=== PATIENT | female | born 1995 | race Caucasian/White ===

== ENCOUNTER 2020-03-06 14:03 | Emergency (ER) | payer MEDICAID, SELFPAY ==
[2020-03-06 14:37] VITALS: BP 138/79; PULSE 86; RESP 16; TEMP 37.1; O2SAT 100; BMI 21.7
[2020-03-06 15:59] LABS: Influenza A PCR NEGATIVE (Negative); Influenza B PCR NEGATIVE (Negative); Resp Syncy Virus RNA Qual PCR NEGATIVE (Negative); SARS COV2 PCR INHOUSE NEGATIVE (Negative)
[2020-03-06 16:00] VITALS: BP 130/70; PULSE 81; RESP 16; TEMP 36.9; O2SAT 100
--- NOTE | 2020-03-06 16:47 | ED_ITS ---
HPI - Nausea/Vomiting/Diarrhea General Chief complaint: Nausea/Vomiting/Diarrhea Stated complaint: flu like symptoms Source: patient Mode of arrival: ambulatory Limitations: no limitations History of Present Illness HPI Narrative: Patient presents to ED for viral-like syndrome. Patient states headache, body aches, fatigue, vomiting and chills for the past 4 days. Patient states no chest pain or shortness of breath. Patient denies any abdominal pain, dysuria, hematuria, flank pain, vaginal bleeding, vaginal discharge. Patient denies any coughing up blood Related Data Allergies Allergy/AdvReac Type Severity Reaction Status Date / Time sumatriptan [From IMITREX] Allergy Mild FAINTED, Verified 03/06/20 14:40 EYES ROLLED BACK, SOB latex [LATEX] Allergy Unknown UNKNOWN Verified 03/06/20 14:40 From IMITREX Allergy Mild FAINTED, Uncoded 11/29/19 16:18 EYES ROLLED BACK, SOB Review of Systems Review of Systems: Yes all other systems are reviewed and are negative Constitutional: Constitutional: Reports as per HPI, Reports no additional constitutional complaints, Reports body ache(s), Reports chills, Reports fatigue and Reports headache(s) Eyes: Eyes: Reports as per HPI and Reports no additional eye complaints ENT: Reports system reviewed and no additional complaints, except as documented, Reports as per HPI and Reports headache(s) Cardiovascular: Cardiovascular: Reports as per HPI and Reports no additional cardiovascular complaints Respiratory: Respiratory: Reports as per HPI and Reports no additional respiratory complaints Gastrointestinal: Gastrointestinal: Reports no additional gastrointestinal complaints, Denies abdominal pain and Reports vomiting Genitourinary: Genitourinary: Reports no additional female genitourinary complaints and Reports as per HPI Musculoskeletal: Musculoskeletal: Reports no additional musculoskeletal complaints and Reports as per HPI Neurologic: Reports system reviewed and no additional complaints, except as documented, Reports as per HPI and Reports headache(s) Psychiatric: Psychiatric: Reports no additional psychiatric complaints and Reports as per HPI Endocrine: Endocrine: Reports fatigue PMFSH Past Medical History Medical History (Updated 03/06/20 @ 16:54 by DIEUDONNE Hartman) Asthma Social History Social History Advance Directives: No Advance Directives Information Provided: No Physical Exam Vital Signs: Vital Signs: Last Vital Signs Temp 98.8 F 03/06/20 14:37 Pulse 86 03/06/20 14:37 Resp 16 03/06/20 14:37 BP 138/79 12/24/20 14:37 Pulse Ox 100 03/06/20 14:37 Body Mass Index 21.7 Const: General: cooperative, healthy appearing, comfortable, no acute distress, well developed, alert, awake and Physically active Orientation/consciousness: patient oriented x3 HENMT: Head: Yes normal to inspection, Yes No palpable skull fracture present, Yes normocephalic, Yes atraumatic, No abrasion, No Acrocyanosis present, No Hall's sign, No contusion, No cranial bruits, No hematoma, No laceration, No occipital foramen tenderness, No palpable skull fracture, No raccoon eyes, No scalp lesion, No scalp tenderness, No Temporal artery tenderness present and No periorbital ecchymosis General nose exam: Normal external nose present, Normal nares present and No nasal polyps present Face and sinus: Yes normal facial exam Throat: Yes posterior oropharynx normal, Yes tonsils normal and Yes uvula midline Eyes: Other: Negative photophobia General: appearance normal, both eyes and all related structures Neck: Neck: Yes normal visual inspection, Yes full ROM, Yes no lymphadenopathy, Yes no meningeal signs, Yes trachea midline, Yes supple and No tender Chest: Chest palpation & inspection: normal inspection of the chest and normal palpation of entire chest wall Resp: Effort & Inspection: normal respiratory effort and able to speak in complete sentences Auscultation: clear to auscultation bilaterally Cardio: Jugular venous distension: no JVD Heart sounds: S1 normal heart sound present and S2 normal heart sound present GI: Inspection: Yes normal to inspection and No abdominal wall ecchymosis Palpation (GI): Soft to palpation, not firm, nontender, no guarding and not rigid : General: No CVA tenderness and Yes no CVA tenderness Back/Spine/Pelvis: Back: no CVA tenderness, No CVA tenderness and No back tenderness Skin: General skin exam: no rashes or lesions noted and elasticity normal Neuro: General: patient oriented x3, gait normal, no meningeal signs and CN's II-XI intact bilaterally Cranial nerves: Yes CN's II-XII intact bilaterally Extrem: General: Yes normal to inspection and Yes full ROM Psych: Appearance: grossly normal, well kempt and not disheveled Course Course Course Narrative: Patient has viral syndrome. Vital signs are stable. No need for labs. Patient will have COVID swab sent. Reevaluation(s) Reevaluation #1: COVID swab came back negative. Patient was informed this does not mean she does not have COVID. Patient informs insert and individuals can have false negative. Patient informed to continue self-isolation if symptoms worsen. Patient denies ever having abdominal pain. Patient did not have any vomiting during ED visit. Patient passed p.o. challenge. Time: 16:52 MDM - Nausea/Vomiting/Diarrhea MDM Narrative Medical decision making narrative: Viral syndrome Lab Data Labs: Lab Results 03/06/20 Range/Units 15:13 Coronavirus (PCR) NEGATIVE (Negative) Influenza Type A (PCR) NEGATIVE (Negative) Influenza Type B (PCR) NEGATIVE (Negative) RSV RNA Qual (PCR) NEGATIVE (Negative) Discharge Plan Discharge Clinical Impression: Acute viral syndrome Patient Disposition: Home, Self-Care Instructions: Viral Syndrome (ED) Additional Instructions: Return to the ED immediately for any abdominal pain, vaginal bleeding, vaginal discharge, pain for urination, neck stiffness, intractable fever, chills, weakness, or any other concerning symptoms. Recommend 14 days self-isolation if symptoms worsen. Referrals: [facility] [Primary Care Provider] - 2 days (Viral syndrome.) Print Language: [place]
== END 2020-03-06 17:24 | disposition home or self-care (01) ==
PROVIDERS: Physician Assistant; Emergency Provider Emergency Medicine
DX: B34.9 Viral infection, unspecified (principal); Z20.828 Contact with and (suspected) exposure to other viral communicable diseases; R51.9 Headache, unspecified; J45.909 Unspecified asthma, uncomplicated
CPT/HCPCS: 0241U; 99284

== ENCOUNTER 2020-03-08 10:27 | Emergency (ER) | payer MEDICAID, SELFPAY ==
[2020-03-08 10:31] VITALS: BP 111/81; BP 126/72; PULSE 87; PULSE 90; RESP 20; TEMP 36.9; O2SAT 100; BMI 21.7
--- NOTE | 2020-03-08 12:11 | US_ITS ---
EXAMINATION: US ABDOMEN COMPLETE CLINICAL INFORMATION: Right upper quadrant, epigastric and left upper quadrant pain with nausea and vomiting. COMPARISON: CT abdomen 02/08/2010. TECHNIQUE: Real-time imaging of the abdominal viscera. FINDINGS: PANCREAS: No pancreatic mass is seen but the duct in the head of the pancreas is prominent at 5 mm. ABDOMINAL AORTA: The proximal, mid, and distal segments are normal in caliber. INFERIOR VENA CAVA: Visualized portions are normal. LIVER: The liver is normal in size. The liver contour is normal. Parenchymal echogenicity is normal. No focal hepatic lesion. There is no intrahepatic biliary duct dilatation seen. GALLBLADDER: The gallbladder is physiologically distended without evidence of stones, sludge, polyps, wall thickening or pericholecystic fluid. COMMON BILE DUCT: Normal in caliber measuring 0.8 cm in diameter. RIGHT KIDNEY: A mid pole 2 mm nonobstructing calculus is present. No hydronephrosis. No other renal calculi or focal parenchymal lesions. The kidney measures 10.2 cm in maximum dimension. LEFT KIDNEY: A lateral to mid pole 2 mm echogenic focus is present along with a similar-sized echogenic focus in the lower pole consistent with nonobstructing calculi. A tiny 2 mm renal cyst is noted. No hydronephrosis. No solid focal parenchymal lesions. The kidney measures 10.2 cm in maximum dimension. SPLEEN: Normal. The spleen measures 8.9 cm in maximum dimension. FREE FLUID: None. US/US abdomen complete IMPRESSION: Prominent distal pancreatic duct but no obstructing mass seen. Nonobstructing bilateral renal calculi.
[2020-03-08] MEDS: 0.9 % Sodium Chloride 1,000 ML 999 ML IVCONT (13:21)
[2020-03-08] MEDS: Famotidine/PF 20 MG/2 ML VIAL IVPUSH (13:21)
[2020-03-08] MEDS: Magnesium Hydrox/Alum Hydrox 30 ML ORAL.SUSP PO (13:22)
[2020-03-08 13:23] LABS: Basophils Percent Auto 0.4 % (0-2); Eosinophils Absolute Auto 0.1 X10*3/uL (0.0-0.4); Eosinophils Percent Auto 0.6 % (0-4); Hematocrit 39.2 % (37-47); Imm Gran Abs Auto 0.03 X10*3/uL (0.00-0.03); Imm Gran Pct Auto 0.3 % (0.0-0.4); Lymphocytes Absolute Auto 2.1 X10*3/uL (1.2-4.9); Lymphocytes Percent Auto 21.7 % (20-40); MANUAL DIFF FLAG NO; Mean Corpuscular HGB Conc 33.2 g/dl (31.0-35.0); Mean Corpuscular Hemoglobin 28.4 pg (27.0-33.0); Mean Corpuscular Volume 85.8 fL (80-98); Mean Platelet Volume 12.9 fL (9.4-12.3); Monocytes Absolute Auto 0.6 X10*3/uL (0.1-1.2); Monocytes Percent Auto 5.8 % (2-11); Neutrophils Percent Auto 71.2 % (45-73); Platelet Count 162 X10*3/uL (160-400); Red Blood Count 4.57 X10*6/uL (4.20-5.50); Red Cell Distribution Width 13.2 % (11.0-16.0); White Blood Count 9.9 X10*3/uL (4.8-10.8)
[2020-03-08 13:53] LABS: Alanine Aminotransferase 10 U/L (0-31); Albumin Level 4.5 g/dL (3.5-5.0); Alkaline Phosphatase 51 U/L (39-117); Anion Gap 16 (12-20); Aspartate Amino Transferase 17 U/L (5-31); Bilirubin Direct 0.5 mg/dL (0.0-0.5); Bilirubin Total 1.2 mg/dL (0.0-1.0); Blood Urea Nitrogen 14 mg/dL (9-16); Calcium 9.3 mg/dL (8.4-10.2); Carbon Dioxide 23 mmol/L (22-29); Chloride 105 mmol/L (96-108); Creatinine Clr Calc Pharmacy 77.4; Estimated Glomerular Filt Rate > 60; Glucose Random 81 mg/dL (60-115); Lipase 11 U/L (8-78); Magnesium 2.2 mg/dL (1.6-2.6); Potassium 3.5 mmol/l (3.3-5.1); Sodium 140 mmol/L (135-145); Total Protein 7.5 g/dL (6.5-8.0)
[2020-03-08 14:22] VITALS: BP 102/51; PULSE 78; RESP 18; TEMP 36.2; O2SAT 99
--- NOTE | 2020-03-08 14:39 | CT_ITS ---
EXAMINATION: CT ABDOMEN AND PELVIS WITH CONTRAST CLINICAL INFORMATION: Epigastric/right upper quadrant pain with nausea and vomiting. Prominent distal pancreatic duct seen on ultrasound. COMPARISON: Ultrasound performed earlier today, CT abdomen and pelvis 02/08/2010. TECHNIQUE: Multidetector volumetric images were obtained from the superior aspect of the liver through the pubic symphysis following administration 85 mL of Omnipaque 350 intravenous contrast. Sagittal and coronal reformatted images were obtained on the technologist's workstation. Oral contrast: No This CT examination was performed using dose optimization techniques as appropriate, variously including the following: *Automated exposure control *Adjustment of mA and/or kV according to patient size (this includes techniques or standardized protocols for targeted exams where dose is matched to indication/reason for exam; i.e. extremities or head) *Use of iterative reconstruction technique DLP: 378 mGy-cm FINDINGS: LUNG BASES: The visualized lung bases are unremarkable. LIVER, GALLBLADDER, AND BILIARY TREE: The liver is normal in size, shape, and attenuation. No focal hepatic lesion or biliary ductal dilatation is present. The gallbladder is unremarkable with no evidence of radiopaque gallstones, gallbladder wall thickening, or obvious pericholecystic inflammatory changes. PANCREAS: Unremarkable. What was thought to be the distal pancreatic duct on the ultrasound exam is merely a slightly ectatic distal common bile duct. The pancreatic duct is not dilated. SPLEEN: Unremarkable. ADRENAL GLANDS: Unremarkable. KIDNEYS AND URETERS: The kidneys are normal in size, shape, and attenuation. Multiple small punctate renal calculi are present bilaterally, significantly more than were seen on the prior ultrasound. No hydronephrosis or hydroureter is seen. No perinephric stranding. BLADDER: Unremarkable. GASTROINTESTINAL TRACT: The small and large bowel is unremarkable. The appendix is unremarkable. ABDOMINAL WALL: No significant hernia is appreciated. LYMPH NODES: No retroperitoneal lymphadenopathy. Small inguinal nodes are present. VASCULAR: Unremarkable. PELVIC VISCERA: An anteverted uterus is present containing an IUD. An abnormal adnexal mass is not seen. No free intraperitoneal fluid is present. OSSEOUS STRUCTURES: Unremarkable. CT/CT abdomen pelvis w con IMPRESSION: A cause for the patient's epigastric pain has not been found. The pancreas appears normal without ductal dilatation. Incidental note is made of punctate, nonobstructing bilateral renal calculi.
[2020-03-08 14:40] LABS: Glucose Urine UA NEG (NEG); Leukocyte Esterase Urine NEG (NEG); Nitrite Urine NEG (NEG); Urine Blood NEG (NEG); Urine Ketones >=80 MG/DL (NEG); Urine Protein NEG (NEG-TRACE)
--- NOTE | 2020-03-08 14:41 | ED_ITS ---
HPI - Nausea/Vomiting/Diarrhea General Chief complaint: Nausea/Vomiting/Diarrhea Stated complaint: headache Time Seen by Provider: 03/08/20 11:57 Source: patient and EMS Mode of arrival: EMS History of Present Illness HPI Narrative: 25-year-old female with a past medical history of asthma, presenting to the ED complaining of myalgias/body aches, generalized fatigue, nausea, vomiting, and upper abdominal pain x a few days. Admits was recently seen and treated in the ED for similar symptoms, COVID-19 test which was negative. Reports decreased p.o. intake. Denies fever, CP/SOB, cough, dysuria/hematuria, sick contacts, recent travel MD elicited complaint: nausea, vomiting and abdominal pain Related Data Previous Rx's Medication Instructions Recorded alum-mag hydroxide-simeth [Maalox 5 ml PO 5XD #3000 ml 03/08/20 Advanced] omeprazole 20 mg PO DAILY 10 Days #10 tab 03/08/20 ondansetron HCl [Zofran] 4 mg PO Q8H PRN #10 tab 03/08/20 Allergies Allergy/AdvReac Type Severity Reaction Status Date / Time sumatriptan [From IMITREX] Allergy Mild FAINTED, Verified 03/06/20 14:40 EYES ROLLED BACK, SOB latex [LATEX] Allergy Unknown UNKNOWN Verified 03/06/20 14:40 From IMITREX Allergy Mild FAINTED, Uncoded 11/29/19 16:18 EYES ROLLED BACK, SOB Review of Systems Review of Systems: Constitutional: No Weight loss, No Fever, + Chills, No Night Sweats, + Fatigue, + Malaise Cardiovascular: No Chest Pain, No SOB Respiratory: No Cough, No Sputum Gastrointestinal: + Nausea, + Vomiting, No Diarrhea, No Constipation, + Abdominal pain Genitourinary: No irregular bleeding, No Dysuria, No Urinary Frequency, No Hematuria, No Flank Pain Musculoskeletal: No joint pain, + Myalgias, No Joint Swelling Skin: No Skin Lesions, No rash Neuro: No Weakness, No Numbness, No Paresthesias, No Loss of Consciousness, No Dizziness, + Headache Yes all other systems are reviewed and are negative PMFSH Past Medical History Attestation statement: The following information was validated with the patient. Medical History (Updated 03/08/20 @ 16:20 by DIEUDONNE Helms) Asthma Social History Social History Alcohol intake: never Smoking Status: Never smoker Smoked in Last 30 Days: No Use of substances other than those prescribed or required for medical reasons: Yes Substance Use Type: Marijuana Advance Directives: No Advance Directives Information Provided: No Physical Exam Vital Signs: Vital Signs: Last Vital Signs Temp 97.2 F 03/08/20 14:22 Pulse 78 03/08/20 14:22 Resp 18 03/08/20 14:22 BP 102/51 L 03/08/20 14:22 Pulse Ox 99 03/08/20 14:22 Body Mass Index 21.7 Const: General: cooperative and healthy appearing Or ientation/consciousness: patient oriented x3 Limitations: no limitations HENMT: Head: Yes normal to inspection Ears: hearing grossly normal bilaterally General nose exam: Normal external nose present Face and sinus : Yes normal facial exam Eyes: General: appearance normal, both eyes and all related structures EOM: EOMs intact bilaterally Neck: Neck: Yes normal visual inspection Resp: Effort & Inspection: normal respiratory effort Auscultation: clear to auscultation bilaterally, no crackles, no rhonchi and no wheezes Cardio: Rate: regular rate Heart sounds: S1 normal heart sound present and S2 normal heart sound present GI: Inspection: Yes normal to inspection Palpation (GI): Soft to palpation, Tenderness to palpation present (GI) in the epigastrum and in the RUQ, no guarding and not rigid : General: Yes CVA tenderness on the left Skin: Rashes: no rashes Wounds: no wounds Neuro: General: patient oriented x3 Gait exam (Neuro): Normal gait present Extrem: General: Yes normal to inspection Course Course Course Narrative: * Labs and UA unremarkable * Ultrasound showing prominent distal pancreatic duct but no obstructing mass seen. Nonobstructing bilateral renal calculi > will obtain CT AP for further evaluation 1616- CT abdomen pelvis w con IMPRESSION: A cause for the patient's epigastric pain has not been found. The pancreas appears normal without ductal dilatation. Incidental note is made of punctate, nonobstructing bilateral renal calculi. * Lab and imaging results discussed with patient including close GI follow-up and PCP follow-up. She verbalized understanding feel safe for discharge home MDM - Nausea/Vomiting/Diarrhea MDM Narrative Medical decision making narrative: 25-year-old female with a past medical history of asthma, presenting to the ED complaining of myalgias/body aches, generalized fatigue, nausea, vomiting, and upper abdominal pain x a few days. On exam VSS, NAD/well appearing, abdomen soft with epigastric/right upper quadrant tenderness. Mild left CVAT noted. No rebound or guarding. Concern for viral syndrome vs cholecystitis/cholelithiasis or pancreatitis. Renal stone on differential. Unlikely appendicitis/diverticulitis Plan: Labs, UA, abdomen ultrasound, IVF, symptomatic treatment/reassess Lab Data Result diagrams: 03/08/20 13:18 03/08/20 13:18 Labs: Lab Results 03/08/20 03/08/20 03/08/20 Range/Units 13:18 13:18 13:18 WBC 9.9 (4.8-10.8) X10*3/uL RBC 4.57 (4.20-5.50) X10*6/uL Hgb 13.0 (12.0-16.0) g/dl Hct 39.2 (37-47) % MCV 85.8 (80-98) fL MCH 28.4 (27.0-33.0) pg MCHC 33.2 (31.0-35.0) g/dl RDW 13.2 (11.0-16.0) % Plt Count 162 (160-400) X10*3/uL MPV 12.9 H (9.4-12.3) fL Immature Gran % (Auto) 0.3 (0.0-0.4) % Neut % (Auto) 71.2 (45-73) % Lymph % (Auto) 21.7 (20-40) % [place] % (Auto) 5.8 (2-11) % Eos % (Auto) 0.6 (0-4) % Baso % (Auto) 0.4 (0-2) % Lymph # (Auto) 2.1 (1.2-4.9) X10*3/uL [place] # (Auto) 0.6 (0.1-1.2) X10*3/uL Eos # (Auto) 0.1 (0.0-0.4) X10*3/uL Baso # (Auto) 0.0 (0.0-0.2) X10*3/uL Abs Immat Gran (auto) 0.03 (0.00-0.03) X10*3/uL Absolute Neuts (auto) 7.0 (2.0-8.3) X10*3/uL Absolute Nucleated RBC 0.000 (0.0-0.012) X10*3/uL Nucleated RBC % (auto) 0.0 (0.0-0.2) /100WBC Hold Blue Top SEE NOTE Sodium 140 (135-145) mmol/L Potassium 3.5 (3.3-5.1) mmol/l Chloride 105 (96-108) mmol/L Carbon Dioxide 23 (22-29) mmol/L Anion Gap 16 (12-20) BUN 14 (9-16) mg/dL Creatinine 0.83 (0.5-1.4) mg/dL Estim Creat Clear Calc 77.4 Estimated GFR > 60 Random Glucose 81 (60-115) mg/dL Calcium 9.3 (8.4-10.2) mg/dL Magnesium 2.2 (1.6-2.6) mg/dL Total Bilirubin 1.2 H (0.0-1.0) mg/dL Direct Bilirubin 0.5 (0.0-0.5) mg/dL AST 17 (5-31) U/L ALT 10 (0-31) U/L Alkaline Phosphatase 51 (39-117) U/L Total Protein 7.5 (6.5-8.0) g/dL Albumin 4.5 (3.5-5.0) g/dL Lipase 11 (8-78) U/L Urine Color Urine Appearance Urine pH (5.0-8.0) Ur Specific [place] (1.005-1.025) Urine Protein (NEG-TRACE) MG/DL Urine Glucose (UA) (NEG) MG/DL Urine Ketones (NEG) MG/DL Urine Blood (NEG) Urine Nitrite (NEG) Ur Leukocyte Esterase (NEG) Urine Test (NEGATIVE) 03/08/20 Range/Units 14:31 WBC (4.8-10.8) X10*3/uL RBC (4.20-5.50) X10*6/uL Hgb (12.0-16.0) g/dl Hct (37-47) % MCV (80-98) fL MCH (27.0-33.0) pg MCHC (31.0-35.0) g/dl RDW (11.0-16.0) % Plt Count (160-400) X10*3/uL MPV (9.4-12.3) fL Immature Gran % (Auto) (0.0-0.4) % Neut % (Auto) (45-73) % Lymph % (Auto) (20-40) % [place] % (Auto) (2-11) % Eos % (Auto) (0-4) % Baso % (Auto) (0-2) % Lymph # (Auto) (1.2-4.9) X10*3/uL [place] # (Auto) (0.1-1.2) X10*3/uL Eos # (Auto) (0.0-0.4) X10*3/uL Baso # (Auto) (0.0-0.2) X10*3/uL Abs Immat Gran (auto) (0.00-0.03) X10*3/uL Absolute Neuts (auto) (2.0-8.3) X10*3/uL Absolute Nucleated RBC (0.0-0.012) X10*3/uL Nucleated RBC % (auto) (0.0-0.2) /100WBC Hold Blue Top Sodium (135-145) mmol/L Potassium (3.3-5.1) mmol/l Chloride (96-108) mmol/L Carbon Dioxide (22-29) mmol/L Anion Gap (12-20) BUN (9-16) mg/dL Creatinine (0.5-1.4) mg/dL Estim Creat Clear Calc Estimated GFR Random Glucose (60-115) mg/dL Calcium (8.4-10.2) mg/dL Magnesium (1.6-2.6) mg/dL Total Bilirubin (0.0-1.0) mg/dL Direct Bilirubin (0.0-0.5) mg/dL AST (5-31) U/L ALT (0-31) U/L Alkaline Phosphatase (39-117) U/L Total Protein (6.5-8.0) g/dL Albumin (3.5-5.0) g/dL Lipase (8-78) U/L Urine Color YELLOW Urine Appearance CLEAR Urine pH 6.0 (5.0-8.0) Ur Specific [place] 1.020 (1.005-1.025) Urine Protein NEG (NEG-TRACE) MG/DL Urine Glucose (UA) NEG (NEG) MG/DL Urine Ketones >=80 (NEG) MG/DL Urine Blood NEG (NEG) Urine Nitrite NEG (NEG) Ur Leukocyte Esterase NEG (NEG) Urine Test NEGATIVE (NEGATIVE) Discharge Plan Discharge Clinical Impression: Abdominal pain Qualifiers: Abdominal location: epigastric Qualified Code(s): R10.13 - Epigastric pain Nausea & vomiting Qualifiers: Vomiting type: unspecified Vomiting Intractability: non-intractable Qualified Code(s): R11.2 - Nausea with vomiting, unspecified Patient Disposition: Home, Self-Care Instructions: Abdominal Pain (ED) Additional Instructions: Your blood work was reassuring today in the ED Your CT scan showed some dilation of her pancreatic duct, however your CT scan did not show any acute findings You should follow-up with the GI doctor Brent as an anti nausea medication, take as needed Omeprazole and Maalox will help with your stomach discomfort Follow-up with her primary care doctor Makes sure you are staying hydrated at home cough if he develops fever, unbearable pain, or persistent nausea/vomiting return to the ED Prescriptions: New ondansetron HCl [Zofran] 4 mg tablet 4 mg PO Q8H PRN (Reason: nausea and vomiting) Qty: 10 RF: 0 alum-mag hydroxide-simeth [Maalox Advanced] 200-200-20 mg/5 mL suspension 5 ml PO 5XD Qty: 3000 RF: 0 omeprazole 20 mg tablet,delayed release (DR/EC) 20 mg PO DAILY 10 Days Qty: 10 RF: 0 Referrals: Anderson Moore MD [Physician] - 1 week [place] [Primary Care Provider] - 2 days
[2020-03-08 14:43] LABS: UPreg QC Valid YES
[2020-03-08 14:44] LABS: Appearance Urine CLEAR; Color Urine YELLOW; Urine Pregnancy NEGATIVE (NEGATIVE)
[2020-03-08] MEDS: iohexoL 350 MG/ML 100 ML INFUS..BTL 85 ML IV (15:30)
== END 2020-03-08 16:34 | disposition home or self-care (01) ==
PROVIDERS: Physician Assistant; Emergency Provider Emergency Medicine Emergency Medical Services
DX: R10.13 Epigastric pain (principal); R11.2 Nausea with vomiting, unspecified
CPT/HCPCS: 36415; 74177; 76700; 80048; 80076; 81003; 81025; 83690; 83735; 85025; 96361; 96374; 99284; Q9967

== ENCOUNTER 2020-04-18 09:36 | Emergency (ER) | payer MEDICAID, SELFPAY ==
--- NOTE | ~2020-04-18 | US_ITS ---
EXAMINATION: US ABDOMEN LIMITED CLINICAL INFORMATION: Upper abdominal pain x2 days with nausea and vomiting. COMPARISON: None TECHNIQUE: Real-time imaging of the right upper quadrant abdominal viscera. FINDINGS: PANCREAS: Normal. LIVER: Normal. The liver is normal in size. The liver contour is normal. Parenchymal echogenicity is normal. No focal hepatic lesion. There is no intrahepatic biliary duct dilatation seen. GALLBLADDER: Normal. The gallbladder is physiologically distended without evidence of stones, sludge, polyps, wall thickening or pericholecystic fluid. COMMON BILE DUCT: Normal in caliber measuring 0.53 cm in diameter. RIGHT KIDNEY: There are small echogenic nonobstructive stone measuring 0.2 x 0.2 cm. No additional lesions seen. There is no hydronephrosis. The kidney measures 10.5 cm in maximum dimension. FREE FLUID: None. US/US abdomen limited IMPRESSION: Small nonobstructive echogenic stone right kidney. No caliectasis or hydronephrosis.
[2020-04-18 09:56] VITALS: BP 107/71; PULSE 92; RESP 20; TEMP 36.1; O2SAT 99; BMI 23.0
[2020-04-18 11:36] LABS: Glucose Urine UA NEG (NEG); Leukocyte Esterase Urine NEG (NEG); Nitrite Urine NEG (NEG); Specific Gravity - Urine 1.025 (1.005-1.025); Urine Blood TRACE (NEG); Urine Ketones >=80 MG/DL (NEG); Urine Protein TRACE MG/DL (NEG-TRACE)
[2020-04-18 11:38] LABS: Appearance Urine HAZY; Color Urine DARK YELLOW; UPreg QC Valid YES; Urine Pregnancy NEGATIVE (NEGATIVE)
[2020-04-18 11:50] LABS: UACC CULT YES
[2020-04-18 11:51] LABS: Bacteria Urine TRACE /LPF; Mucus Urine 3+ /LPF; Squamous Epithelial Cell Urine 1+ /LPF
[2020-04-18] MEDS: Ketorolac Tromethamine 15 MG/ML VIAL 30 MG IV (11:56)
[2020-04-18] MEDS: 0.9 % Sodium Chloride 1,000 ML 999 ML IVCONT (11:56)
[2020-04-18 12:00] LABS: MANUAL DIFF FLAG NO
[2020-04-18 12:04] LABS: INTERNATIONAL NORM RATIO 1.2 (0.9-1.1); Prothrombin Time 14.5 SEC (10.8-13.0)
--- NOTE | 2020-04-18 12:10 | ED.ABDPAIN ---
HPI - Abdominal Pain General Chief Complaint: Abdominal Pain Stated Complaint: abd pain Time Seen by Provider: 04/18/20 11:13 Source: patient Mode of arrival: ambulatory Limitations: no limitations History of Present Illness HPI narrative: 25yoF c PMHx of asthma, renal calculi and appendectomy presenting to the ED with complaints of upper abdominal pain with associated nausea/vomiting for the past 2 days. Denies recent travel or sick contacts. Denies any fevers, chills, hemoptysis, chest pain, shortness of breath, back pain, radiation of the pain, hematuria, dysuria, increased urinary urgency/frequency, diarrhea constipation or any other symptoms complaints or concerns at this time. MD elicited complaint: abdominal pain Pertinent past history: other (History of renal calculi) Onset (ago): day(s) (Two days worse today) Pain Consistency: constant and colicky Location: epigastric Severity: moderate Quality: aching Radiation: none Migration to: no migration Exacerbating factors: eating Relieving factors: nothing Associated symptoms: nausea, vomiting and chills Related Data Previous Rx's Medication Instructions Recorded alum-mag hydroxide-simeth [Maalox 5 ml PO 5XD #3000 ml 03/08/20 Advanced] omeprazole 20 mg PO DAILY 10 Days #10 tab 03/08/20 ondansetron HCl [Zofran] 4 mg PO Q8H PRN #10 tab 03/08/20 acetaminophen-codeine 1 tab PO Q8H PRN #10 tab 04/18/20 famotidine [Pepcid] 20 mg PO BID #10 tab 04/18/20 metoclopramide HCl [Reglan] 10 mg PO Q6H PRN #10 tab 04/18/20 ondansetron HCl [Zofran] 4 mg PO Q6H PRN #10 tab 04/18/20 Allergies Allergy/AdvReac Type Severity Reaction Status Date / Time sumatriptan [From IMITREX] Allergy Mild FAINTED, Verified 03/06/20 14:40 EYES ROLLED BACK, SOB latex [LATEX] Allergy Unknown UNKNOWN Verified 03/06/20 14:40 From IMITREX Allergy Mild FAINTED, Uncoded 11/29/19 16:18 EYES ROLLED BACK, SOB Review of Systems Review of Systems Constitutional : + Chills, No Weight loss, No Fever, No Night Sweats, No Fatigue, NoMalaise ENT/Mouth: No ear pain, No sore throat, No Difficulty swallowing Cardiovascular : No Chest Pain, No SOB, No Dyspnea on Exertion, No Orthopnea, NoEdema, No Palpitations Respiratory : No Cough, No Sputum, No Wheezing, No Dyspnea Gastrointestinal : + Nausea, + Vomiting, + Abdominal pain, No Diarrhea, No Hematochezia, No Melena Genitourinary : No irregular bleeding, No Dysuria, No Urinary Frequency, No Hematuria,No Urinary Incontinence, No Urgency, No Flank Pain Musculoskeletal : No joint pain, No Myalgias, No Joint Swelling Skin : No Skin Lesions, No rash Neuro : No Weakness, No Numbness, No Paresthesias, No Loss of Consciousness, NoDizziness, No Headache Psych : No Social Issues, Heme/Lymph: No Bruising, No Bleeding,No Lymphadenopathy Endocrine : No Polyuria, No Polydipsia, No Temperature Intolerance Yes all other systems are reviewed and are negative Physical Exam Vital Signs: Vital Signs: Last Vital Signs Temp 96.9 F 04/18/20 09:56 Pulse 92 04/18/20 09:56 Resp 20 04/18/20 09:56 BP 107/71 04/18/20 09:56 Pulse Ox 99 04/18/20 09:56 Body Mass Index 23.0 vital signs have been reviewed as normal and appeared to be correct. Blood pressure normal. Heart rate normal. Respiration rate normal. Temperature normal. Oxygen saturation normal. Appearance: Alert. Oriented X3. No acute distress. Head: Normal external exam. Normocephalic. Eyes: PERRLA. EOMI. Conjunctiva and sclera normal. Eyelids normal. ENT: Pharynx normal. Uvula midline. Moist mucous membranes. Neck: Normal inspection. Neck supple. FROM. No adenopathy. No meningeal signs. CVS: Normal heart rate and rhythm. Heart sound normal. No murmurs noted. Pulses normal throughout. Respiratory: No respiratory distress. Painless inspiration. Breath sounds normal. No wheezes/rales/rhonchi noted. Chest nontender. No accessory muscle usage noted or decreased air movement noted. Abdomen: Soft and TTP of upper/epigastric abd pain c guarding. + Smith's sign. Nondistended. No rigidity. Bowel sounds normal in all 4 quadrants. No distention noted. No organomegaly noted. No visible injury noted. No rebound tenderness. Negative Rovsing sign. Negative obturator's sign. Negative psoas sign. Back: No CVA tenderness. Full range of motion noted. Skin: Skin warm and dry. Normal skin color. Normal skin turgor. No rashes/lesions/lacerations noted. Extremities: Extremities exhibit normal range of motion. Extremities nontender. Neuro: Oriented X 3. No motor deficit. No sensory deficit. Reflexes normal. Course Course Course Narrative: 25yoF c PMHx of asthma and renal calculi presenting to the ED with complaints of upper abdominal pain with associated nausea/vomiting for the past 2 days. - concern for cholecystitis versus pancreatitis versus electrolyte abnormality versus viral syndrome - Plan: Labs, UA, UHCG and abd US. Provide a L of IV fluids, zofran and toradol. And re-evaluate Reevaluation(s) Reevaluation #1: - all labs within normal limits. UA within normal limits no evidence of UTI. UHCG negative for . - abdominal ultrasound revealed small nonobstructing echogenic stone in the right kidney otherwise No caliectasis or hydronephrosis - will give a GI cocktail and attempt a p.o. trial and if patient can tolerate p.o. trial will DC home with symptomatic treatment along with instructions to return if any new or worsening symptoms to follow up with primary care provider. Patient understands agrees the plan. Reevaluation #2: Patient was still unable to tolerate p.o. fluids after the p.o. Zofran and Toradol therefore given 10 mg of IV Reglan and is attempting another p.o. trial at this time. Will reassess Time: 15:37 Reevaluation #3: Patient tolerate the Reglan well and is now tolerating p.o. fluids and is requesting to go home at this time. Will DC home with a prescription for Reglan instead of the Zofran and instructions to return if any new or worsening symptoms to follow up with primary care provider. Patient and agrees the plan. Time: 16:21 [facility] - Abdominal Pain Medical Records Attestation: I reviewed the patient's medical records. Lab Data Attestation: I reviewed the patient's lab results. Result diagrams: 04/18/20 11:48 04/18/20 11:48 Labs: Lab Results 04/18/20 04/18/20 04/18/20 Range/Units 11:14 11:48 11:48 WBC 10.1 (4.8-10.8) X10*3/uL RBC 4.72 (4.20-5.50) X10*6/uL Hgb 13.6 (12.0-16.0) g/dl Hct 40.7 (37-47) % MCV 86.2 (80-98) fL MCH 28.8 (27.0-33.0) pg MCHC 33.4 (31.0-35.0) g/dl RDW 13.5 (11.0-16.0) % Plt Count 160 (160-400) X10*3/uL MPV 13.8 H (9.4-12.3) fL Immature Gran % (Auto) 0.5 H (0.0-0.4) % Neut % (Auto) 73.5 H (45-73) % Lymph % (Auto) 18.5 L (20-40) % [place] % (Auto) 6.9 (2-11) % Eos % (Auto) 0.1 (0-4) % Baso % (Auto) 0.5 (0-2) % Lymph # (Auto) 1.9 (1.2-4.9) X10*3/uL [place] # (Auto) 0.7 (0.1-1.2) X10*3/uL Eos # (Auto) 0.0 (0.0-0.4) X10*3/uL Baso # (Auto) 0.1 (0.0-0.2) X10*3/uL Abs Immat Gran (auto) 0.05 H (0.00-0.03) X10*3/uL Absolute Neuts (auto) 7.4 (2.0-8.3) X10*3/uL Absolute Nucleated RBC 0.000 (0.0-0.012) X10*3/uL Nucleated RBC % (auto) 0.0 (0.0-0.2) /100WBC PT 14.5 H (10.8-13.0) SEC INR 1.2 H (0.9-1.1) Sodium (135-145) mmol/L Potassium (3.3-5.1) mmol/L Chloride (96-108) mmol/L Carbon Dioxide (22-29) mmol/L Anion Gap (12-20) BUN (9-16) mg/dL Creatinine (0.5-1.4) mg/dL Estim Creat Clear Calc Estimated GFR Random Glucose (60-115) mg/dL Calcium (8.4-10.2) mg/dL Magnesium (1.6-2.6) mg/dL Total Bilirubin (0.0-1.0) mg/dL Direct Bilirubin (0.0-0.5) mg/dL AST (5-31) U/L ALT (0-31) U/L Alkaline Phosphatase (39-117) U/L Total Protein (6.5-8.0) g/dL Albumin (3.5-5.0) g/dL Lipase (8-78) U/L Urine Color DARK YELLOW Urine Appearance HAZY Urine pH 7.0 (5.0-8.0) Ur Specific [place] 1.025 (1.005-1.025) Urine Protein TRACE (NEG-TRACE) MG/DL Urine Glucose (UA) NEG (NEG) MG/DL Urine Ketones >=80 (NEG) MG/DL Urine Blood TRACE (NEG) Urine Nitrite NEG (NEG) Ur Leukocyte Esterase NEG (NEG) Urine RBC 1-4 (0) /HPF Urine WBC 5-9 H (0-4) /HPF Ur Squamous Epith Cells 1+ /LPF Urine Bacteria TRACE /LPF Urine Mucus 3+ /LPF Urine Test NEGATIVE (NEGATIVE) Coronavirus (PCR) (Negative) Influenza Type A (PCR) (Negative) Influenza Type B (PCR) (Negative) RSV RNA Qual (PCR) (Negative) 04/18/20 04/18/20 Range/Units 11:48 11:49 WBC (4.8-10.8) X10*3/uL RBC (4.20-5.50) X10*6/uL Hgb (12.0-16.0) g/dl Hct (37-47) % MCV (80-98) fL MCH (27.0-33.0) pg MCHC (31.0-35.0) g/dl RDW (11.0-16.0) % Plt Count (160-400) X10*3/uL MPV (9.4-12.3) fL Immature Gran % (Auto) (0.0-0.4) % Neut % (Auto) (45-73) % Lymph % (Auto) (20-40) % [place] % (Auto) (2-11) % Eos % (Auto) (0-4) % Baso % (Auto) (0-2) % Lymph # (Auto) (1.2-4.9) X10*3/uL [place] # (Auto) (0.1-1.2) X10*3/uL Eos # (Auto) (0.0-0.4) X10*3/uL Baso # (Auto) (0.0-0.2) X10*3/uL Abs Immat Gran (auto) (0.00-0.03) X10*3/uL Absolute Neuts (auto) (2.0-8.3) X10*3/uL Absolute Nucleated RBC (0.0-0.012) X10*3/uL Nucleated RBC % (auto) (0.0-0.2) /100WBC PT (10.8-13.0) SEC INR (0.9-1.1) Sodium 141 (135-145) mmol/L Potassium 4.0 (3.3-5.1) mmol/L Chloride 105 (96-108) mmol/L Carbon Dioxide 23 (22-29) mmol/L Anion Gap 17 (12-20) BUN 12 (9-16) mg/dL Creatinine 0.75 (0.5-1.4) mg/dL Estim Creat Clear Calc 85.8 Estimated GFR > 60 Random Glucose 90 (60-115) mg/dL Calcium 9.8 (8.4-10.2) mg/dL Magnesium 2.3 (1.6-2.6) mg/dL Total Bilirubin 0.8 (0.0-1.0) mg/dL Direct Bilirubin 0.4 (0.0-0.5) mg/dL AST 19 (5-31) U/L ALT 9 (0-31) U/L Alkaline Phosphatase 54 (39-117) U/L Total Protein 8.0 (6.5-8.0) g/dL Albumin 4.8 (3.5-5.0) g/dL Lipase 12 (8-78) U/L Urine Color Urine Appearance Urine pH (5.0-8.0) Ur Specific [place] (1.005-1.025) Urine Protein (NEG-TRACE) MG/DL Urine Glucose (UA) (NEG) MG/DL Urine Ketones (NEG) MG/DL Urine Blood (NEG) Urine Nitrite (NEG) Ur Leukocyte Esterase (NEG) Urine RBC (0) /HPF Urine WBC (0-4) /HPF Ur Squamous Epith Cells /LPF Urine Bacteria /LPF Urine Mucus /LPF Urine Test (NEGATIVE) Coronavirus (PCR) NEGATIVE (Negative) Influenza Type A (PCR) NEGATIVE (Negative) Influenza Type B (PCR) NEGATIVE (Negative) RSV RNA Qual (PCR) NEGATIVE (Negative) Imaging Data Abdominal ultrasound: Attestation: I personally reviewed and interpreted this imaging study as follows: Radiologist's impression: FINDINGS: LUNG BASES: The visualized lung bases are unremarkable. LIVER, GALLBLADDER, AND BILIARY TREE: The liver is normal in size, shape, and attenuation. No focal hepatic lesion or biliary ductal dilatation is present. The gallbladder is unremarkable with no evidence of radiopaque gallstones, gallbladder wall thickening, or obvious pericholecystic inflammatory changes. PANCREAS: Unremarkable. What was thought to be the distal pancreatic duct on the ultrasound exam is merely a slightly ectatic distal common bile duct. The pancreatic duct is not dilated. SPLEEN: Unremarkable. ADRENAL GLANDS: Unremarkable. KIDNEYS AND URETERS: The kidneys are normal in size, shape, and attenuation. Multiple small punctate renal calculi are present bilaterally, significantly more than were seen on the prior ultrasound. No hydronephrosis or hydroureter is seen. No perinephric stranding. BLADDER: Unremarkable. GASTROINTESTINAL TRACT: The small and large bowel is unremarkable. The appendix is unremarkable. ABDOMINAL WALL: No significant hernia is appreciated. LYMPH NODES: No retroperitoneal lymphadenopathy. Small inguinal nodes are present. VASCULAR: Unremarkable. PELVIC VISCERA: An anteverted uterus is present containing an IUD. An abnormal adnexal mass is not seen. No free intraperitoneal fluid is present. OSSEOUS STRUCTURES: Unremarkable. CT/CT abdomen pelvis w con IMPRESSION: A cause for the patient's epigastric pain has not been found. The pancreas appears normal without ductal dilatation. Incidental note is made of punctate, nonobstructing bilateral renal calculi. Discharge Plan Discharge Clinical Impression: Renal calculi, Acute upper abdominal pain, Nausea & vomiting, GERD (gastroesophageal reflux disease) Patient Disposition: Home, Self-Care Instructions: Renal Colic (ED), Gastroesophageal Reflux Disease (ED) Prescriptions: New ondansetron HCl [Zofran] 4 mg tablet 4 mg PO Q6H PRN (Reason: nausea and vomiting) Qty: 10 RF: 0 famotidine [Pepcid] 20 mg tablet 20 mg PO BID Qty: 10 RF: 0 acetaminophen-codeine 300-30 mg tablet 1 tab PO Q8H PRN (Reason: pain) Qty: 10 RF: 0 metoclopramide HCl [Reglan] 10 mg tablet 10 mg PO Q6H PRN (Reason: nausea and vomiting) Qty: 10 RF: 0 No Action ondansetron HCl [Zofran] 4 mg tablet 4 mg PO Q8H PRN (Reason: nausea and vomiting) Qty: 10 RF: 0 alum-mag hydroxide-simeth [Maalox Advanced] 200-200-20 mg/5 mL suspension 5 ml PO 5XD Qty: 3000 RF: 0 omeprazole 20 mg tablet,delayed release (DR/EC) 20 mg PO DAILY 10 Days Qty: 10 RF: 0 Referrals: [place]Primary [facility] Provider[facility] - 2 days Stand Alone Forms: Work/School Release Print Language: Tristanian [facility] Past Medical History Attestation statement: The following information was validated with the patient. Medical History Asthma Social History Social History Alcohol intake: never Smoking Status: Never smoker Use of substances other than those prescribed or required for medical reasons: Yes Substance Use Type: Marijuana Substance Use Frequency: Occasionally Advance Directives: No Advance Directives Information Provided: No
--- NOTE | 2020-04-18 12:12 | PC.NURSE ---
PT SEEN AND EVALUATED BY RICHA BRO. PT AWARE AND AGREEABLE TO PLAN. IV INSERTED, LABS OBTAINED, MEDICATED ORDERED FOR C/O PAIN. IVF INFUSING. PT CURRENTLY OFF UNIT TO ULTRASOUND
[2020-04-18 12:19] LABS: Basophils Absolute Auto 0.1 X10*3/uL (0.0-0.2); Basophils Percent Auto 0.5 % (0-2); Eosinophils Percent Auto 0.1 % (0-4); Hematocrit 40.7 % (37-47); Hemoglobin 13.6 g/dl (12.0-16.0); Imm Gran Abs Auto 0.05 X10*3/uL (0.00-0.03); Imm Gran Pct Auto 0.5 % (0.0-0.4); Lymphocytes Absolute Auto 1.9 X10*3/uL (1.2-4.9); Lymphocytes Percent Auto 18.5 % (20-40); Mean Corpuscular HGB Conc 33.4 g/dl (31.0-35.0); Mean Corpuscular Hemoglobin 28.8 pg (27.0-33.0); Mean Corpuscular Volume 86.2 fL (80-98); Mean Platelet Volume 13.8 fL (9.4-12.3); Monocytes Absolute Auto 0.7 X10*3/uL (0.1-1.2); Monocytes Percent Auto 6.9 % (2-11); Neutrophils Absolute Auto 7.4 X10*3/uL (2.0-8.3); Neutrophils Percent Auto 73.5 % (45-73); Platelet Count 160 X10*3/uL (160-400); Red Blood Count 4.72 X10*6/uL (4.20-5.50); Red Cell Distribution Width 13.5 % (11.0-16.0); White Blood Count 10.1 X10*3/uL (4.8-10.8)
[2020-04-18 12:34] LABS: Alanine Aminotransferase 9 U/L (0-31); Albumin Level 4.8 g/dL (3.5-5.0); Alkaline Phosphatase 54 U/L (39-117); Anion Gap 17 (12-20); Aspartate Amino Transferase 19 U/L (5-31); Bilirubin Direct 0.4 mg/dL (0.0-0.5); Bilirubin Total 0.8 mg/dL (0.0-1.0); Blood Urea Nitrogen 12 mg/dL (9-16); Calcium 9.8 mg/dL (8.4-10.2); Carbon Dioxide 23 mmol/L (22-29); Chloride 105 mmol/L (96-108); Creatinine Clr Calc Pharmacy 85.8; Estimated Glomerular Filt Rate > 60; Glucose Random 90 mg/dL (60-115); Lipase 12 U/L (8-78); Magnesium 2.3 mg/dL (1.6-2.6); Sodium 141 mmol/L (135-145)
[2020-04-18 12:40] LABS: Influenza A PCR NEGATIVE (Negative); Influenza B PCR NEGATIVE (Negative); Resp Syncy Virus RNA Qual PCR NEGATIVE (Negative); SARS COV2 PCR INHOUSE NEGATIVE (Negative)
[2020-04-18] MEDS: diphenhydrAMINE HCL 50 MG/ML VIAL IVPUSH (16:02)
--- NOTE | 2020-04-18 16:29 | PC.NURSE ---
pt passed po challenge.
== END 2020-04-18 17:01 | disposition home or self-care (01) ==
PROVIDERS: Physician Assistant Medical; Emergency Provider Emergency Medicine Emergency Medical Services
DX: N20.0 Calculus of kidney (principal); R10.10 Upper abdominal pain, unspecified; R11.2 Nausea with vomiting, unspecified; K21.9 Gastro-esophageal reflux disease without esophagitis; Z20.822 Contact with and (suspected) exposure to COVID-19
CPT/HCPCS: 0241U; 36415; 76705; 80048; 80076; 81001; 81025; 83690; 83735; 85025; 85610; 87086; 96361; 96374; 96375; 99284; J1200; J1885; J2765

== ENCOUNTER 2020-04-20 11:22 | Emergency (ER) | payer MEDICAID, SELFPAY ==
--- NOTE | ~2020-04-20 | XR_ITS ---
EXAMINATION: XR CHEST CLINICAL INFORMATION: Fever, nausea and vomiting and abdominal pain COMPARISON: Chest radiograph 10/12/2020 TECHNIQUE: Frontal view of the chest was obtained. FINDINGS: No significant abnormality is noted involving the heart, lungs, mediastinum, bony thorax or soft tissues. XR/XR chest 1V IMPRESSION: No acute disease within the chest.
--- NOTE | ~2020-04-20 | CT_ITS ---
EXAMINATION: CT ABDOMEN AND PELVIS WITHOUT CONTRAST CLINICAL INFORMATION: Upper abdominal pain with nausea and vomiting COMPARISON: CT of the abdomen and pelvis 03/08/2020 TECHNIQUE: Multidetector volumetric imaging was performed from the superior aspect of the liver through the pubic symphysis. Sagittal and coronal reformatted images were obtained on the technologist's workstation. This CT examination was performed using dose optimization techniques as appropriate, variously including the following: *Automated exposure control *Adjustment of mA and/or kV according to patient size (this includes techniques or standardized protocols for targeted exams where dose is matched to indication/reason for exam; i.e. extremities or head) *Use of iterative reconstruction technique DLP: 317 mGy-cm FINDINGS: LUNG BASES: The visualized lung bases are unremarkable. LIVER, GALLBLADDER, AND BILIARY TREE: The liver is normal in size, shape, and attenuation. No focal hepatic lesion or biliary ductal dilatation is present. The gallbladder is unremarkable with no evidence of radiopaque gallstones, gallbladder wall thickening, or obvious pericholecystic inflammatory changes. PANCREAS: Unremarkable. SPLEEN: Unremarkable. ADRENAL GLANDS: Unremarkable. KIDNEYS AND URETERS: The kidneys are normal in size, shape, and attenuation. No hydronephrosis or hydroureter. There are multiple punctate bilateral nonobstructive renal calculi.. No perinephric stranding. BLADDER: Unremarkable. GASTROINTESTINAL TRACT: The stomach and small bowel are not dilated. There is a large amount of stool within the cecum and ascending colon. The appendix is not visualized, and there are postsurgical changes of the cecum, likely from prior appendectomy. ABDOMINAL WALL: No significant hernia is appreciated. LYMPH NODES: Normal. VASCULAR: Unremarkable. PELVIC VISCERA: There is an intrauterine device within the uterus. There is a 2.7 cm cyst of the left ovary. There is a small amount of free fluid in the pelvis. OSSEOUS STRUCTURES: No acute or suspicious osseous abnormality. CT/CT abdomen pelvis wo con IMPRESSION: Multiple punctate nonobstructive bilateral renal calculi. No hydronephrosis or hydroureter. 2.7 cm cyst of the left ovary, with which can be further evaluated with pelvic ultrasound. Small amount of free fluid in the pelvis. Large amount of stool within the cecum and ascending colon, which may represent constipation.
[2020-04-20 11:32] VITALS: BP 115/72; PULSE 89; RESP 16; TEMP 36.7; O2SAT 99; BMI 21.7
--- NOTE | 2020-04-20 13:09 | ED_ITS ---
HPI - Abdominal Pain General Chief Complaint: Abdominal Pain Stated Complaint: ABD PAIN Time Seen by Provider: 04/20/20 12:01 Source: patient Mode of arrival: ambulatory Limitations: no limitations History of Present Illness HPI narrative: 25yoF c PMHx of asthma, renal calculi and appendectomy presenting to the ED with complaints of upper abdominal pain with associated fevers and nausea/vomiting for the past 4 days. Denies recent travel or sick contacts. Denies any fevers, chills, hemoptysis, chest pain, shortness of breath, back pain, radiation of the pain, hematuria, dysuria, increased urinary urgency/freq uency, diarrhea constipation or any other symptoms complaints or concerns at this time. Patient was seen here on 04/18/2020 with similar complaints had a full workup and an ultrasound which was all negative had a normal UA and was negative for had a negative COVID/RSV and flu. Reports she was seen at [facility] yesterday for same complaint and he told her she had a viral syndrome although she reports they did not do any workup or imaging. MD elicited complaint: abdominal pain Pertinent past history: kidney stones Onset (ago): day(s) (Four days worse today) Pain Consistency: constant Location: epigastric Severity: moderate Quality: cramping and aching Radiation: none Migration to: no migration Exacerbating factors: nothing Relieving factors: nothing Associated symptoms: nausea and vomiting Related Data Previous Rx's Medication Instructions Recorded alum-mag hydroxide-simeth [Maalox 5 ml PO 5XD #3000 ml 03/08/20 Advanced] omeprazole 20 mg PO DAILY 10 Days #10 tab 03/08/20 ondansetron HCl [Zofran] 4 mg PO Q8H PRN #10 tab 03/08/20 acetaminophen-codeine 1 tab PO Q8H PRN #10 tab 04/18/20 famotidine [Pepcid] 20 mg PO BID #10 tab 04/18/20 metoclopramide HCl [Reglan] 10 mg PO Q6H PRN #10 tab 04/18/20 ondansetron HCl [Zofran] 4 mg PO Q6H PRN #10 tab 04/18/20 docusate sodium [Colace] 100 mg PO BID PRN #14 cap 04/20/20 Allergies Allergy/AdvReac Type Severity Reaction Status Date / Time sumatriptan [From IMITREX] Allergy Mild FAINTED, Verified 03/06/20 14:40 EYES ROLLED BACK, SOB latex [LATEX] Allergy Unknown UNKNOWN Verified 03/06/20 14:40 From IMITREX Allergy Mild FAINTED, Uncoded 11/29/19 16:18 EYES ROLLED BACK, SOB Review of Systems Review of Systems Constitutional : No Weight loss, No Fever, No Chills, No Night Sweats, No Fatigue, No Malaise ENT/Mouth: No ear pain, No sore throat, No Difficulty swallowing Cardiovascular : No Chest Pain, No SOB, No Dyspnea on Exertion, No Orthopnea, NoEdema, No Palpitations Respiratory : No Cough, No Sputum, No Wheezing, No Dyspnea Gastrointestinal : + Nausea, + Vomiting,+ abdominal pain, No Diarrhea, No Hematochezia, No Melena Genitourinary : No irregular bleeding, No Dysuria, No Urinary Frequency, No Hematuria, No Urinary Incontinence, No Urgency, No Flank Pain Musculoskeletal : No joint pain, No Myalgias, No Joint Swelling Skin : No Skin Lesions, No rash Neuro : No Weakness, No Numbness, No Paresthesias, No Loss of Consciousness, NoDizziness, No Headache Psych : No Social Issues, Heme/Lymph: No Bruising, No Bleeding,No Lymphadenopathy Endocrine : No Polyuria, No Polydipsia, No Temperature Intolerance Yes all other systems are reviewed and are negative Physical Exam Vital Signs: Vital Signs: Last Vital Signs Temp 98.7 F 04/20/20 17:59 Pulse 76 04/20/20 17:59 Resp 20 04/20/20 17:59 BP 119/72 04/20/20 17:59 Pulse Ox 100 04/20/20 17:59 Body Mass Index 21.7 vital signs have been reviewed as normal and appeared to be correct. Blood pressure normal. Heart rate normal. Respiration rate normal. Temperature normal. Oxygen saturation normal. Appearance: Alert. Oriented X3. No acute distress. Head: Normal external exam. Normocephalic. Eyes: PERRLA. EOMI. Conjunctiva and sclera normal. Eyelids normal. ENT: Pharynx normal. Uvula midline. Moist mucous membranes. No trismus noted. No drooling noted. No muffled voice noted. Neck: Normal inspection. Neck supple. FROM. No adenopathy. No meningeal signs. CVS: Normal heart rate and rhythm. Heart sound normal. No murmurs noted. Pulses normal throughout. Respiratory: No respiratory distress. Painless inspiration. Breath sounds normal. No wheezes/rales/rhonchi noted. Chest nontender. No accessory muscle usage noted or decreased air movement noted. Abdomen: Soft and tender to palpation of epigastric/upper abdomen with guarding. Nondistended. No rigidity. Bowel sounds normal in all 4 quadrants. No distention noted. No organomegaly noted. No visible injury noted. No rebound tenderness. Negative Rovsing sign. Negative obturator's sign. Negative psoas sign. Negative Smith sign. Back: No CVA tenderness. Full range of motion noted. Skin: Skin warm and dry. Normal skin color. Normal skin turgor. No rashes/les ions/lacerations noted. Extremities: Extremities exhibit normal range of motion. Extremities nontender. Neuro: Oriented X 3. No motor deficit. No sensory deficit. Reflexes normal. Course Course Course Narrative: 12:30pm - 25yoF c PMHx of asthma, renal calculi and appendectomy presenting to the ED with complaints of upper abdominal pain with associated fevers and nausea/vomiting for the past 4 days. - on exam patient is alert and oriented x3. No signs of dehydration patient has moist mucous membranes. Vital signs are within normal limits. Patient with mild tenderness to palpation of epigastric/upper abdomen. - concern for viral syndrome versus COVID versus cholecystitis versus pancre atitis. - Plan: Labs, COVID/RSV/flu swab, chest x-ray, CT scan of abdomen and pelvis with IV contrast. Provide a L of IV fluids, IV Benadryl and IV Reglan and re- evaluate. Reevaluation(s) Reevaluation #1: - platelet count 135. - carbon dioxide 19 - anion gap 21 - ferritin 143 - total bilirubin 1.1 - total protein 8.2 - UA has 80 ketones otherwise no evidence of UTI and U hCG negative for . - drug screen revealed patient positive for marijuana negative for all other drugs. - negative COVID/RSV/flu. - patient's CT scan of abdomen pelvis revealed multiple puncture with nonobstructive bilateral renal calculi no hydronephrosis or hydroureter 0. 2.7 cysts of the left ovary. Large amount of stool consistent with constipation otherwise no other acute processes noted. - patient's IV line blew therefore an ultrasound-guided IV line was placed and patient is still receiving IV fluids will attempt a p.o. trial and if patient can tolerate p.o. will DC home with symptomatic treatment along with instructions return if any new or worsening symptoms to follow up her primary care provider. Patient understands agrees the plan. Time: 17:26 MDM - Abdominal Pain Medical Records Attestation: I reviewed the patient's medical records. Lab Data Attestation: I reviewed the patient's lab results. Result diagrams: 04/20/20 13:46 04/20/20 15:07 Labs: Lab Results 04/20/20 04/20/20 04/20/20 Range/Units 13:46 13:46 15:07 WBC 8.8 (4.8-10.8) X10*3/uL RBC 4.43 (4.20-5.50) X10*6/uL Hgb 12.9 (12.0-16.0) g/dl Hct 38.5 (37-47) % MCV 86.9 (80-98) fL MCH 29.1 (27.0-33.0) pg MCHC 33.5 (31.0-35.0) g/dl RDW 13.5 (11.0-16.0) % Plt Count 135 L (160-400) X10*3/uL MPV Not Reportable Immature Gran % (Auto) 0.1 (0.0-0.4) % Neut % (Auto) 65.4 (45-73) % Lymph % (Auto) 26.9 (20-40) % [place] % (Auto) 6.5 (2-11) % Eos % (Auto) 0.5 (0-4) % Baso % (Auto) 0.6 (0-2) % Lymph # (Auto) 2.4 (1.2-4.9) X10*3/uL [place] # (Auto) 0.6 (0.1-1.2) X10*3/uL Eos # (Auto) 0.0 (0.0-0.4) X10*3/uL Baso # (Auto) 0.1 (0.0-0.2) X10*3/uL Abs Immat Gran (auto) 0.01 (0.00-0.03) X10*3/uL Absolute Neuts (auto) 5.7 (2.0-8.3) X10*3/uL Absolute Nucleated RBC 0.000 (0.0-0.012) X10*3/uL Nucleated RBC % (auto) 0.0 (0.0-0.2) /100WBC Smear Tech's Comments VERIFIED PT 13.9 H (10.8-13.0) SEC INR 1.2 H (0.9-1.1) Sodium (135-145) mmol/L Potassium (3.3-5.1) mmol/L Chloride (96-108) mmol/L Carbon Dioxide (22-29) mmol/L Anion Gap (12-20) BUN (9-16) mg/dL Creatinine (0.5-1.4) mg/dL Estim Creat Clear Calc Estimated GFR Random Glucose (60-115) mg/dL Calcium (8.4-10.2) mg/dL Magnesium (1.6-2.6) mg/dL Ferritin (10-122) ng/mL Total Bilirubin (0.0-1.0) mg/dL Direct Bilirubin (0.0-0.5) mg/dL AST (5-31) U/L ALT (0-31) U/L Alkaline Phosphatase (39-117) U/L Lactate Dehydrogenase (122-220) U/L C-Reactive Protein (< or = 0.50) mg/dL Total Protein (6.5-8.0) g/dL Albumin (3.5-5.0) g/dL Lipase (8-78) U/L Procalcitonin ng/mL Urine Color Urine Appearance Urine pH (5.0-8.0) Ur Specific [place] (1.005-1.025) Urine Protein (NEG-TRACE) MG/DL Urine Glucose (UA) (NEG) MG/DL Urine Ketones (NEG) MG/DL Urine Blood (NEG) Urine Nitrite (NEG) Ur Leukocyte Esterase (NEG) Urine RBC (0) /HPF Urine WBC (0-4) /HPF Ur Squamous Epith Cells /LPF Urine Bacteria /LPF Urine Yeast /HPF Urine Test (NEGATIVE) Urine Opiates Screen (Not Detect) Ur Barbiturates Screen (Not Detect) Ur Phencyclidine Scrn (Not Detect) Ur Amphetamines Screen (Not Detect) U Benzodiazepines Scrn (Not Detect) Urine Cocaine Screen (Not Detect) U Marijuana (THC) Screen (Not Detect) Coronavirus (PCR) NEGATIVE (Negative) Influenza Type A (PCR) NEGATIVE (Negative) Influenza Type B (PCR) NEGATIVE (Negative) RSV RNA Qual (PCR) NEGATIVE (Negative) 04/20/20 04/20/20 04/20/20 Range/Units 15:07 15:07 15:07 WBC (4.8-10.8) X10*3/uL RBC (4.20-5.50) X10*6/uL Hgb (12.0-16.0) g/dl Hct (37-47) % MCV (80-98) fL MCH (27.0-33.0) pg MCHC (31.0-35.0) g/dl RDW (11.0-16.0) % Plt Count (160-400) X10*3/uL MPV Immature Gran % (Auto) (0.0-0.4) % Neut % (Auto) (45-73) % Lymph % (Auto) (20-40) % [place] % (Auto) (2-11) % Eos % (Auto) (0-4) % Baso % (Auto) (0-2) % Lymph # (Auto) (1.2-4.9) X10*3/uL [place] # (Auto) (0.1-1.2) X10*3/uL Eos # (Auto) (0.0-0.4) X10*3/uL Baso # (Auto) (0.0-0.2) X10*3/uL Abs Immat Gran (auto) (0.00-0.03) X10*3/uL Absolute Neuts (auto) (2.0-8.3) X10*3/uL Absolute Nucleated RBC (0.0-0.012) X10*3/uL Nucleated RBC % (auto) (0.0-0.2) /100WBC Smear Tech's Comments PT (10.8-13.0) SEC INR (0.9-1.1) Sodium 140 (135-145) mmol/L Potassium 4.1 (3.3-5.1) mmol/L Chloride 104 (96-108) mmol/L Carbon Dioxide 19 L (22-29) mmol/L Anion Gap 21 H (12-20) BUN 11 (9-16) mg/dL Creatinine 0.72 (0.5-1.4) mg/dL Estim Creat Clear Calc 89.3 Estimated GFR > 60 Random Glucose 72 (60-115) mg/dL Calcium 9.2 D (8.4-10.2) mg/dL Magnesium 2.2 (1.6-2.6) mg/dL Ferritin 143 H (10-122) ng/mL Total Bilirubin 1.1 H (0.0-1.0) mg/dL Direct Bilirubin 0.4 (0.0-0.5) mg/dL AST 25 (5-31) U/L ALT 9 (0-31) U/L Alkaline Phosphatase 56 (39-117) U/L Lactate Dehydrogenase 208 (122-220) U/L C-Reactive Protein 0.09 (< or = 0.50) mg/dL Total Protein 8.2 H (6.5-8.0) g/dL Albumin 4.8 (3.5-5.0) g/dL Lipase 15 (8-78) U/L Procalcitonin < 0.02 ng/mL Urine Color Urine Appearance Urine pH (5.0-8.0) Ur Specific [place] (1.005-1.025) Urine Protein (NEG-TRACE) MG/DL Urine Glucose (UA) (NEG) MG/DL Urine Ketones (NEG) MG/DL Urine Blood (NEG) Urine Nitrite (NEG) Ur Leukocyte Esterase (NEG) Urine RBC (0) /HPF Urine WBC (0-4) /HPF Ur Squamous Epith Cells /LPF Urine Bacteria /LPF Urine Yeast /HPF Urine Test (NEGATIVE) Urine Opiates Screen (Not Detect) Ur Barbiturates Screen (Not Detect) Ur Phencyclidine Scrn (Not Detect) Ur Amphetamines Screen (Not Detect) U Benzodiazepines Scrn (Not Detect) Urine Cocaine Screen (Not Detect) U Marijuana (THC) Screen (Not Detect) Coronavirus (PCR) (Negative) Influenza Type A (PCR) (Negative) Influenza Type B (PCR) (Negative) RSV RNA Qual (PCR) (Negative) 04/20/20 04/20/20 Range/Units 15:07 15:07 WBC (4.8-10.8) X10*3/uL RBC (4.20-5.50) X10*6/uL Hgb (12.0-16.0) g/dl Hct (37-47) % MCV (80-98) fL MCH (27.0-33.0) pg MCHC (31.0-35.0) g/dl RDW (11.0-16.0) % Plt Count (160-400) X10*3/uL MPV Immature Gran % (Auto) (0.0-0.4) % Neut % (Auto) (45-73) % Lymph % (Auto) (20-40) % [place] % (Auto) (2-11) % Eos % (Auto) (0-4) % Baso % (Auto) (0-2) % Lymph # (Auto) (1.2-4.9) X10*3/uL [place] # (Auto) (0.1-1.2) X10*3/uL Eos # (Auto) (0.0-0.4) X10*3/uL Baso # (Auto) (0.0-0.2) X10*3/uL Abs Immat Gran (auto) (0.00-0.03) X10*3/uL Absolute Neuts (auto) (2.0-8.3) X10*3/uL Absolute Nucleated RBC (0.0-0.012) X10*3/uL Nucleated RBC % (auto) (0.0-0.2) /100WBC Smear Tech's Comments PT (10.8-13.0) SEC INR (0.9-1.1) Sodium (135-145) mmol/L Potassium (3.3-5.1) mmol/L Chloride (96-108) mmol/L Carbon Dioxide (22-29) mmol/L Anion Gap (12-20) BUN (9-16) mg/dL Creatinine (0.5-1.4) mg/dL Estim Creat Clear Calc Estimated GFR Random Glucose (60-115) mg/dL Calcium (8.4-10.2) mg/dL Magnesium (1.6-2.6) mg/dL Ferritin (10-122) ng/mL Total Bilirubin (0.0-1.0) mg/dL Direct Bilirubin (0.0-0.5) mg/dL AST (5-31) U/L ALT (0-31) U/L Alkaline Phosphatase (39-117) U/L Lactate Dehydrogenase (122-220) U/L C-Reactive Protein (< or = 0.50) mg/dL Total Protein (6.5-8.0) g/dL Albumin (3.5-5.0) g/dL Lipase (8-78) U/L Procalcitonin ng/mL Urine Color YELLOW Urine Appearance CLEAR Urine pH 6.5 (5.0-8.0) Ur Specific [place] 1.025 (1.005-1.025) Urine Protein NEG (NEG-TRACE) MG/DL Urine Glucose (UA) NEG (NEG) MG/DL Urine Ketones >=80 (NEG) MG/DL Urine Blood TRACE (NEG) Urine Nitrite NEG (NEG) Ur Leukocyte Esterase NEG (NEG) Urine RBC 1-4 (0) /HPF Urine WBC 0-2 (0-4) /HPF Ur Squamous Epith Cells 2+ /LPF Urine Bacteria NONE /LPF Urine Yeast 1+ /HPF Urine Test NEGATIVE (NEGATIVE) Urine Opiates Screen Not Detected (Not Detect) Ur Barbiturates Screen Not Detected (Not Detect) Ur Phencyclidine Scrn Not Detected (Not Detect) Ur Amphetamines Screen Not Detected (Not Detect) U Benzodiazepines Scrn Not Detected (Not Detect) Urine Cocaine Screen Not Detected (Not Detect) U Marijuana (THC) Screen POSITIVE H (Not Detect) Coronavirus (PCR) (Negative) Influenza Type A (PCR) (Negative) Influenza Type B (PCR) (Negative) RSV RNA Qual (PCR) (Negative) Imaging Data CT scan of abdomen and pelvis without IV contrast: Attestation: I personally reviewed and interpreted this imaging study as follows: Radiologist's impression: FINDINGS: LUNG BASES: The visualized lung bases are unremarkable. LIVER, GALLBLADDER, AND BILIARY TREE: The liver is normal in size, shape, and attenuation. No focal hepatic lesion or biliary ductal dilatation is present. The gallbladder is unremarkable with no evidence of radiopaque gallstones, gallbladder wall thickening, or obvious pericholecystic inflammatory changes. PANCREAS: Unremarkable. SPLEEN: Unremarkable. ADRENAL GLANDS: Unremarkable. KIDNEYS AND URETERS: The kidneys are normal in size, shape, and attenuation. No hydronephrosis or hydroureter. There are multiple punctate bilateral nonobstructive renal calculi.. No perinephric stranding. BLADDER: Unremarkable. GASTROINTESTINAL TRACT: The stomach and small bowel are not dilated. There is a large amount of stool within the cecum and ascending colon. The appendix is not visualized, and there are postsurgical changes of the cecum, likely from prior appendectomy. ABDOMINAL WALL: No significant hernia is appreciated. LYMPH NODES: Normal. VASCULAR: Unremarkable. PELVIC VISCERA: There is an intrauterine device within the uterus. There is a 2.7 cm cyst of the left ovary. There is a small amount of free fluid in the pelvis. OSSEOUS STRUCTURES: No acute or suspicious osseous abnormality. CT/CT abdomen pelvis wo con IMPRESSION: Multiple punctate nonobstructive bilateral renal calculi. No hydronephrosis or hydroureter. 2.7 cm cyst of the left ovary, with which can be further evaluated with pelvic ultrasound. Small amount of free fluid in the pelvis. Large amount of stool within the cecum and ascending colon, which may represent constipation. Chest x-ray: Attestation: I personally reviewed and interpreted this imaging study as follows: Radiologist's impression: FINDINGS: No significant abnormality is noted involving the heart, lungs, mediastinum, bony thorax or soft tissues. XR/XR chest 1V IMPRESSION: No acute disease within the chest. Critical Care Time Critical Care Time Critical Care Time: Yes Total Critical Care Time: 60 Attestation: I personally attest to this time spent taking care of the patient Discharge Plan Discharge Clinical Impression: Renal calculi, Abdominal pain, Constipation, Nausea & vomiting, Acute dehydration, Cyst of left ovary Patient Disposition: Home, Self-Care Instructions: Ovarian Cyst (ED), Constipation (ED), Dehydration (ED), Acute Nausea and Vomiting (ED), Abdominal Pain (ED) Prescriptions: New docusate sodium [Colace] 100 mg capsule 100 mg PO BID PRN (Reason: Constipation) Qty: 14 RF: 0 No Action ondansetron HCl [Zofran] 4 mg tablet 4 mg PO Q8H PRN (Reason: nausea and vomiting) Qty: 10 RF: 0 alum-mag hydroxide-simeth [Maalox Advanced] 200-200-20 mg/5 mL suspension 5 ml PO 5XD Qty: 3000 RF: 0 omeprazole 20 mg tablet,delayed release (DR/EC) 20 mg PO DAILY 10 Days Qty: 10 RF: 0 ondansetron HCl [Zofran] 4 mg tablet 4 mg PO Q6H PRN (Reason: nausea and vomiting) Qty: 10 RF: 0 famotidine [Pepcid] 20 mg tablet 20 mg PO BID Qty: 10 RF: 0 acetaminophen-codeine 300-30 mg tablet 1 tab PO Q8H PRN (Reason: pain) Qty: 10 RF: 0 metoclopramide HCl [Reglan] 10 mg tablet 10 mg PO Q6H PRN (Reason: nausea and vomiting) Qty: 10 RF: 0 Referrals: Meghana Leon MD [Primary Care Provider] - 2 days Stand Alone Forms: Work/School Release Interventions: ED Discharge Assessment Last Done: 04/20/20 18:23 Discharge Date/Time: 04/20/20 18:23 Print Language: [place] [facility] Past Medical History Attestation statement: The following information was validated with the patient. Medical History Asthma Social History Social History Alcohol intake: never Smoking Status: Never smoker Substance Use Type: Marijuana Advance Directives: Yes Advance Directives Information Provided: No Advance Directives on File: No
[2020-04-20 13:55] LABS: Basophils Absolute Auto 0.1 X10*3/uL (0.0-0.2); Basophils Percent Auto 0.6 % (0-2); Eosinophils Percent Auto 0.5 % (0-4); Hematocrit 38.5 % (37-47); Hemoglobin 12.9 g/dl (12.0-16.0); Imm Gran Abs Auto 0.01 X10*3/uL (0.00-0.03); Imm Gran Pct Auto 0.1 % (0.0-0.4); Lymphocytes Absolute Auto 2.4 X10*3/uL (1.2-4.9); Lymphocytes Percent Auto 26.9 % (20-40); MANUAL DIFF FLAG SCAN; Mean Corpuscular HGB Conc 33.5 g/dl (31.0-35.0); Mean Corpuscular Hemoglobin 29.1 pg (27.0-33.0); Mean Corpuscular Volume 86.9 fL (80-98); Monocytes Absolute Auto 0.6 X10*3/uL (0.1-1.2); Monocytes Percent Auto 6.5 % (2-11); Neutrophils Absolute Auto 5.7 X10*3/uL (2.0-8.3); Neutrophils Percent Auto 65.4 % (45-73); PLT CLUMP 1; Red Blood Count 4.43 X10*6/uL (4.20-5.50); Red Cell Distribution Width 13.5 % (11.0-16.0); SCAN SMEAR FLAG 1
--- NOTE | 2020-04-20 14:26 | PC.NURSE ---
mult failed attempts at iv access. pt blows easily.
[2020-04-20 14:38] LABS: White Blood Count 8.8 X10*3/uL (4.8-10.8)
[2020-04-20 14:39] LABS: Platelet Count 135 X10*3/uL (160-400)
[2020-04-20 14:42] LABS: SLIDE REVIEW VERIFIED
[2020-04-20] MEDS: diphenhydrAMINE HCL 50 MG/ML VIAL 25 MG IVPUSH (15:19)
[2020-04-20] MEDS: 0.9 % Sodium Chloride 1,000 ML 999 ML IVCONT (15:22)
[2020-04-20 15:25] LABS: Glucose Urine UA NEG (NEG); Leukocyte Esterase Urine NEG (NEG); Nitrite Urine NEG (NEG); PH 6.5 (5.0-8.0); Specific Gravity - Urine 1.025 (1.005-1.025); Urine Blood TRACE (NEG); Urine Ketones >=80 MG/DL (NEG); Urine Protein NEG (NEG-TRACE)
[2020-04-20 15:27] LABS: Appearance Urine CLEAR; Color Urine YELLOW
[2020-04-20 15:28] LABS: INTERNATIONAL NORM RATIO 1.2 (0.9-1.1); Prothrombin Time 13.9 SEC (10.8-13.0); UPreg QC Valid YES; Urine Pregnancy NEGATIVE (NEGATIVE)
[2020-04-20 15:36] LABS: Squamous Epithelial Cell Urine 2+ /LPF; WBC Urine 0-2 /HPF (0-4)
[2020-04-20 15:44] LABS: Influenza A PCR NEGATIVE (Negative); Influenza B PCR NEGATIVE (Negative); Resp Syncy Virus RNA Qual PCR NEGATIVE (Negative); SARS COV2 PCR INHOUSE NEGATIVE (Negative)
[2020-04-20 15:44] LABS: Amphetamine Screen Urine Not Detected (Not Detect); Barbiturates, Urine Not Detected (Not Detect); Benzodiazepines Screen Urine Not Detected (Not Detect); Cannabinoid Screen Urine POSITIVE (Not Detect); Cocaine Screen Urine Not Detected (Not Detect); Lipase 15 U/L (8-78); Opiate Screen Urine Not Detected (Not Detect); Phencyclidine Screen Urine Not Detected (Not Detect)
[2020-04-20 15:49] LABS: Alanine Aminotransferase 9 U/L (0-31); Albumin Level 4.8 g/dL (3.5-5.0); Alkaline Phosphatase 56 U/L (39-117); Anion Gap 21 (12-20); Aspartate Amino Transferase 25 U/L (5-31); Bilirubin Direct 0.4 mg/dL (0.0-0.5); Bilirubin Total 1.1 mg/dL (0.0-1.0); Blood Urea Nitrogen 11 mg/dL (9-16); C Reactive Protein 0.09 mg/dL (< or = 0.50); Calcium 9.2 mg/dL (8.4-10.2); Carbon Dioxide 19 mmol/L (22-29); Chloride 104 mmol/L (96-108); Creatinine Clr Calc Pharmacy 89.3; Estimated Glomerular Filt Rate > 60; Glucose Random 72 mg/dL (60-115); Lactate Dehydrogenase 208 U/L (122-220); Magnesium 2.2 mg/dL (1.6-2.6); Potassium 4.1 mmol/L (3.3-5.1); Sodium 140 mmol/L (135-145); Total Protein 8.2 g/dL (6.5-8.0)
[2020-04-20 16:03] LABS: Procalcitonin < 0.02 ng/mL
[2020-04-20 16:04] LABS: Ferritin 143 ng/mL (10-122)
[2020-04-20] MEDS: Metoclopramide HCl 10 MG TABLET PO (16:38)
[2020-04-20 17:59] VITALS: BP 119/72; PULSE 76; RESP 20; TEMP 37.1; O2SAT 100
--- NOTE | 2020-04-20 18:16 | PC.NURSE ---
patient able to tolerate food and water. NPO challenge complete.
== END 2020-04-20 18:23 | disposition home or self-care (01) ==
PROVIDERS: Physician Assistant Medical; Emergency Provider Emergency Medicine; PCP Student in an Organized Health Care Education/Training Program
DX: N20.0 Calculus of kidney (principal); N83.202 Unspecified ovarian cyst, left side; E86.0 Dehydration; K59.00 Constipation, unspecified; R11.2 Nausea with vomiting, unspecified; Z20.822 Contact with and (suspected) exposure to COVID-19
CPT/HCPCS: 0241U; 36415; 71045; 74176; 80048; 80076; 80307; 81001; 81025; 82728; 83615; 83690; 83735; 84145; 85025; 85610; 86140; 96361; 96365; 96375; 96376; 99283; 99291; J1200

== ENCOUNTER → 2020-04-21 13:33 | Outpatient (BNVA) | payer MEDICAID, SELFPAY | PROVIDERS: PCP Student in an Organized Health Care Education/Training Program; Visit Provider Nurse Practitioner Family ==

== ENCOUNTER 2020-05-11 09:44 | Emergency (ER) | payer MEDICAID, SELFPAY ==
[2020-05-11 09:57] VITALS: BP 106/70; BP 123/67; PULSE 72; PULSE 84; RESP 18; TEMP 36.4; O2SAT 99; BMI 22.3
--- NOTE | 2020-05-11 10:24 | ED.ABDPAIN ---
HPI - Abdominal Pain General Chief Complaint: Abdominal Pain Stated Complaint: ABDOMINAL PAIN/ VOMITING Time Seen by Provider: 05/11/20 09:57 Source: patient Mode of arrival: ambulatory Limitations: no limitations History of Present Illness HPI narrative: 25 y/o healthy female presents with N/V and epigastric pain for the last 2 days. She has not been able to keep anything down. She last vomited this morning, no blood, yellow in color. No fever, chills, diarrhea, urinary symptoms. No sick contacts. Denies chance of , LMP <2 weeks ago. MD elicited complaint: abdominal pain Pertinent past history: none Onset (ago): day(s) (2) Pain Consistency: intermittent Location: epigastric Severity: moderate Quality: stabbing and burning Radiation: none Migration to: no migration Exacerbating factors: vomiting Relieving factors: nothing Associated symptoms: nausea and vomiting Related Data Date of Last Menstrual Period: 05/04/20 Patient : No Previous Rx's Medication Instructions Recorded alum-mag hydroxide-simeth [Maalox 5 ml PO 5XD #3000 ml 03/08/20 Advanced] ondansetron HCl [Zofran] 4 mg PO Q8H PRN #10 tab 03/08/20 acetaminophen-codeine 1 tab PO Q8H PRN #10 tab 04/18/20 famotidine [Pepcid] 20 mg PO BID #10 tab 04/18/20 metoclopramide HCl [Reglan] 10 mg PO Q6H PRN #10 tab 04/18/20 ondansetron HCl [Zofran] 4 mg PO Q6H PRN #10 tab 04/18/20 docusate sodium [Colace] 100 mg PO BID PRN #14 cap 04/20/20 methylcellulose (laxative) 500 mg 500 mg PO DAILY #30 tab 04/21/20 tablet omeprazole 20 mg capsule,delayed 20 mg PO BID #60 cap 04/21/20 release cefuroxime axetil 250 mg PO BID #10 tab 05/11/20 ondansetron HCl [Zofran] 4 mg PO Q8H PRN #10 tab 05/11/20 Allergies Allergy/AdvReac Type Severity Reaction Status Date / Time sumatriptan [From IMITREX] Allergy Mild FAINTED, Verified 04/21/20 13:33 EYES ROLLED BACK, SOB latex [LATEX] Allergy Unknown UNKNOWN Verified 04/21/20 13:33 Review of Systems Review of Systems Constitutional: No Fever, No Chills Eyes: No Eye Pain, No Swelling, No Redness Cardiovascular: No Chest Pain, No SOB Respiratory: No Cough, No Sputum Gastrointestinal: + Nausea, + Vomiting, No Diarrhea, + abdominal Pain, No Hematochezia, No Melena Genitourinary: No Dysuria, + Urinary Frequency, No Hematuria Musculoskeletal: No joint pain, + Myalgias Skin: No Skin Lesions, No rash Neuro: No Weakness, No Numbness, No Dizziness, + Headache Psych: No Anxiety/Panic, No Depression Heme/Lymph: No Bruising, No Lymphadenopathy Endocrine: No Polyuria, No Polydipsia Physical Exam Vital Signs: Vital Signs: Last Vital Signs Temp 97.6 F 05/11/20 09:57 Pulse 72 05/11/20 09:57 Resp 18 05/11/20 09:57 BP 123/67 05/11/20 09:57 Pulse Ox 99 05/11/20 09:57 Body Mass Index 22.3 Appearance: Alert. Oriented X3. No acute distress. Eyes: Pupils equal, round and reactive to light. ENT: Pharynx normal. Neck: Normal inspection. Neck supple. CVS: Normal heart rate and rhythm. Pulses normal. Respiratory: No respiratory distress. Breath sounds normal. Abdomen: Soft with mild epigastgric tenderness, no rebound or guarding. +BS x4 Skin: Skin warm and dry. Normal skin color. Normal skin turgor. No rashes. Extremities: No lower extremity edema. Neuro: Oriented X 3. No motor deficit. No sensory deficit. Course Course Course Narrative: 25 yo female presenting wtih N/V and epigastric pain x2 days. She is non-toxic appearing. Will get labs and check for COVID. Will give IVF, Zofran and plan for GI cocktail once nausea is improved. Reevaluation(s) Reevaluation #1: Labs are unremarkable. COVID negative. UA shows possible UTI. Will treat. Feels better after zofran and GI cocktail. Given PO trial now. Reevaluation #2: Patient tolerating PO. Will d/c with zofran and abx for UTI. Stable for d/c. Advised to stop smoking marijuana. MDM - Abdominal Pain Lab Data Result diagrams: 05/11/20 10:55 05/11/20 10:55 Labs: Lab Results 05/11/20 05/11/20 05/11/20 Range/Units 10:55 10:55 10:55 WBC 10.0 (4.8-10.8) X10*3/uL RBC 4.79 (4.20-5.50) X10*6/uL Hgb 13.6 (12.0-16.0) g/dl Hct 42.1 (37-47) % MCV 87.9 (80-98) fL MCH 28.4 (27.0-33.0) pg MCHC 32.3 (31.0-35.0) g/dl RDW 13.8 (11.0-16.0) % Plt Count 186 D (160-400) X10*3/uL MPV 13.0 H (9.4-12.3) fL Immature Gran % (Auto) 0.2 (0.0-0.4) % Neut % (Auto) 76.8 H (45-73) % Lymph % (Auto) 16.5 L (20-40) % [place] % (Auto) 5.3 (2-11) % Eos % (Auto) 0.6 (0-4) % Baso % (Auto) 0.6 (0-2) % Lymph # (Auto) 1.7 (1.2-4.9) X10*3/uL [place] # (Auto) 0.5 (0.1-1.2) X10*3/uL Eos # (Auto) 0.1 (0.0-0.4) X10*3/uL Baso # (Auto) 0.1 (0.0-0.2) X10*3/uL Abs Immat Gran (auto) 0.02 (0.00-0.03) X10*3/uL Absolute Neuts (auto) 7.7 (2.0-8.3) X10*3/uL Absolute Nucleated RBC 0.000 (0.0-0.012) X10*3/uL Nucleated RBC % (auto) 0.0 (0.0-0.2) /100WBC Hold Blue Top SEE NOTE Sodium 138 (135-145) mmol/L Potassium 4.3 (3.3-5.1) mmol/L Chloride 105 (96-108) mmol/L Carbon Dioxide 24 (22-29) mmol/L Anion Gap 13 (12-20) BUN 13 (9-16) mg/dL Creatinine 0.75 (0.5-1.4) mg/dL Estim Creat Clear Calc 85.8 Estimated GFR > 60 Random Glucose 94 (60-115) mg/dL Calcium 9.6 (8.4-10.2) mg/dL Magnesium 2.3 (1.6-2.6) mg/dL Total Bilirubin 1.3 H (0.0-1.0) mg/dL Direct Bilirubin 0.4 (0.0-0.5) mg/dL AST 22 (5-31) U/L ALT 11 (0-31) U/L Alkaline Phosphatase 56 (39-117) U/L Total Protein 8.1 H (6.5-8.0) g/dL Albumin 4.8 (3.5-5.0) g/dL Lipase 16 (8-78) U/L Beta HCG, Quant mIU/mL Urine Color Urine Appearance Urine pH (5.0-8.0) Ur Specific [place] (1.005-1.025) Urine Protein (NEG-TRACE) MG/DL Urine Glucose (UA) (NEG) MG/DL Urine Ketones (NEG) MG/DL Urine Blood (NEG) Urine Nitrite (NEG) Ur Leukocyte Esterase (NEG) Urine RBC (0) /HPF Urine WBC (0-4) /HPF Ur Squamous Epith Cells /LPF Urine Bacteria /LPF Urine Mucus /LPF Urine Test (NEGATIVE) Urine Opiates Screen (Not Detect) Ur Barbiturates Screen (Not Detect) Ur Phencyclidine Scrn (Not Detect) Ur Amphetamines Screen (Not Detect) U Benzodiazepines Scrn (Not Detect) Urine Cocaine Screen (Not Detect) U Marijuana (THC) Screen (Not Detect) Coronavirus (PCR) (Negative) Influenza Type A (PCR) (Negative) Influenza Type B (PCR) (Negative) RSV RNA Qual (PCR) (Negative) 05/11/20 05/11/20 05/11/20 Range/Units 10:55 10:55 10:55 WBC (4.8-10.8) X10*3/uL RBC (4.20-5.50) X10*6/uL Hgb (12.0-16.0) g/dl Hct (37-47) % MCV (80-98) fL MCH (27.0-33.0) pg MCHC (31.0-35.0) g/dl RDW (11.0-16.0) % Plt Count (160-400) X10*3/uL MPV (9.4-12.3) fL Immature Gran % (Auto) (0.0-0.4) % Neut % (Auto) (45-73) % Lymph % (Auto) (20-40) % [place] % (Auto) (2-11) % Eos % (Auto) (0-4) % Baso % (Auto) (0-2) % Lymph # (Auto) (1.2-4.9) X10*3/uL [place] # (Auto) (0.1-1.2) X10*3/uL Eos # (Auto) (0.0-0.4) X10*3/uL Baso # (Auto) (0.0-0.2) X10*3/uL Abs Immat Gran (auto) (0.00-0.03) X10*3/uL Absolute Neuts (auto) (2.0-8.3) X10*3/uL Absolute Nucleated RBC (0.0-0.012) X10*3/uL Nucleated RBC % (auto) (0.0-0.2) /100WBC Hold Blue Top Sodium (135-145) mmol/L Potassium (3.3-5.1) mmol/L Chloride (96-108) mmol/L Carbon Dioxide (22-29) mmol/L Anion Gap (12-20) BUN (9-16) mg/dL Creatinine (0.5-1.4) mg/dL Estim Creat Clear Calc Estimated GFR Random Glucose (60-115) mg/dL Calcium (8.4-10.2) mg/dL Magnesium (1.6-2.6) mg/dL Total Bilirubin (0.0-1.0) mg/dL Direct Bilirubin (0.0-0.5) mg/dL AST (5-31) U/L ALT (0-31) U/L Alkaline Phosphatase (39-117) U/L Total Protein (6.5-8.0) g/dL Albumin (3.5-5.0) g/dL Lipase (8-78) U/L Beta HCG, Quant < 2 mIU/mL Urine Color YELLOW Urine Appearance HAZY Urine pH 6.5 (5.0-8.0) Ur Specific [place] 1.020 (1.005-1.025) Urine Protein NEG (NEG-TRACE) MG/DL Urine Glucose (UA) NEG (NEG) MG/DL Urine Ketones 5 (NEG) MG/DL Urine Blood 2+ H (NEG) Urine Nitrite POS H (NEG) Ur Leukocyte Esterase TRACE H (NEG) Urine RBC 1-4 (0) /HPF Urine WBC 1-4 (0-4) /HPF Ur Squamous Epith Cells 2+ /LPF Urine Bacteria 3+ /LPF Urine Mucus 1+ /LPF Urine Test (NEGATIVE) Urine Opiates Screen (Not Detect) Ur Barbiturates Screen (Not Detect) Ur Phencyclidine Scrn (Not Detect) Ur Amphetamines Screen (Not Detect) U Benzodiazepines Scrn (Not Detect) Urine Cocaine Screen (Not Detect) U Marijuana (THC) Screen (Not Detect) Coronavirus (PCR) NEGATIVE (Negative) Influenza Type A (PCR) NEGATIVE (Negative) Influenza Type B (PCR) NEGATIVE (Negative) RSV RNA Qual (PCR) NEGATIVE (Negative) 05/11/20 05/11/20 Range/Units 10:55 10:55 WBC (4.8-10.8) X10*3/uL RBC (4.20-5.50) X10*6/uL Hgb (12.0-16.0) g/dl Hct (37-47) % MCV (80-98) fL MCH (27.0-33.0) pg MCHC (31.0-35.0) g/dl RDW (11.0-16.0) % Plt Count (160-400) X10*3/uL MPV (9.4-12.3) fL Immature Gran % (Auto) (0.0-0.4) % Neut % (Auto) (45-73) % Lymph % (Auto) (20-40) % [place] % (Auto) (2-11) % Eos % (Auto) (0-4) % Baso % (Auto) (0-2) % Lymph # (Auto) (1.2-4.9) X10*3/uL [place] # (Auto) (0.1-1.2) X10*3/uL Eos # (Auto) (0.0-0.4) X10*3/uL Baso # (Auto) (0.0-0.2) X10*3/uL Abs Immat Gran (auto) (0.00-0.03) X10*3/uL Absolute Neuts (auto) (2.0-8.3) X10*3/uL Absolute Nucleated RBC (0.0-0.012) X10*3/uL Nucleated RBC % (auto) (0.0-0.2) /100WBC Hold Blue Top Sodium (135-145) mmol/L Potassium (3.3-5.1) mmol/L Chloride (96-108) mmol/L Carbon Dioxide (22-29) mmol/L Anion Gap (12-20) BUN (9-16) mg/dL Creatinine (0.5-1.4) mg/dL Estim Creat Clear Calc Estimated GFR Random Glucose (60-115) mg/dL Calcium (8.4-10.2) mg/dL Magnesium (1.6-2.6) mg/dL Total Bilirubin (0.0-1.0) mg/dL Direct Bilirubin (0.0-0.5) mg/dL AST (5-31) U/L ALT (0-31) U/L Alkaline Phosphatase (39-117) U/L Total Protein (6.5-8.0) g/dL Albumin (3.5-5.0) g/dL Lipase (8-78) U/L Beta HCG, Quant mIU/mL Urine Color Urine Appearance Urine pH (5.0-8.0) Ur Specific [place] (1.005-1.025) Urine Protein (NEG-TRACE) MG/DL Urine Glucose (UA) (NEG) MG/DL Urine Ketones (NEG) MG/DL Urine Blood (NEG) Urine Nitrite (NEG) Ur Leukocyte Esterase (NEG) Urine RBC (0) /HPF Urine WBC (0-4) /HPF Ur Squamous Epith Cells /LPF Urine Bacteria /LPF Urine Mucus /LPF Urine Test NEGATIVE (NEGATIVE) Urine Opiates Screen Not Detected (Not Detect) Ur Barbiturates Screen Not Detected (Not Detect) Ur Phencyclidine Scrn Not Detected (Not Detect) Ur Amphetamines Screen Not Detected (Not Detect) U Benzodiazepines Scrn Not Detected (Not Detect) Urine Cocaine Screen Not Detected (Not Detect) U Marijuana (THC) Screen POSITIVE H (Not Detect) Coronavirus (PCR) (Negative) Influenza Type A (PCR) (Negative) Influenza Type B (PCR) (Negative) RSV RNA Qual (PCR) (Negative) Critical Care Time Critical Care Time Critical Care Time: No Discharge Plan Discharge Clinical Impression: UTI (urinary tract infection) Qualifiers: Urinary tract infection type: acute cystitis Hematuria presence: with hematuria Qualified Code(s): N30.01 - Acute cystitis with hematuria Vomiting Qualifiers: Vomiting type: bilious vomiting Nausea presence: with nausea Qualified Code(s): R11.14 - Bilious vomiting Patient Disposition: Home, Self-Care Instructions: Urinary Tract Infection in Women (ED), Acute Nausea and Vomiting (ED) Additional Instructions: Your blood workup today was unremarkable. Your urine test showed evidence of infection so you are being started on antibiotics for this. Take the prescribed medication as needed for nausea. Rest and stay hydrated. Stick to bland foods while you are feeling unwell. Do not smoke marijuana. This can make vomiting worse. Follow up with your doctor this week. If you have worsening symptoms come back to the ER for further evaluation. Prescriptions: New cefuroxime axetil 250 mg tablet 250 mg PO BID Qty: 10 RF: 0 ondansetron HCl [Zofran] 4 mg tablet 4 mg PO Q8H PRN (Reason: nausea and vomiting) Qty: 10 RF: 0 No Action ondansetron HCl [Zofran] 4 mg tablet 4 mg PO Q8H PRN (Reason: nausea and vomiting) Qty: 10 RF: 0 alum-mag hydroxide-simeth [Maalox Advanced] 200-200-20 mg/5 mL suspension 5 ml PO 5XD Qty: 3000 RF: 0 ondansetron HCl [Zofran] 4 mg tablet 4 mg PO Q6H PRN (Reason: nausea and vomiting) Qty: 10 RF: 0 famotidine [Pepcid] 20 mg tablet 20 mg PO BID Qty: 10 RF: 0 acetaminophen-codeine 300-30 mg tablet 1 tab PO Q8H PRN (Reason: pain) Qty: 10 RF: 0 metoclopramide HCl [Reglan] 10 mg tablet 10 mg PO Q6H PRN (Reason: nausea and vomiting) Qty: 10 RF: 0 docusate sodium [Colace] 100 mg capsule 100 mg PO BID PRN (Reason: Constipation) Qty: 14 RF: 0 omeprazole 20 mg capsule,delayed release(DR/EC) 20 mg PO BID Qty: 60 RF: 3 Citrucel 500 mg tablet 500 mg PO DAILY Qty: 30 RF: 2 PMFSH Past Medical History Medical History Asthma Surgical History (Updated 04/21/20 @ 13:35 by Lauryn Nieves) H/O: Date of Last Menstrual Period: 05/04/20 Family History Family History (Updated 04/21/20 @ 13:36 by Lauryn Nieves) Maternal Grandmother Diabetes Social History Social History (Updated 04/21/20 @ 13:36 by Lauryn Nieves) Household Members: Children Alcohol intake: current Alcohol intake frequency: does not drink Smoking Status: Never smoker Use of substances other than those prescribed or required for medical reasons: Yes Substance Use Type: Marijuana Substance Use Frequency: Monthly Last Used Substance: Unknown Advance Directives: No Advance Directives Information Provided: No
[2020-05-11] MEDS: 0.9 % Sodium Chloride 1,000 ML 999 ML IVCONT ×2 (11:01→12:22)
[2020-05-11 11:02] LABS: MANUAL DIFF FLAG NO
[2020-05-11 11:04] LABS: Glucose Urine UA NEG (NEG); Leukocyte Esterase Urine TRACE (NEG); Nitrite Urine POS (NEG); PH 6.5 (5.0-8.0); UACC Culture Trigger YES; Urine Blood 2+ (NEG); Urine Ketones 5 MG/DL (NEG); Urine Protein NEG (NEG-TRACE)
[2020-05-11 11:07] LABS: Basophils Absolute Auto 0.1 X10*3/uL (0.0-0.2); Basophils Percent Auto 0.6 % (0-2); Color Urine YELLOW; Eosinophils Absolute Auto 0.1 X10*3/uL (0.0-0.4); Eosinophils Percent Auto 0.6 % (0-4); Hematocrit 42.1 % (37-47); Hemoglobin 13.6 g/dl (12.0-16.0); Imm Gran Abs Auto 0.02 X10*3/uL (0.00-0.03); Imm Gran Pct Auto 0.2 % (0.0-0.4); Lymphocytes Absolute Auto 1.7 X10*3/uL (1.2-4.9); Lymphocytes Percent Auto 16.5 % (20-40); Mean Corpuscular HGB Conc 32.3 g/dl (31.0-35.0); Mean Corpuscular Hemoglobin 28.4 pg (27.0-33.0); Mean Corpuscular Volume 87.9 fL (80-98); Monocytes Absolute Auto 0.5 X10*3/uL (0.1-1.2); Monocytes Percent Auto 5.3 % (2-11); Neutrophils Absolute Auto 7.7 X10*3/uL (2.0-8.3); Neutrophils Percent Auto 76.8 % (45-73); Platelet Count 186 X10*3/uL (160-400); Red Blood Count 4.79 X10*6/uL (4.20-5.50); Red Cell Distribution Width 13.8 % (11.0-16.0); UPreg QC Valid YES; Urine Pregnancy NEGATIVE (NEGATIVE)
[2020-05-11 11:08] LABS: Appearance Urine HAZY
[2020-05-11] MEDS: ondansetron HCL 4 MG/2 ML VIAL IVPUSH (11:17)
[2020-05-11] MEDS: Ketorolac Tromethamine 30 MG/ML VIAL IVPUSH (11:17)
--- NOTE | 2020-05-11 11:18 | PC.NURSE ---
iv inserted, labs drawn, covid test performed, urine obtained, pt medicated per order, will continue to monitor.
[2020-05-11 11:23] LABS: Bacteria Urine 3+ /LPF; Mucus Urine 1+ /LPF; Squamous Epithelial Cell Urine 2+ /LPF
[2020-05-11 11:31] LABS: Amphetamine Screen Urine Not Detected (Not Detect); Barbiturates, Urine Not Detected (Not Detect); Cannabinoid Screen Urine POSITIVE (Not Detect); Cocaine Screen Urine Not Detected (Not Detect); Opiate Screen Urine Not Detected (Not Detect); Phencyclidine Screen Urine Not Detected (Not Detect)
[2020-05-11 11:32] LABS: Alanine Aminotransferase 11 U/L (0-31); Albumin Level 4.8 g/dL (3.5-5.0); Alkaline Phosphatase 56 U/L (39-117); Anion Gap 13 (12-20); Aspartate Amino Transferase 22 U/L (5-31); Bilirubin Direct 0.4 mg/dL (0.0-0.5); Bilirubin Total 1.3 mg/dL (0.0-1.0); Blood Urea Nitrogen 13 mg/dL (9-16); Calcium 9.6 mg/dL (8.4-10.2); Carbon Dioxide 24 mmol/L (22-29); Chloride 105 mmol/L (96-108); Creatinine Clr Calc Pharmacy 85.8; Estimated Glomerular Filt Rate > 60; Glucose Random 94 mg/dL (60-115); Lipase 16 U/L (8-78); Magnesium 2.3 mg/dL (1.6-2.6); Potassium 4.3 mmol/L (3.3-5.1); Sodium 138 mmol/L (135-145); Total Protein 8.1 g/dL (6.5-8.0)
[2020-05-11 11:34] LABS: Benzodiazepines Screen Urine Not Detected (Not Detect); HCG Quantitative < 2 mIU/mL
[2020-05-11 11:50] LABS: Influenza A PCR NEGATIVE (Negative); Influenza B PCR NEGATIVE (Negative); Resp Syncy Virus RNA Qual PCR NEGATIVE (Negative); SARS COV2 PCR INHOUSE NEGATIVE (Negative)
[2020-05-11] MEDS: Magnesium Hydrox/Alum Hydrox 30 ML ORAL.SUSP PO (12:23)
[2020-05-11] MEDS: Lidocaine HCl Viscous 2 % 15 ML SOLUTION MUCOUS MEM (12:23)
[2020-05-11] MEDS: Omeprazole 40 MG CAPSULE.DR PO (12:23)
--- NOTE | 2020-05-11 12:24 | PC.NURSE ---
pt medicated per order
== END 2020-05-11 13:41 | disposition home or self-care (01) ==
PROVIDERS: Physician Assistant; Emergency Provider Emergency Medicine Emergency Medical Services
DX: N30.01 Acute cystitis with hematuria (principal); R11.14 Bilious vomiting; R10.13 Epigastric pain; F12.90 Cannabis use, unspecified, uncomplicated; Z20.822 Contact with and (suspected) exposure to COVID-19; Z79.899 Other long term (current) drug therapy
CPT/HCPCS: 0241U; 36415; 80048; 80076; 80307; 81001; 81003; 81025; 83690; 83735; 84702; 85025; 87086; 87088; 87186; 96365; 96375; 99284; J1885; J2405

== ENCOUNTER 2020-05-21 04:17 | Emergency (ER) | payer MEDICAID, SELFPAY ==
--- NOTE | 2020-05-21 06:03 | PC.NURSE ---
PAPER DOCUMENTATION DUE TO DOWNTIME FOR COMPUTER UPDATES, PATIENT RECEIVED IN THE SYSTEM WHEN BACK ON LINE AT 6AM
[2020-05-21 06:19] LABS: Potassium 3.9 mmol/L (3.3-5.1); Sodium 138 mmol/L (135-145)
[2020-05-21 06:20] LABS: Anion Gap 14 (12-20); Blood Urea Nitrogen 10 mg/dL (9-16); Carbon Dioxide 23 mmol/L (22-29); Chloride 105 mmol/L (96-108); Estimated Glomerular Filt Rate > 60; Glucose Random 107 mg/dL (60-115)
--- NOTE | 2020-05-21 06:24 | ED.ABDPAIN ---
HPI - Abdominal Pain General Chief Complaint: Abdominal Pain Time Seen by Provider: 05/21/20 04:50 Source: patient Mode of arrival: ambulatory Limitations: no limitations History of Present Illness HPI narrative: Patient's history of cyclic vomiting syndrome been here multiple times had CT scan and ultrasound done 05/04 comes here for abdominal pain and vomiting for couple of months MD elicited complaint: abdominal pain Pertinent past history: gastritis Onset (ago): month(s) Pain Consistency: constant Location: epigastric Severity: mild Quality: sharp Exacerbating factors: eating Associated symptoms: nausea and vomiting Related Data Previous Rx's Medication Instructions Recorded alum-mag hydroxide-simeth [Maalox 5 ml PO 5XD #3000 ml 03/08/20 Advanced] ondansetron HCl [Zofran] 4 mg PO Q8H PRN #10 tab 03/08/20 acetaminophen-codeine 1 tab PO Q8H PRN #10 tab 04/18/20 famotidine [Pepcid] 20 mg PO BID #10 tab 04/18/20 metoclopramide HCl [Reglan] 10 mg PO Q6H PRN #10 tab 04/18/20 ondansetron HCl [Zofran] 4 mg PO Q6H PRN #10 tab 04/18/20 docusate sodium [Colace] 100 mg PO BID PRN #14 cap 04/20/20 methylcellulose (laxative) 500 mg 500 mg PO DAILY #30 tab 04/21/20 tablet omeprazole 20 mg capsule,delayed 20 mg PO BID #60 cap 04/21/20 release cefuroxime axetil 250 mg PO BID #10 tab 05/11/20 ondansetron HCl [Zofran] 4 mg PO Q8H PRN #10 tab 05/11/20 lorazepam [Ativan] 1 mg PO BEDTIME PRN #14 tab 05/21/20 Allergies Allergy/AdvReac Type Severity Reaction Status Date / Time sumatriptan [From IMITREX] Allergy Mild FAINTED, Verified 04/21/20 13:33 EYES ROLLED BACK, SOB latex [LATEX] Allergy Unknown UNKNOWN Verified 04/21/20 13:33 Review of Systems Review of Systems Constitutional : No Weight loss, No Fever, No Chills ENT/Mouth : No sore throat, No Rhinorrhea Eyes: No Eye Pain, No Swelling Cardiovascular : No Chest Pain, no palpitations Respiratory : No Cough, No Sputum, no shortness of breath Gastrointestinal : + Nausea, +Vomiting, No Diarrhea, + abdominal Pain, no black stools Genitourinary : No Dysuria, No Urinary Frequency Musculoskeletal : No joint pain, No Myalgias, No Joint Swelling Skin : No Skin Lesions, No rash Neuro : No Weakness, No Numbness, No Dizziness, No Headache Psych : + Anxiety/Panic, No Depression Heme/Lymph: No Bruising, No Lymphadenopathy Endocrine : No Polyuria, No Polydipsia All other systems reviewed and are negative Physical Exam Vital Signs: Appearance: Alert. Oriented X3. Very anxious Eyes: Pupils equal, round and reactive to light. ENT: Pharynx normal. Neck: Normal inspection. Neck supple. CVS: Normal heart rate and rhythm. Pulses normal. Respiratory: No respiratory distress. Breath sounds normal. Abdomen: Soft tender in epigastric area no rebound tenderness or guarding. Bowel sounds are present, no mass palpable, no CVA tenderness Skin: Skin warm and dry. Normal skin color. Normal skin turgor. Extremities: No lower extremity edema. Neuro: Oriented X 3. No motor deficit. No sensory deficit. MDM - Abdominal Pain MDM Narrative Medical decision making narrative: Patient with frequent year with for cyclic vomiting syndrome with anxiety lab workup negative for any acute pathology patient feeling much better after Ativan and Zofran will discharge patient home on Ativan for anxiety Differential Diagnosis Differential diagnosis: Likely abdominal pain Medical Records Attestation: I reviewed the patient's medical records. Lab Data Attestation: I reviewed the patient's lab results. Result diagrams: 05/21/20 05:09 Labs: Lab Results 05/21/20 Range/Units 05:09 Sodium 138 (135-145) mmol/L Potassium 3.9 (3.3-5.1) mmol/L Chloride 105 (96-108) mmol/L Carbon Dioxide 23 (22-29) mmol/L Anion Gap 14 (12-20) BUN 10 (9-16) mg/dL Creatinine 0.73 (0.5-1.4) mg/dL Estim Creat Clear Calc TNP Estimated GFR > 60 Random Glucose 107 (60-115) mg/dL Discharge Plan Discharge Clinical Impression: Anxiety, Cyclic vomiting syndrome Patient Disposition: Home, Self-Care Instructions: Anxiety (ED), Cyclic Vomiting Syndrome (ED) Additional Instructions: Drink plenty of fluids Take medication for anxiety as advised. 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 Prescriptions: New lorazepam [Ativan] 1 mg tablet 1 mg PO BEDTIME PRN (Reason: anxiety) Qty: 14 RF: 0 No Action ondansetron HCl [Zofran] 4 mg tablet 4 mg PO Q8H PRN (Reason: nausea and vomiting) Qty: 10 RF: 0 alum-mag hydroxide-simeth [Maalox Advanced] 200-200-20 mg/5 mL suspension 5 ml PO 5XD Qty: 3000 RF: 0 ondansetron HCl [Zofran] 4 mg tablet 4 mg PO Q6H PRN (Reason: nausea and vomiting) Qty: 10 RF: 0 famotidine [Pepcid] 20 mg tablet 20 mg PO BID Qty: 10 RF: 0 acetaminophen-codeine 300-30 mg tablet 1 tab PO Q8H PRN (Reason: pain) Qty: 10 RF: 0 metoclopramide HCl [Reglan] 10 mg tablet 10 mg PO Q6H PRN (Reason: nausea and vomiting) Qty: 10 RF: 0 docusate sodium [Colace] 100 mg capsule 100 mg PO BID PRN (Reason: Constipation) Qty: 14 RF: 0 cefuroxime axetil 250 mg tablet 250 mg PO BID Qty: 10 RF: 0 ondansetron HCl [Zofran] 4 mg tablet 4 mg PO Q8H PRN (Reason: nausea and vomiting) Qty: 10 RF: 0 omeprazole 20 mg capsule,delayed release(DR/EC) 20 mg PO BID Qty: 60 RF: 3 Citrucel 500 mg tablet 500 mg PO DAILY Qty: 30 RF: 2 Interventions: ED Discharge Assessment Last Done: 05/21/20 06:34 [facility] Past Medical History Medical History Asthma Surgical History H/O: Family History Family History Maternal Grandmother Diabetes Social History Social History Household Members: Children Alcohol intake: current Alcohol intake frequency: does not drink Smoking Status: Never smoker Substance Use Type: Marijuana Advance Directives: No Advance Directives Information Provided: No
[2020-05-21 06:59] LABS: MANUAL DIFF FLAG NO
[2020-05-21 07:08] LABS: Basophils Absolute Auto 0.1 X10*3/uL (0.0-0.2); Basophils Percent Auto 0.5 % (0-2); Eosinophils Absolute Auto 0.1 X10*3/uL (0.0-0.4); Eosinophils Percent Auto 0.6 % (0-4); Hematocrit 38.1 % (37-47); Hemoglobin 12.7 g/dl (12.0-16.0); Imm Gran Abs Auto 0.03 X10*3/uL (0.00-0.03); Imm Gran Pct Auto 0.2 % (0.0-0.4); Lymphocytes Absolute Auto 1.7 X10*3/uL (1.2-4.9); Lymphocytes Percent Auto 13.9 % (20-40); Mean Corpuscular HGB Conc 33.3 g/dl (31.0-35.0); Mean Corpuscular Hemoglobin 28.6 pg (27.0-33.0); Mean Corpuscular Volume 85.8 fL (80-98); Mean Platelet Volume 13.1 fL (9.4-12.3); Monocytes Absolute Auto 0.5 X10*3/uL (0.1-1.2); Monocytes Percent Auto 4.4 % (2-11); Neutrophils Absolute Auto 9.7 X10*3/uL (2.0-8.3); Neutrophils Percent Auto 80.4 % (45-73); Platelet Count 162 X10*3/uL (160-400); Red Blood Count 4.44 X10*6/uL (4.20-5.50); Red Cell Distribution Width 13.4 % (11.0-16.0)
== END 2020-05-21 07:55 | disposition home or self-care (01) ==
PROVIDERS: Emergency Provider Internal Medicine
DX: F41.9 Anxiety disorder, unspecified (principal); R11.15 Cyclical vomiting syndrome unrelated to migraine; R10.9 Unspecified abdominal pain; J45.909 Unspecified asthma, uncomplicated; F12.90 Cannabis use, unspecified, uncomplicated
CPT/HCPCS: 36415; 80051; 82565; 82947; 84520; 85025; 96361; 96374; 96375; 99282; 99283; 99284

== ENCOUNTER 2020-05-22 18:15 | Outpatient (REF) | payer MEDICAID, SELFPAY | END 2020-05-22 18:16 | disposition home or self-care (01) | LOC: HO.LNP 18:15 | PROVIDERS: Visit Provider Nurse Practitioner Family | DX: K21.9 Gastro-esophageal reflux disease without esophagitis (principal) | CPT/HCPCS: 87338 ==

== ENCOUNTER 2020-05-22 21:58 | Emergency (ER) | payer MEDICAID, SELFPAY ==
[2020-05-23 00:25] VITALS: BP 139/85; PULSE 88; RESP 20; TEMP 36.7; O2SAT 99; BMI 20.7
--- NOTE | 2020-05-23 00:27 | ED.ABDPAIN ---
HPI - Abdominal Pain General Chief Complaint: Abdominal Pain Stated Complaint: Dizziness Time Seen by Provider: 05/23/20 00:10 Source: patient Mode of arrival: ambulatory Limitations: no limitations History of Present Illness HPI narrative: Patient with history of cyclic vomiting syndrome been here multiple times had CT scan ultrasound 05/04 was seen here on 05/21 and was prescribed lorazepam for anxiety patient was seen again at [facility] yesterday and the workup was negative patient was on Ceftin for UTI and taking Protonix for acid reflux Related Data Previous Rx's Medication Instructions Recorded alum-mag hydroxide-simeth [Maalox 5 ml PO 5XD #3000 ml 03/08/20 Advanced] ondansetron HCl [Zofran] 4 mg PO Q8H PRN #10 tab 03/08/20 acetaminophen-codeine 1 tab PO Q8H PRN #10 tab 04/18/20 famotidine [Pepcid] 20 mg PO BID #10 tab 04/18/20 metoclopramide HCl [Reglan] 10 mg PO Q6H PRN #10 tab 04/18/20 ondansetron HCl [Zofran] 4 mg PO Q6H PRN #10 tab 04/18/20 docusate sodium [Colace] 100 mg PO BID PRN #14 cap 04/20/20 methylcellulose (laxative) 500 mg 500 mg PO DAILY #30 tab 04/21/20 tablet omeprazole 20 mg capsule,delayed 20 mg PO BID #60 cap 04/21/20 release cefuroxime axetil 250 mg PO BID #10 tab 05/11/20 ondansetron HCl [Zofran] 4 mg PO Q8H PRN #10 tab 05/11/20 imipramine HCl 10 mg tablet 10 mg PO BEDTIME #30 tab 05/21/20 lorazepam [Ativan] 1 mg PO BEDTIME PRN #14 tab 05/21/20 dicyclomine 20 mg PO QID PRN #20 tab 05/23/20 Allergies Allergy/AdvReac Type Severity Reaction Status Date / Time sumatriptan [From IMITREX] Allergy Mild FAINTED, Verified 04/21/20 13:33 EYES ROLLED BACK, SOB latex [LATEX] Allergy Unknown UNKNOWN Verified 04/21/20 13:33 Review of Systems Review of Systems Constitutional : No Weight loss, No Fever, No Chills ENT/Mouth : No sore throat, No Rhinorrhea Eyes: No Eye Pain, No Swelling Cardiovascular : No Chest Pain, no palpitations Respiratory : No Cough, No Sputum, no shortness of breath Gastrointestinal : + Nausea, + Vomiting, No Diarrhea, ++abdominal Pain, no black stools Genitourinary : No Dysuria, No Urinary Frequency Musculoskeletal : No joint pain, No Myalgias, No Joint Swelling Skin : No Skin Lesions, No rash Neuro : No Weakness, No Numbness, No Dizziness, No Headache Psych : No Anxiety/Panic, No Depression Heme/Lymph: No Bruising, No Lymphadenopathy Endocrine : No Polyuria, No Polydipsia All other systems reviewed and are negative Physical Exam Vital Signs: Vital Signs: Last Vital Signs Temp 98.0 F 05/23/20 00:25 Pulse 88 05/23/20 00:25 Resp 20 05/23/20 00:25 BP 139/85 05/23/20 00:25 Pulse Ox 99 05/23/20 00:25 Body Mass Index 20.7 Appearance: Alert. Oriented X3. No acute distress. Very anxious tearful Eyes: Pupils equal, round and reactive to light. ENT: Pharynx normal. Neck: Normal inspection. Neck supple. CVS: Normal heart rate and rhythm. Pulses normal. Respiratory: No respiratory distress. Breath sounds normal. Abdomen: Soft diffuse tenderness no rebound tenderness or guarding, Bowel sounds are present, no mass palpable, no CVA tenderness Skin: Skin warm and dry. Normal skin color. Normal skin turgor. Extremities: No lower extremity edema. Neuro: Oriented X 3. No motor deficit. No sensory deficit. 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 advised to continue PPI and Bentyl Differential Diagnosis Differential diagnosis: Likely abdominal pain Discharge Plan Discharge Clinical Impression: Abdominal pain Qualifiers: Abdominal location: generalized Qualified Code(s): R10.84 - Generalized abdominal pain Patient Disposition: Home, Self-Care Instructions: Abdominal Pain (ED) Additional Instructions: Drink plenty of fluids continue medications and follow with street light cleaner Prescriptions: New dicyclomine 20 mg tablet 20 mg PO QID PRN (Reason: abdominal pain) Qty: 20 RF: 0 No Action imipramine HCl 10 mg tablet 10 mg PO BEDTIME Qty: 30 RF: 1 lorazepam [Ativan] 1 mg tablet 1 mg PO BEDTIME PRN (Reason: anxiety) Qty: 14 RF: 0 ondansetron HCl [Zofran] 4 mg tablet 4 mg PO Q8H PRN (Reason: nausea and vomiting) Qty: 10 RF: 0 alum-mag hydroxide-simeth [Maalox Advanced] 200-200-20 mg/5 mL suspension 5 ml PO 5XD Qty: 3000 RF: 0 ondansetron HCl [Zofran] 4 mg tablet 4 mg PO Q6H PRN (Reason: nausea and vomiting) Qty: 10 RF: 0 famotidine [Pepcid] 20 mg tablet 20 mg PO BID Qty: 10 RF: 0 acetaminophen-codeine 300-30 mg tablet 1 tab PO Q8H PRN (Reason: pain) Qty: 10 RF: 0 metoclopramide HCl [Reglan] 10 mg tablet 10 mg PO Q6H PRN (Reason: nausea and vomiting) Qty: 10 RF: 0 docusate sodium [Colace] 100 mg capsule 100 mg PO BID PRN (Reason: Constipation) Qty: 14 RF: 0 cefuroxime axetil 250 mg tablet 250 mg PO BID Qty: 10 RF: 0 ondansetron HCl [Zofran] 4 mg tablet 4 mg PO Q8H PRN (Reason: nausea and vomiting) Qty: 10 RF: 0 omeprazole 20 mg capsule,delayed release(DR/EC) 20 mg PO BID Qty: 60 RF: 3 Citrucel 500 mg tablet 500 mg PO DAILY Qty: 30 RF: 2 Referrals: Paty Schultz MD [Physician] - 1 week [facility] Past Medical History Medical History Abdominal discomfort Asthma Surgical History H/O: Family History Family History Maternal Grandmother Diabetes Social History Social History Household Members: Children Alcohol intake: current Alcohol intake frequency: does not drink Smoking Status: Never smoker Substance Use Type: Marijuana Advance Directives: No
[2020-05-23] MEDS: Dicyclomine HCl 10 MG CAPSULE 20 MG PO (00:40)
== END 2020-05-23 00:51 | disposition home or self-care (01) ==
PROVIDERS: Emergency Provider Internal Medicine; PCP Student in an Organized Health Care Education/Training Program
DX: R10.84 Generalized abdominal pain (principal); F41.9 Anxiety disorder, unspecified; F12.90 Cannabis use, unspecified, uncomplicated
CPT/HCPCS: 99212; 99283

== ENCOUNTER 2020-05-23 12:05 | Outpatient (REF) | payer MEDICAID, SELFPAY ==
[2020-05-23 14:20] LABS: Glucose Urine UA NEG (NEG); Leukocyte Esterase Urine NEG (NEG); Nitrite Urine NEG (NEG); PH 6.5 (5.0-8.0); Urine Blood TRACE (NEG); Urine Ketones >=80 MG/DL (NEG); Urine Protein NEG (NEG-TRACE)
[2020-05-23 14:33] LABS: Appearance Urine CLEAR; Color Urine YELLOW
[2020-05-23 14:39] LABS: Mucus Urine 2+ /LPF; Renal Epithelial Cells Urine TRACE /LPF; Squamous Epithelial Cell Urine 1+ /LPF
[2020-05-25 21:57] LABS: Transglutaminase Ab IgG 3 U/mL; Transglutaminase IgA 1 U/mL
[2020-05-25 22:21] LABS: Gliadin Deamidated IgA Ab 4 Units; Gliadin Deamidated IgG Ab 1 Units
== END 2020-05-23 12:06 | disposition home or self-care (01) ==
LOC: HO.LAB 12:05
PROVIDERS: PCP Student in an Organized Health Care Education/Training Program; Visit Provider Nurse Practitioner Family
DX: R10.84 Generalized abdominal pain (principal); K21.9 Gastro-esophageal reflux disease without esophagitis
CPT/HCPCS: 81001; 83516

== ENCOUNTER → 2020-06-09 14:22 | Outpatient (BNVA) | payer MEDICAID, SELFPAY | PROVIDERS: PCP Student in an Organized Health Care Education/Training Program; Visit Provider Nurse Practitioner Family | DX: K59.04 Chronic idiopathic constipation (principal); R10.9 Unspecified abdominal pain | CPT/HCPCS: 99212 ==

== ENCOUNTER 2021-02-24 11:29 | Outpatient (REF) | payer MEDICAID, SELFPAY | END 2021-02-24 11:30 | disposition home or self-care (01) | LOC: HO.LAB 11:29 | PROVIDERS: Visit Provider Internal Medicine | DX: Z20.822 Contact with and (suspected) exposure to COVID-19 (principal) | CPT/HCPCS: C9803; U0003; U0005 ==

== ENCOUNTER 2021-08-31 09:37 | Emergency (ER) | payer MEDICAID, SELFPAY ==
[2021-08-31 09:48] VITALS: BP 116/82; PULSE 104; RESP 20; TEMP 36.6; O2SAT 100; BMI 22.6
--- NOTE | 2021-08-31 09:58 | ED.NAVMDI ---
HPI - Nausea/Vomiting/Diarrhea General Chief complaint: Nausea/Vomiting/Diarrhea Stated complaint: headache vomiting Time Seen by Provider: 08/31/21 09:52 Source: patient and old records reviewed Mode of arrival: ambulatory Limitations: no limitations History of Present Illness MD elicited complaint: nausea, vomiting and abdominal pain Pertinent past history: cyclical vomiting Onset (ago): day(s) (3) Description of vomiting: food contents and watery Associated nausea: Yes Associated abdominal pain: Yes Location of pain: epigastric Pain consistency: constant Severity: moderate Quality: sharp Exacerbating factors: eating Relieving factors: none Context: other (hx of cyclical vomiting in the past, states she has not taken any medications) Associated symptoms: fever/chills, headaches, loss of appetite, malaise, nausea/vomiting and weakness Related Data Home Medications Medication Instructions Recorded Confirmed pantoprazole 40 mg tablet,delayed 40 mg PO DAILY 05/23/20 05/23/20 release polyethylene glycol 3350 17 17 g PO DAILY 05/23/20 05/23/20 gram/dose oral powder sertraline 50 mg tablet 50 mg PO DAILY 05/23/20 05/23/20 Previous Rx's Medication Instructions Recorded aluminum-mag hydroxide-simethicone 5 ml PO 5XD #3,000 mL 03/08/20 200 mg-200 mg-20 mg/5 mL oral susp (Maalox Advanced) acetaminophen 300 mg-codeine 30 mg 1 tab PO Q8H PRN pain #10 tabs 04/18/20 tablet famotidine 20 mg tablet (Pepcid) 20 mg PO BID gerd #10 tabs 04/18/20 metoclopramide HCl 10 mg tablet 10 mg PO Q6H PRN nausea and 04/18/20 (Reglan) vomiting #10 tabs docusate sodium 100 mg capsule 100 mg PO BID PRN Constipation #14 04/20/20 (Colace) caps methylcellulose (laxative) 500 mg 500 mg PO DAILY #30 tabs 04/21/20 tablet (Citrucel) ondansetron HCl 4 mg tablet 4 mg PO Q8H PRN nausea and 05/11/20 (Zofran) vomiting #10 tabs imipramine HCl 10 mg tablet 10 mg PO BEDTIME #30 tabs 05/21/20 lorazepam 1 mg tablet (Ativan) 1 mg PO BEDTIME PRN anxiety #14 05/21/20 tabs capsaicin 0.1 % topical cream 1 appl topical BID #42.5 grams 05/23/20 dicyclomine 20 mg tablet 20 mg PO QID PRN abdominal pain 05/23/20 #20 tabs linaclotide 145 mcg capsule 145 mcg PO DAILY #30 caps 05/23/20 (Linzess) famotidine 20 mg tablet (Pepcid) 20 mg PO DAILY PRN abdominal 08/31/21 discomfort #30 tabs lorazepam 1 mg tablet (Ativan) 1 mg PO DAILY PRN anxiety #5 tabs 08/31/21 ondansetron 4 mg disintegrating 4 mg PO Q8H PRN nausea and 08/31/21 tablet vomiting #20 tabs Allergies Allergy/AdvReac Type Severity Reaction Status Date / Time sumatriptan [From IMITREX] Allergy Mild FAINTED, Verified 06/09/20 14:23 EYES ROLLED BACK, SOB latex [LATEX] Allergy Unknown UNKNOWN Verified 06/09/20 14:23 Review of Systems Review of Systems: Constitutional : No Weight loss, pos Fever, No Chills ENT/Mouth : No sore throat, No Rhinorrhea Eyes: No Swelling, No Redness Cardiovascular : No Chest Pain, No SOB, NoEdema Respiratory : No Cough, No Sputum, No Wheezing Gastrointestinal : Positive Nausea, Positive Vomiting, no Diarrhea, positive abdominal Pain, No Hematochezia, No Melena Genitourinary : No Dysuria, No Urinary Frequency, No Hematuria, No Urgency Musculoskeletal : No joint pain, No Myalgias, No Joint Swelling Skin : No Skin Lesions, No rash Neuro : No Weakness, No Numbness, No Dizziness, No Headache Psych : No Anxiety/Panic, No Depression Heme/Lymph: No Bruising, No Lymphadenopathy Endocrine : No Polyuria, No Polydipsia All other systems reviewed and are negative. Gastrointestinal: Gastrointestinal: Reports nausea PMFSH Past Medical History Attestation statement: The following information was validated with the patient. Medical History (Updated 08/31/21 @ 11:35 by Meredith Valdivia DO) Abdominal discomfort Asthma Chronic idiopathic constipation Renal calculi Surgical History (Updated 08/31/21 @ 10:14 by Meredith Valdivia DO) H/O: Hx of appendectomy Family History Family History Maternal Grandmother Diabetes Social History Social History (Updated 08/31/21 @ 10:14 by Meredith Valdivia DO) Household Members: Children Alcohol intake: current Alcohol intake frequency: does not drink Patient Tobacco Use Status: Never used Tobacco Use of substances other than those prescribed or required for medical reasons: Yes Substance Use Type: Marijuana Substance Use Frequency: Socially Last Used Substance: Weeks (ago) Any prior treatment program specific to substance use: No Advance Directives: No Advance Directives Information Provided: Yes Physical Exam Vital Signs: Vital Signs: Last Vital Signs Temp 98.2 F 08/31/21 10:24 Pulse 88 08/31/21 10:24 Resp 12 08/31/21 10:24 BP 129/84 08/31/21 10:24 Pulse Ox 98 08/31/21 10:24 O2 Del Method 08/31/21 10:24 BMI result Body Mass Index 22.6 Appearance: Alert. Oriented X3. No acute distress. Eyes: Pupils equal, round and reactive to light. ENT: Pharynx normal. Neck: Normal inspection. Neck supple. CVS: tachycardic heart rate and rhythm. Pulses normal. Respiratory: No respiratory distress. Breath sounds normal. Abdomen: Soft and moderate epigastric ttp no rebound or guarding Skin: Skin warm and dry. Normal skin color. Normal skin turgor. Extremities: No lower extremity edema. No calf ttp Neuro: Oriented X 3. No motor deficit. No sensory deficit. Course Course Course Narrative: + THC despite patient stating she is not using patient feels much better stable for DC will start on zofran, pepcid, short course ativan for anxiety MDM - Nausea/Vomiting/Diarrhea MDM Narrative Medical decision making narrative: 26 yo female with hx of cyclical vomiting, chronic abdominal pain, possible THC use but she is vague now reports vomiting, upper abdominal pain - at this time will obtain labs, hydrate, UA - suspect cyclical vomiting syndrome. Dispo per results and clinical improvement including PO challenge, pain localized just to epigastric area not RUQ pain to suggest cholecystitis. Lab Data Result diagrams: 08/31/21 10:18 08/31/21 10:18 Labs: Lab Results 08/31/21 08/31/21 08/31/21 Range/Units 10:11 10:11 10:18 WBC 8.3 (4.8-10.8) X10*3/uL RBC 4.95 (4.20-5.50) X10*6/uL Hgb 14.3 (12.0-16.0) g/dl Hct 43.0 (37.0-47.0) % MCV 86.9 (80.0-98.0) fL MCH 28.9 (27.0-33.0) pg MCHC 33.3 (31.0-35.0) g/dl RDW 12.6 (11.0-16.0) % Plt Count 174 (160-400) X10*3/uL MPV 12.9 H (9.4-12.3) fL Immature Gran % (Auto) 0.2 (0.0-0.4) % Neut % (Auto) 71.1 (45-73) % Lymph % (Auto) 20.0 (20-40) % Ponce % (Auto) 5.9 (2-11) % Eos % (Auto) 2.2 (0-4) % Baso % (Auto) 0.6 (0-2) % Lymph # (Auto) 1.7 (1.2-4.9) X10*3/uL Ponce # (Auto) 0.5 (0.1-1.2) X10*3/uL Eos # (Auto) 0.2 (0.0-0.4) X10*3/uL Baso # (Auto) 0.1 (0.0-0.2) X10*3/uL Abs Immat Gran (auto) 0.02 (0.00-0.03) X10*3/uL Absolute Neuts (auto) 5.9 (2.0-8.3) x10*3/uL Absolute Nucleated RBC 0.000 (0.0-0.012) X10*3/uL Nucleated RBC % (auto) 0.0 (0.0-0.2) /100WBC Sodium (135-145) mmol/L Potassium (3.3-5.1) mmol/L Chloride (96-108) mmol/L Carbon Dioxide (22-29) mmol/L Anion Gap (12-20) BUN (9-16) mg/dL Creatinine (0.5-1.4) mg/dL Estim Creat Clear Calc Estimated GFR Random Glucose (60-115) mg/dL Calcium (8.4-10.2) mg/dL Magnesium (1.6-2.6) mg/dL Total Bilirubin (0.0-1.0) mg/dL Direct Bilirubin (0.0-0.5) mg/dL AST (5-31) U/L ALT (0-31) U/L Alkaline Phosphatase (39-117) U/L Total Protein (6.5-8.0) g/dL Albumin (3.5-5.0) g/dL Lipase (8-78) U/L Beta HCG, Quant mIU/mL Urine Color Urine Appearance Urine pH (5.0-8.0) Ur Specific [place] (1.005-1.025) Urine Protein (NEG-TRACE) MG/DL Urine Glucose (UA) (NEG) MG/DL Urine Ketones (NEG) MG/DL Urine Blood (NEG) Urine Nitrite (NEG) Ur Leukocyte Esterase (NEG) Urine RBC (0) /HPF Urine WBC (0-4) /HPF Ur Squamous Epith Cells /LPF Urine Bacteria /LPF Urine Mucus /LPF Urine Opiates Screen (Not Detect) Urine Fentanyl Screen (Not Detect) Ur Barbiturates Screen (Not Detect) Ur Phencyclidine Scrn (Not Detect) Ur Amphetamines Screen (Not Detect) U Benzodiazepines Scrn (Not Detect) Urine Cocaine Screen (Not Detect) U Marijuana (THC) Screen (Not Detect) COVID-19 (ALISSA) Negative (Negative) COVID-19 Clin Com See Note Influenza Type A (DEE DEE) Negative (Negative) Influenza Type B (DEE DEE) Negative (Negative) Influenza A & B Note See Note 08/31/21 08/31/21 08/31/21 Range/Units 10:18 10:18 10:28 WBC (4.8-10.8) X10*3/uL RBC (4.20-5.50) X10*6/uL Hgb (12.0-16.0) g/dl Hct (37.0-47.0) % MCV (80.0-98.0) fL MCH (27.0-33.0) pg MCHC (31.0-35.0) g/dl RDW (11.0-16.0) % Plt Count (160-400) X10*3/uL MPV (9.4-12.3) fL Immature Gran % (Auto) (0.0-0.4) % Neut % (Auto) (45-73) % Lymph % (Auto) (20-40) % Ponce % (Auto) (2-11) % Eos % (Auto) (0-4) % Baso % (Auto) (0-2) % Lymph # (Auto) (1.2-4.9) X10*3/uL Ponce # (Auto) (0.1-1.2) X10*3/uL Eos # (Auto) (0.0-0.4) X10*3/uL Baso # (Auto) (0.0-0.2) X10*3/uL Abs Immat Gran (auto) (0.00-0.03) X10*3/uL Absolute Neuts (auto) (2.0-8.3) x10*3/uL Absolute Nucleated RBC (0.0-0.012) X10*3/uL Nucleated RBC % (auto) (0.0-0.2) /100WBC Sodium 140 (135-145) mmol/L Potassium 4.2 (3.3-5.1) mmol/L Chloride 105 (96-108) mmol/L Carbon Dioxide 26 (22-29) mmol/L Anion Gap 13 (12-20) BUN 17 H (9-16) mg/dL Creatinine 0.90 (0.5-1.4) mg/dL Estim Creat Clear Calc 70.8 Estimated GFR > 60 Random Glucose 94 (60-115) mg/dL Calcium 10.3 H D (8.4-10.2) mg/dL Magnesium 2.1 (1.6-2.6) mg/dL Total Bilirubin 1.6 H (0.0-1.0) mg/dL Direct Bilirubin 0.6 H (0.0-0.5) mg/dL AST 16 (5-31) U/L ALT 9 (0-31) U/L Alkaline Phosphatase 57 (39-117) U/L Total Protein 8.4 H (6.5-8.0) g/dL Albumin 5.0 (3.5-5.0) g/dL Lipase 11 (8-78) U/L Beta HCG, Quant < 2 mIU/mL Urine Color YELLOW Urine Appearance HAZY Urine pH 6.0 (5.0-8.0) Ur Specific [place] 1.020 (1.005-1.025) Urine Protein TRACE (NEG-TRACE) MG/DL Urine Glucose (UA) NEG (NEG) MG/DL Urine Ketones 40 (NEG) MG/DL Urine Blood 3+ H (NEG) Urine Nitrite NEG (NEG) Ur Leukocyte Esterase TRACE H (NEG) Urine RBC 30-49 H (0) /HPF Urine WBC 1-4 (0-4) /HPF Ur Squamous Epith Cells 2+ /LPF Urine Bacteria TRACE /LPF Urine Mucus 2+ /LPF Urine Opiates Screen (Not Detect) Urine Fentanyl Screen (Not Detect) Ur Barbiturates Screen (Not Detect) Ur Phencyclidine Scrn (Not Detect) Ur Amphetamines Screen (Not Detect) U Benzodiazepines Scrn (Not Detect) Urine Cocaine Screen (Not Detect) U Marijuana (THC) Screen (Not Detect) COVID-19 (ALISSA) (Negative) COVID-19 Clin Com Influenza Type A (DEE DEE) (Negative) Influenza Type B (DEE DEE) (Negative) Influenza A & B Note 08/31/21 Range/Units 10:28 WBC (4.8-10.8) X10*3/uL RBC (4.20-5.50) X10*6/uL Hgb (12.0-16.0) g/dl Hct (37.0-47.0) % MCV (80.0-98.0) fL MCH (27.0-33.0) pg MCHC (31.0-35.0) g/dl RDW (11.0-16.0) % Plt Count (160-400) X10*3/uL MPV (9.4-12.3) fL Immature Gran % (Auto) (0.0-0.4) % Neut % (Auto) (45-73) % Lymph % (Auto) (20-40) % Ponce % (Auto) (2-11) % Eos % (Auto) (0-4) % Baso % (Auto) (0-2) % Lymph # (Auto) (1.2-4.9) X10*3/uL Ponce # (Auto) (0.1-1.2) X10*3/uL Eos # (Auto) (0.0-0.4) X10*3/uL Baso # (Auto) (0.0-0.2) X10*3/uL Abs Immat Gran (auto) (0.00-0.03) X10*3/uL Absolute Neuts (auto) (2.0-8.3) x10*3/uL Absolute Nucleated RBC (0.0-0.012) X10*3/uL Nucleated RBC % (auto) (0.0-0.2) /100WBC Sodium (135-145) mmol/L Potassium (3.3-5.1) mmol/L Chloride (96-108) mmol/L Carbon Dioxide (22-29) mmol/L Anion Gap (12-20) BUN (9-16) mg/dL Creatinine (0.5-1.4) mg/dL Estim Creat Clear Calc Estimated GFR Random Glucose (60-115) mg/dL Calcium (8.4-10.2) mg/dL Magnesium (1.6-2.6) mg/dL Total Bilirubin (0.0-1.0) mg/dL Direct Bilirubin (0.0-0.5) mg/dL AST (5-31) U/L ALT (0-31) U/L Alkaline Phosphatase (39-117) U/L Total Protein (6.5-8.0) g/dL Albumin (3.5-5.0) g/dL Lipase (8-78) U/L Beta HCG, Quant mIU/mL Urine Color Urine Appearance Urine pH (5.0-8.0) Ur Specific [place] (1.005-1.025) Urine Protein (NEG-TRACE) MG/DL Urine Glucose (UA) (NEG) MG/DL Urine Ketones (NEG) MG/DL Urine Blood (NEG) Urine Nitrite (NEG) Ur Leukocyte Esterase (NEG) Urine RBC (0) /HPF Urine WBC (0-4) /HPF Ur Squamous Epith Cells /LPF Urine Bacteria /LPF Urine Mucus /LPF Urine Opiates Screen Not Detected (Not Detect) Urine Fentanyl Screen Not Detected (Not Detect) Ur Barbiturates Screen Not Detected (Not Detect) Ur Phencyclidine Scrn Not Detected (Not Detect) Ur Amphetamines Screen Not Detected (Not Detect) U Benzodiazepines Scrn Not Detected (Not Detect) Urine Cocaine Screen Not Detected (Not Detect) U Marijuana (THC) Screen POSITIVE H (Not Detect) COVID-19 (ALISSA) (Negative) COVID-19 Clin Com Influenza Type A (DEE DEE) (Negative) Influenza Type B (DEE DEE) (Negative) Influenza A & B Note Discharge Plan Discharge Clinical Impression: Acute dehydration, Tetrahydrocannabinol (THC) use disorder, mild, abuse Vomiting Qualifiers: Vomiting type: unspecified Nausea presence: with nausea Qualified Code(s): R11.2 - Nausea with vomiting, unspecified Patient Disposition: Home, Self-Care Instructions: Dehydration (ED), Acute Nausea and Vomiting (ED), Cannabis Abuse (ED) Additional Instructions: return to ED for any worsening symptoms or concerns STOP smoking marijuana Prescriptions: New famotidine [Pepcid] 20 mg tablet 20 mg PO DAILY PRN (Reason: abdominal discomfort) Qty: 30 0RF ondansetron 4 mg tablet,disintegrating 4 mg PO Q8H PRN (Reason: nausea and vomiting) Qty: 20 0RF lorazepam [Ativan] 1 mg tablet 1 mg PO DAILY PRN (Reason: anxiety) Qty: 5 0RF No Action imipramine HCl 10 mg tablet 10 mg PO BEDTIME Qty: 30 1RF Rx Instructions: Take it right before going to sleep lorazepam [Ativan] 1 mg tablet 1 mg PO BEDTIME PRN (Reason: anxiety) Qty: 14 0RF alum-mag hydroxide-simeth [Maalox Advanced] 200-200-20 mg/5 mL suspension 5 ml PO 5XD Qty: 3000 0RF Rx Instructions: administer between meals and at bedtime famotidine [Pepcid] 20 mg tablet 20 mg PO BID Qty: 10 0RF acetaminophen-codeine 300-30 mg tablet 1 tab PO Q8H PRN (Reason: pain) Qty: 10 0RF metoclopramide HCl [Reglan] 10 mg tablet 10 mg PO Q6H PRN (Reason: nausea and vomiting) Qty: 10 0RF docusate sodium [Colace] 100 mg capsule 100 mg PO BID PRN (Reason: Constipation) Qty: 14 0RF ondansetron HCl [Zofran] 4 mg tablet 4 mg PO Q8H PRN (Reason: nausea and vomiting) Qty: 10 0RF dicyclomine 20 mg tablet 20 mg PO QID PRN (Reason: abdominal pain) Qty: 20 0RF pantoprazole 40 mg tablet,delayed release (DR/EC) 40 mg PO DAILY polyethylene glycol 3350 17 gram/dose powder 17 g PO DAILY sertraline 50 mg tablet 50 mg PO DAILY capsaicin 0.1 % cream 1 appl topical BID Qty: 42.5 0RF Rx Instructions: do not wash area for at least 30 min after application Linzess 145 mcg capsule 145 mcg PO DAILY Qty: 30 2RF Citrucel 500 mg tablet 500 mg PO DAILY Qty: 30 2RF
[2021-08-31 10:22] LABS: MANUAL DIFF FLAG NO
[2021-08-31 10:24] VITALS: BP 129/84; PULSE 88; RESP 12; TEMP 36.8; O2SAT 98
[2021-08-31] MEDS: Metoclopramide HCl 10 MG/2 ML VIAL IVPUSH (10:28)
[2021-08-31] MEDS: Famotidine/PF 20 MG/2 ML VIAL IVPUSH (10:29)
[2021-08-31] MEDS: diphenhydrAMINE HCL 50 MG/ML VIAL 25 MG IVPUSH (10:29)
[2021-08-31 10:34] LABS: Basophils Absolute Auto 0.1 X10*3/uL (0.0-0.2); Basophils Percent Auto 0.6 % (0-2); Eosinophils Absolute Auto 0.2 X10*3/uL (0.0-0.4); Eosinophils Percent Auto 2.2 % (0-4); Hemoglobin 14.3 g/dl (12.0-16.0); Imm Gran Abs Auto 0.02 X10*3/uL (0.00-0.03); Imm Gran Pct Auto 0.2 % (0.0-0.4); Lymphocytes Absolute Auto 1.7 X10*3/uL (1.2-4.9); Mean Corpuscular HGB Conc 33.3 g/dl (31.0-35.0); Mean Corpuscular Hemoglobin 28.9 pg (27.0-33.0); Mean Corpuscular Volume 86.9 fL (80.0-98.0); Mean Platelet Volume 12.9 fL (9.4-12.3); Monocytes Absolute Auto 0.5 X10*3/uL (0.1-1.2); Monocytes Percent Auto 5.9 % (2-11); Neutrophils Absolute Auto 5.9 x10*3/uL (2.0-8.3); Neutrophils Percent Auto 71.1 % (45-73); Platelet Count 174 X10*3/uL (160-400); Red Blood Count 4.95 X10*6/uL (4.20-5.50); Red Cell Distribution Width 12.6 % (11.0-16.0); White Blood Count 8.3 X10*3/uL (4.8-10.8)
[2021-08-31 10:41] LABS: Appearance Urine HAZY; Color Urine YELLOW; Glucose Urine UA NEG (NEG); Leukocyte Esterase Urine TRACE (NEG); Nitrite Urine NEG (NEG); UACC Culture Trigger NO; Urine Blood 3+ (NEG); Urine Ketones 40 MG/DL (NEG); Urine Protein TRACE MG/DL (NEG-TRACE)
[2021-08-31 10:43] LABS: COVID-19 Test Negative (Negative); IDNOW Serial# 16C4AD1C; IDNOW Serial# 9DD0AD1C; Influenza A Negative (Negative); Influenza B2 Negative (Negative)
[2021-08-31 10:51] LABS: Alanine Aminotransferase 9 U/L (0-31); Alkaline Phosphatase 57 U/L (39-117); Anion Gap 13 (12-20); Aspartate Amino Transferase 16 U/L (5-31); Bilirubin Direct 0.6 mg/dL (0.0-0.5); Bilirubin Total 1.6 mg/dL (0.0-1.0); Blood Urea Nitrogen 17 mg/dL (9-16); Calcium 10.3 mg/dL (8.4-10.2); Carbon Dioxide 26 mmol/L (22-29); Chloride 105 mmol/L (96-108); Creatinine Clr Calc Pharmacy 70.8; Estimated Glomerular Filt Rate > 60; Glucose Random 94 mg/dL (60-115); Lipase 11 U/L (8-78); Magnesium 2.1 mg/dL (1.6-2.6); Potassium 4.2 mmol/L (3.3-5.1); Sodium 140 mmol/L (135-145); Total Protein 8.4 g/dL (6.5-8.0)
[2021-08-31 10:51] LABS: RBC Urine 30-49 /HPF (0); Squamous Epithelial Cell Urine 2+ /LPF
[2021-08-31 10:52] LABS: Bacteria Urine TRACE /LPF; Mucus Urine 2+ /LPF
[2021-08-31 10:57] LABS: HCG Quantitative < 2 mIU/mL
[2021-08-31] MEDS: Lactated Ringers 1,000 ML 999 ML IV (11:00)
[2021-08-31 11:32] LABS: Amphetamine Screen Urine Not Detected (Not Detect); Barbiturates, Urine Not Detected (Not Detect); Benzodiazepines Screen Urine Not Detected (Not Detect); Cannabinoid Screen Urine POSITIVE (Not Detect); Cocaine Screen Urine Not Detected (Not Detect); Fentanyl, urine Not Detected (Not Detect); Opiate Screen Urine Not Detected (Not Detect); Phencyclidine Screen Urine Not Detected (Not Detect)
== END 2021-08-31 12:10 | disposition home or self-care (01) ==
PROVIDERS: Emergency Provider Emergency Medicine
DX: F12.19 Cannabis abuse with unspecified cannabis-induced disorder (principal); E86.0 Dehydration; R11.2 Nausea with vomiting, unspecified; R19.7 Diarrhea, unspecified; Z20.822 Contact with and (suspected) exposure to COVID-19; Z79.899 Other long term (current) drug therapy
CPT/HCPCS: 80048; 80076; 80307; 81001; 83690; 83735; 84702; 85025; 87502; 87635; 96361; 96374; 96375; 99284; J1200; J2765

== ENCOUNTER → 2021-10-30 14:09 | Outpatient (BNVA) | payer MEDICAID, SELFPAY | PROVIDERS: PCP Registered Nurse; Visit Provider Nurse Practitioner | DX: K59.04 Chronic idiopathic constipation (principal); R10.13 Epigastric pain; R68.81 Early satiety; R11.2 Nausea with vomiting, unspecified; K21.9 Gastro-esophageal reflux disease without esophagitis; Z79.899 Other long term (current) drug therapy | CPT/HCPCS: 99212 ==

== ENCOUNTER 2021-11-12 09:18 | Day surgery (SDC) | payer MEDICAID, SELFPAY ==
--- NOTE | 2021-11-11 11:52 | HO.ANESPROP2 ---
Documented by User: Bisi De La Cruz NP 11/11/21 11:53 HPI - Anesthesia Eval Consult details Narrative: 26yo F for Upper Endoscopy PMFSH Active Problems Active Problems: All Active Problems (Updated 10/30/21 @ 14:40 by DASHAWN Servin) Early satiety (Acute) Epigastric pain (Acute) Chronic idiopathic constipation (Acute) Vomiting (Acute) Past Medical History Medical History (Updated 11/12/21 @ 10:26 by Wicho Cheng MD) Abdominal discomfort Asthma Chronic idiopathic constipation Renal calculi Vomiting Family History Family History Maternal Grandmother Diabetes Surgical History Surgical History H/O: Hx of appendectomy Social History Social History (Updated 08/31/21 @ 10:14 by Caterina Valdivia DO) Household Members: Children Alcohol intake: current Alcohol intake frequency: does not drink Patient Tobacco Use Status: Never used Tobacco Substance Use Type: Marijuana Substance Use Frequency: Daily Are you DNR?: No Advance Directives: No Advance Directives Information Provided: Yes Nutrition Risks: No Nutritional Risk FDLMP: i dont get periods Meds Allergies Allergy/AdvReac Type Severity Reaction Status Date / Time latex [LATEX] Allergy Severe Hives Verified 11/12/21 09:32 sumatriptan [From IMITREX] Allergy Mild FAINTED, Verified 11/12/21 09:16 EYES ROLLED BACK, SOB Home Medications Medication Instructions Recorded Confirmed Last Taken Type medroxyprogesterone 150 mg/mL mg IM 10/30/21 Unknown History intramuscular suspension omeprazole 20 mg capsule,delayed 20 mg PO BID 10/30/21 11/12/21 Unknown History release lorazepam 1 mg tablet 1 tab PO DAILY PRN anxiety 11/12/21 11/12/21 Unknown History Exam Exam Date and Time: November 11, 2021 1152 Pertinent Lab Results Pertinent Lab Results: Laboratory Tests 08/31/21 08/31/21 10:18 10:18 WBC 8.3 Hgb 14.3 Hct 43.0 Plt Count 174 Sodium 140 Potassium 4.2 Chloride 105 Carbon Dioxide 26 BUN 17 H Creatinine 0.90 Assessment and Plan Assessment Anesthesia Assessment: Chart Reviewed Documented by User: Wicho Cheng MD 11/12/21 10:29 [facility] Past Medical History Medical History (Updated 11/12/21 @ 10:26 by Wicho Cheng MD) Abdominal discomfort Asthma Chronic idiopathic constipation Renal calculi Vomiting Family History Family History Maternal Grandmother Diabetes Family history of problems with anesthesia: No Surgical History Surgical History H/O: Hx of appendectomy History of Problems with Anesthesia: No Social History Social History (Updated 08/31/21 @ 10:14 by Caterina Vadlivia DO) Household Members: Children Alcohol intake: current Alcohol intake frequency: does not drink Patient Tobacco Use Status: Never used Tobacco Substance Use Type: Marijuana Substance Use Frequency: Daily Are you DNR?: No Advance Directives: No Advance Directives Information Provided: Yes Nutrition Risks: No Nutritional Risk FDLMP: i dont get periods Meds Allergies Allergy/AdvReac Type Severity Reaction Status Date / Time latex [LATEX] Allergy Severe Hives Verified 11/12/21 09:32 sumatriptan [From IMITREX] Allergy Mild FAINTED, Verified 11/12/21 09:16 EYES ROLLED BACK, SOB Home Medications Medication Instructions Recorded Confirmed Last Taken Type medroxyprogesterone 150 mg/mL mg IM 10/30/21 Unknown History intramuscular suspension omeprazole 20 mg capsule,delayed 20 mg PO BID 10/30/21 11/12/21 Unknown History release lorazepam 1 mg tablet 1 tab PO DAILY PRN anxiety 11/12/21 11/12/21 Unknown History Exam Airway Mallampati Class: II TM Dist: >3cm Neck ROM: Full Loose/Missing/Broken Teeth: No (Rrr) Heart: rrr Lungs: clear Assessment and Plan Final Anesthetic Review Family History of Problems with Anesthesia: No History of Problems with Anesthesia: No ASA Class: II Final Preanesthetic Review: No Changes in Pt Med Stat, Meds/Allgs Chart Reviewed, Consent Obtained/Reviewed and Anes Risks/Benef Reviewed Patient Risk: Low Procedure Risk: Low Anesthetic Plan Anesthetic Plan: MAC: Disposition: Standard PACU
[2021-11-12 09:33] LABS: UPreg QC Valid YES; Urine Pregnancy NEGATIVE (NEGATIVE)
[2021-11-12 09:37] VITALS: BMI 22.1
[2021-11-12] MEDS: Lactated Ringers 1,000 ML 100 ML IVCONT (09:48)
[2021-11-12 09:49] VITALS: BP 105/56; PULSE 65; RESP 18; TEMP 36.6; O2SAT 100
--- NOTE | 2021-11-12 10:20 | MHC.SHP ---
Pre-Procedural Eval Section A Date of Service: 11/12/21 Section B Chief Complaint: Cyclical vomiting syndrome unrelated to migraine Relevant Family History (Specify if Yes): No Relevant Social History: Other (specify) (thc use) Present Medications: see Short Stay Collaborative assessment Medical History: Significant History (Asthma Constipation Nephrolithiasis) History of Previous Operations: Relevant previous surgery/procedure and date(s) (Appendectomy section) Allergies: Allergies Allergy/AdvReac Type Severity Reaction Status Date / Time latex [LATEX] Allergy Severe Hives Verified 11/12/21 09:32 sumatriptan [From IMITREX] Allergy Mild FAINTED, Verified 11/12/21 09:16 EYES ROLLED BACK, SOB Review of Systems Sugical H&P ROS: Negative: Constitution, Cardiovascular, Respiratory, Neurological, Psychiatric, Hem-Onc, Allergic/Immunologic, Gastrointestinal, Genitourinary, Musculoskeletal, Integumentary, Endocrine and Eyes/Ears/Nose/Throat Exam Surgical H&P Exam: Normal: HEENT, Normal: Heart, Normal: Lungs, Normal: Extremities, Normal: Abdomen, Normal: Skin and Normal: Neurological Plan Diagnosis/Plan: Unchanged I have reviewed the history and physical and performed a pertinent physical examination on my patient. No changes have occurred unless specified.
--- NOTE | 2021-11-12 10:21 | W.PM.OPN ---
Operative Note Operative Note Date of Service: 11/12/21 Narrative: Procedure Description: EGD Indication: nausea and vomiting Anesthesia: MAC FLEXIBLE TRANSORAL UPPER GASTROINTESTINAL ENDOSCOPY UPPER ENDOSCOPY Consent: Indications for the procedure and potential complications of bleeding, perforation, reaction to medications and missed diagnosis were discussed with the patient and informed consent was obtained. Instrument: Olympus GIF H 190 J mid size upper endoscope Monitoring: Vital signs and clinical assessment, continuous EKG monitoring, Pulse oximetry, Carbon Dioxide monitoring and blood pressure monitoring were done throughout the procedure. Procedure: The patient was placed in the left lateral decubitis position and pre-procedure medications were administered and a bite block was placed. The endoscope was inserted into the mouth and advanced under direct vision to the third part of duodenum. A careful inspection was made as the upper endoscope was withdrawn including a retroflexed examination of the proximal stomach; Findings and interventions are described below. Findings: Larynx:normal Esophagus: GE junction at 37 cm, diaphragm hiatus at 37 cm, lax LES with mild esophagitis and bogginess at GEJ, bx taken as well as random esophagus . Stomach: Patchy streaky gastric erythema at antrum. Biopsies were obtained. Grade 2 flap valve on retroflexed examination of the cardia. Duodenum: Normal bulb and descending duodenum, bx taken Intervention: Biopsies as noted above Impression/Findings: gastritis esophagitis lax LES PLAN: check compliance with PPI, can consider increasing dose avoid THC and see if helps symptoms consider mesenteric duplex to r/o SMA and celiac axis compression syndrome if ongoing symptoms
[2021-11-12 10:52] VITALS: BP 99/55; PULSE 73; RESP 16; TEMP 36.9; O2SAT 99
[2021-11-12 11:07] VITALS: BP 102/63; PULSE 70; RESP 16; O2SAT 100
[2021-11-12 11:25] VITALS: TEMP 36.5
== END 2021-11-12 12:02 | disposition home or self-care (01) ==
PROVIDERS: Nurse Practitioner; Visit Provider Internal Medicine Gastroenterology
PROC: 0DJ08ZZ Inspection of Upper Intestinal Tract, Via Natural or Artificial Opening Endoscopic (ICD-10-PCS; CPT 43235; principal; 2021-11-12 08:00)
DX: R11.15 Cyclical vomiting syndrome unrelated to migraine (principal); K29.50 Unspecified chronic gastritis without bleeding; K20.80 Other esophagitis without bleeding; K44.9 Diaphragmatic hernia without obstruction or gangrene; K22.89 Other specified disease of esophagus; K59.04 Chronic idiopathic constipation; J45.909 Unspecified asthma, uncomplicated; F12.90 Cannabis use, unspecified, uncomplicated; Z79.899 Other long term (current) drug therapy; Z88.8 Allergy status to other drugs, medicaments and biological substances; Z91.040 Latex allergy status
CPT/HCPCS: 43239; 81025; 88305; 88342

== ENCOUNTER 2021-11-22 00:20 | Emergency (ER) | payer MEDICAID, SELFPAY ==
[2021-11-22 00:56] VITALS: BP 132/73; PULSE 91; RESP 24; TEMP 36.7; O2SAT 100; BMI 19.8
[2021-11-22 01:14] LABS: Appearance Urine Cloudy; Color Urine Yellow; Glucose Urine UA Negative (Negative); Leukocyte Esterase Urine Small (1+) (Negative); Mean Corpuscular HGB Conc 33.3 g/dl (31.0-35.0); Mean Corpuscular Hemoglobin 28.3 pg (27.0-33.0); Mean Corpuscular Volume 84.8 fL (80.0-98.0); Mean Platelet Volume 13.2 fL (9.4-12.3); Nitrite Urine Negative (Negative); PH 6.5 (5.0-9.0); Platelet Count 154 X10*3/uL (160-400); Red Cell Distribution Width 13.7 % (11.0-16.0); Urine Blood Negative (Negative); Urine Ketones >=160 mg/dL (Negative); Urine Protein Negative (Neg-Trace)
[2021-11-22 01:15] LABS: UPreg QC Valid YES; Urine Pregnancy NEGATIVE (NEGATIVE)
[2021-11-22 01:16] LABS: Bacteria Urine Trace (None Seen); Hyaline Casts Urine 0-2 /LPF (0-2); RBC Urine 0-2 /HPF (0-2); UACC Culture Trigger YES
[2021-11-22 01:25] LABS: WBC ABN SCTR FOR CBC 1
[2021-11-22 01:26] LABS: Amphetamine Screen Urine Not Detected (Not Detect); Barbiturates, Urine Not Detected (Not Detect); Benzodiazepines Screen Urine Not Detected (Not Detect); Cannabinoid Screen Urine POSITIVE (Not Detect); Cocaine Screen Urine Not Detected (Not Detect); Fentanyl, urine Not Detected (Not Detect); Opiate Screen Urine Not Detected (Not Detect); Phencyclidine Screen Urine Not Detected (Not Detect)
[2021-11-22 01:32] LABS: Alanine Aminotransferase 8 U/L (0-31); Albumin Level 4.6 g/dL (3.5-5.0); Alkaline Phosphatase 56 U/L (39-117); Anion Gap 16 (12-20); Aspartate Amino Transferase 15 U/L (5-31); Bilirubin Direct 0.5 mg/dL (0.0-0.5); Bilirubin Total 1.4 mg/dL (0.0-1.0); Blood Urea Nitrogen 10 mg/dL (9-16); Calcium 9.6 mg/dL (8.4-10.2); Carbon Dioxide 23 mmol/L (22-29); Chloride 105 mmol/L (96-108); Creatinine Clr Calc Pharmacy 78.4; Estimated Glomerular Filt Rate > 60; Glucose Random 94 mg/dL (60-115); Lipase 13 U/L (8-78); Potassium 4.1 mmol/L (3.3-5.1); Sodium 140 mmol/L (135-145); Total Protein 7.7 g/dL (6.5-8.0)
[2021-11-22 01:45] LABS: Band Neutrophils Percent 2 % (3-5); Lymphocytes Percent Manual 23 % (20-40); Monocytes Percent Manual 11 % (2-11); Neutrophils Percent Manual 64 % (45-73); Platelet Estimate NORMAL (NORMAL); Platelet Morphology Comment NORMAL; RBC Morphology NORMAL
[2021-11-22 01:46] LABS: Lymphocytes Absolute Manual 2.3 X10*3/uL (1.2-4.9); Monocytes Absolute Manual 1.1 X10*3/uL (0.1-1.2); Neutrophils Absolute Manual 6.5 X10*3/uL (2.0-8.3); White Blood Count 9.8 X10*3/uL (4.8-10.8)
[2021-11-22] MEDS: Ondansetron ODT 4 MG TAB.RAPDIS TRANSLINGU (02:24)
[2021-11-22 04:00] VITALS: BP 116/62; PULSE 79; RESP 16; TEMP 37.2; O2SAT 98
--- NOTE | 2021-11-22 05:18 | ED_ITS ---
HPI - General Adult General Chief complaint: Abdominal Pain Stated complaint: UPPER ABD PAIN X3DAYS Time Seen by Provider: 11/22/21 00:55 Source: patient Mode of arrival: ambulatory Limitations: no limitations History of Present Illness HPI narrative: Patient comes to the emergency room complaining of nausea vomiting. Patient states that she had endoscopy last week, she has not heard back from Gastroenterology. patient states that she has been told multiple times that her nausea and vomiting secondary to cyclic vomiting from THC use. Patient states that she is tired of hearing this and she will not stop smoking Marijuana. Also, patient complaining of a migraine headache. Pawan of photophobia, no visual changes. Related Data Home Medications Medication Instructions Recorded Confirmed medroxyprogesterone 150 mg/mL mg IM 10/30/21 intramuscular suspension lorazepam 1 mg tablet 1 tab PO DAILY PRN anxiety 11/12/21 11/12/21 Previous Rx's Medication Instructions Recorded docusate sodium 100 mg capsule 100 mg PO BID PRN Constipation #14 04/20/20 (Colace) caps ondansetron 4 mg disintegrating 4 mg PO Q8H PRN nausea and 08/31/21 tablet vomiting #20 tabs pantoprazole 40 mg tablet,delayed 40 mg PO BID #60 tabs 11/12/21 release rfkrvcxqrv-vxltgrhpuvpsr-eueedlay 1 cap PO Q8H PRN pain #7 caps 11/22/21 50 mg-300 mg-40 mg capsule (Fioricet) Allergies Allergy/AdvReac Type Severity Reaction Status Date / Time latex [LATEX] Allergy Severe Hives Verified 11/12/21 09:32 sumatriptan [From IMITREX] Allergy Mild FAINTED, Verified 11/12/21 09:16 EYES ROLLED BACK, SOB Review of Systems Review of Systems: Constitutional : No Weight loss, No Fever, No Chills, No Night Sweats, No Fatigue, No Malaise ENT/Mouth : No Hearing loss, No Ear Pain, No Nasal Congestion, No Sinus Pain, No Hoarseness, No sore throat, No Rhinorrhea, No Swallowing Difficulty Eyes: No Eye Pain, No Swelling, No Redness, No Foreign Body, No Discharge, No Vision Changes Cardiovascular : No Chest Pain, No SOB, No Dyspnea on Exertion, No Orthopnea, No Edema, No Palpitations Respiratory : No Cough, No Sputum, No Wheezing, No Smoke Exposure, No Dyspnea Gastrointestinal : Complaining of nausea and vomiting, No Diarrhea, No Constipation, complaining of diffuse abdominal cramping,No Hematochezia, No Melena Genitourinary : no irregular bleeding, No Dysuria, No Urinary Frequency, No Hematuria, No Urinary Incontinence, No Urgency, No Flank Pain, No Urinary Flow Changes, No Hesitancy Musculoskeletal : No joint pain, No Myalgias, No Joint Swelling Skin : No Skin Lesions, No rash Neuro : No Weakness, No Numbness, No Paresthesias, No Loss of Consciousness, No Dizziness, complaining of a migraine headache Psych : No Anxiety/Panic, No Depression, No SI/HI/AH/VH, No Social Issues, Heme/Lymph: No Bruising, No Bleeding,No Lymphadenopathy Endocrine : No Polyuria, No Polydipsia, No Temperature Intolerance [facility] Past Medical History Medical History Abdominal discomfort Asthma Chronic idiopathic constipation Renal calculi Vomiting Surgical History H/O: Hx of appendectomy Family History Family History Maternal Grandmother Diabetes Social History Social History (Updated 08/31/21 @ 10:14 by Caterina Valdivia DO) Household Members: Children Alcohol intake: current Alcohol intake frequency: does not drink Patient Tobacco Use Status: Never used Tobacco Substance Use Type: Marijuana Advance Directives: No Advance Directives Information Provided: No Physical Exam ED Vital Signs: Vital Signs - 24 hr 11/22/21 00:56 11/22/21 04:00 11/22/21 06:00 Temperature 98.1 F 98.9 F 99.0 F Pulse Rate 91 79 91 Respiratory Rate 24 H 16 16 Blood Pressure 132/73 116/62 114/64 Pulse Oximetry 100 98 97 Oxygen Delivery Method Room Air Room Air Room Air BMI result Body Mass Index 19.8 Const Other: Appearance: Alert. Oriented X3. No acute distress. Eyes: Pupils equal, round and reactive to light. ENT: Pharynx normal. Neck: Normal inspection. Neck supple. No lymph nodes noted. No crepitus CVS: Normal heart rate and rhythm. Pulses normal. Normal S1 and S2 Respiratory: No respiratory distress. Breath sounds normal. No Wheezing. No rales Abdomen: Soft and nontender. No rigidity. No distention. Skin: Skin warm and dry. Normal skin color. Normal skin turgor. Extremities: No lower extremity edema. No Lacerations. No Rash Neuro: Oriented X 3. No motor deficit. No sensory deficit. Moving all extremities. No slurred speech. CN 2 through 12 grossly intact Psych: calm, cooperative, normal affect Course Course Course Narrative: patient receiving IV fluids, IV cocktail for migraine treatment. . patient's biopsy results: Diagnosis A. Duodenum, biopsy: Duodenal mucosa within normal limits. B. Stomach, biopsy: Antral-type and oxyntic mucosa with mild chronic inactive inflammation and focal pit rupture; no Helicobacter organisms seen. C. GE junction, biopsy: - Cardiofundic-type mucosa with mild chronic inactive inflammation; no intestinal metaplasia seen. - Active esophagitis (maximum eosinophil count 4 per high powered field). D. Esophagus, random, biopsy: - Squamous epithelium within normal limits; no inflammation seen. - Superficial fragment of small intestinal mucosa within normal limits (likely contaminant). 06:50, patient is sleeping comfortably, patient has not been vomiting. Headache resolved. Patient states that she still has abdominal discomfort but it is improving Patient will follow-up with Dr. Moore Medical Decision Making Lab Data Result diagrams: 11/22/21 01:04 11/22/21 01:04 Labs: Lab Results 11/22/21 11/22/21 11/22/21 Range/Units 01:04 01:04 01:04 WBC 9.8 (4.8-10.8) X10*3/uL RBC 4.60 (4.20-5.50) X10*6/uL Hgb 13.0 (12.0-16.0) g/dl Hct 39.0 (37.0-47.0) % MCV 84.8 (80.0-98.0) fL MCH 28.3 (27.0-33.0) pg MCHC 33.3 (31.0-35.0) g/dl RDW 13.7 (11.0-16.0) % Plt Count 154 L (160-400) X10*3/uL MPV 13.2 H (9.4-12.3) fL Immature Gran % (Auto) Cancelled Neut % (Auto) Cancelled Lymph % (Auto) Cancelled [place] % (Auto) Cancelled Eos % (Auto) Cancelled Baso % (Auto) Cancelled Lymph # (Auto) Cancelled [place] # (Auto) Cancelled Eos # (Auto) Cancelled Baso # (Auto) Cancelled Abs Immat Gran (auto) Cancelled Absolute Neuts (auto) Cancelled Absolute Nucleated RBC 0.000 (0.0-0.012) X10*3/uL Nucleated RBC % (auto) 0.0 (0.0-0.2) /100WBC Neutrophils % (Manual) 64 (45-73) % Band Neutrophils % 2 L (3-5) % Lymphocytes % (Manual) 23 (20-40) % Monocytes % (Manual) 11 (2-11) % Abs Neuts (Manual) 6.5 (2.0-8.3) X10*3/uL Lymphocytes # (Manual) 2.3 (1.2-4.9) X10*3/uL Monocytes # (Manual) 1.1 (0.1-1.2) X10*3/uL Platelet Estimate NORMAL (NORMAL) Plt Morphology Comment NORMAL RBC Morphology NORMAL Sodium 140 (135-145) mmol/L Potassium 4.1 (3.3-5.1) mmol/L Chloride 105 (96-108) mmol/L Carbon Dioxide 23 (22-29) mmol/L Anion Gap 16 (12-20) BUN 10 (9-16) mg/dL Creatinine 0.81 (0.5-1.4) mg/dL Estim Creat Clear Calc 78.4 Estimated GFR > 60 Random Glucose 94 (60-115) mg/dL Calcium 9.6 D (8.4-10.2) mg/dL Total Bilirubin 1.4 H (0.0-1.0) mg/dL Direct Bilirubin 0.5 (0.0-0.5) mg/dL AST 15 (5-31) U/L ALT 8 (0-31) U/L Alkaline Phosphatase 56 (39-117) U/L Total Protein 7.7 (6.5-8.0) g/dL Albumin 4.6 (3.5-5.0) g/dL Lipase 13 (8-78) U/L Urine Color Yellow Urine Appearance Cloudy Urine pH 6.5 (5.0-9.0) Ur Specific [place] 1.020 (1.005-1.025) Urine Protein Negative (Neg-Trace) mg/dL Urine Glucose (UA) Negative (Negative) mg/dL Urine Ketones >=160 (Negative) mg/dL Urine Blood Negative (Negative) Urine Nitrite Negative (Negative) Ur Leukocyte Esterase Small (1+) H (Negative) Urine RBC 0-2 (0-2) /HPF Urine WBC 6-10 H (0-5) /HPF Ur Squamous Epith Cells 11-20 (0-2) /HPF Urine Bacteria Trace (None Seen) Hyaline Casts 0-2 (0-2) /LPF Urine Test (NEGATIVE) Urine Opiates Screen (Not Detect) Urine Fentanyl Screen (Not Detect) Ur Barbiturates Screen (Not Detect) Ur Phencyclidine Scrn (Not Detect) Ur Amphetamines Screen (Not Detect) U Benzodiazepines Scrn (Not Detect) Urine Cocaine Screen (Not Detect) U Marijuana (THC) Screen (Not Detect) 11/22/21 11/22/21 Range/Units 01:04 01:04 WBC (4.8-10.8) X10*3/uL RBC (4.20-5.50) X10*6/uL Hgb (12.0-16.0) g/dl Hct (37.0-47.0) % MCV (80.0-98.0) fL MCH (27.0-33.0) pg MCHC (31.0-35.0) g/dl RDW (11.0-16.0) % Plt Count (160-400) X10*3/uL MPV (9.4-12.3) fL Immature Gran % (Auto) Neut % (Auto) Lymph % (Auto) [place] % (Auto) Eos % (Auto) Baso % (Auto) Lymph # (Auto) [place] # (Auto) Eos # (Auto) Baso # (Auto) Abs Immat Gran (auto) Absolute Neuts (auto) Absolute Nucleated RBC (0.0-0.012) X10*3/uL Nucleated RBC % (auto) (0.0-0.2) /100WBC Neutrophils % (Manual) (45-73) % Band Neutrophils % (3-5) % Lymphocytes % (Manual) (20-40) % Monocytes % (Manual) (2-11) % Abs Neuts (Manual) (2.0-8.3) X10*3/uL Lymphocytes # (Manual) (1.2-4.9) X10*3/uL Monocytes # (Manual) (0.1-1.2) X10*3/uL Platelet Estimate (NORMAL) Plt Morphology Comment RBC Morphology Sodium (135-145) mmol/L Potassium (3.3-5.1) mmol/L Chloride (96-108) mmol/L Carbon Dioxide (22-29) mmol/L Anion Gap (12-20) BUN (9-16) mg/dL Creatinine (0.5-1.4) mg/dL Estim Creat Clear Calc Estimated GFR Random Glucose (60-115) mg/dL Calcium (8.4-10.2) mg/dL Total Bilirubin (0.0-1.0) mg/dL Direct Bilirubin (0.0-0.5) mg/dL AST (5-31) U/L ALT (0-31) U/L Alkaline Phosphatase (39-117) U/L Total Protein (6.5-8.0) g/dL Albumin (3.5-5.0) g/dL Lipase (8-78) U/L Urine Color Urine Appearance Urine pH (5.0-9.0) Ur Specific [place] (1.005-1.025) Urine Protein (Neg-Trace) mg/dL Urine Glucose (UA) (Negative) mg/dL Urine Ketones (Negative) mg/dL Urine Blood (Negative) Urine Nitrite (Negative) Ur Leukocyte Esterase (Negative) Urine RBC (0-2) /HPF Urine WBC (0-5) /HPF Ur Squamous Epith Cells (0-2) /HPF Urine Bacteria (None Seen) Hyaline Casts (0-2) /LPF Urine Test NEGATIVE (NEGATIVE) Urine Opiates Screen Not Detected (Not Detect) Urine Fentanyl Screen Not Detected (Not Detect) Ur Barbiturates Screen Not Detected (Not Detect) Ur Phencyclidine Scrn Not Detected (Not Detect) Ur Amphetamines Screen Not Detected (Not Detect) U Benzodiazepines Scrn Not Detected (Not Detect) Urine Cocaine Screen Not Detected (Not Detect) U Marijuana (THC) Screen POSITIVE H (Not Detect) Discharge Plan Discharge Clinical Impression: Cyclical vomiting associated with migraine Patient Disposition: Home, Self-Care Instructions: Cyclic Vomiting Syndrome (ED), Migraine Headache (ED) Additional Instructions: Please follow-up with your primary care physician tomorrow. If you have any worsening or new symptoms, please return to the emergency room or call 911 Prescriptions: New fxwqqsvamm-rfgevuvijrglo-wmqz [Fioricet] 50-300-40 mg capsule 1 cap PO Q8H PRN (Reason: pain) Qty: 7 0RF No Action docusate sodium [Colace] 100 mg capsule 100 mg PO BID PRN (Reason: Constipation) Qty: 14 0RF Hold Instructions: Doctor's Order ondansetron 4 mg tablet,disintegrating 4 mg PO Q8H PRN (Reason: nausea and vomiting) Qty: 20 0RF lorazepam 1 mg tablet 1 tab PO DAILY PRN (Reason: anxiety) pantoprazole 40 mg tablet,delayed release (DR/EC) 40 mg PO BID Qty: 60 3RF medroxyprogesterone 150 mg/mL suspension IM
[2021-11-22 06:00] VITALS: BP 114/64; PULSE 91; RESP 16; TEMP 37.2; O2SAT 97
[2021-11-22] MEDS: diphenhydrAMINE HCL 50 MG/ML VIAL 25 MG IVPUSH (06:03)
[2021-11-22] MEDS: Ketorolac Tromethamine 30 MG/ML VIAL IVPUSH (06:04)
[2021-11-22] MEDS: 0.9 % Sodium Chloride 1,000 ML 999 ML IVCONT (06:04)
[2021-11-22] MEDS: Metoclopramide HCl 10 MG/2 ML VIAL IVPUSH (06:04)
[2021-11-22] MEDS: Lidocaine HCl Viscous 2 % 15 ML SOLUTION MUCOUS MEM (06:57)
[2021-11-22] MEDS: Magnesium Hydrox/Alum Hydrox 30 ML ORAL.SUSP PO (06:57)
[2021-11-22 07:07] VITALS: BP 91/50; PULSE 95; RESP 18; O2SAT 100
== END 2021-11-22 07:10 | disposition home or self-care (01) ==
PROVIDERS: Emergency Provider Emergency Medicine
DX: R11.15 Cyclical vomiting syndrome unrelated to migraine (principal); R10.10 Upper abdominal pain, unspecified; F12.90 Cannabis use, unspecified, uncomplicated; Z79.899 Other long term (current) drug therapy
CPT/HCPCS: 36415; 80048; 80076; 80307; 81001; 81025; 83690; 85007; 85027; 87086; 96374; 96375; 99283; 99284; J1200; J1885; J2765

== ENCOUNTER 2021-11-26 13:04 | Outpatient (REF) | payer MEDICAID, SELFPAY | END 2021-11-26 13:05 | disposition home or self-care (01) | LOC: HO.LAB 13:04 | PROVIDERS: Visit Provider Nurse Practitioner | DX: R10.13 Epigastric pain (principal); R11.2 Nausea with vomiting, unspecified; R68.81 Early satiety; G43.909 Migraine, unspecified, not intractable, without status migrainosus | CPT/HCPCS: 36415; 86003; 99212 ==

== ENCOUNTER → 2022-01-07 12:30 | Outpatient (BNVA) | payer MEDICAID, SELFPAY | PROVIDERS: Visit Provider Nurse Practitioner | DX: R11.2 Nausea with vomiting, unspecified (principal); G43.909 Migraine, unspecified, not intractable, without status migrainosus; Z88.9 Allergy status to unspecified drugs, medicaments and biological substances; Z91.011 Allergy to milk products; Z91.013 Allergy to seafood | CPT/HCPCS: 99212 ==

== ENCOUNTER → 2022-01-29 07:56 | Outpatient (REF) | payer MEDICAID, SELFPAY ==
--- NOTE | ~2022-01-29 | NM_ITS ---
EXAMINATION: NM RADIONUCLIDE SOLID FOOD GASTRIC EMPTYING 4-HOUR STUDY CLINICAL INFORMATION: Early satiety. COMPARISON: CT scan of the abdomen and pelvis 04/20/2020. TECHNIQUE: A standard meal consisting of 4 oz of Egg Beaters brand tagged with 1.0 mCi Tc-99m Sulfur Colloid, 8 oz water and 2 slices of dry white toast was administered orally to the patient. Images were obtained using a dual head gamma camera in the anterior and posterior projections over of the stomach immediately post ingestion and at hourly intervals up to 4 hours post ingestion. The anterior and posterior counts at each time interval were averaged using the geometric mean and expressed as percentage of the immediate post ingestion counts. FINDINGS: There is good visualization of activity in the stomach immediately post ingestion. As the study progresses, there is good clearance of activity from the stomach and visualization of progressively increasing small bowel activity. By the end of the study, there is almost no retention noted in the stomach. Retention in the stomach at each time interval was: 1 hour 41% (normal 37%-90%) 2 hours 9% (normal 30%-60%) 3 hours 6% 4 hours not performed. NM/NM gastric emptying study IMPRESSION: Normal 4-hour solid food gastric emptying study.
== END ==
LOC: HO.NUCMED 07:56
PROVIDERS: Visit Provider Nurse Practitioner
DX: R68.81 Early satiety (principal)
CPT/HCPCS: 78264; A9541

== ENCOUNTER → 2022-02-23 10:12 | Outpatient (BNVA) | payer MEDICAID, SELFPAY | PROVIDERS: PCP Registered Nurse; Visit Provider Nurse Practitioner | DX: G43.D0 Abdominal migraine, not intractable (principal); R11.2 Nausea with vomiting, unspecified; K59.04 Chronic idiopathic constipation; Z91.011 Allergy to milk products; Z91.013 Allergy to seafood | CPT/HCPCS: 99212 ==

== ENCOUNTER 2022-03-25 11:36 | Emergency (ER) | payer MEDICAID, SELFPAY ==
--- NOTE | ~2022-03-25 | XR_ITS ---
EXAMINATION: XR CHEST CLINICAL INFORMATION: Left-sided rib pain. COMPARISON: Chest radiograph dated 04/20/2020. TECHNIQUE: 2 views of the chest were obtained. FINDINGS: The lungs are clear. The cardiomediastinal silhouette is normal in size. There is no pleural effusion or pneumothorax. No acute osseous abnormality. XR/XR chest 2V IMPRESSION: No acute cardiopulmonary findings.
[2022-03-25 11:45] VITALS: BP 115/78; PULSE 84; RESP 18; TEMP 36.8; O2SAT 99; BMI 23.3
--- NOTE | 2022-03-25 11:45 | ED.CHESTPAIN ---
HPI - Chest Pain General Chief Complaint: General Medical <Ebony Chicas NP - Last Filed: 03/25/22 11:48> Stated Complaint: l rib side pain <Ebony Chicas NP - Last Filed: 03/25/22 11:48> Time Seen by Provider: 03/25/22 12:32 <Ebony Chicas NP - Last Filed: 03/25/22 11:48> Source: patient <DIEUDONNE Giron - Last Filed: 03/25/22 17:36> Mode of arrival: ambulatory <DIEUDONNE Giron - Last Filed: 03/25/22 17:36> Limitations: no limitations <DIEUDONNE Giron - Last Filed: 03/25/22 17:36> History of Present Illness HPI narrative: Patient is a 27 year old assigned female at with a history of asthma presenting to the emergency department today with left sided chest pain. Patient states that she has been having left sided chest pain that is worse with movements and deep breathing. Patient denies any dizziness, lightheadedness, abdominal pain, nausea, vomiting, fever, chills, blurry vision, double vision, loss of vision, difficulty breathing, shortness of breath, back pain, night sweats, pain with urination, increased urinary frequency, increased urinary urgency, blood in her urine or stool, syncope or a near syncopal episode, recent trauma or falls, bowel incontinence, bladder incontinence, bowel retention, bladder retention, or any other complaints at this time. <DIEUDONNE Giron - Last Filed: 03/25/22 17:36> MD complaint: chest pain <DIEUDONNE Giron - Last Filed: 03/25/22 17:36> Onset (ago): hour(s) <DIEUDONNE Giron - Last Filed: 03/25/22 17:36> Prior episodes: No <DIEUDONNE Giron Last Filed: 03/25/22 17:36> Pain location: left chest <DIEUDONNE Giron Last Filed: 03/25/22 17:36> Pain radiation: none <DIEUDONNE Giron Last Filed: 03/25/22 17:36> Severity: mild <DIEUDONNE Giron - Last Filed: 03/25/22 17:36> Pain scale (0-10): 4 <DIEUDONNE Giron - Last Filed: 03/25/22 17:36> Quality: dull <DIEUDONNE Giron - Last Filed: 03/25/22 17:36> Relieving factors: movement <DIEUDONNE Giron - Last Filed: 03/25/22 17:36> Treatment prior to arrival: none <DIEUDONNE Giron - Last Filed: 03/25/22 17:36> Risk Factors Coronary artery disease risk factors: none <DIEUDONNE Giron - Last Filed: 03/25/22 17:36> Thoracic aortic dissection risk factors: none <DIEUDONNE Giron - Last Filed: 03/25/22 17:36> Related Data Home Medications: Home Medications Medication Instructions Recorded Confirmed medroxyprogesterone 150 mg/mL mg IM 10/30/21 intramuscular suspension lorazepam 1 mg tablet 1 tab PO DAILY PRN anxiety 11/12/21 11/12/21 Previous Rx's Medication Instructions Recorded jizxfuzmum-tktnnldcvdrdz-hcjeflpx 1 cap PO Q8H PRN pain #7 caps 11/22/21 50 mg-300 mg-40 mg capsule (Fioricet) linaclotide 290 mcg capsule 290 mcg PO QAM #30 caps 02/23/22 (Linzess) metoclopramide HCl 5 mg tablet 5 mg PO QIDACHS #120 tabs 02/23/22 (Reglan) pantoprazole 40 mg tablet,delayed 40 mg PO BID #60 tabs 02/23/22 release topiramate 50 mg tablet (Topamax) 50 mg PO DAILY #30 tabs 02/23/22 <Ebony Chicas NP - Last Filed: 03/25/22 11:48> Allergies/Adverse Reactions: Allergies Allergy/AdvReac Type Severity Reaction Status Date / Time latex [LATEX] Allergy Severe Hives Verified 01/07/22 12:36 sumatriptan [From IMITREX] Allergy Mild FAINTED, Verified 01/07/22 12:36 EYES ROLLED BACK, SOB <Ebony Chicas NP - Last Filed: 03/25/22 11:48> Review of Systems Constitutional: Constitutional: Reports no additional constitutional complaints, Denies chills, Denies fever(s) and Denies night sweats <DIEUDONNE Giron - Last Filed: 03/25/22 17:36> Eyes: Eyes: Reports no additional eye complaints, Denies blurry vision, Denies change in vision, Denies diplopia, Denies eye discharge, Denies loss of vision and Denies eye pain <DIEUDONNE Giron - Last Filed: 03/25/22 17:36> ENT: Denies dizziness <DIEUDONNE Giron - Last Filed: 03/25/22 17:36> Cardiovascular: Cardiovascular: Reports no additional cardiovascular complaints, Reports chest pain, Denies lightheadedness, Denies Loss of Consciousness and Denies dyspnea <DIEUDONNE Giron - Last Filed: 03/25/22 17:36> Respiratory: Respiratory: Reports no additional respiratory complaints and Denies dyspnea <DIEUDONNE Giron - Last Filed: 03/25/22 17:36> Gastrointestinal: Gastrointestinal: Reports no additional gastrointestinal complaints, Denies abdominal pain, Denies melena, Denies hematochezia, Denies change in bowel habits and Denies change in stool character <DIEUDONNE Giron - Last Filed: 03/25/22 17:36> Genitourinary: Genitourinary: Denies hematuria, Denies urinary frequency, Denies dysuria, Denies urinary incontinence, Denies urinary hesitancy and Denies urinary urgency <DIEUDONNE Giron - Last Filed: 03/25/22 17:36> Musculoskeletal: Musculoskeletal: Reports no additional musculoskeletal complaints, Denies numbness and Denies tingling <DIEUDONNE Giron - Last Filed: 03/25/22 17:36> Neurologic: Denies dizziness, Denies loss of vision, Denies numbness and Denies tingling <DIEUDONNE Giron - Last Filed: 03/25/22 17:36> Psychiatric: Psychiatric: Reports no additional psychiatric complaints <DIEUDONNE Giron - Last Filed: 03/25/22 17:36> Endocrine: Endocrine: Reports no additional endocrine complaints <DIEUDONNE Giron - Last Filed: 03/25/22 17:36> Hematologic/Lymphatic: Hematologic/Lymphatic: Reports no additional hematologic/lymphatic complaints <DIEUDONNE Giron - Last Filed: 03/25/22 17:36> Allergic/Immunologic: Allergic/Immunologic: Reports no additional allergic/immunologic complaints <DIEUDONNE Giron - Last Filed: 03/25/22 17:36> PMFSH Past Medical History Attestation statement: The following information was validated with the patient. <DIEUDONNE Giron - Last Filed: 03/25/22 17:36> Source: old records reviewed and nursing notes reviewed <DIEUDONNE Giron - Last Filed: 03/25/22 17:36> Medical History: Medical History Abdominal discomfort Asthma Chronic idiopathic constipation Renal calculi Vomiting <Ebony Chicas NP - Last Filed: 03/25/22 11:48> Surgical History: Surgical History H/O: History of endoscopy Hx of appendectomy <Ebony Chicas NP - Last Filed: 03/25/22 11:48> Family History Family History: Family History Maternal Grandmother Diabetes Father Lymphoma Paternal Aunt Crohn disease Paternal Aunt Ovarian cancer <Ebony Chicas NP - Last Filed: 03/25/22 11:48> Social History Social History: Social History Household Members: Children Alcohol intake: never Patient Tobacco Use Status: Never used Tobacco Smoked in Last 30 Days: Yes Use of substances other than those prescribed or required for medical reasons: No Substance Use Type: Marijuana Advance Directives: No Advance Directives Information Provided: No Patient : No <Ebony Chicas NP - Last Filed: 03/25/22 11:48> Physical Exam Vital Signs: Vital Signs: Last Vital Signs Temp 99.2 F 03/25/22 13:57 Pulse 83 03/25/22 16:21 Resp 16 03/25/22 16:21 BP 110/67 03/25/22 16:21 Pulse Ox 100 03/25/22 16:21 O2 Del Method 03/25/22 16:21 BMI result Body Mass Index 23.3 <Ebony Chicas NP - Last Filed: 03/25/22 11:48> Vital Signs: Last Vital Signs Temp 99.2 F 03/25/22 13:57 Pulse 83 03/25/22 16:21 Resp 16 03/25/22 16:21 BP 110/67 03/25/22 16:21 Pulse Ox 100 03/25/22 16:21 O2 Del Method 03/25/22 16:21 BMI result Body Mass Index 23.3 <DIEUDONNE Giron - Last Filed: 03/25/22 17:36> Const: General: cooperative, no acute distress, alert and awake <DIEUDONNE Giron - Last Filed: 03/25/22 17:36> Nutritional Appearance: well nourished <DIEUDONNE Giron - Last Filed: 03/25/22 17:36> Orientation/consciousness: patient oriented x3 <DIEUDONNE Giron - Last Filed: 03/25/22 17:36> Limitations: no limitations <DIEUDONNE Giron - Last Filed: 03/25/22 17:36> HEENT: Head: Yes normal to inspection and Yes atraumatic <DIEUDONNE Giron - Last Filed: 03/25/22 17:36> Ears: hearing grossly normal bilaterally and external ears normal <DIEUDONNE Giron - Last Filed: 03/25/22 17:36> General nose exam: Normal external nose present, no nasal discharge noted and no epistaxis <DIEUDONNE Giron - Last Filed: 03/25/22 17:36> Face and sinus: Yes normal facial exam, No abrasion and No laceration <DIEUDONNE Giron - Last Filed: 03/25/22 17:36> Mouth: Normal oral and palatal mucosa present, no drooling and no muffled voice <DIEUDONNE Giron - Last Filed: 03/25/22 17:36> Eyes: General: appearance normal, both eyes and all related structures <DIEUDONNE Giron - Last Filed: 03/25/22 17:36> Periorbital: periorbital findings normal <DIEUDONNE Giron - Last Filed: 03/25/22 17:36> Eyelids: Yes eyelids normal <Cherelle Joseph PA - Last Filed: 03/25/22 17:36> Conjunctivae: conjunctivae normal <Cherelle Joseph PA - Last Filed: 03/25/22 17:36> Pupils: Equal, round and reactive pupils present <Cherelle Joseph PA - Last Filed: 03/25/22 17:36> EOM: EOMs intact bilaterally <Cherelle Joseph PA - Last Filed: 03/25/22 17:36> Neck: Neck: Yes normal visual inspection, Yes full ROM and Yes no lymphadenopathy <Cherelle Joseph PA - Last Filed: 03/25/22 17:36> Chest: Chest palpation & inspection: normal inspection of the chest <Cherelle Joseph PA - Last Filed: 03/25/22 17:36> Resp: Effort & Inspection: normal respiratory effort and able to speak in complete sentences <Cherelle Joseph PA - Last Filed: 03/25/22 17:36> Auscultation: clear to auscultation bilaterally <Cherelle Joseph PA - Last Filed: 03/25/22 17:36> Cardio: Rate: regular rate <Cherelle Joseph PA - Last Filed: 03/25/22 17:36> Rhythm: regular rhythm <Cherelle Joseph PA - Last Filed: 03/25/22 17:36> GI: Inspection: Yes normal to inspection <Cherelle Joseph PA - Last Filed: 03/25/22 17:36> Palpation (GI): Soft to palpation, not firm, nontender, no guarding and not rigid <Cherelle Joseph PA - Last Filed: 03/25/22 17:36> Neuro: General: patient oriented x3 and moves all extremities <Cherelle Joseph PA - Last Filed: 03/25/22 17:36> Cranial nerves: Yes Equal, round and reactive pupils present <Cherelle Joseph PA - Last Filed: 03/25/22 17:36> Cognition (Neuro): normal cognition <Cherelle Joseph PA - Last Filed: 03/25/22 17:36> Motor exam (neuro): 5/5 motor strength present throughout <Cherelle Joseph PA - Last Filed: 03/25/22 17:36> Sensory Exam: Normal double simultaneous stimulation for sensation <DIEUDONNE Giron - Last Filed: 03/25/22 17:36> Coordination: [id number]-iw-hmqr test normal <DIEUDONNE Giron - Last Filed: 03/25/22 17:36> Extrem: General: Yes normal to inspection, Yes full ROM and Yes capillary refill normal <DIEUDONNE Giron - Last Filed: 03/25/22 17:36> Psych: Appearance: grossly normal <DIEUDONNE Giron - Last Filed: 03/25/22 17:36> Mental Status: mental status grossly normal <DIEUDONNE Giron - Last Filed: 03/25/22 17:36> Affect: normal affect <DIEUDONNE Giron - Last Filed: 03/25/22 17:36> Attitude: cooperative <DIEUDONNE Giron - Last Filed: 03/25/22 17:36> Thought process: Normal thought process present <DIEUDONNE Giron - Last Filed: 03/25/22 17:36> Thought content: Normal thought content present <DIEUDONNE Giron - Last Filed: 03/25/22 17:36> Insight: Good insight present (Psych) <DIEUDONNE Giron - Last Filed: 03/25/22 17:36> Course Course Course Narrative: This is a rapid medical exam. Deferred additional HPI, ROS, PE to primary provider. 27 yo female with history of asthma here left sided rib pain x 5 days worsened with deep breathing, movement. Went to 2 days ago and given naproxen but she is taking with no relief. No leg swelling/pain, h/o recent travel/surgery, h/o OCP use. On depo only. VSS. Will check labs, CXR, EKG, testing for flu, covid, rsv. <Ebony Chicas NP - Last Filed: 03/25/22 11:48> Medications Administered Discontinued Medications Generic Name Dose Route Start Last Admin Trade Name Freq PRN Reason Stop Dose Admin Hydromorphone HCl 1 mg 03/25/22 14:00 03/25/22 14:13 Hydromorphone Hcl 1 Mg/Ml Syringe IVPUSH 03/25/22 14:01 1 mg ONCE ONE Administration Protocol Ketorolac Tromethamine 15 mg 03/25/22 12:45 03/25/22 13:48 Ketorolac Tromethamine 15 Mg/Ml Vial IVPUSH 03/25/22 12:46 15 mg ONCE ONE Administration <Ebony Chicas NP - Last Filed: 03/25/22 11:48> Medications Administered Discontinued Medications Generic Name Dose Route Start Last Admin Trade Name Faith PRN Reason Stop Dose Admin Hydromorphone HCl 1 mg 03/25/22 14:00 03/25/22 14:13 Hydromorphone Hcl 1 Mg/Ml Syringe IVPUSH 03/25/22 14:01 1 mg ONCE ONE Administration Protocol Ketorolac Tromethamine 15 mg 03/25/22 12:45 03/25/22 13:48 Ketorolac Tromethamine 15 Mg/Ml Vial IVPUSH 03/25/22 12:46 15 mg ONCE ONE Administration <DIEUDONNE Giron - Last Filed: 03/25/22 17:36> Medical Decision Making Medical Decision Making MDM Narrative: Patient is a 27 year old assigned female at with a history of asthma presenting to the emergency department today with chest wall pain. Patient's physical exam was unremarkable. Patient's blood work was unremarkable. Patient's urine showed no acute process. Patient's EKG was unremarkable. Patient's chest x-ray showed no acute process. I explained my physical exam findings as well as all test results to the patient. I answered all questions asked by the patient. I stressed the importance of the patient taking her medication as prescribed. I stressed the importance of the patient following up with her primary care provider. I stressed the importance of the patient returning to the emergency department immediately if her symptoms were to worsen or if she were to develop any dizziness, shortness of breath, difficulty breathing, chest pain, blurry vision, loss of vision, nausea, vomiting, abdominal pain, fever, chills, back pain, or any other complaints. Patient verbalized agreement and understanding with this treatment plan and discharge. <DIEUDONNE Giron - Last Filed: 03/25/22 17:36> Differential Diagnosis Differential Diagnoses: The differential diagnosis associated with the presentation includes <DIEUDONNE Giron - Last Filed: 03/25/22 17:36> Chest wall pain <DIEUDONNE Giron - Last Filed: 03/25/22 17:36> Lab Data [facility] Lab Attestation statement: I reviewed the patient's lab results. <DIEUDONNE Giron - Last Filed: 03/25/22 17:36> Result Diagrams: 03/25/22 13:41 03/25/22 13:41 <Ebony Chicas NP - Last Filed: 03/25/22 11:48> Labs: Lab Results 03/25/22 03/25/22 03/25/22 Range/Units 12:45 13:40 13:40 WBC (4.8-10.8) X10*3/uL RBC (4.20-5.50) X10*6/uL Hgb (12.0-16.0) g/dl Hct (37.0-47.0) % MCV (80.0-98.0) fL MCH (27.0-33.0) pg MCHC (31.0-35.0) g/dl RDW (11.0-16.0) % Plt Count (160-400) X10*3/uL MPV (9.4-12.3) fL Immature Gran % (Auto) (0.0-0.4) % Neut % (Auto) (45-73) % Lymph % (Auto) (20-40) % [place] % (Auto) (2-11) % Eos % (Auto) (0-4) % Baso % (Auto) (0-2) % Lymph # (Auto) (1.2-4.9) X10*3/uL [place] # (Auto) (0.1-1.2) X10*3/uL Eos # (Auto) (0.0-0.4) X10*3/uL Baso # (Auto) (0.0-0.2) X10*3/uL Abs Immat Gran (auto) (0.00-0.03) X10*3/uL Absolute Neuts (auto) (2.0-8.3) x10*3/uL Absolute Nucleated RBC (0.0-0.012) X10*3/uL Nucleated RBC % (auto) (0.0-0.2) /100WBC ESR (0-20) MM/HR PT 12.3 (10.0-13.1) SEC INR 1.1 (0.9-1.1) Sodium (135-145) mmol/L Potassium (3.3-5.1) mmol/L Chloride (96-108) mmol/L Carbon Dioxide (22-29) mmol/L Anion Gap (12-20) BUN (9-16) mg/dL Creatinine (0.5-1.4) mg/dL Estim Creat Clear Calc Estimated GFR Random Glucose (60-115) mg/dL Calcium (8.4-10.2) mg/dL Total Bilirubin (0.0-1.0) mg/dL Direct Bilirubin (0.0-0.5) mg/dL AST (5-31) U/L ALT (0-31) U/L Alkaline Phosphatase (39-117) U/L Troponin I High Sens (<3.5-17.0) ng/L C-Reactive Protein < 0.10 (< or = 0.50) mg/dL B-Natriuretic Peptide 13 (<100) pg/mL Total Protein (6.5-8.0) g/dL Albumin (3.5-5.0) g/dL Urine Color Urine Appearance Urine pH (5.0-9.0) Ur Specific [place] (1.005-1.025) Urine Protein (Neg-Trace) mg/dL Urine Glucose (UA) (Negative) mg/dL Urine Ketones (Negative) mg/dL Urine Blood (Negative) Urine Nitrite (Negative) Ur Leukocyte Esterase (Negative) Urine RBC (0-2) /HPF Urine WBC (0-5) /HPF Ur Squamous Epith Cells (0-2) /HPF Urine Bacteria (None Seen) Hyaline Casts (0-2) /LPF Urine Test (NEGATIVE) Influenza Type A (PCR) (Negative) Influenza Type B (PCR) (Negative) RSV RNA Qual (PCR) (Negative) SARS-CoV-2 RNA (RT-PCR) (Negative) 03/25/22 03/25/22 03/25/22 Range/Units 13:41 13:41 13:41 WBC 9.5 (4.8-10.8) X10*3/uL RBC 4.50 (4.20-5.50) X10*6/uL Hgb 13.1 (12.0-16.0) g/dl Hct 39.8 (37.0-47.0) % MCV 88.4 (80.0-98.0) fL MCH 29.1 (27.0-33.0) pg MCHC 32.9 (31.0-35.0) g/dl RDW 13.2 (11.0-16.0) % Plt Count 187 (160-400) X10*3/uL MPV 12.5 H (9.4-12.3) fL Immature Gran % (Auto) 0.4 (0.0-0.4) % Neut % (Auto) 61.1 (45-73) % Lymph % (Auto) 25.9 (20-40) % [place] % (Auto) 6.6 (2-11) % Eos % (Auto) 5.5 H (0-4) % Baso % (Auto) 0.5 (0-2) % Lymph # (Auto) 2.5 (1.2-4.9) X10*3/uL [place] # (Auto) 0.6 (0.1-1.2) X10*3/uL Eos # (Auto) 0.5 H (0.0-0.4) X10*3/uL Baso # (Auto) 0.1 (0.0-0.2) X10*3/uL Abs Immat Gran (auto) 0.04 H (0.00-0.03) X10*3/uL Absolute Neuts (auto) 5.8 (2.0-8.3) x10*3/uL Absolute Nucleated RBC 0.000 (0.0-0.012) X10*3/uL Nucleated RBC % (auto) 0.0 (0.0-0.2) /100WBC ESR (0-20) MM/HR PT (10.0-13.1) SEC INR (0.9-1.1) Sodium 139 (135-145) mmol/L Potassium 4.3 (3.3-5.1) mmol/L Chloride 106 (96-108) mmol/L Carbon Dioxide 25 (22-29) mmol/L Anion Gap 12 (12-20) BUN 12 (9-16) mg/dL Creatinine 0.69 (0.5-1.4) mg/dL Estim Creat Clear Calc 96.0 Estimated GFR > 60 Random Glucose 82 (60-115) mg/dL Calcium 9.4 (8.4-10.2) mg/dL Total Bilirubin 1.0 (0.0-1.0) mg/dL Direct Bilirubin 0.3 (0.0-0.5) mg/dL AST 19 (5-31) U/L ALT 9 (0-31) U/L Alkaline Phosphatase 57 (39-117) U/L Troponin I High Sens (<3.5-17.0) ng/L C-Reactive Protein (< or = 0.50) mg/dL B-Natriuretic Peptide (<100) pg/mL Total Protein 7.3 (6.5-8.0) g/dL Albumin 4.5 (3.5-5.0) g/dL Urine Color Urine Appearance Urine pH (5.0-9.0) Ur Specific [place] (1.005-1.025) Urine Protein (Neg-Trace) mg/dL Urine Glucose (UA) (Negative) mg/dL Urine Ketones (Negative) mg/dL Urine Blood (Negative) Urine Nitrite (Negative) Ur Leukocyte Esterase (Negative) Urine RBC (0-2) /HPF Urine WBC (0-5) /HPF Ur Squamous Epith Cells (0-2) /HPF Urine Bacteria (None Seen) Hyaline Casts (0-2) /LPF Urine Test (NEGATIVE) Influenza Type A (PCR) NEGATIVE (Negative) Influenza Type B (PCR) NEGATIVE (Negative) RSV RNA Qual (PCR) NEGATIVE (Negative) SARS-CoV-2 RNA (RT-PCR) NEGATIVE (Negative) 03/25/22 03/25/22 03/25/22 Range/Units 13:41 13:41 13:41 WBC (4.8-10.8) X10*3/uL RBC (4.20-5.50) X10*6/uL Hgb (12.0-16.0) g/dl Hct (37.0-47.0) % MCV (80.0-98.0) fL MCH (27.0-33.0) pg MCHC (31.0-35.0) g/dl RDW (11.0-16.0) % Plt Count (160-400) X10*3/uL MPV (9.4-12.3) fL Immature Gran % (Auto) (0.0-0.4) % Neut % (Auto) (45-73) % Lymph % (Auto) (20-40) % [place] % (Auto) (2-11) % Eos % (Auto) (0-4) % Baso % (Auto) (0-2) % Lymph # (Auto) (1.2-4.9) X10*3/uL [place] # (Auto) (0.1-1.2) X10*3/uL Eos # (Auto) (0.0-0.4) X10*3/uL Baso # (Auto) (0.0-0.2) X10*3/uL Abs Immat Gran (auto) (0.00-0.03) X10*3/uL Absolute Neuts (auto) (2.0-8.3) x10*3/uL Absolute Nucleated RBC (0.0-0.012) X10*3/uL Nucleated RBC % (auto) (0.0-0.2) /100WBC ESR (0-20) MM/HR PT (10.0-13.1) SEC INR (0.9-1.1) Sodium (135-145) mmol/L Potassium (3.3-5.1) mmol/L Chloride (96-108) mmol/L Carbon Dioxide (22-29) mmol/L Anion Gap (12-20) BUN (9-16) mg/dL Creatinine (0.5-1.4) mg/dL Estim Creat Clear Calc Estimated GFR Random Glucose (60-115) mg/dL Calcium (8.4-10.2) mg/dL Total Bilirubin (0.0-1.0) mg/dL Direct Bilirubin (0.0-0.5) mg/dL AST (5-31) U/L ALT (0-31) U/L Alkaline Phosphatase (39-117) U/L Troponin I High Sens < 3.5 (<3.5-17.0) ng/L C-Reactive Protein (< or = 0.50) mg/dL B-Natriuretic Peptide (<100) pg/mL Total Protein (6.5-8.0) g/dL Albumin (3.5-5.0) g/dL Urine Color Yellow Urine Appearance Clear Urine pH 6.5 (5.0-9.0) Ur Specific [place] 1.015 (1.005-1.025) Urine Protein Negative (Neg-Trace) mg/dL Urine Glucose (UA) Negative (Negative) mg/dL Urine Ketones Negative (Negative) mg/dL Urine Blood Negative (Negative) Urine Nitrite Negative (Negative) Ur Leukocyte Esterase Small (1+) H (Negative) Urine RBC 0-2 (0-2) /HPF Urine WBC 0-5 (0-5) /HPF Ur Squamous Epith Cells 3-5 (0-2) /HPF Urine Bacteria None Seen (None Seen) Hyaline Casts 0-2 (0-2) /LPF Urine Test NEGATIVE (NEGATIVE) Influenza Type A (PCR) (Negative) Influenza Type B (PCR) (Negative) RSV RNA Qual (PCR) (Negative) SARS-CoV-2 RNA (RT-PCR) (Negative) 03/25/22 Range/Units 13:41 WBC (4.8-10.8) X10*3/uL RBC (4.20-5.50) X10*6/uL Hgb (12.0-16.0) g/dl Hct (37.0-47.0) % MCV (80.0-98.0) fL MCH (27.0-33.0) pg MCHC (31.0-35.0) g/dl RDW (11.0-16.0) % Plt Count (160-400) X10*3/uL MPV (9.4-12.3) fL Immature Gran % (Auto) (0.0-0.4) % Neut % (Auto) (45-73) % Lymph % (Auto) (20-40) % [place] % (Auto) (2-11) % Eos % (Auto) (0-4) % Baso % (Auto) (0-2) % Lymph # (Auto) (1.2-4.9) X10*3/uL [place] # (Auto) (0.1-1.2) X10*3/uL Eos # (Auto) (0.0-0.4) X10*3/uL Baso # (Auto) (0.0-0.2) X10*3/uL Abs Immat Gran (auto) (0.00-0.03) X10*3/uL Absolute Neuts (auto) (2.0-8.3) x10*3/uL Absolute Nucleated RBC (0.0-0.012) X10*3/uL Nucleated RBC % (auto) (0.0-0.2) /100WBC ESR 9 (0-20) MM/HR PT (10.0-13.1) SEC INR (0.9-1.1) Sodium (135-145) mmol/L Potassium (3.3-5.1) mmol/L Chloride (96-108) mmol/L Carbon Dioxide (22-29) mmol/L Anion Gap (12-20) BUN (9-16) mg/dL Creatinine (0.5-1.4) mg/dL Estim Creat Clear Calc Estimated GFR Random Glucose (60-115) mg/dL Calcium (8.4-10.2) mg/dL Total Bilirubin (0.0-1.0) mg/dL Direct Bilirubin (0.0-0.5) mg/dL AST (5-31) U/L ALT (0-31) U/L Alkaline Phosphatase (39-117) U/L Troponin I High Sens (<3.5-17.0) ng/L C-Reactive Protein (< or = 0.50) mg/dL B-Natriuretic Peptide (<100) pg/mL Total Protein (6.5-8.0) g/dL Albumin (3.5-5.0) g/dL Urine Color Urine Appearance Urine pH (5.0-9.0) Ur Specific [place] (1.005-1.025) Urine Protein (Neg-Trace) mg/dL Urine Glucose (UA) (Negative) mg/dL Urine Ketones (Negative) mg/dL Urine Blood (Negative) Urine Nitrite (Negative) Ur Leukocyte Esterase (Negative) Urine RBC (0-2) /HPF Urine WBC (0-5) /HPF Ur Squamous Epith Cells (0-2) /HPF Urine Bacteria (None Seen) Hyaline Casts (0-2) /LPF Urine Test (NEGATIVE) Influenza Type A (PCR) (Negative) Influenza Type B (PCR) (Negative) RSV RNA Qual (PCR) (Negative) SARS-CoV-2 RNA (RT-PCR) (Negative) <Ebony Chicas, SE[employer]DER - Last Filed: 03/25/22 11:48> Lab Results 03/25/22 03/25/22 03/25/22 Range/Units 12:45 13:40 13:40 WBC (4.8-10.8) X10*3/uL RBC (4.20-5.50) X10*6/uL Hgb (12.0-16.0) g/dl Hct (37.0-47.0) % MCV (80.0-98.0) fL MCH (27.0-33.0) pg MCHC (31.0-35.0) g/dl RDW (11.0-16.0) % Plt Count (160-400) X10*3/uL MPV (9.4-12.3) fL Immature Gran % (Auto) (0.0-0.4) % Neut % (Auto) (45-73) % Lymph % (Auto) (20-40) % [place] % (Auto) (2-11) % Eos % (Auto) (0-4) % Baso % (Auto) (0-2) % Lymph # (Auto) (1.2-4.9) X10*3/uL [place] # (Auto) (0.1-1.2) X10*3/uL Eos # (Auto) (0.0-0.4) X10*3/uL Baso # (Auto) (0.0-0.2) X10*3/uL Abs Immat Gran (auto) (0.00-0.03) X10*3/uL Absolute Neuts (auto) (2.0-8.3) x10*3/uL Absolute Nucleated RBC (0.0-0.012) X10*3/uL Nucleated RBC % (auto) (0.0-0.2) /100WBC ESR (0-20) MM/HR PT 12.3 (10.0-13.1) SEC INR 1.1 (0.9-1.1) Sodium (135-145) mmol/L Potassium (3.3-5.1) mmol/L Chloride (96-108) mmol/L Carbon Dioxide (22-29) mmol/L Anion Gap (12-20) BUN (9-16) mg/dL Creatinine (0.5-1.4) mg/dL Estim Creat Clear Calc Estimated GFR Random Glucose (60-115) mg/dL Calcium (8.4-10.2) mg/dL Total Bilirubin (0.0-1.0) mg/dL Direct Bilirubin (0.0-0.5) mg/dL AST (5-31) U/L ALT (0-31) U/L Alkaline Phosphatase (39-117) U/L Troponin I High Sens (<3.5-17.0) ng/L C-Reactive Protein < 0.10 (< or = 0.50) mg/dL B-Natriuretic Peptide 13 (<100) pg/mL Total Protein (6.5-8.0) g/dL Albumin (3.5-5.0) g/dL Urine Color Urine Appearance Urine pH (5.0-9.0) Ur Specific [place] (1.005-1.025) Urine Protein (Neg-Trace) mg/dL Urine Glucose (UA) (Negative) mg/dL Urine Ketones (Negative) mg/dL Urine Blood (Negative) Urine Nitrite (Negative) Ur Leukocyte Esterase (Negative) Urine RBC (0-2) /HPF Urine WBC (0-5) /HPF Ur Squamous Epith Cells (0-2) /HPF Urine Bacteria (None Seen) Hyaline Casts (0-2) /LPF Urine Test (NEGATIVE) Influenza Type A (PCR) (Negative) Influenza Type B (PCR) (Negative) RSV RNA Qual (PCR) (Negative) SARS-CoV-2 RNA (RT-PCR) (Negative) 03/25/22 03/25/22 03/25/22 Range/Units 13:41 13:41 13:41 WBC 9.5 (4.8-10.8) X10*3/uL RBC 4.50 (4.20-5.50) X10*6/uL Hgb 13.1 (12.0-16.0) g/dl Hct 39.8 (37.0-47.0) % MCV 88.4 (80.0-98.0) fL MCH 29.1 (27.0-33.0) pg MCHC 32.9 (31.0-35.0) g/dl RDW 13.2 (11.0-16.0) % Plt Count 187 (160-400) X10*3/uL MPV 12.5 H (9.4-12.3) fL Immature Gran % (Auto) 0.4 (0.0-0.4) % Neut % (Auto) 61.1 (45-73) % Lymph % (Auto) 25.9 (20-40) % [place] % (Auto) 6.6 (2-11) % Eos % (Auto) 5.5 H (0-4) % Baso % (Auto) 0.5 (0-2) % Lymph # (Auto) 2.5 (1.2-4.9) X10*3/uL [place] # (Auto) 0.6 (0.1-1.2) X10*3/uL Eos # (Auto) 0.5 H (0.0-0.4) X10*3/uL Baso # (Auto) 0.1 (0.0-0.2) X10*3/uL Abs Immat Gran (auto) 0.04 H (0.00-0.03) X10*3/uL Absolute Neuts (auto) 5.8 (2.0-8.3) x10*3/uL Absolute Nucleated RBC 0.000 (0.0-0.012) X10*3/uL Nucleated RBC % (auto) 0.0 (0.0-0.2) /100WBC ESR (0-20) MM/HR PT (10.0-13.1) SEC INR (0.9-1.1) Sodium 139 (135-145) mmol/L Potassium 4.3 (3.3-5.1) mmol/L Chloride 106 (96-108) mmol/L Carbon Dioxide 25 (22-29) mmol/L Anion Gap 12 (12-20) BUN 12 (9-16) mg/dL Creatinine 0.69 (0.5-1.4) mg/dL Estim Creat Clear Calc 96.0 Estimated GFR > 60 Random Glucose 82 (60-115) mg/dL Calcium 9.4 (8.4-10.2) mg/dL Total Bilirubin 1.0 (0.0-1.0) mg/dL Direct Bilirubin 0.3 (0.0-0.5) mg/dL AST 19 (5-31) U/L ALT 9 (0-31) U/L Alkaline Phosphatase 57 (39-117) U/L Troponin I High Sens (<3.5-17.0) ng/L C-Reactive Protein (< or = 0.50) mg/dL B-Natriuretic Peptide (<100) pg/mL Total Protein 7.3 (6.5-8.0) g/dL Albumin 4.5 (3.5-5.0) g/dL Urine Color Urine Appearance Urine pH (5.0-9.0) Ur Specific [place] (1.005-1.025) Urine Protein (Neg-Trace) mg/dL Urine Glucose (UA) (Negative) mg/dL Urine Ketones (Negative) mg/dL Urine Blood (Negative) Urine Nitrite (Negative) Ur Leukocyte Esterase (Negative) Urine RBC (0-2) /HPF Urine WBC (0-5) /HPF Ur Squamous Epith Cells (0-2) /HPF Urine Bacteria (None Seen) Hyaline Casts (0-2) /LPF Urine Test (NEGATIVE) Influenza Type A (PCR) NEGATIVE (Negative) Influenza Type B (PCR) NEGATIVE (Negative) RSV RNA Qual (PCR) NEGATIVE (Negative) SARS-CoV-2 RNA (RT-PCR) NEGATIVE (Negative) 03/25/22 03/25/22 03/25/22 Range/Units 13:41 13:41 13:41 WBC (4.8-10.8) X10*3/uL RBC (4.20-5.50) X10*6/uL Hgb (12.0-16.0) g/dl Hct (37.0-47.0) % MCV (80.0-98.0) fL MCH (27.0-33.0) pg MCHC (31.0-35.0) g/dl RDW (11.0-16.0) % Plt Count (160-400) X10*3/uL MPV (9.4-12.3) fL Immature Gran % (Auto) (0.0-0.4) % Neut % (Auto) (45-73) % Lymph % (Auto) (20-40) % [place] % (Auto) (2-11) % Eos % (Auto) (0-4) % Baso % (Auto) (0-2) % Lymph # (Auto) (1.2-4.9) X10*3/uL [place] # (Auto) (0.1-1.2) X10*3/uL Eos # (Auto) (0.0-0.4) X10*3/uL Baso # (Auto) (0.0-0.2) X10*3/uL Abs Immat Gran (auto) (0.00-0.03) X10*3/uL Absolute Neuts (auto) (2.0-8.3) x10*3/uL Absolute Nucleated RBC (0.0-0.012) X10*3/uL Nucleated RBC % (auto) (0.0-0.2) /100WBC ESR (0-20) MM/HR PT (10.0-13.1) SEC INR (0.9-1.1) Sodium (135-145) mmol/L Potassium (3.3-5.1) mmol/L Chloride (96-108) mmol/L Carbon Dioxide (22-29) mmol/L Anion Gap (12-20) BUN (9-16) mg/dL Creatinine (0.5-1.4) mg/dL Estim Creat Clear Calc Estimated GFR Random Glucose (60-115) mg/dL Calcium (8.4-10.2) mg/dL Total Bilirubin (0.0-1.0) mg/dL Direct Bilirubin (0.0-0.5) mg/dL AST (5-31) U/L ALT (0-31) U/L Alkaline Phosphatase (39-117) U/L Troponin I High Sens < 3.5 (<3.5-17.0) ng/L C-Reactive Protein (< or = 0.50) mg/dL B-Natriuretic Peptide (<100) pg/mL Total Protein (6.5-8.0) g/dL Albumin (3.5-5.0) g/dL Urine Color Yellow Urine Appearance Clear Urine pH 6.5 (5.0-9.0) Ur Specific [place] 1.015 (1.005-1.025) Urine Protein Negative (Neg-Trace) mg/dL Urine Glucose (UA) Negative (Negative) mg/dL Urine Ketones Negative (Negative) mg/dL Urine Blood Negative (Negative) Urine Nitrite Negative (Negative) Ur Leukocyte Esterase Small (1+) H (Negative) Urine RBC 0-2 (0-2) /HPF Urine WBC 0-5 (0-5) /HPF Ur Squamous Epith Cells 3-5 (0-2) /HPF Urine Bacteria None Seen (None Seen) Hyaline Casts 0-2 (0-2) /LPF Urine Test NEGATIVE (NEGATIVE) Influenza Type A (PCR) (Negative) Influenza Type B (PCR) (Negative) RSV RNA Qual (PCR) (Negative) SARS-CoV-2 RNA (RT-PCR) (Negative) 03/25/22 Range/Units 13:41 WBC (4.8-10.8) X10*3/uL RBC (4.20-5.50) X10*6/uL Hgb (12.0-16.0) g/dl Hct (37.0-47.0) % MCV (80.0-98.0) fL MCH (27.0-33.0) pg MCHC (31.0-35.0) g/dl RDW (11.0-16.0) % Plt Count (160-400) X10*3/uL MPV (9.4-12.3) fL Immature Gran % (Auto) (0.0-0.4) % Neut % (Auto) (45-73) % Lymph % (Auto) (20-40) % [place] % (Auto) (2-11) % Eos % (Auto) (0-4) % Baso % (Auto) (0-2) % Lymph # (Auto) (1.2-4.9) X10*3/uL [place] # (Auto) (0.1-1.2) X10*3/uL Eos # (Auto) (0.0-0.4) X10*3/uL Baso # (Auto) (0.0-0.2) X10*3/uL Abs Immat Gran (auto) (0.00-0.03) X10*3/uL Absolute Neuts (auto) (2.0-8.3) x10*3/uL Absolute Nucleated RBC (0.0-0.012) X10*3/uL Nucleated RBC % (auto) (0.0-0.2) /100WBC ESR 9 (0-20) MM/HR PT (10.0-13.1) SEC INR (0.9-1.1) Sodium (135-145) mmol/L Potassium (3.3-5.1) mmol/L Chloride (96-108) mmol/L Carbon Dioxide (22-29) mmol/L Anion Gap (12-20) BUN (9-16) mg/dL Creatinine (0.5-1.4) mg/dL Estim Creat Clear Calc Estimated GFR Random Glucose (60-115) mg/dL Calcium (8.4-10.2) mg/dL Total Bilirubin (0.0-1.0) mg/dL Direct Bilirubin (0.0-0.5) mg/dL AST (5-31) U/L ALT (0-31) U/L Alkaline Phosphatase (39-117) U/L Troponin I High Sens (<3.5-17.0) ng/L C-Reactive Protein (< or = 0.50) mg/dL B-Natriuretic Peptide (<100) pg/mL Total Protein (6.5-8.0) g/dL Albumin (3.5-5.0) g/dL Urine Color Urine Appearance Urine pH (5.0-9.0) Ur Specific [place] (1.005-1.025) Urine Protein (Neg-Trace) mg/dL Urine Glucose (UA) (Negative) mg/dL Urine Ketones (Negative) mg/dL Urine Blood (Negative) Urine Nitrite (Negative) Ur Leukocyte Esterase (Negative) Urine RBC (0-2) /HPF Urine WBC (0-5) /HPF Ur Squamous Epith Cells (0-2) /HPF Urine Bacteria (None Seen) Hyaline Casts (0-2) /LPF Urine Test (NEGATIVE) Influenza Type A (PCR) (Negative) Influenza Type B (PCR) (Negative) RSV RNA Qual (PCR) (Negative) SARS-CoV-2 RNA (RT-PCR) (Negative) <DIEUDONNE Giron - Last Filed: 03/25/22 17:36> Independent Interpretation I performed an independent interpretation of an: EKG <DIEUDONNE Giron - Last Filed: 03/25/22 17:36> Interpretation: Vent. Rate: 077 BPM ? ? Atrial Rate: 077 BPM P-R Int: 128 ms? QRS Dur: 080 ms QT Int: 378 ms ? ? ? P-R-T Axes: 058 067 035 degrees QTc Int: 427 ms ? Normal sinus rhythm Normal ECG When compared with ECG of 20-MAR-2010 21:28, No significant change was found DD/ 1222 <DIEUDONNE Giron - Last Filed: 03/25/22 17:36> Radiology Impression Discussion of test interpretation with radiology: I have reviewed the radiologist's reading. <DIEUDONNE Giron - Last Filed: 03/25/22 17:36> Radiologist Impression: My interpretation is in agreement with the radiologist's impression of this imaging study. EXAMINATION: XR CHEST CLINICAL INFORMATION: Left-sided rib pain. COMPARISON: Chest radiograph dated 04/20/2020. TECHNIQUE: 2 views of the chest were obtained. FINDINGS: The lungs are clear. The cardiomediastinal silhouette is normal in size. There is no pleural effusion or pneumothorax. No acute osseous abnormality. XR/XR chest 2V IMPRESSION: No acute cardiopulmonary findings. Dictated By: Rigoberto Valadez MD Signed By: Electronically signed by Rigoberto Valadez MD 03/25/22 1246 <DIEUDONNE Giron - Last Filed: 03/25/22 17:36> Discharge Plan Discharge Clinical Impression: Acute costochondritis <Ebony Chicas NP - Last Filed: 03/25/22 11:48> Patient Disposition: Home, Self-Care <Ebony Chicas NP - Last Filed: 03/25/22 11:48> Instructions: Costochondritis (ED) <Ebony Chicas NP - Last Filed: 03/25/22 11:48> Additional Instructions: Follow up with your primary care provider. Return to the emergency department immediately if your symptoms worsen or if you develop any dizziness, shortness of breath, difficulty breathing, chest pain, blurry vision, loss of vision, nausea, vomiting, abdominal pain, fever, chills, back pain, or any other complaints. <Ebony Chicas NP - Last Filed: 03/25/22 11:48> Prescriptions: No Action [id number] [Fioricet] 50-300-40 mg capsule 1 cap PO Q8H PRN (Reason: pain) Qty: 7 0RF lorazepam 1 mg tablet 1 tab PO DAILY PRN (Reason: anxiety) medroxyprogesterone 150 mg/mL suspension IM metoclopramide HCl [Reglan] 5 mg tablet 5 mg PO QIDACHS Qty: 120 4RF pantoprazole 40 mg tablet,delayed release (DR/EC) 40 mg PO BID Qty: 60 4RF topiramate [Topamax] 50 mg tablet 50 mg PO DAILY Qty: 30 4RF Linzess 290 mcg capsule 290 mcg PO QAM Qty: 30 6RF <Ebony Chicas NP - Last Filed: 03/25/22 11:48> Referrals: Mercy,Yvonne, PEDIATRIC OPHTHALMOLOGIST [Primary Care Provider] - <Ebony Chicas NP - Last Filed: 03/25/22 11:48> Interventions: ED Discharge Assessment Last Done: 03/25/22 16:24 <Ebony Chicas NP - Last Filed: 03/25/22 11:48> Discharge Date/Time: 03/25/22 16:45 <Ebony Chicas NP - Last Filed: 03/25/22 11:48> Print Language: Sinhala <Ebony Chicas NP - Last Filed: 03/25/22 11:48>
--- NOTE | 2022-03-25 11:46 | ECG_ITS ---
Test Reason : left rib pain Blood Pressure : / mmHG Vent. Rate : 077 BPM Atrial Rate : 077 BPM P-R Int : 128 ms QRS Dur : 080 ms QT Int : 378 ms P-R-T Axes : 058 067 035 degrees QTc Int : 427 ms Normal sinus rhythm Normal ECG When compared with ECG of 20-MAR-2010 21:28, No significant change was found Referred By: Ebony Chicas Electronically Signed By:Roberto García
[2022-03-25 12:48] VITALS: BP 119/75; PULSE 76; RESP 20; TEMP 36.7; O2SAT 100
[2022-03-25] MEDS: Ketorolac Tromethamine 15 MG/ML VIAL IVPUSH (13:48)
[2022-03-25 13:49] LABS: MANUAL DIFF FLAG NO
[2022-03-25 13:53] LABS: Basophils Absolute Auto 0.1 X10*3/uL (0.0-0.2); Basophils Percent Auto 0.5 % (0-2); Eosinophils Absolute Auto 0.5 X10*3/uL (0.0-0.4); Eosinophils Percent Auto 5.5 % (0-4); Hematocrit 39.8 % (37.0-47.0); Hemoglobin 13.1 g/dl (12.0-16.0); Imm Gran Abs Auto 0.04 X10*3/uL (0.00-0.03); Imm Gran Pct Auto 0.4 % (0.0-0.4); Lymphocytes Absolute Auto 2.5 X10*3/uL (1.2-4.9); Lymphocytes Percent Auto 25.9 % (20-40); Mean Corpuscular HGB Conc 32.9 g/dl (31.0-35.0); Mean Corpuscular Hemoglobin 29.1 pg (27.0-33.0); Mean Corpuscular Volume 88.4 fL (80.0-98.0); Mean Platelet Volume 12.5 fL (9.4-12.3); Monocytes Absolute Auto 0.6 X10*3/uL (0.1-1.2); Monocytes Percent Auto 6.6 % (2-11); Neutrophils Absolute Auto 5.8 x10*3/uL (2.0-8.3); Neutrophils Percent Auto 61.1 % (45-73); Platelet Count 187 X10*3/uL (160-400); Red Cell Distribution Width 13.2 % (11.0-16.0); White Blood Count 9.5 X10*3/uL (4.8-10.8)
[2022-03-25 13:57] VITALS: BP 115/69; PULSE 78; RESP 16; TEMP 37.3; O2SAT 100
[2022-03-25 13:59] LABS: INTERNATIONAL NORM RATIO 1.1 (0.9-1.1); Prothrombin Time 12.3 SEC (10.0-13.1)
[2022-03-25 14:05] LABS: C Reactive Protein < 0.10 mg/dL (< or = 0.50)
[2022-03-25 14:06] LABS: Alanine Aminotransferase 9 U/L (0-31); Albumin Level 4.5 g/dL (3.5-5.0); Alkaline Phosphatase 57 U/L (39-117); Anion Gap 12 (12-20); Aspartate Amino Transferase 19 U/L (5-31); Bilirubin Direct 0.3 mg/dL (0.0-0.5); Blood Urea Nitrogen 12 mg/dL (9-16); Calcium 9.4 mg/dL (8.4-10.2); Carbon Dioxide 25 mmol/L (22-29); Chloride 106 mmol/L (96-108); Estimated Glomerular Filt Rate > 60; Glucose Random 82 mg/dL (60-115); Potassium 4.3 mmol/L (3.3-5.1); Sodium 139 mmol/L (135-145); Total Protein 7.3 g/dL (6.5-8.0)
[2022-03-25 14:12] LABS: B Type Natriuretic Peptide 13 pg/mL (<100)
[2022-03-25] MEDS: HYDROmorphone HCl 1 MG/ML SYRINGE IVPUSH (14:13)
[2022-03-25 14:17] LABS: Appearance Urine Clear; Color Urine Yellow; Glucose Urine UA Negative (Negative); Leukocyte Esterase Urine Small (1+) (Negative); Nitrite Urine Negative (Negative); PH 6.5 (5.0-9.0); Specific Gravity - Urine 1.015 (1.005-1.025); UMIC TRIGGER UACC YES; Urine Blood Negative (Negative); Urine Ketones Negative (Negative); Urine Protein Negative (Neg-Trace)
[2022-03-25 14:18] LABS: Troponin-I High Sensitivity < 3.5 ng/L (<3.5-17.0); UPreg QC Valid YES; Urine Pregnancy NEGATIVE (NEGATIVE)
[2022-03-25 14:28] LABS: Bacteria Urine None Seen (None Seen); Hyaline Casts Urine 0-2 /LPF (0-2); RBC Urine 0-2 /HPF (0-2); UACC Culture Trigger YES; WBC Urine 0-5 /HPF (0-5)
[2022-03-25 14:45] LABS: Erythrocyte Sedimentation Rate 9 MM/HR (0-20)
[2022-03-25 14:55] LABS: Influenza A PCR NEGATIVE (Negative); Influenza B PCR NEGATIVE (Negative); Resp Syncy Virus RNA Qual PCR NEGATIVE (Negative); SARS COV2 PCR INHOUSE NEGATIVE (Negative)
[2022-03-25 16:21] VITALS: BP 110/67; PULSE 83; RESP 16; O2SAT 100
== END 2022-03-25 16:45 | disposition home or self-care (01) ==
PROVIDERS: Nurse Practitioner Family; Physician Assistant Medical; Emergency Provider Student in an Organized Health Care Education/Training Program; PCP Registered Nurse
DX: M94.0 Chondrocostal junction syndrome [Tietze] (principal); Z20.822 Contact with and (suspected) exposure to COVID-19; Z20.828 Contact with and (suspected) exposure to other viral communicable diseases; J45.909 Unspecified asthma, uncomplicated; F12.90 Cannabis use, unspecified, uncomplicated; Z88.9 Allergy status to unspecified drugs, medicaments and biological substances; Z91.011 Allergy to milk products; Z91.013 Allergy to seafood; Z79.899 Other long term (current) drug therapy
CPT/HCPCS: 0241U; 36415; 71046; 80048; 80076; 81001; 81025; 83880; 84484; 85025; 85610; 85652; 86140; 87086; 87147; 93005; 96374; 96375; 99284; J1170; J1885

== ENCOUNTER 2022-08-27 10:46 | Inpatient (IN) | payer MEDICAID, SELFPAY ==
--- NOTE | ~2022-08-27 | CT_ITS ---
EXAMINATION: CT ABDOMEN AND PELVIS WITHOUT CONTRAST CLINICAL INFORMATION: Left lower quadrant pain. History of stones. COMPARISON: Previous CT of the abdomen and pelvis April 2020 and abdominal ultrasound April 2020 TECHNIQUE: Multidetector volumetric imaging was performed from the superior aspect of the liver through the pubic symphysis. Sagittal and coronal reformatted images were obtained on the technologist's workstation. This CT examination was performed using dose optimization techniques as appropriate, variously including the following: *Automated exposure control *Adjustment of mA and/or kV according to patient size (this includes techniques or standardized protocols for targeted exams where dose is matched to indication/reason for exam; i.e. extremities or head) *Use of iterative reconstruction technique DLP: 320 mGy-cm FINDINGS: LUNG BASES: The visualized lung bases are unremarkable. LIVER, GALLBLADDER, AND BILIARY TREE: The liver is normal in size, shape, and attenuation. No focal hepatic lesion or biliary ductal dilatation is present. The gallbladder is unremarkable with no evidence of radiopaque gallstones, gallbladder wall thickening, or obvious pericholecystic inflammatory changes. PANCREAS: Unremarkable. SPLEEN: Unremarkable. ADRENAL GLANDS: Unremarkable. KIDNEYS AND URETERS: There are multiple small bilateral renal stones. There is mild left hydronephrosis and ureteral dilatation from a 3 mm left distal ureteral stone. BLADDER: Bladder is empty. GASTROINTESTINAL TRACT: The small and large bowel are unremarkable. The appendix is not seen and may been removed. ABDOMINAL WALL: No significant hernia is appreciated. LYMPH NODES: Normal. VASCULAR: Unremarkable. PELVIC VISCERA: Unremarkable. OSSEOUS STRUCTURES: Unremarkable. CT/CT abdomen pelvis wo IV con IMPRESSION: Bilateral renal stones. Mild left hydronephrosis and ureteral dilatation from a 3 mm left distal ureteral stone. Fleischner guidelines were followed.
--- NOTE | ~2022-08-27 | US_ITS ---
EXAMINATION: US PELVIS CLINICAL INFORMATION: Left lower quadrant abdominal pain. Question torsion COMPARISON: Ultrasound 05/03/2019. TECHNIQUE: Ultrasound of the pelvis is performed using both transabdominal and transvaginal transducers along with Doppler. Transvaginal imaging is performed due to inadequate visualization transabdominally. FINDINGS: Uterus: The uterus is anteverted, anteflexed and measures 7.4 x 3.0 x 3.8 cm. The double wall endometrial thickness is 0.07 cm. The uterus is smooth in contour and has normal myometrial echogenicity. No visible fibroid. Adnexa: Both ovaries are visualized. There is normal color flow to the adnexa. There is no ovarian torsion. There is no pelvic ascites or fluid collection. Right ovary measures 2.7 x 1.9 x 1.6 cm and volume 4.3 mL. No focal lesion seen. Normal arterial and venous flow seen in Doppler exam. Previously right ovary measured 3.1 x 1.4 x 2.0). Left ovary measures 2.3 x 1.9 x 1.6 cm and volume 3.5 mL. No focal lesion seen. There is normal arterial and venous flow on Doppler exam. Previously left ovary measured 3.1 x 1.6 x 2.3 cm. Incidental finding of a echogenic stone left distal ureter/UVJ region. It measures 0.4 x 0.3 x [address] of abdomen and pelvis for further evaluation. US/US pelvic ovarian doppler IMPRESSION: Pelvis and ovaries unremarkable. Suspect left UVJ on the left distal ureteral stone. Recommend CT abdomen and pelvis without contrast for further evaluation. Based on the previous CT abdomen exams patient had a nonobstructive bilateral small punctate radiopaque calculi.
--- NOTE | ~2022-08-27 | US_ITS ---
EXAMINATION: US PELVIS CLINICAL INFORMATION: Left lower quadrant abdominal pain. Question torsion COMPARISON: Ultrasound 05/03/2019. TECHNIQUE: Ultrasound of the pelvis is performed using both transabdominal and transvaginal transducers along with Doppler. Transvaginal imaging is performed due to inadequate visualization transabdominally. FINDINGS: Uterus: The uterus is anteverted, anteflexed and measures 7.4 x 3.0 x 3.8 cm. The double wall endometrial thickness is 0.07 cm. The uterus is smooth in contour and has normal myometrial echogenicity. No visible fibroid. Adnexa: Both ovaries are visualized. There is normal color flow to the adnexa. There is no ovarian torsion. There is no pelvic ascites or fluid collection. Right ovary measures 2.7 x 1.9 x 1.6 cm and volume 4.3 mL. No focal lesion seen. Normal arterial and venous flow seen in Doppler exam. Previously right ovary measured 3.1 x 1.4 x 2.0). Left ovary measures 2.3 x 1.9 x 1.6 cm and volume 3.5 mL. No focal lesion seen. There is normal arterial and venous flow on Doppler exam. Previously left ovary measured 3.1 x 1.6 x 2.3 cm. Incidental finding of a echogenic stone left distal ureter/UVJ region. It measures 0.4 x 0.3 x [address] of abdomen and pelvis for further evaluation. US/US pelvic and transvaginal IMPRESSION: Pelvis and ovaries unremarkable. Suspect left UVJ on the left distal ureteral stone. Recommend CT abdomen and pelvis without contrast for further evaluation. Based on the previous CT abdomen exams patient had a nonobstructive bilateral small punctate radiopaque calculi.
--- NOTE | ~2022-08-27 | FL_ITS ---
EXAMINATION: XR FLUOROSCOPY WITH IMAGES CLINICAL INFORMATION: Urinary tract calculi. Mild left hydronephrosis. COMPARISON: CT abdomen and pelvis noncontrast 08/27/2022 TECHNIQUE: Fluoroscopy Supervised By: Dr. Bryce Armstrong. Fluoroscopy Time: 38 seconds. Cumulative Dose: 6.54 mGy. Images: 2. FINDINGS: There is contrast in the left ureter which appears of normal caliber. The segment imaged shows no filling defect or stricture. The final spot image demonstrates lower left ureteral stent in position. FL/FL guidance in OR IMPRESSION: Fluoroscopy for urologic procedures.
--- NOTE | 2022-08-27 10:56 | ED_ITS ---
HPI - General Adult General Chief complaint: Abdominal Pain Stated complaint: ABD PAIN Time Seen by Provider: 08/27/22 10:54 Source: patient and EMS Mode of arrival: EMS Limitations: other (poor historian in pain screaming ) History of Present Illness HPI narrative: This is a 27-year-old female history of acid reflux, migraines, chronic idiopathic constipation presenting to the emergency department for evaluation of severe left lower abdominal pain, flank pain and pelvic pain X2 days w/ a/c nausea and vomiting. No fevers and chills. Patient erika historian comes in via ambulance, screaming in pain, states she can not answer my questions. Screaming I am in pain . Visually uncomfortable. HX of kidney stones Related Data Home Medications Medication Instructions Recorded Confirmed medroxyprogesterone 150 mg/mL mg IM 10/30/21 intramuscular suspension lorazepam 1 mg tablet 1 tab PO DAILY PRN anxiety 11/12/21 11/12/21 Previous Rx's Medication Instructions Recorded gubunvowph-ahinnazlbowng-dzlvsxas 1 cap PO Q8H PRN pain #7 caps 11/22/21 50 mg-300 mg-40 mg capsule (Fioricet) linaclotide 290 mcg capsule 290 mcg PO QAM #30 caps 02/23/22 (Linzess) metoclopramide HCl 5 mg tablet 5 mg PO QIDACHS #120 tabs 02/23/22 (Reglan) pantoprazole 40 mg tablet,delayed 40 mg PO BID #60 tabs 02/23/22 release topiramate 50 mg tablet (Topamax) 50 mg PO DAILY #30 tabs 02/23/22 Allergies Allergy/AdvReac Type Severity Reaction Status Date / Time latex [LATEX] Allergy Severe Hives Verified 01/07/22 12:36 sumatriptan [From IMITREX] Allergy Mild FAINTED, Verified 01/07/22 12:36 EYES ROLLED BACK, SOB Review of Systems Review of Systems: Yes Unobtainable due to mental status PMFSH Past Medical History Attestation statement: The following information was validated with the patient. Source: old records reviewed and nursing notes reviewed Medical History Abdominal discomfort Asthma Chronic idiopathic constipation Renal calculi Vomiting Surgical History H/O: History of endoscopy Hx of appendectomy Family History Family History Maternal Grandmother Diabetes Father Lymphoma Paternal Aunt Crohn disease Paternal Aunt Ovarian cancer Social History Social History Household Members: Children Alcohol intake: never Patient Tobacco Use Status: Never used Tobacco Substance Use Type: Marijuana Advance Directives: No Advance Directives Information Provided: No Physical Exam ED Vital Signs: Vital Signs - 24 hr 08/27/22 11:01 08/27/22 11:10 Temperature 98.1 F Pulse Rate 102 H 86 Respiratory Rate 20 16 Blood Pressure 131/79 Pulse Oximetry 99 99 Oxygen Delivery Method Room Air Room Air BMI result Body Mass Index 23.9 vss Appearance: Alert.? Oriented X3.? No acute distress.? Patient appears very unco mfortable and in pain. Head: Normocephalic, atraumatic, no step-offs or deformities Eyes: Pupils equal, round and reactive to light.? CVS: Normal heart rate and rhythm.? Pulses normal.? Respiratory: No respiratory distress.? Breath sounds normal.? Abdomen: Soft and + severe LLQ abd pain and L flank pain .? Skin: Skin warm and dry.? Normal skin color.? Normal skin turgor.? Extremities: No lower extremity edema.? No calf ttp. 5/5 strength to bilateral upper and lower extremities Neuro: Oriented X 3.? No motor deficit.? No sensory deficit. CN 2-12 intact Course Reevaluation(s) Reevaluation #1: CBC with slight leukocytosis likely secondary to nausea and vomiting. Chemistry no acute findings. Beta hCG negative. UA without infection. CT abdomen pelvis with bilateral renal stones, mild left hydronephrosis and ureteral dilation from a 3 mm left distal ureteral stone. Pelvic Doppler pending. Dr. Armstrong urology care to evaluate patient who will admit patient to his service. NPO after mi dnight. Patient aware of plan. Time: 13:26 Medications Administered Discontinued Medications Generic Name Dose Route Start Last Admin Trade Name Freq PRN Reason Stop Dose Admin Hydromorphone HCl 0.5 mg 08/27/22 12:29 08/27/22 12:37 Hydromorphone Hcl 0.5 Mg/0.5 Ml Syringe IVPUSH 08/27/22 12:30 0.5 mg ONCE ONE Administration Protocol Sodium Chloride 1,000 mls @ 999 mls/hr 08/27/22 11:00 08/27/22 12:37 Ns IV 08/27/22 12:00 999 mls/hr .Q1H1M DEBI Administration Lorazepam 1 mg 08/27/22 10:59 08/27/22 11:06 Lorazepam 2 Mg/Ml Vial IVPUSH 08/27/22 11:00 1 mg ONCE ONE Administration Morphine Sulfate 4 mg 08/27/22 10:55 08/27/22 11:07 Morphine Sulfate 4 Mg/Ml Cartridge IVPUSH 08/27/22 10:56 4 mg ONCE ONE Administration Protocol Prednisone 20 mg 08/27/22 12:30 08/27/22 12:37 Prednisone 20 Mg Tablet PO 08/27/22 12:31 20 mg ONCE ONE Administration Tamsulosin HCl 0.4 mg 08/27/22 12:30 08/27/22 12:37 Tamsulosin Hcl 0.4 Mg Capsule PO 08/27/22 12:31 0.4 mg ONCE ONE Administration Medical Decision Making Medical Decision Making [facility] Narrative: 1055 27-year-old female presents with severe abdominal pain, left flank pain, nausea, vomiting and pelvic pain for the past few days worsening. Arrives screaming out in pain, poor historian at this time due to pain. Physical exam significant for severe LLQ abd pain and L flank pain. Concerns for possible kidney stone, versus pyelonephritis. Less likely ectopic , ovarian torsion, ruptured ovarian cyst. Unlikely acute abdomen. Will rule out obstructive uropathy, UTI and electrolyte abnormalities. Plan labs, imaging, urine. Differential Diagnosis Differential Diagnoses: The differential diagnosis associated with the presentation includes Concerns for possible kidney stone, versus pyelonephritis. Less likely ectopic , ovarian torsion, ruptured ovarian cyst. Unlikely acute abdomen. Will rule out obstructive uropathy, UTI and electrolyte abnormalities. Admission/Observation Consideration of admission/observation: Escalation of care including admission/observation considered [facility] Consult Healthcare Provider Management of the patient was discussed with: Chief Maintenance Supervisor (urology ) Lab Data MDM Lab Attestation statement: I reviewed the patient's lab results. 08/27/22 10:59 06/16/23 10:59 Labs: Lab Results 08/27/22 08/27/22 08/27/22 Range/Units 10:59 10:59 10:59 WBC 12.1 H (4.8-10.8) X10*3/uL RBC 4.62 (4.20-5.50) X10*6/uL Hgb 13.3 (12.0-16.0) g/dl Hct 40.3 (37.0-47.0) % MCV 87.2 (80.0-98.0) fL MCH 28.8 (27.0-33.0) pg MCHC 33.0 (31.0-35.0) g/dl RDW 14.6 (11.0-16.0) % Plt Count 181 (160-400) X10*3/uL MPV 12.7 H (9.4-12.3) fL Immature Gran % (Auto) 0.3 (0.0-0.4) % Neut % (Auto) 70.6 (45-73) % Lymph % (Auto) 21.7 (20-40) % [place] % (Auto) 4.2 (2-11) % Eos % (Auto) 2.5 (0-4) % Baso % (Auto) 0.7 (0-2) % Lymph # (Auto) 2.6 (1.2-4.9) X10*3/uL [place] # (Auto) 0.5 (0.1-1.2) X10*3/uL Eos # (Auto) 0.3 (0.0-0.4) X10*3/uL Baso # (Auto) 0.1 (0.0-0.2) X10*3/uL Abs Immat Gran (auto) 0.04 H (0.00-0.03) X10*3/uL Absolute Neuts (auto) 8.6 H (2.0-8.3) x10*3/uL Absolute Nucleated RBC 0.000 (0.0-0.012) X10*3/uL Nucleated RBC % (auto) 0.0 (0.0-0.2) /100WBC Sodium 139 (135-145) mmol/L Potassium 3.7 (3.3-5.1) mmol/L Chloride 110 H (96-108) mmol/L Carbon Dioxide 18 L (22-29) mmol/L Anion Gap 15 (12-20) BUN 14 (9-16) mg/dL Creatinine 0.97 (0.5-1.4) mg/dL Estim Creat Clear Calc 71.4 Estimated GFR > 60 Random Glucose 104 (60-115) mg/dL Calcium 10.0 D (8.4-10.2) mg/dL Magnesium 2.1 (1.6-2.6) mg/dL Total Bilirubin 0.5 (0.0-1.0) mg/dL AST 18 (5-31) U/L ALT 11 (0-31) U/L Alkaline Phosphatase 65 (39-117) U/L Total Protein 7.6 (6.5-8.0) g/dL Albumin 4.4 (3.5-5.0) g/dL Lipase 19 (8-78) U/L Beta HCG, Quant < 2 mIU/mL Urine Color Urine Appearance Urine pH (5.0-9.0) Ur Specific [place] (1.005-1.025) Urine Protein (Neg-Trace) mg/dL Urine Glucose (UA) (Negative) mg/dL Urine Ketones (Negative) mg/dL Urine Blood (Negative) Urine Nitrite (Negative) Ur Leukocyte Esterase (Negative) Urine RBC (0-2) /HPF Urine WBC (0-5) /HPF Ur Squamous Epith Cells (0-2) /HPF Urine Bacteria (None Seen) Hyaline Casts (0-2) /LPF Urine Opiates Screen (Not Detect) Urine Fentanyl Screen (Not Detect) Ur Barbiturates Screen (Not Detect) Ur Phencyclidine Scrn (Not Detect) Ur Amphetamines Screen (Not Detect) U Benzodiazepines Scrn (Not Detect) Urine Cocaine Screen (Not Detect) U Marijuana (THC) Screen (Not Detect) 08/27/22 08/27/22 Range/Units 11:50 11:50 WBC (4.8-10.8) X10*3/uL RBC (4.20-5.50) X10*6/uL Hgb (12.0-16.0) g/dl Hct (37.0-47.0) % MCV (80.0-98.0) fL MCH (27.0-33.0) pg MCHC (31.0-35.0) g/dl RDW (11.0-16.0) % Plt Count (160-400) X10*3/uL MPV (9.4-12.3) fL Immature Gran % (Auto) (0.0-0.4) % Neut % (Auto) (45-73) % Lymph % (Auto) (20-40) % [place] % (Auto) (2-11) % Eos % (Auto) (0-4) % Baso % (Auto) (0-2) % Lymph # (Auto) (1.2-4.9) X10*3/uL [place] # (Auto) (0.1-1.2) X10*3/uL Eos # (Auto) (0.0-0.4) X10*3/uL Baso # (Auto) (0.0-0.2) X10*3/uL Abs Immat Gran (auto) (0.00-0.03) X10*3/uL Absolute Neuts (auto) (2.0-8.3) x10*3/uL Absolute Nucleated RBC (0.0-0.012) X10*3/uL Nucleated RBC % (auto) (0.0-0.2) /100WBC Sodium (135-145) mmol/L Potassium (3.3-5.1) mmol/L Chloride (96-108) mmol/L Carbon Dioxide (22-29) mmol/L Anion Gap (12-20) BUN (9-16) mg/dL Creatinine (0.5-1.4) mg/dL Estim Creat Clear Calc Estimated GFR Random Glucose (60-115) mg/dL Calcium (8.4-10.2) mg/dL Magnesium (1.6-2.6) mg/dL Total Bilirubin (0.0-1.0) mg/dL AST (5-31) U/L ALT (0-31) U/L Alkaline Phosphatase (39-117) U/L Total Protein (6.5-8.0) g/dL Albumin (3.5-5.0) g/dL Lipase (8-78) U/L Beta HCG, Quant mIU/mL Urine Color Yellow Urine Appearance Clear Urine pH 6.5 (5.0-9.0) Ur Specific [place] 1.025 (1.005-1.025) Urine Protein 30 (1+) H (Neg-Trace) mg/dL Urine Glucose (UA) Negative (Negative) mg/dL Urine Ketones Trace (Negative) mg/dL Urine Blood Moderate (2+) H (Negative) Urine Nitrite Negative (Negative) Ur Leukocyte Esterase Trace H (Negative) Urine RBC >20 H (0-2) /HPF Urine WBC 0-5 (0-5) /HPF Ur Squamous Epith Cells 0-2 (0-2) /HPF Urine Bacteria None Seen (None Seen) Hyaline Casts 3-5 (0-2) /LPF Urine Opiates Screen POSITIVE H (Not Detect) Urine Fentanyl Screen Not Detected (Not Detect) Ur Barbiturates Screen Not Detected (Not Detect) Ur Phencyclidine Scrn Not Detected (Not Detect) Ur Amphetamines Screen Not Detected (Not Detect) U Benzodiazepines Scrn Not Detected (Not Detect) Urine Cocaine Screen Not Detected (Not Detect) U Marijuana (THC) Screen POSITIVE H (Not Detect) Independent Interpretation I performed an independent interpretation of an: CT Scan (CT/CT abdomen pelvis wo IV con IMPRESSION: Bilateral renal stones. Mild left hydronephrosis and ureteral dilatation from a 3 mm left distal ureteral stone. Fleischner guidelines were followed.) Radiology Impression Discussion of test interpretation with radiology: I have reviewed the radiologis t's reading. External Record Review External record reviewed: Inpatient record, Office record, Outpatient record, Prior outpatient labs, Prior outpatient radiology, Primary care record and Outside ED record Core Measures AMI core measures followed: Yes Measure exclusions: not indicated Critical Care Time Critical Care Time Critical Care Time: Yes Total Critical Care Time: 35 Attestation: I attest to this time spent taking care of the patient, obtaining history, physical, reviewing labs, imaging, speaking to my attending, speaking to spe cialist. Discharge Plan Discharge Clinical Impression: Hydronephrosis, Kidney stone Patient Disposition: Admitted As Inpatient Prescriptions: No Action hrfvgghylp-zliyktmgakldp-gxpw [Fioricet] 50-300-40 mg capsule 1 cap PO Q8H PRN (Reason: pain) Qty: 7 0RF lorazepam 1 mg tablet 1 tab PO DAILY PRN (Reason: anxiety) medroxyprogesterone 150 mg/mL suspension IM metoclopramide HCl [Reglan] 5 mg tablet 5 mg PO QIDACHS Qty: 120 4RF pantoprazole 40 mg tablet,delayed release (DR/EC) 40 mg PO BID Qty: 60 4RF topiramate [Topamax] 50 mg tablet 50 mg PO DAILY Qty: 30 4RF Linzess 290 mcg capsule 290 mcg PO QAM Qty: 30 6RF
[2022-08-27 11:01] VITALS: PULSE 102; RESP 20; TEMP 36.7; O2SAT 99; BMI 23.9
[2022-08-27 11:05] LABS: MANUAL DIFF FLAG NO
[2022-08-27] MEDS: LORazepam 2 MG/ML VIAL 1 MG IVPUSH (11:06)
[2022-08-27] MEDS: Morphine Sulfate 4 MG/ML CARTRIDGE IVPUSH (11:07)
[2022-08-27 11:10] VITALS: BP 131/79; PULSE 86; RESP 16; O2SAT 99
[2022-08-27 11:12] LABS: Basophils Absolute Auto 0.1 X10*3/uL (0.0-0.2); Basophils Percent Auto 0.7 % (0-2); Eosinophils Absolute Auto 0.3 X10*3/uL (0.0-0.4); Eosinophils Percent Auto 2.5 % (0-4); Hematocrit 40.3 % (37.0-47.0); Hemoglobin 13.3 g/dl (12.0-16.0); Imm Gran Abs Auto 0.04 X10*3/uL (0.00-0.03); Imm Gran Pct Auto 0.3 % (0.0-0.4); Lymphocytes Absolute Auto 2.6 X10*3/uL (1.2-4.9); Lymphocytes Percent Auto 21.7 % (20-40); Mean Corpuscular Hemoglobin 28.8 pg (27.0-33.0); Mean Corpuscular Volume 87.2 fL (80.0-98.0); Mean Platelet Volume 12.7 fL (9.4-12.3); Monocytes Absolute Auto 0.5 X10*3/uL (0.1-1.2); Monocytes Percent Auto 4.2 % (2-11); Neutrophils Absolute Auto 8.6 x10*3/uL (2.0-8.3); Neutrophils Percent Auto 70.6 % (45-73); Platelet Count 181 X10*3/uL (160-400); Red Blood Count 4.62 X10*6/uL (4.20-5.50); Red Cell Distribution Width 14.6 % (11.0-16.0); White Blood Count 12.1 X10*3/uL (4.8-10.8)
[2022-08-27 11:43] LABS: Alanine Aminotransferase 11 U/L (0-31); Albumin Level 4.4 g/dL (3.5-5.0); Alkaline Phosphatase 65 U/L (39-117); Anion Gap 15 (12-20); Aspartate Amino Transferase 18 U/L (5-31); Bilirubin Total 0.5 mg/dL (0.0-1.0); Blood Urea Nitrogen 14 mg/dL (9-16); Carbon Dioxide 18 mmol/L (22-29); Chloride 110 mmol/L (96-108); Creatinine Clr Calc Pharmacy 71.4; Estimated Glomerular Filt Rate > 60; Glucose Random 104 mg/dL (60-115); HCG Quantitative < 2 mIU/mL; Lipase 19 U/L (8-78); Magnesium 2.1 mg/dL (1.6-2.6); Potassium 3.7 mmol/L (3.3-5.1); Sodium 139 mmol/L (135-145); Total Protein 7.6 g/dL (6.5-8.0)
[2022-08-27 12:01] LABS: Appearance Urine Clear; Color Urine Yellow; Glucose Urine UA Negative (Negative); Leukocyte Esterase Urine Trace (Negative); Nitrite Urine Negative (Negative); PH 6.5 (5.0-9.0); Specific Gravity - Urine 1.025 (1.005-1.025); UMIC TRIGGER UACC YES; Urine Blood Moderate (2+) (Negative); Urine Ketones Trace mg/dL (Negative); Urine Protein 30 (1+) mg/dL (Neg-Trace)
[2022-08-27 12:03] LABS: Bacteria Urine None Seen (None Seen); RBC Urine >20 /HPF (0-2); Squamous Epithelial Cell Urine 0-2 /HPF (0-2); WBC Urine 0-5 /HPF (0-5)
[2022-08-27 12:21] LABS: Amphetamine Screen Urine Not Detected (Not Detect); Barbiturates, Urine Not Detected (Not Detect); Benzodiazepines Screen Urine Not Detected (Not Detect); Cannabinoid Screen Urine POSITIVE (Not Detect); Cocaine Screen Urine Not Detected (Not Detect); Fentanyl, urine Not Detected (Not Detect); Opiate Screen Urine POSITIVE (Not Detect); Phencyclidine Screen Urine Not Detected (Not Detect)
[2022-08-27] MEDS: predniSONE 20 MG TABLET PO (12:37)
[2022-08-27] MEDS: Tamsulosin HCL 0.4 MG CAPSULE PO (12:37)
[2022-08-27] MEDS: HYDROmorphone HCl 0.5 MG/0.5 ML SYRINGE IVPUSH ×2 (12:37→14:36)
[2022-08-27] MEDS: 0.9 % Sodium Chloride 1,000 ML 999 ML IV (12:37)
--- NOTE | 2022-08-27 12:43 | PC.NURSE ---
pt continues to have 10/10 pain, medicated per the mar. fluids infusing. pt at us at this time
--- NOTE | 2022-08-27 13:59 | PHA.MEDREC ---
Pharmacy Consult ? Medication Reconciliation Pharmacy has completed the medication reconciliation.
--- NOTE | 2022-08-27 14:15 | PC.NURSE ---
pt redirected on keeping arm straight in order to receive IV fluids, pt vomited on floor in room, appears more comfortable at this time
[2022-08-27 14:26] VITALS: BP 135/88; PULSE 68; RESP 18; O2SAT 100
[2022-08-27] MEDS: ondansetron HCL 4 MG/2 ML VIAL IVPUSH (14:36)
--- NOTE | 2022-08-27 14:42 | PC.NURSE ---
fluids infusing, medicated for pain and nausea
--- NOTE | 2022-08-27 16:01 | PC.NURSE ---
reached out to dr be for admission orders. pt pending admission, appears to be more comfortable at this time. family at bedside
[2022-08-27 16:22] VITALS: BP 117/53; PULSE 63; RESP 12; TEMP 36.3; O2SAT 100
--- NOTE | 2022-08-27 16:25 | MHC.EDTECH ---
Pt assisted with bed willis, void aprox 250mL of yellow-clancy urine.
[2022-08-27 18:15] VITALS: BP 112/66; PULSE 64; RESP 14; TEMP 36.8; O2SAT 97
[2022-08-27] MEDS: Dextrose 5 % and 0.9 % NaCl 1,000 ML 100 ML IVCONT (18:24)
[2022-08-27] MEDS: HYDROmorphone HCl 1 MG/ML SYRINGE 0.5 MG IVPUSH (18:24)
--- NOTE | 2022-08-27 18:55 | MHC.CM.PN ---
CM met with admitted patient with bed assignment pending. A&Ox4. Independent. Lives with S.O. and 7 years old son. States son has had multiple surgeries this year. 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 States sometimes food is low at the end of the month. States she feels safe at home but does not feel safe in the surrounding area. Otherwise THRIVE assessment negative. No DME/services. Education provided, HCP declined. Unvaccinated. D/C plan: Home without services. S.O. will transport home. CM will follow for discharge planning.
--- NOTE | 2022-08-27 19:00 | PC.NURSE ---
pt continues with vomiting, no order for zofran noted in [facility], override performed. provider made aware via tigertext
[2022-08-27] MEDS: oxyCODONE HCl Immed Release 5 MG TABLET PO (21:04)
[2022-08-27] MEDS: Ketorolac Tromethamine 30 MG/ML VIAL IVPUSH (21:55)
[2022-08-27 23:24] VITALS: BP 110/55; PULSE 76; RESP 14; TEMP 36.6; O2SAT 99
[2022-08-28] VITALS (10 sets, daily range): BP systolic 100–144; BP diastolic 50–92; PULSE 64–94; RESP 14–18; TEMP 36.4–37.5; O2SAT 98–100
[2022-08-28] MEDS: Dextrose 5 % and 0.9 % NaCl 1,000 ML 100 ML IVCONT ×2 (04:08→18:44)
[2022-08-28] MEDS: HYDROmorphone HCl 1 MG/ML SYRINGE 0.5 MG IVPUSH ×3 (07:47→17:38)
--- NOTE | 2022-08-28 13:58 | PM.HPGS ---
History of Present Illness History of Present Illness Date of Service: 08/28/22 Chief complaint: kidney stones Narrative: Nafisa Wolff is a 27 year old female Presents to hospital with 2-3 day history of progressive nausea, vomiting, left-sided flank pain. Pain progressive and radiating toward left ovary and left vaginal discomfort and pressure. Does have history of recurrent stones Family history of stones CT scan performed - There are multiple small bilateral renal stones. There is mild left hydronephrosis and ureteral dilatation from a 3 mm left distal ureteral stone. unable to tolerate orals with persistent nausea, difficult pain management Will admit for trial of stone passage. If unable to pass within 12-24 hours will need intervention Review of Systems Constitutional: Constitutional: Denies chills and Denies fever(s) Cardiovascular: Cardiovascular: Reports no additional cardiovascular complaints and Denies syncope Respiratory: Respiratory: Denies cough Gastrointestinal: Gastrointestinal: Denies abdominal pain and Denies heartburn Genitourinary: Genitourinary: Reports as per HPI and Denies change in libido Neurologic: Denies syncope Psychiatric: Psychiatric: Denies change in libido Endocrine: Endocrine: Denies change in libido [facility] Past Medical History Medical History Abdominal discomfort Asthma Chronic idiopathic constipation Renal calculi Vomiting Family History Family History Maternal Grandmother Diabetes Father Lymphoma Paternal Aunt Crohn disease Paternal Aunt Ovarian cancer Surgical History Surgical History H/O: History of endoscopy Hx of appendectomy Social History Social History Household Members: Family Housing: Apartment Do you presently have visiting nurse or other home services: No Alcohol intake: never Patient Tobacco Use Status: Never used Tobacco Use of substances other than those prescribed or required for medical reasons: Yes Substance Use Type: Marijuana Substance Use Frequency: Daily Last Used Substance: Days (ago) Currently Displaying Signs/Symptoms of Drug Intoxication Withdrawal: No Any prior treatment program specific to substance use: No Have you been hit, kicked, punched, or otherwise hurt by someone within the past year? If so, by whom?: No Do you feel safe in your current relationship?: Yes Is there a partner from a previous relationship who is making you feel unsafe now?: No Are you made to feel afraid or neglected: No Advance Directives: No Advance Directives Information Provided: No Do you have thoughts of harming others: None Do you have a plan to hurt others: No Plan Recently lost weight without trying: No Nutrition Risks: No Nutritional Risk Patient : No service: No Meds Allergies Allergy/AdvReac Type Severity Reaction Status Date / Time latex [LATEX] Allergy Severe Hives Verified 08/27/22 21:02 sumatriptan [From IMITREX] Allergy Mild FAINTED, Verified 08/27/22 21:02 EYES ROLLED BACK, SOB Active Medications: Current Medications Acetaminophen (Acetaminophen Supp 650 Mg Supp.Rect) 650 mg OR Q6H PRN PRN Reason: Pain, Mild (Pain Scale 1-3) Hydromorphone HCl (Hydromorphone Hcl 1 Mg/Ml Syringe) 0.5 mg IVPUSH Q4H PRN; Protocol PRN Reason: Pain, Severe (Pain Scale 7-10) Last Admin: 08/28/22 11:58 Dose: 0.5 mg Dextrose/Sodium Chloride (D5ns) 1,000 mls @ 100 mls/hr IVCONT .Q10H DEBI Last Admin: 08/28/22 04:08 Dose: 100 mls/hr Levofloxacin (Levaquin) 500 mg in 100 mls @ 100 mls/hr IV PREOP ONE Stop: 08/28/22 14:08 Ketorolac Tromethamine (Ketorolac Tromethamine 30 Mg/Ml Vial) 30 mg IVPUSH Q6H PRN PRN Reason: Pain, Mild (Pain Scale 1-3) Stop: 09/01/22 17:00 Last Admin: 08/27/22 21:55 Dose: 30 mg Oxycodone HCl (Oxycodone Hcl Immed Release 5 Mg Tablet) 5 mg PO Q6H PRN PRN Reason: Pain, Severe (Pain Scale 7-10) Last Admin: 08/27/22 21:04 Dose: 5 mg Pharmacy Consult (Consult Rx Perform Med Rec) 1 each MISCELLANE ONCE PRN PRN Reason: Consult order Sodium Chloride (0.9 % Sodium Chloride Flush 3 Ml Syringe) 3 ml IVFLUSH QSHIFT DEBI Last Admin: 08/28/22 11:12 Dose: Not Given Home Medications Medication Instructions Recorded Confirmed Last Taken Type medroxyprogesterone 150 mg/mL 150 mg IM [id number] 10/30/21 08/27/22 Unknown History intramuscular suspension lorazepam 1 mg tablet 1 tab PO DAILY PRN anxiety 11/12/21 08/27/22 Unknown History Physical Exam Vital Signs: Vital Signs: Last Vital Signs Temp 99.1 F 08/28/22 07:17 Pulse 82 08/28/22 07:17 Resp 16 08/28/22 07:17 BP 110/60 08/28/22 07:17 Pulse Ox 98 08/28/22 07:17 O2 Del Method Room Air 08/28/22 07:17 BMI result Body Mass Index 23.9 Const: General: cooperative, healthy appearing, comfortable and no acute distress Orientation/consciousness: patient oriented x3 HEENT: Face and sinus: Yes normal facial exam Mouth: moist mucous membranes Neck: Neck: Yes normal visual inspection, Yes full ROM and Yes trachea midline Chest: Chest palpation & inspection: normal inspection of the chest Resp: Effort & Inspection: normal respiratory effort, able to speak in complete sentences and no respiratory distress GI: Inspection: Yes normal to inspection Back/Spine/Pelvis: Cervical Spine: normal cervical lordosis Thoracic/Lumbar Spine: thoracic and lumbar spine normal to inspection Skin: General skin exam: no rashes or lesions noted Neuro: General: patient oriented x3, gait normal, tone normal and moves all extremities Extrem: General: Yes normal to inspection and Yes capillary refill normal Results Results Labs: Urine 08/27/22 Range/Units 11:50 Urine Color Yellow Urine Appearance Clear Urine pH 6.5 (5.0-9.0) Ur Specific [place] 1.025 (1.005-1.025) Urine Protein 30 (1+) H (Neg-Trace) mg/dL Urine Glucose (UA) Negative (Negative) mg/dL Assessment and Plan (1) Hydronephrosis: Status: Acute (2) Kidney stone: Status: Acute Plan Trial of stone passage Time Spent With Patient Time: Total time managing care of this patient today ____ minutes. Quality Stroke Does the patient have a stroke diagnosis?: No VTE Prior VTE?: No VTE Risk Level:: Medical - low VTE Device Contraindication: Treatment Not Indicated VTE Drug Contraindication: Treatment Not Indicated Procedures Date of Service Date of Service: 08/28/22
--- NOTE | 2022-08-28 15:37 | HO.ANESPROP2 ---
[facility] Active Problems Active Problems: All Active Problems (Updated 08/27/22 @ 13:28 by DIEUDONNE Rojas) Hydronephrosis (Acute) Kidney stone (Acute) Shrimp allergy (Acute) Milk allergy (Acute) Multiple allergies (Acute) Migraines (Acute) Acid reflux (Acute) Early satiety (Acute) Epigastric pain (Acute) Chronic idiopathic constipation (Acute) Vomiting (Acute) Past Medical History Medical History Abdominal discomfort Asthma Chronic idiopathic constipation Renal calculi Vomiting Family History Family History Maternal Grandmother Diabetes Father Lymphoma Paternal Aunt Crohn disease Paternal Aunt Ovarian cancer Family history of problems with anesthesia: No Surgical History Surgical History H/O: History of endoscopy Hx of appendectomy History of Problems with Anesthesia: No Social History Social History Household Members: Family Housing: Apartment Do you presently have visiting nurse or other home services: No Alcohol intake: never Patient Tobacco Use Status: Never used Tobacco Use of substances other than those prescribed or required for medical reasons: Yes Substance Use Type: Marijuana Substance Use Frequency: Daily Last Used Substance: Days (ago) Currently Displaying Signs/Symptoms of Drug Intoxication Withdrawal: No Any prior treatment program specific to substance use: No Have you been hit, kicked, punched, or otherwise hurt by someone within the past year? If so, by whom?: No Do you feel safe in your current relationship?: Yes Is there a partner from a previous relationship who is making you feel unsafe now?: No Are you made to feel afraid or neglected: No Advance Directives: No Advance Directives Information Provided: No Do you have thoughts of harming others: None Do you have a plan to hurt others: No Plan Recently lost weight without trying: No Nutrition Risks: No Nutritional Risk Patient : No service: No Meds Allergies Allergy/AdvReac Type Severity Reaction Status Date / Time latex [LATEX] Allergy Severe Hives Verified 08/27/22 21:02 sumatriptan [From IMITREX] Allergy Mild FAINTED, Verified 08/27/22 21:02 EYES ROLLED BACK, SOB Active Medications: Current Medications Acetaminophen (Acetaminophen Supp 650 Mg Supp.Rect) 650 mg ID Q6H PRN PRN Reason: Pain, Mild (Pain Scale 1-3) Hydromorphone HCl (Hydromorphone Hcl 1 Mg/Ml Syringe) 0.5 mg IVPUSH Q4H PRN; Protocol PRN Reason: Pain, Severe (Pain Scale 7-10) Last Admin: 08/28/22 11:58 Dose: 0.5 mg Dextrose/Sodium Chloride (D5ns) 1,000 mls @ 100 mls/hr IVCONT .Q10H [facility] Last Admin: 08/28/22 04:08 Dose: 100 mls/hr Ketorolac Tromethamine (Ketorolac Tromethamine 30 Mg/Ml Vial) 30 mg IVPUSH Q6H PRN PRN Reason: Pain, Mild (Pain Scale 1-3) Stop: 09/01/22 17:00 Last Admin: 08/27/22 21:55 Dose: 30 mg Oxycodone HCl (Oxycodone Hcl Immed Release 5 Mg Tablet) 5 mg PO Q6H PRN PRN Reason: Pain, Severe (Pain Scale 7-10) Last Admin: 08/27/22 21:04 Dose: 5 mg Pharmacy Consult (Consult Rx Perform Med Rec) 1 each MISCELLANE ONCE PRN PRN Reason: Consult order Sodium Chloride (0.9 % Sodium Chloride Flush 3 Ml Syringe) 3 ml IVFLUSH [facility] Last Admin: 08/28/22 11:12 Dose: Not Given Home Medications Medication Instructions Recorded Confirmed Last Taken Type medroxyprogesterone 150 mg/mL 150 mg IM [id number] 10/30/21 08/27/22 Unknown History intramuscular suspension lorazepam 1 mg tablet 1 tab PO DAILY PRN anxiety 11/12/21 08/27/22 Unknown History Exam Exam Date and Time: August 28, 2022 1537 Height,Weight and Vital Signs: Height 5 ft 3 in Weight 61.235 kg Last Vital Signs Temp 99.4 F 08/28/22 15:02 Pulse 72 08/28/22 15:02 Resp 16 08/28/22 15:02 BP 110/64 08/28/22 15:02 Pulse Ox 99 08/28/22 15:02 O2 Del Method Room Air 08/28/22 15:02 Pertinent Lab Results Pertinent Lab Results: Laboratory Tests 08/27/22 08/27/22 08/27/22 10:59 10:59 10:59 WBC 12.1 H RBC 4.62 Hgb 13.3 Hct 40.3 MCV 87.2 MCH 28.8 MCHC 33.0 RDW 14.6 Plt Count 181 MPV 12.7 H Immature Gran % (Auto) 0.3 Neut % (Auto) 70.6 Lymph % (Auto) 21.7 [place] % (Auto) 4.2 Eos % (Auto) 2.5 Baso % (Auto) 0.7 Lymph # (Auto) 2.6 [place] # (Auto) 0.5 Eos # (Auto) 0.3 Baso # (Auto) 0.1 Abs Immat Gran (auto) 0.04 H Absolute Neuts (auto) 8.6 H Absolute Nucleated RBC 0.000 Nucleated RBC % (auto) 0.0 Sodium 139 Potassium 3.7 Chloride 110 H Carbon Dioxide 18 L Anion Gap 15 BUN 14 Creatinine 0.97 Estim Creat Clear Calc 71.4 Estimated GFR > 60 Random Glucose 104 Calcium 10.0 D Magnesium 2.1 Total Bilirubin 0.5 AST 18 ALT 11 Alkaline Phosphatase 65 Total Protein 7.6 Albumin 4.4 Lipase 19 Beta HCG, Quant < 2 Urine Color Urine Appearance Urine pH Ur Specific [place] Urine Protein Urine Glucose (UA) Urine Ketones Urine Blood Urine Nitrite Ur Leukocyte Esterase Urine RBC Urine WBC Ur Squamous Epith Cells Urine Bacteria Hyaline Casts Urine Opiates Screen Urine Fentanyl Screen Ur Barbiturates Screen Ur Phencyclidine Scrn Ur Amphetamines Screen U Benzodiazepines Scrn Urine Cocaine Screen U Marijuana (THC) Screen 08/27/22 08/27/22 11:50 11:50 WBC RBC Hgb Hct MCV MCH MCHC RDW Plt Count MPV Immature Gran % (Auto) Neut % (Auto) Lymph % (Auto) [place] % (Auto) Eos % (Auto) Baso % (Auto) Lymph # (Auto) [place] # (Auto) Eos # (Auto) Baso # (Auto) Abs Immat Gran (auto) Absolute Neuts (auto) Absolute Nucleated RBC Nucleated RBC % (auto) Sodium Potassium Chloride Carbon Dioxide Anion Gap BUN Creatinine Estim Creat Clear Calc Estimated GFR Random Glucose Calcium Magnesium Total Bilirubin AST ALT Alkaline Phosphatase Total Protein Albumin Lipase Beta HCG, Quant Urine Color Yellow Urine Appearance Clear Urine pH 6.5 Ur Specific [place] 1.025 Urine Protein 30 (1+) H Urine Glucose (UA) Negative Urine Ketones Trace Urine Blood Moderate (2+) H Urine Nitrite Negative Ur Leukocyte Esterase Trace H Urine RBC >20 H Urine WBC 0-5 Ur Squamous Epith Cells 0-2 Urine Bacteria None Seen Hyaline Casts 3-5 Urine Opiates Screen POSITIVE H Urine Fentanyl Screen Not Detected Ur Barbiturates Screen Not Detected Ur Phencyclidine Scrn Not Detected Ur Amphetamines Screen Not Detected U Benzodiazepines Scrn Not Detected Urine Cocaine Screen Not Detected U Marijuana (THC) Screen POSITIVE H Airway Mallampati Class: II TM Dist: >3cm Neck ROM: Full Heart: RRR Lungs: CTA Assessment and Plan Final Anesthetic Review Family History of Problems with Anesthesia: No History of Problems with Anesthesia: No Final Preanesthetic Review: Meds/Allgs Chart Reviewed, Consent Obtained/Reviewed and Anes Risks/Benef Reviewed Patient Risk: Low Procedure Risk: Low Anesthetic Plan Anesthetic Plan: GA Disposition: Standard PACU
--- NOTE | 2022-08-28 15:50 | PC.NURSE ---
Patient transferred to OR by OR staff
--- NOTE | 2022-08-28 16:04 | MHC.SHP ---
Pre-Procedural Eval Section A Date of Service: 08/28/22 The patient is an INPATIENT: No Changes since office visit: No Cold of Flu in the past 2 weeks, No New Medical Problems, No Changes in Medication and No Patient answered all questions The History & Physical has been completed within 30 days and I have reviewed it.: No Section B Chief Complaint: kidney stones Relevant Social History: None Present Medications: see Short Stay Collaborative assessment Medical History: No relevant PMH History of Previous Operations: No relevant previous surgery Allergies: Allergies Allergy/AdvReac Type Severity Reaction Status Date / Time latex [LATEX] Allergy Severe Hives Verified 08/27/22 21:02 sumatriptan [From IMITREX] Allergy Mild FAINTED, Verified 08/27/22 21:02 EYES ROLLED BACK, SOB Review of Systems Sugical H&P ROS: Negative: Constitution, Cardiovascular, Respiratory, Neurological, Psychiatric, Hem-Onc, Allergic/Immunologic, Gastrointestinal, Genitourinary, Musculoskeletal, Integumentary, Endocrine and Eyes/Ears/Nose/Throat Exam Surgical H&P Exam: Normal: HEENT, Normal: Heart, Normal: Lungs, Normal: Extremities, Normal: Abdomen, Normal: Skin and Normal: Neurological Plan Diagnosis/Plan: Unchanged (left procedure) I have reviewed the history and physical and performed a pertinent physical examination on my patient. No changes have occurred unless specified. Time Spent With Patient Time: Total time managing care of this patient today ____ minutes.
--- NOTE | 2022-08-28 16:08 | P.PNUR_ITS ---
Subjective Subjective Date of Service: 08/28/22 Interval history: still with pain Physical Exam Vital Signs: Vital Signs: Last Vital Signs Temp 99.4 F 08/28/22 15:02 Pulse 72 08/28/22 15:02 Resp 16 08/28/22 15:02 BP 110/64 08/28/22 15:02 Pulse Ox 99 08/28/22 15:02 O2 Del Method Room Air 08/28/22 15:02 BMI result Body Mass Index 23.9 Const: General: cooperative, healthy appearing, comfortable and no acute distress Orientation/consciousness: patient oriented x3 HEENT: Face and sinus: Yes normal facial exam Mouth: moist mucous membranes Neck: Neck: Yes normal visual inspection, Yes full ROM and Yes trachea midline Chest: Chest palpation & inspection: normal inspection of the chest Resp: Effort & Inspection: normal respiratory effort, able to speak in complet e sentences and no respiratory distress GI: Inspection: Yes normal to inspection Back/Spine/Pelvis: Cervical Spine: normal cervical lordosis Thoracic/Lumbar Spine: thoracic and lumbar spine normal to inspection Skin: General skin exam: no rashes or lesions noted Neuro: General: patient oriented x3, tone normal and moves all extremities Extrem: General: Yes normal to inspection and Yes capillary refill normal Urology Results Labs 08/27/22 10:59 08/27/22 10:59 Progress Note: A&P Assessment and plan (1) Kidney stone: Status: Acute Plan Ureteroscopy We discussed the nature of the decision and reasonable alternatives for performing ureteroscopy. Options such as medical therapy were discussed. Interventions include chemical dissolution, ESWL, ureteroscopy with laser lithotripsy and stent placement, PCNL. The relative uncertainties and benefits related to each alternate procedure were adequately discussed. General surgical risks including, but not limited to - pain, bleeding, infection, myocardial infarction, pulmonary embolus, deep vein thrombosis and cerebrovascular accident which may result in further hospitalization were discussed. Full disclosure of the procedure as well as all major risks, benefits and complications were discussed including but not limited to damage to the urethra, bladder and kidney infection, damage to the ureter, stent migration or malposition, scarring to the renal pelvis, remnant stone fragments, subsequent stone passage with need for secondary procedures. The overall secondary procedure rate is approximately 10-15%. The overall clearance rate is approximately 90-95%. Success of the procedure in the short-term does not necessarily guarantee that long-term success will be maintained. Suitable follow up will need to be maintained. The patient showed understanding of discussion and wishes to proceed with - cystoscopy, retrograde, ureteroscopy, possible lithotripsy/stone basketing and stent on the left side Time Spent With Patient Time: Total time managing care of this patient today ____ minutes. Progress Note: Quality Stroke Does the patient have a stroke diagnosis?: No
--- NOTE | 2022-08-28 16:35 | W.PM.OPN ---
Operative Note Operative Note Date of Service: 08/28/22 Narrative: PreOperative Diagnosis: left distal ureteric stone Post Operative Diagnosis: no distal obstruction Procedure: cystoscopy, left retrograde, left stent placement Surgeon: Dr Bryce Armstrong Anesthesia: sedation Indications for procedure: left distal ureteric stone. Admit for pain control and IV fluid intake since not tolerate orals. Stone on CT scan with mild hydro. Persistent pain after 18 hours admission. Procedure: After informed consent was verified the patient was brought to the operating room and placed in a supine position. Anesthesia was administered per protocol. The patient was placed in modified dorsal lithotomy position and prepped and draped in a sterile fashion. A safety pause time-out was performed. Laterality of procedure and antibiotics were confirmed, appropriate imaging was available A 22 Italian cystoscope was introduced per urethra. No abnormality was noted of urethra or bladder. Both ureteric orifices were seen in a normal position. The Left ureter was cannulated with an open ended catheter and a retrograde examination was performed. no filling defects seen . A Sensor guidewire was placed under fluoroscopy and a good coil was seen within the renal pelvis. A 6 Italian by 24 cm double J stent was advanced over the wire and up to the level of the renal pelvis under fluoroscopic and direct visualization. The stent was seen with appropriate coil within the renal pelvis and in the bladder after deployment. The patient tolerated the procedure well and was transferred in a stable condition to the recovery area. Pathology: none Drains: as above
[2022-08-28] MEDS: Acetaminophen 325 MG TABLET 975 MG PO (17:39)
[2022-08-28] MEDS: NaPROXEN 500 MG TABLET PO (17:40)
[2022-08-28] MEDS: Phenazopyridine HCL 100 MG TABLET PO (18:08)
[2022-08-28] MEDS: oxyCODONE HCl Immed Release 5 MG TABLET PO (20:09)
[2022-08-28] MEDS: Ketorolac Tromethamine 30 MG/ML VIAL IVPUSH (22:42)
[2022-08-29] MEDS: HYDROmorphone HCl 1 MG/ML SYRINGE 0.5 MG IVPUSH (00:53)
[2022-08-29] MEDS: ondansetron HCL 4 MG/2 ML VIAL IVPUSH (00:54)
[2022-08-29] MEDS: 0.9 % Sodium Chloride Flush 3 ML SYRINGE IVFLUSH (01:00)
[2022-08-29] MEDS: oxyCODONE HCl Immed Release 5 MG TABLET PO ×3 (04:27→14:15)
[2022-08-29] MEDS: Dextrose 5 % and 0.9 % NaCl 1,000 ML 100 ML IVCONT (04:30)
[2022-08-29] MEDS: Ketorolac Tromethamine 30 MG/ML VIAL IVPUSH (06:27)
[2022-08-29 07:03] VITALS: BP 136/86; PULSE 80; RESP 16; TEMP 37.6; O2SAT 99
[2022-08-29] MEDS: Acetaminophen 325 MG TABLET 975 MG PO ×2 (08:34→14:12)
--- NOTE | 2022-08-29 14:11 | PM.UROPN ---
Subjective Subjective Date of Service: 08/29/22 Interval history: Improved Plan to discharge today Physical Exam Vital Signs: Vital Signs: Last Vital Signs Temp 99.6 F 08/29/22 07:03 Pulse 80 08/29/22 07:03 Resp 16 08/29/22 07:03 BP 136/86 08/29/22 07:03 Pulse Ox 99 08/29/22 07:03 O2 Del Method Room Air 08/29/22 07:03 BMI result Body Mass Index 23.9 Const: General: cooperative, healthy appearing, comfortable and no acute distress Orientation/consciousness: patient oriented x3 HEENT: Face and sinus: Yes normal facial exam Mouth: moist mucous membranes Neck: Neck: Yes normal visual inspection, Yes full ROM and Yes trachea midline Chest: Chest palpation & inspection: normal inspection of the chest Resp: Effort & Inspection: normal respiratory effort, able to speak in complete sentences and no respiratory distress GI: Inspection: Yes normal to inspection Back/Spine/Pelvis: Cervical Spine: normal cervical lordosis Thoracic/Lumbar Spine: thoracic and lumbar spine normal to inspection Skin: General skin exam: no rashes or lesions noted Neuro: General: patient oriented x3, tone normal and moves all extremities Extrem: General: Yes normal to inspection and Yes capillary refill normal Urology Results Labs 08/27/22 10:59 08/27/22 10:59 Progress Note: A&P Assessment and plan (1) Hydronephrosis: Status: Acute (2) Kidney stone: Status: Acute Assessment and Plan: discharge Time Spent With Patient Time: Total time managing care of this patient today ____ minutes. Progress Note: Quality Stroke Does the patient have a stroke diagnosis?: No
--- NOTE | 2022-08-29 14:40 | MHC.CM.PN ---
PT WILL DC HOME TODAY WITH NO SERVICES S/O TO TRANSPORT
[2022-08-29 15:30] VITALS: BP 130/69; PULSE 70; RESP 16; TEMP 37.2; O2SAT 97
--- NOTE | 2022-08-29 17:09 | PC.NURSE ---
Unable to discharge patient earlier due to orders not finalized,Dr. Armstrong was notified .
--- NOTE | 2022-12-16 16:05 | PM.DS ---
DS: Providers Provider Date of Service: 08/29/22 Date of admission: 08/27/22 17:01 Date of discharge: 08/29/22 Primary care physician: LYLY Winston DS: Diagnosis Discharge Diagnosis (1) Hydronephrosis: Status: Resolved (2) Kidney stone: Status: Chronic DS: Summary Hospital Course Hospital Course: Persistent left flank pain question of distal ureteric stone Underwent procedure Time spent discussing smoking cessation with patient: 3 to 10 minutes Status at Discharge Functional status at discharge: independent ambulation Overall status at discharge: patient is back to baseline Time Spent with Patient Time attestation: Total time managing care of this patient today ____ minutes. Discharge coordination time: Less than 30 minutes Quality: Safe Use of Opioids Does Pt have an Active Cancer Diagnosis on the Problem List?: No Quality: Stroke Does the patient have a stroke diagnosis?: No Physical Exam Vital Signs: Vital Signs: Last Vital Signs Temp 98.9 F 08/29/22 15:30 Pulse 70 08/29/22 15:30 Resp 16 08/29/22 15:30 BP 130/69 08/29/22 15:30 Pulse Ox 97 08/29/22 15:30 O2 Del Method Room Air 08/29/22 15:30 BMI result Body Mass Index 23.9 DS: Data Data Completed and Pending Completed studies during hospitalization [Text1]: Procedures Dilation of Left Ureter with Intraluminal Device, Via Natural or Artificial Opening Endoscopic (08/27/22) Fluoroscopy of Left Kidney, Ureter and Bladder using Low Osmolar Contrast (08/27/22) Imaging CT scan - pelvis: Radiologist's impression: ITS Impressions Abdomen/Pelvis CT 08/27/22 12:02 IMPRESSION: Bilateral renal stones. Mild left hydronephrosis and ureteral dilatation from a 3 mm left distal ureteral stone. Fleischner guidelines were followed. Doppler Study Ultrasound 08/27/22 13:11 IMPRESSION: Pelvis and ovaries unremarkable. Suspect left UVJ on the left distal ureteral stone. Recommend CT abdomen and pelvis without contrast for further evaluation. Based on the previous CT abdomen exams patient had a nonobstructive bilateral small punctate radiopaque calculi. Pelvic/Transvag US 08/27/22 13:11 IMPRESSION: Pelvis and ovaries unremarkable. Suspect left UVJ on the left distal ureteral stone. Recommend CT abdomen and pelvis without contrast for further evaluation. Based on the previous CT abdomen exams patient had a nonobstructive bilateral small punctate radiopaque calculi. Guidance Fluoroscopy 08/28/22 16:45 IMPRESSION: Fluoroscopy for urologic procedures. Discharge Plan Discharge Anticipated Discharge Date/Time: 08/29/22 14:14 Patient Disposition: Home, Self-Care Discharge Diagnosis: left hydronephrosis Referrals: Yvonne Madrid, LYLY [Primary Care Provider] - 1 Week Discharge Medications: New nitrofurantoin macrocrystal 50 mg capsule 50 mg PO BEDTIME Qty: 10 0RF Rx Instructions: must administer with a meal/food tamsulosin 0.4 mg capsule 0.4 mg PO BEDTIME 14 Days Qty: 14 0RF phenazopyridine [Pyridium] 100 mg tablet 100 mg PO TID PRN (Reason: Spasm) 4 Days Qty: 12 0RF oxybutynin chloride 5 mg tablet 5 mg PO BID PRN (Reason: bladder spasms) Qty: 7 0RF Continued wjezrwzlpo-rdwmxbqrydrox-uptx [Fioricet] 50-300-40 mg capsule 1 cap PO Q8H PRN (Reason: pain) Qty: 7 0RF lorazepam 1 mg tablet 1 tab PO DAILY PRN (Reason: anxiety) medroxyprogesterone 150 mg/mL suspension 150 mg IM [id number] metoclopramide HCl [Reglan] 5 mg tablet 5 mg PO QIDACHS Qty: 120 4RF Linzess 290 mcg capsule 290 mcg PO QAM Qty: 30 6RF No Action acetaminophen [Tylenol Extra Strength] 500 mg tablet 1,000 mg PO Q6H PRN (Reason: fever or pain) Qty: 20 0RF Gaviscon Extra Strength 254-237.5 mg/5 mL suspension 10 ml PO QID PRN (Reason: dyspepsia) Qty: 355 0RF morphine 15 mg tablet 15 mg PO Q4-6H PRN (Reason: pain) Qty: 10 0RF Rx Instructions: The patient may ask for partial fill; Partial Fill upon patient request. ondansetron 4 mg tablet,disintegrating 4 mg PO Q6-8H PRN (Reason: nausea and vomiting) Qty: 14 0RF Discharge Orders: Discharge Order (Routine); Ordered 08/29/22 Ordered By: Bryce Armstrong Diet: Advance to usual diet Activity on Discharge: As tolerated Stand Alone Forms: Patient Portal Discharge page Care Plan Goals: stones Health Concerns: stones Plan of Treatment: stones Assessment: stones Discharge Date/Time: 08/29/22 17:09
--- NOTE | 2022-12-16 16:09 | PM.DS ---
DS: Providers Provider Date of Service: 08/29/22 Date of admission: 08/27/22 17:01 Date of discharge: 08/29/22 Primary care physician: LYLY Winston DS: Diagnosis Discharge Diagnosis (1) Hydronephrosis: Status: Resolved (2) Kidney stone: Status: Chronic DS: Summary Hospital Course Hospital Course: Persistent left flank pain question of distal ureteric stone Underwent procedure Status at Discharge Functional status at discharge: independent ambulation Overall status at discharge: patient is back to baseline Time Spent with Patient Time attestation: Total time managing care of this patient today ____ minutes. Discharge coordination time: Less than 30 minutes Quality: Safe Use of Opioids Does Pt have an Active Cancer Diagnosis on the Problem List?: No Quality: Stroke Does the patient have a stroke diagnosis?: No Physical Exam Vital Signs: Vital Signs: Last Vital Signs Temp 98.9 F 08/29/22 15:30 Pulse 70 08/29/22 15:30 Resp 16 08/29/22 15:30 BP 130/69 08/29/22 15:30 Pulse Ox 97 08/29/22 15:30 O2 Del Method Room Air 08/29/22 15:30 BMI result Body Mass Index 23.9 DS: Data Data Completed and Pending Completed studies during hospitalization [Text1]: Procedures Dilation of Left Ureter with Intraluminal Device, Via Natural or Artificial Opening Endoscopic (08/27/22) Fluoroscopy of Left Kidney, Ureter and Bladder using Low Osmolar Contrast (08/27/22) Imaging CT scan - pelvis: Attestation: I personally reviewed and interpreted this imaging study as follows: Radiologist's impression: ITS Impressions Abdomen/Pelvis CT 08/27/22 12:02 IMPRESSION: Bilateral renal stones. Mild left hydronephrosis and ureteral dilatation from a 3 mm left distal ureteral stone. Fleischner guidelines were followed. Doppler Study Ultrasound 08/27/22 13:11 IMPRESSION: Pelvis and ovaries unremarkable. Suspect left UVJ on the left distal ureteral stone. Recommend CT abdomen and pelvis without contrast for further evaluation. Based on the previous CT abdomen exams patient had a nonobstructive bilateral small punctate radiopaque calculi. Pelvic/Transvag US 08/27/22 13:11 IMPRESSION: Pelvis and ovaries unremarkable. Suspect left UVJ on the left distal ureteral stone. Recommend CT abdomen and pelvis without contrast for further evaluation. Based on the previous CT abdomen exams patient had a nonobstructive bilateral small punctate radiopaque calculi. Guidance Fluoroscopy 08/28/22 16:45 IMPRESSION: Fluoroscopy for urologic procedures. Discharge Plan Discharge Anticipated Discharge Date/Time: 08/29/22 14:14 Patient Disposition: Home, Self-Care Discharge Diagnosis: left hydronephrosis Referrals: Yvonne Madrid, PATIENT CARE SPECIALIST [Primary Care Provider] - 1 Week Discharge Medications: New nitrofurantoin macrocrystal 50 mg capsule 50 mg PO BEDTIME Qty: 10 0RF Rx Instructions: must administer with a meal/food tamsulosin 0.4 mg capsule 0.4 mg PO BEDTIME 14 Days Qty: 14 0RF phenazopyridine [Pyridium] 100 mg tablet 100 mg PO TID PRN (Reason: Spasm) 4 Days Qty: 12 0RF oxybutynin chloride 5 mg tablet 5 mg PO BID PRN (Reason: bladder spasms) Qty: 7 0RF Continued xeqfotdzfd-wurcqsdwfejtk-ywnf [Fioricet] 50-300-40 mg capsule 1 cap PO Q8H PRN (Reason: pain) Qty: 7 0RF lorazepam 1 mg tablet 1 tab PO DAILY PRN (Reason: anxiety) medroxyprogesterone 150 mg/mL suspension 150 mg IM [id number] metoclopramide HCl [Reglan] 5 mg tablet 5 mg PO QIDACHS Qty: 120 4RF Linzess 290 mcg capsule 290 mcg PO QAM Qty: 30 6RF No Action acetaminophen [Tylenol Extra Strength] 500 mg tablet 1,000 mg PO Q6H PRN (Reason: fever or pain) Qty: 20 0RF Gaviscon Extra Strength 254-237.5 mg/5 mL suspension 10 ml PO QID PRN (Reason: dyspepsia) Qty: 355 0RF morphine 15 mg tablet 15 mg PO Q4-6H PRN (Reason: pain) Qty: 10 0RF Rx Instructions: The patient may ask for partial fill; Partial Fill upon patient request. ondansetron 4 mg tablet,disintegrating 4 mg PO Q6-8H PRN (Reason: nausea and vomiting) Qty: 14 0RF Discharge Orders: Discharge Order (Routine); Ordered 08/29/22 Ordered By: Bryce Armstrong Diet: Advance to usual diet Activity on Discharge: As tolerated Stand Alone Forms: Patient Portal Discharge page Care Plan Goals: stones Health Concerns: stones Plan of Treatment: stones Assessment: stones Discharge Date/Time: 08/29/22 17:09
== END 2022-08-29 17:09 | disposition home or self-care (01) | DRG 465 ==
LOC: HO.ED 13:54 → HO.EDOVER 17:08 → HO.S3 19:11
PROVIDERS: Physician Assistant; Admitting Provider Urology; Emergency Provider Emergency Medicine; PCP Registered Nurse; Visit Provider Urology
PROC: 0T778DZ Dilation of Left Ureter with Intraluminal Device, Via Natural or Artificial Opening Endoscopic (ICD-10-PCS; principal; 2022-08-28 16:00)
DX: N13.2 Hydronephrosis with renal and ureteral calculous obstruction (principal); K59.04 Chronic idiopathic constipation; Z91.040 Latex allergy status; Z79.899 Other long term (current) drug therapy
CPT/HCPCS: 36415; 74176; 76830; 76856; 80053; 80307; 81001; 81003; 83690; 83735; 84702; 85025; 93975; 99285; C1758; C1769; C2617; J0690; J1100; J1170; J1885; J1956; J2060; J2250; J2270; J2405; J3010; Q9967

== ENCOUNTER → 2022-09-03 11:02 | Outpatient (BNVA) | payer MEDICAID, SELFPAY | PROVIDERS: PCP Registered Nurse; Visit Provider Urology | DX: N20.0 Calculus of kidney (principal) | CPT/HCPCS: 52310; 99212 ==

== ENCOUNTER 2022-11-24 11:27 | Outpatient (REF) | payer MEDICAID, SELFPAY ==
--- NOTE | ~2022-11-24 | XR_ITS ---
EXAMINATION: XR ABDOMEN KUB CLINICAL INDICATION: Calculus of kidney COMPARISON: CT abdomen pelvis 08/27/2022 TECHNIQUE: AP view of the abdomen. FINDINGS: 3 and 2 mm calculi are seen overlying the right kidney. At least 6 were seen on the prior CT scan. Calcifications overlying the right hemisacrum were seen on the prior CT scan are not related to the ureter (2:58). It is difficult to appreciate calculi overlying the left kidney secondary to overlying colon and stomach but some small calculi are probably present. More were seen on the prior CT scan. The distal obstructing left ureteral calculus seen at the time of the prior CT scan is not seen on the current study The bowel gas pattern is normal with no evidence of ileus or obstruction. The bones are unremarkable. XR/XR KUB IMPRESSION: Bilateral renal calculi. The distal left ureteral calculus seen on the prior CT scan is not seen on the current study.
== END 2022-11-24 11:28 | disposition home or self-care (01) ==
LOC: HO.XRAY 11:27
PROVIDERS: PCP Registered Nurse; Visit Provider Nurse Practitioner Family
DX: N20.0 Calculus of kidney (principal)
CPT/HCPCS: 74018

== ENCOUNTER 2022-12-01 14:21 | Emergency (ER) | payer MEDICAID, SELFPAY ==
--- NOTE | ~2022-12-01 | US_ITS ---
EXAMINATION: US ABDOMEN LIMITED CLINICAL INFORMATION: Right upper quadrant tenderness. COMPARISON: The abdomen from 08/27/2022 TECHNIQUE: Real-time imaging of the right upper quadrant abdominal viscera. FINDINGS: PANCREAS: Normal. LIVER: Normal. The liver is normal in size. The liver contour is normal. Parenchymal echogenicity is normal. No focal hepatic lesion. There is no intrahepatic biliary duct dilatation seen. GALLBLADDER: Normal. The gallbladder is physiologically distended without evidence of stones, sludge, polyps, wall thickening or pericholecystic fluid. Sonographic Smith sign is negative. COMMON BILE DUCT: Borderline enlarged in caliber measuring 0.7 cm in diameter. RIGHT KIDNEY: Multiple right-sided renal calculi are noted the largest measuring up to 6 mm in the lower pole. No hydronephrosis. No focal parenchymal lesions. The kidney measures 8.9 cm in maximum dimension. FREE FLUID: None. US/US abdomen limited IMPRESSION: 1. Borderline enlarged common bile duct measuring up to 7 mm in size. 2. Right-sided nephrolithiasis measuring up to 6 mm without hydronephrosis.
--- NOTE | ~2022-12-01 | XR_ITS ---
EXAMINATION: XR CHEST CLINICAL INFORMATION: Fever evaluate for pneumonia COMPARISON: Chest radiograph from 03/25/2022 TECHNIQUE: 2 views of the chest were obtained. FINDINGS: No focal consolidation. No pneumothorax. Trachea is midline. Cardiac mediastinal silhouette is not enlarged. No large pleural effusion. Osseous structures are intact. Soft tissues are unremarkable. XR/XR chest 2V IMPRESSION: No acute cardiopulmonary process.
--- NOTE | 2022-12-01 14:57 | ED.GENADULT ---
HPI - General Adult General Chief complaint: Abdominal Pain Stated complaint: vomiting fever Time Seen by Provider: 12/01/22 21:32 Source: patient Mode of arrival: ambulatory Limitations: no limitations History of Present Illness HPI narrative: 27-year-old female who presents emergency department for evaluation of cough, shortness of breath, nausea, vomiting, chills, abdominal pain and a fever of 101.3 degrees at home. The patient states that her symptoms started 3 days prior. She states that started out with epigastric pain when she woke up. She states the pain is a constant, pressure-like pain that does radiate to her back. She states she has not been able to eat or drink secondary to nausea and vomiting. She states that she has also had a cough which is nonproductive, she has felt short of breath and has had to use her inhaler multiple times which is unusual for her. Patient was seen at an urgent care clinic and was advised to go to the emergency department for evaluation of possible biliary disease is the cause for symptoms. The patient states she has very bad GERD and has constant heartburn. She states she has had intermittent fever chills, she denied rhinorrhea sore throat. She has had a nonproductive cough. She denied chest pain. She states she has been feeling short of breath. She had nausea vomiting with no diarrhea, she denied frequency urgency or dysuria. She denied vaginal discharge. Related Data Home Medications Medication Instructions Recorded Confirmed medroxyprogesterone 150 mg/mL 150 mg IM [id number] 10/30/21 08/27/22 intramuscular suspension lorazepam 1 mg tablet 1 tab PO DAILY PRN anxiety 11/12/21 08/27/22 Previous Rx's Medication Instructions Recorded [id number]-[id number] 1 cap PO Q8H PRN pain #7 caps 11/22/21 50 mg-300 mg-40 mg capsule (Fioricet) linaclotide 290 mcg capsule 290 mcg PO QAM #30 caps 02/23/22 (Linzess) metoclopramide HCl 5 mg tablet 5 mg PO QIDACHS #120 tabs 02/23/22 (Reglan) nitrofurantoin macrocrystal 50 mg 50 mg PO BEDTIME #10 caps 08/29/22 capsule oxybutynin chloride 5 mg tablet 5 mg PO BID PRN bladder spasms #7 08/29/22 tabs phenazopyridine 100 mg tablet 100 mg PO TID PRN Spasm 4 days #12 08/29/22 (Pyridium) tabs tamsulosin 0.4 mg capsule 0.4 mg PO BEDTIME 14 days #14 caps 08/29/22 acetaminophen 500 mg tablet 1,000 mg (2 x 500 mg) PO Q6H PRN 12/01/22 (Tylenol Extra Strength) fever or pain #20 tabs aluminum hydrox-magnesium carb 254 10 ml PO QID PRN dyspepsia #355 mL 12/01/22 mg-237.5 mg/5 mL oral suspension (Gaviscon Extra Strength) morphine 15 mg immediate release 15 mg PO Q4-6H PRN pain #10 tabs 12/01/22 tablet ondansetron 4 mg disintegrating 4 mg PO Q6-8H PRN nausea and 12/01/22 tablet vomiting #14 tabs Allergies Allergy/AdvReac Type Severity Reaction Status Date / Time latex [LATEX] Allergy Severe Hives Verified 09/03/22 11:26 sumatriptan [From IMITREX] Allergy Mild FAINTED, Verified 09/03/22 11:26 EYES ROLLED BACK, SOB Review of Systems Review of Systems: Yes all other systems are reviewed and are negative [facility] Past Medical History [facility] Narrative: Social history: She denies tobacco use, she occasionally drinks alcohol, she smokes marijuana 2 to 3 times a week. Medical History (Updated 12/01/22 @ 22:42 by Zack Bellamy MD) Kidney stone Vomiting Chronic idiopathic constipation Abdominal discomfort Renal calculi Asthma Surgical History History of endoscopy H/O: Hx of appendectomy Family History Family History Maternal Grandmother Diabetes Father Lymphoma Paternal Aunt Crohn disease Paternal Aunt Ovarian cancer Social History Social History Household Members: Family Housing: Apartment Do you presently have visiting nurse or other home services: No Alcohol intake: current Alcohol intake frequency: holidays/special occasions only Patient Tobacco Use Status: Never used Tobacco Smoked in Last 30 Days: No Use of substances other than those prescribed or required for medical reasons: Yes Substance Use Type: Marijuana Substance Use Frequency: Occasionally Advance Directives: No Advance Directives Information Provided: No Patient : No service: No Physical Exam ED Vital Signs: Vital Signs - 24 hr 12/01/22 14:58 12/01/22 22:00 Temperature 98.3 F 98.7 F Pulse Rate 84 87 Respiratory Rate 18 16 Blood Pressure 99/81 119/83 Pulse Oximetry 99 99 Oxygen Delivery Method Room Air Room Air BMI result Body Mass Index 21.9 Vital signs were normal exam: General: Awake, alert in no distress Head: Normocephalic, atraumatic EENT: PERRL, Lids normal, sclera normal, conjunctiva normal, nose normal , ears normal, throat without erythema or exudates Neck: Supple, no adenopathy, trachea midline and nontender Lung: breath sounds symmetric, no wheezing, rales , patient has diffuse rhonchorous sounds Chest: symmetric movement, nontender Heart: regular rate and rhythm, normal S1, S2 no murmurs or rubs Abdomen: soft, Moderate epigastric tenderness, no right upper quadrant tenderness, negative Smith sign, nondistended, normal bowel sounds Back: no vertebral tenderness, no CVAT Extremities: no deformities, moves all extremities symmetrically Skin: no rashes, no lesion, normal color and warmth Neuro: Awake, alert, oriented, normal speech, cranial nerves intact, moves all extremities symmetrically Psych: Pleasant, cooperative Course Course Course Narrative: This is a rapid medical exam: Additional HPI, ROS, PE not included below will be deferred to primary provider. Patient is a 27-year-old female presenting to the emergency department with complaint of chills, nausea, vomiting, and shortness of breath for 3 days. Went to urgent care and states the provider there felt it was her gallbladder. Also reports history of kidney stones, states had an x-ray which showed stones in kidneys. Denies dysuria, hematuria, frequency. Fever to 101.3 at home, denies taking any Tylenol or ibuprofen prior to arrival. Plan: UA, labs, RUQ US Medications Administered Generic Name Dose Route Start Last Admin Trade Name Freq PRN Reason Stop Dose Admin Sodium Chloride 1,000 mls @ 999 mls/hr 12/01/22 21:46 12/01/22 22:04 Ns IV 09/20/23 22:46 999 mls/hr .Q1H1M STA Administration Discontinued Medications Generic Name Dose Route Start Last Admin Trade Name Faith PRN Reason Stop Dose Admin Ketorolac Tromethamine 15 mg 12/01/22 21:46 12/01/22 22:05 Ketorolac Tromethamine 15 Mg/Ml Vial IVPUSH 12/01/22 21:47 15 mg ONCE STA Administration Ondansetron HCl 4 mg 12/01/22 18:07 12/01/22 18:08 Ondansetron Odt 4 Mg Tab.Rapdis TRANSLINGU 12/01/22 18:08 4 mg ONCE ONE Administration Ondansetron HCl 4 mg 12/01/22 21:46 12/01/22 22:04 Ondansetron Hcl 4 Mg/2 Ml Vial IVPUSH 12/01/22 21:47 4 mg ONCE ONE Administration Medical Decision Making Medical Decision Making [facility] Narrative: 27-year-old female who presents emergency department for evaluation of fever, nausea, vomiting, cough, shortness of breath, abdominal pain x3 days. Patient's vital signs were normal. Examination did reveal epigastric tenderness with no right upper quadrant tenderness and negative Smith sign. Patient does have diffuse rhonchorous sounds on her lung exam otherwise her exam was unremarkable. The following evaluation was ordered on the patient: CBC, CMP, lipase, quantitative beta-hCG, COVID-19, influenza, urinalysis, right upper quadrant ultrasound, chest x-ray two view. Patient was treated with Zofran 4 mg ODT at triage. I ordered IV insertion, normal saline x1 L, Zofran 4 mg IV and Toradol 15 mg IV. 2153 : Patient's CBC, CMP and lipase were unremarkable test was negative. Urinalysis was not consistent with a urinary tract infection patient's COVID-19 influenza were negative. the patient right upper quadrant ultrasound did not reveal a clear cause for the patient's abdominal pain or fever patient's chest x-ray is unremarkable pain patient most likely has an acute viral syndrome as the cause for symptoms and this may be causing a flare-up of her GERD as well. patient was prescribed Zofran 4 mg ODT every 6 hours as needed for nausea and vomiting, Tylenol 1000 mg every 6 hours as needed for pain and for pain not relieved by Tylenol she was prescribed morphine 15 mg every 4-6 hours as needed. She was also given a prescription for extra-strength Gaviscon 10 mL 4 times a day as needed for abdominal pain. Differential Diagnosis Differential Diagnoses: The differential diagnosis associated with the presentation includes Differential diagnosis includes was not limited to biliary disease, cholecystitis, pancreatitis, gastritis, viral syndrome, pneumonia, GERD Admission/Observation Consideration of admission/observation: Escalation of care including admission/observation considered Lab Data MDM Lab Attestation statement: I reviewed the patient's lab results. My interpretation patient's laboratory evaluation is as follows: CBC was normal. CMP was normal. Lipase was normal. Urine test was negative. Urinalysis was positive for blood and leukocyte esterase. Microscopic revealed 6-10 RBCs, 0-5 WBCs and no bacteria- no evidence for urinary tract infection. Urine test was negative. COVID-19 influenza were negative. 12/01/22 15:09 12/01/22 15:09 Labs: Lab Results 12/01/22 Range/Units 15:09 WBC 9.0 (4.8-10.8) X10*3/uL RBC 4.97 (4.20-5.50) X10*6/uL Hgb 14.6 (12.0-16.0) g/dl Hct 43.1 (37.0-47.0) % MCV 86.7 (80.0-98.0) fL MCH 29.4 (27.0-33.0) pg MCHC 33.9 (31.0-35.0) g/dl RDW 13.3 (11.0-16.0) % Plt Count 187 (160-400) X10*3/uL MPV 12.8 H (9.4-12.3) fL Immature Gran % (Auto) Cancelled Neut % (Auto) Cancelled Lymph % (Auto) Cancelled [place] % (Auto) Cancelled Eos % (Auto) Cancelled Baso % (Auto) Cancelled Lymph # (Auto) Cancelled [place] # (Auto) Cancelled Eos # (Auto) Cancelled Baso # (Auto) Cancelled Abs Immat Gran (auto) Cancelled Absolute Neuts (auto) Cancelled Absolute Nucleated RBC 0.000 (0.0-0.012) X10*3/uL Nucleated RBC % (auto) 0.0 (0.0-0.2) /100WBC Neutrophils % (Manual) 60 (45-73) % Band Neutrophils % 0 L (3-5) % Lymphocytes % (Manual) 30 (20-40) % Monocytes % (Manual) 8 (2-11) % Eosinophils % (Manual) 2 (0-4) % Abs Neuts (Manual) 5.4 (2.0-8.3) X10*3/uL Lymphocytes # (Manual) 2.7 (1.2-4.9) X10*3/uL Monocytes # (Manual) 0.7 (0.1-1.2) X10*3/uL Eosinophils # (Manual) 0.2 (0.0-0.4) X10*3/uL Platelet Estimate NORMAL (NORMAL) Plt Morphology Comment NORMAL RBC Morphology NORMAL Sodium 141 (135-145) mmol/L Potassium 4.1 (3.3-5.1) mmol/L Chloride 107 (96-108) mmol/L Carbon Dioxide 23 (22-29) mmol/L Anion Gap 15 (12-20) BUN 11 (9-16) mg/dL Creatinine 0.80 (0.5-1.4) mg/dL Estim Creat Clear Calc 79.0 Estimated GFR > 60 Random Glucose 91 (60-115) mg/dL Calcium 10.4 H (8.4-10.2) mg/dL Total Bilirubin 1.0 (0.0-1.0) mg/dL AST 21 (5-31) U/L ALT 13 (0-31) U/L Alkaline Phosphatase 68 (39-117) U/L Total Protein 8.5 H (6.5-8.0) g/dL Albumin 5.0 (3.5-5.0) g/dL Lipase 13 (8-78) U/L Beta HCG, Quant < 2 mIU/mL Urine Color Dark Yellow Urine Appearance Clear Urine pH 6.5 (5.0-9.0) Ur Specific [place] 1.025 (1.005-1.025) Urine Protein 30 (1+) H (Neg-Trace) mg/dL Urine Glucose (UA) Negative (Negative) mg/dL Urine Ketones 80 (Negative) mg/dL Urine Blood Trace H (Negative) Urine Nitrite Negative (Negative) Ur Leukocyte Esterase Small (1+) H (Negative) Urine RBC 6-10 H (0-2) /HPF Urine WBC 0-5 (0-5) /HPF Ur Squamous Epith Cells 11-20 (0-2) /HPF Urine Bacteria None Seen (None Seen) Hyaline Casts 3-5 (0-2) /LPF COVID-19 (ALISSA) Negative (Negative) COVID-19 Clin Com See Note Influenza Type A (DEE DEE) Negative (Negative) Influenza Type B (DE EDEE) Negative (Negative) Influenza A & B Note See Note Independent Interpretation I performed an independent interpretation of an: Plain X-Ray Interpretation: my independent interpretation of patient's chest x-ray to as follows: No acute disease Radiology Impression Discussion of test interpretation with radiology: I have reviewed the radiologist's reading. Radiologist Impression: US abdomen limited IMPRESSION: 1. Borderline enlarged common bile duct measuring up to 7 mm in size. 2. Right-sided nephrolithiasis measuring up to 6 mm without hydronephrosis. Dictated By: Tristen Steiner MD XR chest 2V IMPRESSION: No acute cardiopulmonary process. Dictated By: Tristen Steiner MD Prescription Management I considered prescription management with: Pain Medication and Other ( antacids) Chronic Conditions Patient?s care impacted by: Other ( GERD) Discharge Plan Discharge Clinical Impression: Viral syndrome Abdominal pain Qualifiers: Abdominal location: epigastric Qualified Code(s): R10.13 - Epigastric pain Gastritis Qualifiers: Chronicity: acute Gastritis bleeding: without bleeding Patient Disposition: Home, Self-Care Instructions: Gastritis (ED), Viral Syndrome (ED) Additional Instructions: Your blood work was normal. The ultrasound of your gallbladder did not reveal any findings suggest that your gallbladder is the cause of your pain at this time. Your symptoms are consistent with inflammation of your stomach (gastritis) and a viral infection Continue taking your omeprazole as prescribed by your provider. Take Zofran ODT 4 mg pills, 1 pill dissolved in your mouth every 8 hours as needed for nausea and vomiting. Take extra-strength Gaviscon 10 mL (2 tsp) 4 times a day as needed for abdominal pain. Take Tylenol (acetaminophen) 500 mg, 2 pills every 6 hours as needed for pain. For pain not relieved by Tylenol take morphine 15 mg pills, 1 pill every 4 hours as needed for pain. This medication will make you sleepy, do not drive or work while taking this medication. Morphine is a narcotic medication and can be addicting. If you are concerned about addiction you can ask the pharmacist for less pills or do not get this prescription filled. Follow-up with your doctor in 2 days. Please return to the emergency department if your symptoms get worse or if you develop any symptoms that are concerning to you. Prescriptions: New acetaminophen [Tylenol Extra Strength] 500 mg tablet 1,000 mg PO Q6H PRN (Reason: fever or pain) Qty: 20 0RF Gaviscon Extra Strength 254-237.5 mg/5 mL suspension 10 ml PO QID PRN (Reason: dyspepsia) Qty: 355 0RF morphine 15 mg tablet 15 mg PO Q4-6H PRN (Reason: pain) Qty: 10 0RF Rx Instructions: The patient may ask for partial fill; Partial Fill upon patient request. ondansetron 4 mg tablet,disintegrating 4 mg PO Q6-8H PRN (Reason: nausea and vomiting) Qty: 14 0RF No Action [id number] [Fioricet] 50-300-40 mg capsule 1 cap PO Q8H PRN (Reason: pain) Qty: 7 0RF lorazepam 1 mg tablet 1 tab PO DAILY PRN (Reason: anxiety) nitrofurantoin macrocrystal 50 mg capsule 50 mg PO BEDTIME Qty: 10 0RF Rx Instructions: must administer with a meal/food tamsulosin 0.4 mg capsule 0.4 mg PO BEDTIME 14 Days Qty: 14 0RF phenazopyridine [Pyridium] 100 mg tablet 100 mg PO TID PRN (Reason: Spasm) 4 Days Qty: 12 0RF oxybutynin chloride 5 mg tablet 5 mg PO BID PRN (Reason: bladder spasms) Qty: 7 0RF medroxyprogesterone 150 mg/mL suspension 150 mg IM [id number] metoclopramide HCl [Reglan] 5 mg tablet 5 mg PO QIDACHS Qty: 120 4RF Linzess 290 mcg capsule 290 mcg PO QAM Qty: 30 6RF
[2022-12-01 14:58] VITALS: BP 99/81; PULSE 84; RESP 18; TEMP 36.8; O2SAT 99; BMI 21.9
[2022-12-01 15:16] LABS: Hematocrit 43.1 % (37.0-47.0); Hemoglobin 14.6 g/dl (12.0-16.0); Mean Corpuscular HGB Conc 33.9 g/dl (31.0-35.0); Mean Corpuscular Hemoglobin 29.4 pg (27.0-33.0); Mean Corpuscular Volume 86.7 fL (80.0-98.0); Mean Platelet Volume 12.8 fL (9.4-12.3); Platelet Count 187 X10*3/uL (160-400); Red Blood Count 4.97 X10*6/uL (4.20-5.50); Red Cell Distribution Width 13.3 % (11.0-16.0)
[2022-12-01 15:17] LABS: WBC ABN SCTR FOR CBC 1
[2022-12-01 15:18] LABS: Appearance Urine Clear; Color Urine Dark Yellow; Glucose Urine UA Negative (Negative); Leukocyte Esterase Urine Small (1+) (Negative); Nitrite Urine Negative (Negative); PH 6.5 (5.0-9.0); Specific Gravity - Urine 1.025 (1.005-1.025); UMIC TRIGGER UACC YES; Urine Blood Trace (Negative); Urine Ketones 80 mg/dL (Negative); Urine Protein 30 (1+) mg/dL (Neg-Trace)
[2022-12-01 15:30] LABS: Bacteria Urine None Seen (None Seen); UACC Culture Trigger YES; WBC Urine 0-5 /HPF (0-5)
[2022-12-01 15:33] LABS: COVID-19 Test Negative (Negative); IDNOW Serial# 08D9AD1C
[2022-12-01 15:35] LABS: Alanine Aminotransferase 13 U/L (0-31); Alkaline Phosphatase 68 U/L (39-117); Anion Gap 15 (12-20); Aspartate Amino Transferase 21 U/L (5-31); Blood Urea Nitrogen 11 mg/dL (9-16); Calcium 10.4 mg/dL (8.4-10.2); Carbon Dioxide 23 mmol/L (22-29); Chloride 107 mmol/L (96-108); Estimated Glomerular Filt Rate > 60; Glucose Random 91 mg/dL (60-115); Lipase 13 U/L (8-78); Potassium 4.1 mmol/L (3.3-5.1); Sodium 141 mmol/L (135-145); Total Protein 8.5 g/dL (6.5-8.0)
[2022-12-01 15:38] LABS: Band Neutrophils Percent 0 % (3-5); Eosinophils Percent Manual 2 % (0-4); Lymphocytes Percent Manual 30 % (20-40); Monocytes Percent Manual 8 % (2-11); Neutrophils Percent Manual 60 % (45-73)
[2022-12-01 15:39] LABS: Platelet Estimate NORMAL (NORMAL); Platelet Morphology Comment NORMAL; RBC Morphology NORMAL
[2022-12-01 15:40] LABS: Eosinophils Absolute Manual 0.2 X10*3/uL (0.0-0.4); Lymphocytes Absolute Manual 2.7 X10*3/uL (1.2-4.9); Monocytes Absolute Manual 0.7 X10*3/uL (0.1-1.2); Neutrophils Absolute Manual 5.4 X10*3/uL (2.0-8.3)
[2022-12-01 15:42] LABS: IDNOW Serial# 6674DD1D; Influenza A Negative (Negative); Influenza B2 Negative (Negative)
[2022-12-01 15:43] LABS: HCG Quantitative < 2 mIU/mL
[2022-12-01] MEDS: Ondansetron ODT 4 MG TAB.RAPDIS TRANSLINGU (18:08)
[2022-12-01 22:00] VITALS: BP 119/83; PULSE 87; RESP 16; TEMP 37.1; O2SAT 99
[2022-12-01] MEDS: 0.9 % Sodium Chloride 1,000 ML 999 ML IV (22:04)
[2022-12-01] MEDS: ondansetron HCL 4 MG/2 ML VIAL IVPUSH (22:04)
[2022-12-01] MEDS: Ketorolac Tromethamine 15 MG/ML VIAL IVPUSH (22:05)
== END 2022-12-01 22:56 | disposition home or self-care (01) ==
PROVIDERS: Registered Nurse Emergency; Emergency Provider Emergency Medicine Emergency Medical Services; PCP Registered Nurse
DX: K29.70 Gastritis, unspecified, without bleeding (principal); B34.9 Viral infection, unspecified; R11.2 Nausea with vomiting, unspecified; R50.9 Fever, unspecified; M54.50 Low back pain, unspecified; R06.02 Shortness of breath; R05.9 Cough, unspecified; Z20.822 Contact with and (suspected) exposure to COVID-19; Z20.828 Contact with and (suspected) exposure to other viral communicable diseases; Z79.899 Other long term (current) drug therapy
CPT/HCPCS: 36415; 71046; 76705; 80053; 81001; 83690; 84702; 85007; 85027; 87086; 87147; 87502; 87635; 96361; 96374; 96375; 99284; 99285; J1885; J2405

== ENCOUNTER 2023-02-11 16:37 | Outpatient (REF) | payer MEDICAID, SELFPAY ==
[2023-02-12 09:14] LABS: HCG Tumor Marker <5 mIU/mL
== END 2023-02-11 16:38 | disposition home or self-care (01) ==
LOC: HO.LAB 16:37
PROVIDERS: Visit Provider Nurse Practitioner Primary Care
DX: Z34.90 Encounter for supervision of normal pregnancy, unspecified, unspecified trimester (principal)
CPT/HCPCS: 36415; 84702

== ENCOUNTER 2023-02-14 12:35 | Outpatient (REF) | payer MEDICAID, SELFPAY ==
[2023-02-14 13:37] LABS: HCG Quantitative < 2 mIU/mL
== END 2023-02-14 12:36 | disposition home or self-care (01) ==
LOC: HO.LAB 12:35
PROVIDERS: Visit Provider Obstetrics & Gynecology
DX: Z78.9 Other specified health status (principal)
CPT/HCPCS: 36415; 84702

== ENCOUNTER 2023-05-04 16:04 | Outpatient (REF) | payer MEDICAID, SELFPAY ==
[2023-05-04 16:55] LABS: Hematocrit 40.1 % (37.0-47.0); Hemoglobin 13.6 g/dl (12.0-16.0); Mean Corpuscular HGB Conc 33.9 g/dl (31.0-35.0); Mean Corpuscular Hemoglobin 29.5 pg (27.0-33.0); Mean Platelet Volume 12.2 fL (9.4-12.3); Platelet Count 163 X10*3/uL (160-400); Red Blood Count 4.61 X10*6/uL (4.20-5.50); Red Cell Distribution Width 13.5 % (11.0-16.0); White Blood Count 9.6 X10*3/uL (4.8-10.8)
[2023-05-04 17:04] LABS: Estimated Average Glucose 97 mg/dL
[2023-05-04 17:35] LABS: Alanine Aminotransferase 23 U/L (0-31); Albumin Level 4.7 g/dL (3.5-5.0); Alkaline Phosphatase 54 U/L (39-117); Anion Gap 13 (12-20); Aspartate Amino Transferase 22 U/L (5-31); Bilirubin Total 0.6 mg/dL (0.0-1.0); Blood Urea Nitrogen 11 mg/dL (9-16); Calcium 10.1 mg/dL (8.4-10.2); Carbon Dioxide 26 mmol/L (22-29); Chloride 107 mmol/L (96-108); Cholesterol 121 mg/dL (<200); Estimated Glomerular Filt Rate > 60; Glucose Random 80 mg/dL (60-115); HDL Cholesterol 39 mg/dL (>40); LDL Cholesterol Calculated 56 mg/dL (<100); Potassium 4.4 mmol/L (3.3-5.1); Sodium 142 mmol/L (135-145); Total Protein 7.9 g/dL (6.5-8.0); Triglycerides 134 mg/dL (<150)
[2023-05-04 17:51] LABS: TSH reflex Free T4 2.79 uIU/mL (0.32-4.0)
[2023-05-05 02:08] LABS: CT PCR NOT DETECTED (Not Detect.); NG PCR NOT DETECTED (Not Detect.)
[2023-05-05 07:54] LABS: Syphilis Screen Nonreactive (Nonreactive)
[2023-05-05 08:27] LABS: HBS Num1 0.58 mIU/mL (0-7.99); HBc Num1 0.14 S/CO (0.00-0.79); HBsAGNum1 0.32 S/CO (0.00-0.99); HIV AB/AG Nonreactive (Nonreactive); HIV Num 1 0.15 S/CO (0.00-0.99); Hepatitis B Core Antibody Nonreactive (Nonreactive); Hepatitis B Surface Antigen Negative (Negative); ~HepC Num1 0.27 S/CO (0.00-0.79); ~Hepatitis B Surface Antibody NONREACTIVE (Nonreactive); ~Hepatitis C Antibody Nonreactive (Nonreactive)
== END 2023-05-04 16:05 | disposition home or self-care (01) ==
LOC: HO.LAB 16:04
PROVIDERS: PCP Student in an Organized Health Care Education/Training Program; Visit Provider Student in an Organized Health Care Education/Training Program
DX: Z00.00 Encounter for general adult medical examination without abnormal findings (principal)
CPT/HCPCS: 0353U; 80053; 80061; 83036; 84443; 85027; 86704; 86706; 86780; 86803; 87340; 87389

== ENCOUNTER 2024-01-13 14:35 | Outpatient (REF) | payer MEDICAID, SELFPAY ==
--- NOTE | ~2024-01-13 | XR_ITS ---
EXAMINATION: XR CHEST CLINICAL INFORMATION: Weight loss. COMPARISON: Most recent chest radiograph dated 12/01/2022. TECHNIQUE: 2 views of the chest were obtained. FINDINGS: The lungs are clear. The cardiomediastinal silhouette is normal in size. There is no pleural effusion or pneumothorax. No acute osseous abnormality. XR/XR chest 2V IMPRESSION: No acute cardiopulmonary findings. Electronically signed by: Rigoberto Valadez MD 01/13/2024 04:38 PM EDT
[2024-01-13 16:50] LABS: Hematocrit 40.1 % (37.0-47.0); Hemoglobin 13.3 g/dl (12.0-16.0); Mean Corpuscular HGB Conc 33.2 g/dl (31.0-35.0); Mean Corpuscular Hemoglobin 28.9 pg (27.0-33.0); Mean Corpuscular Volume 87.2 fL (80.0-98.0); Mean Platelet Volume 12.6 fL (9.4-12.3); Platelet Count 181 X10*3/uL (160-400); Red Cell Distribution Width 14.7 % (11.0-16.0); White Blood Count 8.8 X10*3/uL (4.8-10.8)
[2024-01-13 16:56] LABS: Estimated Average Glucose 103 mg/dL; Hemoglobin A1C 116.4814 umol/L; Hemoglobin A1c % 5.2 % (<6.0); Total Hemoglobin (HGBA1C) 3551.5377 umol/L
[2024-01-13 17:04] LABS: Alanine Aminotransferase 18 U/L (0-31); Albumin Level 4.5 g/dL (3.5-5.0); Alkaline Phosphatase 51 U/L (39-117); Anion Gap 13 (12-20); Aspartate Amino Transferase 26 U/L (5-31); Bilirubin Total 0.8 mg/dL (0.0-1.0); Blood Urea Nitrogen 14 mg/dL (9-16); C Reactive Protein < 0.10 mg/dL (< or = 0.50); Calcium 9.6 mg/dL (8.4-10.2); Carbon Dioxide 22 mmol/L (22-29); Chloride 110 mmol/L (96-108); Estimated Glomerular Filt Rate > 60; Glucose Random 81 mg/dL (60-115); Lactate Dehydrogenase 186 U/L (122-220); Sodium 141 mmol/L (135-145); Total Protein 7.6 g/dL (6.5-8.0)
[2024-01-13 17:20] LABS: TSH reflex Free T4 0.71 uIU/mL (0.32-4.0)
[2024-01-13 17:36] LABS: Erythrocyte Sedimentation Rate 8 MM/HR (0-20)
[2024-01-14 07:34] LABS: Prolactin 5.9 ng/mL
[2024-01-14 08:47] LABS: HBsAGNum1 0.38 S/CO (0.00-0.99); HIV AB/AG Nonreactive (Nonreactive); HIV Num 1 0.09 S/CO (0.00-0.99); Hepatitis B Surface Antigen Negative (Negative); ~HepC Num1 0.32 S/CO (0.00-0.79); ~Hepatitis C Antibody Nonreactive (Nonreactive)
[2024-01-14 09:09] LABS: Syphilis Screen Nonreactive (Nonreactive)
== END 2024-01-13 14:36 | disposition home or self-care (01) ==
LOC: HO.HHCL 14:35
PROVIDERS: Visit Provider Student in an Organized Health Care Education/Training Program
DX: Z11.4 Encounter for screening for human immunodeficiency virus [HIV] (principal); R63.4 Abnormal weight loss; N64.3 Galactorrhea not associated with childbirth
CPT/HCPCS: 36415; 71046; 80053; 83036; 83615; 84146; 84443; 85027; 85652; 86140; 86780; 86803; 87340; 87389

== ENCOUNTER 2024-01-25 | Outpatient (REF) | payer MEDICAID, SELFPAY ==
[2024-01-26 10:35] LABS: HPV 16,18/45 See PAP report
== END 2024-01-25 00:01 | disposition home or self-care (01) ==
LOC: HO.LNP
PROVIDERS: Visit Provider Advanced Practice Midwife
DX: Z12.4 Encounter for screening for malignant neoplasm of cervix (principal); Z11.51 Encounter for screening for human papillomavirus (HPV)
CPT/HCPCS: 87624; 88175

== ENCOUNTER 2024-04-28 09:55 | Emergency (ER) | payer MEDICAID, SELFPAY ==
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
--- NOTE | ~2024-04-28 | XR_ITS ---
CLINICAL HISTORY: injury 3 view right ankle Comparison: None Findings: Nondisplaced mildly comminuted fracture involving the distal fibula. Surrounding soft tissue edema. The medial clear space is preserved. IMPRESSION: Nondisplaced mildly comminuted fracture of the distal right fibula. This document has been electronically signed by: Ayaan Ivory MD on 04/28/2024 11:36:29
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
[2024-04-28 10:17] VITALS: BP 128/76; PULSE 89; RESP 20; TEMP 36.9; O2SAT 99; BMI 21.7
--- OUTSIDE RECORDS SUMMARY | 2024-04-28 11:45 | XMS_ITS | Encounter Summary ---
Author Organization [employer] Address [address] [place] [address] Care Team Providers Care Professor Of English Name Role Phone Cathryn Cardoza MD Primary Care Pro vider Reason for Visit * Reason Onset Date Comments Sailaja Recall 04/16/2024 Encounter Details Date Type Department Care Team (Late st Contact Info) Description 04/16/2024 Telephone [facility] [address] [place] [address] Alexandra Lewis [place] June Recall Social History Tobacco Use Types Packs/Day Years Used Date Smoking Tobacco: Never Passive Smoke Exposure: Never Smokeless Tobacco: Never Alcohol Use Standard Drinks/Week Comments Not Currently 0 (1 standard drink = 0.6 oz pur e alcohol) social Depression Answer Date Recorded Patient Health Questionnaire-9 Score 11 03/24/2023 Patient Health Questionnaire-9 Score 11 03/24/2023 Last PHQ-9: Questionnaire Data Not on file 0 03/24/2023 Housing Stability Answer Date Recorded What is your housing situation today? I have carol lowe 06/09/[address] you li ve. Do you have problems with any of the following? None of the above 06/09/2023 Food Insecurity Answer Date Recorded Within the past 12 months, y ou worried that your food would run out before you got money to buy more: Never True 06/09/2023 Within the past 12 months,th e food you bought just didn't last and you didn't have enough money to get more: Never True Transportation Answer Date Recorded In the past 12 months, has l ack of transportation kept you from medical appts, meetings, work or from getting things needed for daily living? No 06/09/2023 Utilities Answer Date Recorded In the past 12 months, has t he electric, gas, oil or water company threatened to shut off services in your home? 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 Recall letter sent. Appointment: Office Visit Note: WT Month: June With: Bong Please schedule appointment if Patient calls Back. documented in this encounter Plan of Treatment Upcoming Encounters Date Type Department Care Team (Late st Contact Info) Description 06/21/2024 1:30 PM EDT Office Visit [facility] [address] [place] [phone] Cathryn Cardoza MD [address] [place] [phone] documented as of this encounter Visit Diagnoses Not on filedocumented in this encounter Additional Health Concerns Assessment Noted Time PHQ-9 Depression Total Score: 11 024 10:24 AM EST documented as of this encounter Care Teams Professor Of English Relationship Specialty Start Date End Date Cathryn Cardoza MD [address] [place] [id number] PCP - General Internal Medicine 09/08/22 documented as of this encounter
--- OUTSIDE RECORDS SUMMARY | 2024-04-28 11:45 | XMS_ITS | Encounter Summary ---
Author Organization [employer] Address [address] [facility] [address] [place] [address] Care Team Providers Care Knot Picker Cloth Name Role Phone Yvonne Madrid CRACKING STILL OPERATOR Primary Care Provider [phone] Cathryn Cardoza MD Primary Care Pro vider Encounter Details Date Type Department Care Team (Late Contact Info) Description 04/30/2022 Orders Only [facility] [address] [place] [address] [phone] Shasha Mendiola RN [address] [place] [address] [phone] Social History Tobacco Use Types Packs/Day Years Used Date Smoking Tobacco: Never Passive Smoke Exposure: Never Smokeless Tobacco: Never Alcohol Use Standard Drinks/Week Comments Never 0 (1 standard drink = 0.6 oz pur e alcohol) Comments Unknown Sex and Gender Information Value Date Recorded Sex Assigned at Female 01/11/2022 10:16 AM EDT Legal Sex Female 10:16 AM EDT Gender Identity Female 01/11/2022 10:16 AM EDT Sexual Orientation Straight 01/11/2022 10 :16 AM EDT documented as of this encounter Plan of Treatment Upcoming Encounters Date Type Department Care Team (Late Contact Info) Description 06/21/2024 1:30 PM EDT Office Visit [facility] [address] [place] [address] [phone] Cathryn Cardoza MD [address] [place] [address] [phone] documented as of this encounter Visit Diagnoses Not on filedocumented in this encounter Care Teams Knot Picker Cloth Relationship Specialty Start Date End Date Yvonne Madrid FNP [address] [place] [phone] PCP - General Family Medicine 08/25/21 09/07/22 Cathryn Cardoza MD [address] [place] [id number] PCP - General Internal Medicine 09/08/22 documented as of this encounter
--- OUTSIDE RECORDS SUMMARY | 2024-04-28 11:45 | XMS_ITS | Clinical Summary ---
Author Organization [employer] Address [address] [place] [address] Care Team Providers Care Ladle Liner Name Role Phone Cathryn Cardoza MD Primary Care Pro vider Allergies Active Allergy Reactions Criticality Noted Date Comments Sumatriptan Itching Low 01/30/2022 Medications * This document contains information received from the source organization and may not represent a complete record from that organization. albuterol (ProAir HFA) 108 (90 Base) MCG/ACT inhalerIndication s:Shortness of breath Inhale 2 puffs every 4 (four) hours. 18 g 1 02/16/20 22 Active Spacer/Aero-Holdi ng Chambers (BreatheRite Yanira Spacer Adult) miscIndications:D ysuria 1 Units if needed in the morning, at noon, in the evening, and at bedtime (wheezing). 1 each 02/26/20 22 Active medroxyPROGESTERo ne (Depo-Provera) 150 MG/ML injectionIndicati ons:Encounter for other contraceptive management TAKE TO DOCTOR'S OFFICE FOR ADMINISTRATION EVERY 3 MONTHS 1 mL 3 08/03/19 24 Active valACYclovir (Valtrex) 500 MG tabletIndications :Genital herpes simplex, unspecified site TAKE 1 TABLET BY MOUTH TWICE A DAY FOR 3 DAYS PER FLARE 12 tablet 1 12/30/19 24 Active Nebulizers misc 1 kit Every 4-6 hours as needed (for shortness of breath and wheezing). Accerlon nebulizer given to patient in walk in center 01/02/2024, education provided Active fluticasone (Flovent) 110 MCG/ACT inhaler Inhale 1 puff in the morning and at bedtime. Rinse mouth with water after use to reduce aftertaste and incidence of candidiasis. Do not swallow. 12 g 2 01/13/20 24 025 Active Mometasone Furoate (Asmanex HFA) 100 MCG/ACT aerosolIndication s:Moderate asthma with acute exacerbation, unspecified whether persistent Inhale 1 Act (100 mcg) 2 times daily. 13 g 3 02/27/20 24 Active albuterol (2.5 MG/3ML) 0.083% nebulizer solutionIndicatio ns:Dysuria INHALE 1 AMPULE USING A NEBULIZER EVERY 4 HOURS NEEDED FOR WHEEZING 90 mL 1 02/28/20 24 Active fluticasone (Veramyst) 27.5 MCG/SPRAY nasal sprayIndications: Allergic Rhinitis,Seasonal Allergic Rhinitis Administer 2 sprays into each nostril Once per day. Active loratadine (Claritin) 10 MG tabletIndications :Rhinorrhea,Seaso nal Allergic Rhinitis,Sneezing Take 10 mg by mouth Once per day. Active Hospital, Clinic, or Other Facility Administered Medication Ordered Dose Route Frequency Start Date End Date Status medroxyPROGESTERone (Depo-Provera) injection 150 mgIndications:Encounte r for Depo-Provera contraception 150 mg IM Every 3 months 12/27/2023 12/21/2024 Active Active Problems Problem Noted Date Diagnosed Date Weight loss 01/14/2024 Health care maintenance 03/26/2023 Nephrolithiasis 03/26/2023 Chronic idiopathic constipation 03/24/2023 03/24/2023 Mild intermittent asthma 06/23/2017 Genital herpes simplex 08/10/2012 Family disruption 08/03/2012 Mixed anxiety and depressive disorder 02/15/2012 Assessment & Plan (03/29/2023 1:50 PM EST): During IBH Consult Nafisa presenting with depressed mood, loss of interests/pleasure , trouble concentrating, hopelessness, worthlessness , difficulty concentrating and excessive worry/anxiety, difficulty controlling worry, and difficulty concentrating/Mind going blank ; for a period of 18+ mo, for all symptoms in the context of and relationship issues. Nafisa reported lack of network and lack of support. Experienced sx on and off since teenager years due to life stressors. PLAN: (check all that apply) New/Additional Services needed PCP management Off-site services for . Referral for OP individual therapy will be placed. Nafisa reported having a psych provide for medication management, however, does not remember agency/provider's name. Not med complaint. Migraine 12/10/2011 Resolved Problems Problem Noted Date Diagnosed Date Resolved Date Nausea 03/26/2023 01/14/2024 Dysuria 02/25/2022 03/26/2023 Assessment & Plan (02/25/2022 2:34 PM EST): + LE with symptoms, will send macrobid and f/up culture results. Encounters Date Type Department Care Team Description 04/20/[address] [address] Estefany Mac, No Show 04/19/[address] [address] Cathryn Cardoza MD Nurse Triage 04/16/[address] [address] Alexandra Lewis [place] June03/14/2024 Travel 02/27/2024 1:20 PM EST Office Visit [facility] [address] [place] [phone] Cindi Abarca MD Cough in adult patient (Primary Dx); Moderate asthma with acute exacerbation, unspecified whether persistent 02/27/2024 Refill [facility] [address] [place] [phone] Meghana Leon MD Dysuria 02/27/[address] [address] Cathryn Cardoza MD 02/27/2024 Travel 02/27/[address] [address] Cathryn Cardoza MD Nurse Triage 02/06/[address] [address] Cathryn Cardoza MD Nurse Triage from Last 3 Months Immunizations Name Administration Dates Next Due DTaP 08/12/1998, 6,1994,05/12,1994 HPV, Quadrivalent 08/07/2008,05/06/2008,08/03/19 08 Hep B, Adolescent or Pediatric 1994,1994,1994 Hep B, adult 12/12/2023,07/07/2023,06/09/2023 Hib ([facility]) 04/14/1995, 5,1994,03/14 IPV 08/12/1998, 5,1994,03/14 Influenza injectable quadriv alent preservative free 03/24/2023 Influenza, IIV3, injectable 02/28/2015,0 03/26/2014,12/10/2010,12/10,12/05/2008,02/15/2007 Influenza, Split (incl. anushka fied surface antigen) 02/26/2013,12/10/2011 MMR 08/12/1998,1994 Meningococcal MPSV4 08/05/2005 Tdap 02/28/2015,08/05/2005 Varicella 12/10/2009,08/12/1998 Family History Medical History Relation Name Comments Dm2 Maternal Grandmother unspecified cancer Maternal Grandmother DM2 Paternal Grandmother Relation Name Status Comments Maternal Grandmother Paternal Grandmother Social History Tobacco Use Types Packs/Day Years Used Date Smoking Tobacco: Never Passive Smoke Exposure: Never Smokeless Tobacco: Never Tobacco Cessation:Counseling Given: Not Answered Alcohol Use Standard Drinks/Week Comments Not Currently [...] Orientation Straight 01/11/2022 10 :16 AM EDT Last Filed Vital Signs Vital Sign Reading Time Taken Comments Blood Pressure 109/67 02/27/2024 11:17 AM EST Pulse 105 02/27/2024 11:17 AM EST Temperature 36.6 ??C (97.8 ??F) 02/27/2024 1 1:17 AM EST Respiratory Rate 19 02/27/2024 11:1 7 AM EST Oxygen Saturation 99% 02/27/2024 11: 17 AM EST Inhaled Oxygen Concentration - - Weight 49.8 kg (109 lb 12.8 oz) 01/25/2024 9:30 AM EST Height 154.9 cm (5' 1 ) 01/25/2024 9:30 AM EST Body Mass Index 20.75 01/25/2024 9:30 AM EST Plan of Treatment Upcoming Encounters Date Type Department Care Team (Late st Contact Info) Description 06/21/2024 1:30 PM EDT Office Visit [facility] [address] [place] [phone] Cathryn Cardoza MD [address] [place] [address] Health Maintenance Due Date Last Done Comments Alcohol/Substance Use Screening 2006 Pneumococcal Vaccine: Pediatrics (0 to 5 Years) and At-Risk Patients (6 to 49) Years) (1 of 2 - PCV) 2013 Depression Monitoring (PHQ-9) 09/22/2023 03/24/2023, 03/24/2023 COVID-19 Vaccine ( - season) 2023 Influenza Vaccine (#1) 2023 , 02/28/2015, 03/26/2014, Additional history exists Depression Screening 03/24/2024 03/24/2023, 03/24/19 24 SDOH Screening 06/08/2024 06/09/2023 Family Planning (PISQ) 01/24/2025 01/25/2024 Tobacco Screening 02/26/2025 02/27/2024 DTaP/Tdap/Td Vaccines (8 - Td or Tdap) 02/28/2025 02/28/2015, 08/05/2005, 08/12/1998, Additional history exists Cervical Cancer Screening 01/24/2029 HPV/Cotest 01/24/2029 12/24/2020 Pap Smear 01/24/2029 01/25/2024, 12/24/2020 Zoster Vaccines (1 of 2) 01/11/2044 RSV Patients and Patients Aged 60 years or older (1 - 1-dose 75+ series) 2069 HIB Vaccines Completed 04/14/1995, 03/1994, 1994, Additional history exists IPV Vaccines Completed 08/12/1998, 03/1994, 1994, Additional history exists Meningococcal Vaccine Aged Out 08/05/2005 No lona baldev eligible based on patient's age to complete this topic HPV Vaccines Completed 08/07/2008, 04/15, 08/03/2007 Hepatitis B Vaccines Completed 12/12/2023, 07/07/2023, 06/09/2023, Additional history exists HIV Screening Completed 01/13/2024, 05/04/2023 Hepatitis C Screening Completed 01/13/2024, 02/21/2 024 Hepatitis A Vaccines Aged Out No long er eligible based on patient's age to complete this topic RSV under 20 months Aged Out No longe r eligible based on patient's age to complete this topic Rotavirus Vaccines Aged Out No longer eligible based on patient's age to complete this topic Procedures Procedure Name Priority Date/Time Associated Diagnosis Comments POCT INFLUENZA B (ID NOW RAPID MOLECULAR) Routine 02/27/2024 1:29 PM EST Cough in adult patient POCT INFLUENZA A (ID NOW RAPID MOLECULAR) Routine 02/27/2024 1:28 PM EST Cough in adult patient POCT RAPID COVID ANTIGEN Routine 02/27/2024 1:26 PM EST Cough in adult patient PAP SMEAR Routine 01/25/2024 9:58 AM EST Routine cervical smear HEPATITIS C AB W/REFL TO HCV RNA, QN, PCR Routine 01/13/2024 2:35 PM EDT Weight loss HIV 1/2 ANTIGEN/ANTIBODY, FOURTH GENERATION W/RFL Routine 01/13/2024 2:35 PM EDT Weight loss HPV MRNA E6/E7 Routine 12/24/2020 2:44 PM EDT from Last 3 Months or Most Recently Relevant to Health Maintenance Results * Influenza B (ID NOW Rapid Molecular) (02/27/2024 1:29 PM EST) Influenza B Negative Negative, Indeterminate [facility] Swab 02/27/2024 1:29 PM EST us Cindi Abarca MD POINT OF CARE TEST ENTER/ED IT ORDERABLES Final Result [facility] [address] [place] [phone] * Influenza A (ID NOW Rapid Molecular) (02/27/2024 1:28 PM EST) Influenza A Negative Negative, Indeterminate [facility] Swab 02/27/2024 1:28 PM EST us Cindi Abarca MD POINT OF CARE TEST ENTER/ED IT ORDERABLES Final Result [facility] [address] [place] [phone] * POCT Rapid COVID Ag (02/27/2024 1:26 PM EST) Pathologist [facility] Rapid COVID Ag Negative Swab 02/27/2024 1:26 PM EST us Cindi Abarca MD POINT OF CARE TEST ENTER/ED IT ORDERABLES Final Result * Pap Smear (01/25/2024 9:58 AM EST) Swab Cervix uteri structure / Unknown 01/25/2024 9:58 AM EST 01/26/2024 9:30 AM EST Narrative [facility] - 01/30/2024 10:24 AM EST ----- ------- Name: Nafisa Jacobs ?Age/Sex: 29/F ? : 1995 Unit#: [id number] ?? Attend Dr: ?Re01/25/24 ?Status: PRE REF ? Location: HO.LNP ?Disch: ? ----- ------- SPEC : [id number] ?RECD: 01/26/24 ? STATUS: ??SOUT ? REQ NUM: [id number] ? YAINRA: 01/25/24 ? SUBM DR: RUTH MALIK CNM ? ENTERED: ??01/26/24 ?SP TYPE: Pap Smr ?OTHR DR: ? ORDERED: ??Pap Smear ? Interpretation ?? Satisfactory for evaluation. ?? Negative for intraepithelial lesion or malignancy. ? HPV High Risk: ??Negative ? HPV Genotyping 16: ??Negative ?? HPV Genotyping 18: ??Negative ?Clinical Information LMP: Unknown date Previous PAP test: 2020, abnormal ? Material Received ?? ThinPrep-Cervical ----- ------- Signed (signature on file) LAURENT Alex ([facility]) 01/30/24 1024 ? ----- ------- ? END OF REPORT ? us Ruth MULLEN LAB CYTOLOGY ORDERABLES F inal Result Performing Organization Address [facility] de Phone Number [facility] [address] [place] [address] [phone] * Hepatitis C Antibody with Reflex to HCV, RNA, Quantitative, Real-Time PCR (01/13/2024 2:35 PM EDT) Hepatitis C Antibody Nonreactive Nonreactive [facility] Comment:Antibodies to HCV no t detected; does not exclude early acuteHCV infection. Blood Venous blood specimen / Unknown 01/13/2024 2:35 PM EDT 01/13/2024 4:32 PM EDT us Cathryn Zhou MD LAB BLOOD ORDERAB LES Final Result Performing Organization Address [facility] Co de Phone Number [facility] [address] [place] [phone] * HIV-1/2 Antigen and Antibodies, Fourth Generation, with Reflexes (01/13/2024 2:35 PM EDT) HIV AB/AG Nonreactive Nonreactive [facility] Comment:HIV-1 p24 Ag and/or HIV-1/HIV-2 Ab not detected.A test result that is nonreactive does not exclude thepossibility of exposure to or infection with HIV-1 and/orHIV-2. Nonreactive results in this assay for individualswith prior exposure to HIV-1 and/or HIV-2 may be due toantigen and antibody levels that are below the limit ofdetection of this assay.The Kilop[employer] HIV Ag/Ab Combo assay result andsupplemental assay results should be interpreted inconjunction with the patient's clinical presentation,history and other laboratory results. If the results areinconsistent with clinical evidence, additional testing issuggested to confirm the result. Blood Venous blood specimen / Unknown 01/13/2024 2:35 PM EDT 01/13/2024 4:32 PM EDT us Cathryn Zhou MD LAB BLOOD ORDERAB LES Final Result [facility] [address] [place] [phone] * HPV mRNA E6/E7 (12/24/2020 2:44 PM EDT) Pathologist [facility] HPV nRNA E6/E7 Not Detected Not Detected [facility] Comment: Methodology: Musical Instrument Supervisor-Mediated Amplification This assay detects E6/E7 viral messenger RNA (mRNA) from 14 high-risk HPV types (16,18,31,33,35,39,45,51,52,56,58,59,66,68). ? The analytical performance characteristics of this assay have been determined by [employer]. The modifications have not been cleared or approved by the FDA. This assay has been validated pursuant to the CLIA regulations and is used for clinical purposes. ?? For additional information, please refer to http://education.Vir2us/faq/FHK613c5 (This link if provided for information/ educational purposes only.) 12/24/2020 2:44 PM EDT us Ruth Malik CN LAB BLOOD ORDERABLES Yanet jesus Result [facility] [address] from Last 3 Months or Most Recently Relevant to Health Maintenance Insurance [facility] Care Teams Ladle Liner Relationship Specialty Start Date End Date Cathryn Cardoza MD [address] [place] [phone] PCP - General Internal Medicine 09/08/22"
--- OUTSIDE RECORDS SUMMARY | 2024-04-28 11:45 | XMS_ITS | Encounter Summary ---
Author Organization [employer] Address [address] [address] Care Team Providers Care Color Sprayer Name Role Phone Cathryn Cardoza MD Primary Care Pro vider Reason for Visit * Reason Onset Date Comments Appointment Request 02/09/2023 Encounter Details Date Type Department Care Team ([facility] st Contact Info) Description 02/09/2023 Telephone [facility] [address] [place] [phone] Cathryn Cardoza MD [address] [place], [place] [phone] Appointment Request Social History Tobacco Use Types Packs/Day Years [...] encounter Miscellaneous Notes * Telephone Encounter - Dariel Crespo - 02/09/2023 10:26 AM EST Tc from patient calling to cancel appt on 02/09 for Depo would like a call back to reschedule appt health science writer did cancel appt. documented in this encounter Plan of Treatment Upcoming Encounters Date Type Department Care Team (Late st Contact Info) Description 06/21/2024 1:30 PM EDT Office Visit [facility] [address] [place] [phone] Cathryn Cardoza MD [address] [place], [place] [phone] documented as of this encounter Visit Diagnoses Not on filedocumented in this encounter Care Teams Color Sprayer Relationship Specialty Start Date End Date Cathryn Cardoza MD [address] [place], [place] [phone] PCP - General Internal Medicine 09/08/22 documented as of this encounter
--- OUTSIDE RECORDS SUMMARY | 2024-04-28 11:45 | XMS_ITS | Clinical Summary ---
Author Organization [facility] ity Address [address] [place] [address] Care Team Providers Care Fisher Terrapin Name Role Phone Unavailable Primary Care Provider Unavailabl e Social History Tobacco Use Types Packs/Day Years Used Date Smoking Tobacco: Never Assessed Comments Unknown Sex and Gender Information Value Date Recorded Sex Assigned at Not on file Legal Sex Female 12:48 AM EST Gender Identity Not on file Sexual Orientation Not on file Plan of Treatment Health Maintenance Due Date Last Done Comments DTaP,Tdap,and Td Vaccines (1 - Tdap) 2013 Hepatitis B Vaccines (1 of 3 - 19+ 3-dose series) 2013 Cervical Cancer Screening: P ap Smear 2015 Depression Screening 02/14/2022 HIV Screening 02/14/2022 Hepatitis C Screening 02/14/2022 Social Influencers of Health Screening 02/14/2022 COVID-19 Vaccine (2023-2 5 season) 2023 Influenza Vaccine (#1) 2023 HIB Vaccines Aged Out No longer eligi ble based on patient's age to complete this topic HPV Vaccines Aged Out No longer eligi ble based on patient's age to complete this topic Hepatitis A Vaccines Aged Out No long er eligible based on patient's age to complete this topic IPV Vaccines Aged Out No longer eligi ble based on patient's age to complete this topic MMR Vaccines Aged Out No longer eligi ble based on patient's age to complete this topic Meningococcal ACWY Vaccine Aged Out N o longer eligible based on patient's age to complete this topic Meningococcal B Vacine Aged Out No lo nger eligible based on patient's age to complete this topic Pneumococcal Vaccine: Pediat rics (0 to 5 Years) and At-Risk Patients (6 to 64 Years) Aged Out No longer eligible b ased on patient's age to complete this topic RSV Immunization Patients Un linda 20 months Aged Out No longer eligible b ased on patient's age to complete this topic Varicella Vaccines Aged Out No longer eligible based on patient's age to complete this topic
--- OUTSIDE RECORDS SUMMARY | 2024-04-28 11:45 | XMS_ITS | Encounter Summary ---
Author Organization [employer] Address [address] [address] Care Team Providers Care Manager Lvn Name Role Phone Cathryn Cardoza MD Primary Care Pro vider Reason for Visit * Reason Onset Date Comments Appointment Request 02/23/2023 Encounter Details Date Type Department Care Team ([facility] st Contact Info) Description 02/23/[address] [facility] [address] [place] [phone] Cathryn Cardoza MD [address] [place], [place] [phone] Appointment Request Social History Tobacco Use Types [...] * Telephone Encounter - Dariel Crespo - 02/23/2023 11:45 AM EST Tc from patient calling to request a appt for DEPO film writer was going to schedule but was unable to due to a window period please call to schedule documented in this encounter Plan of Treatment Upcoming Encounters Date Type Department Care Team (Late st Contact Info) Description 06/21/2024 1:30 PM EDT Office Visit [facility] [address] [place], [place] [phone] Cathryn Cardoza MD [address] [place] [phone] documented as of this encounter Visit Diagnoses Not on filedocumented in this encounter Care Teams Manager Lvn Relationship Specialty Start Date End Date Cathryn Cardoza MD [address] [place] [phone] PCP - General Internal Medicine 09/08/22 documented as of this encounter
--- OUTSIDE RECORDS SUMMARY | 2024-04-28 11:45 | XMS_ITS | Encounter Summary ---
Author Organization [employer] Address [address] [facility] [address] [place] [address] Care Team Providers Care School Operations Manager Name Role Phone Cathryn Cardoza MD Primary Care Pro vider Reason for Visit * Reason Onset Date Comments Nurse Triage 04/19/2024 Encounter Details Date Type Department Care Team (Late st Contact Info) Description 04/19/2024 Telephone [facility] [address] [place] [address] Cathryn Cardoza MD [address] [place], [place] [phone] Nurse Triage Social History Tobacco Use Types Packs/Day Years [...] encounter Miscellaneous Notes * Telephone Encounter - Glendy Hernandez RN - 04/19/2024 4:18 PM EST Telephone call to pt to status check. Pt reports sneezing for several weeks, has stuffy nose, teary/burning eyes at times, headache (history of migraines since 2011), no respiratory distress. She has a pet and is concerned about the rugs in her apartment contributing to allergies. Scheduled her for appt tomorrow with Dr Estefania jason on site. She spoke with provider in [employer] in February 2024 abouta letter to remove rugs but never went to medical records. No letter on file. Advised her to go request letter tomorrow after appt. Explained NTTS dehydration unit operator nurse before appt. Pt verbalized understanding, no further questions. * Telephone Encounter - Sultana Kumar RN - 04/19/2024 3:36 PM EST Called pt. She states that she has been sneezing all day for a few weeks. Pt. Nose gets blocked andshe has been using saline with no relief. Pt. States her allergies are worse now in the winter and she is requesting an allergy medication and also some Fluticasone spray for her nasal sinus passages. Pt states that the stuffy nose is giving her a headache and she wants to Get to the source instead of taking headache medication . Pt. Also states that she requested a letter to be written to have the rugs removed from her home due to her Asthma Exacerbation and allergies to the dust from the hot air and rugs in house. Pt. Did mention it at last office visit and provider did write a note in pt. Chart but, unsure if letter was ever written. Pt. Would like a call back from team nurse after PCP makes decision. Protocol Used: Nasal Allergies (Hay Fever) (Adult) Protocol-Based Disposition: See in Office or Video Visit within 2 Weeks Video visit not offered Positive Triage Questions: * Nasal allergies occur only certain times of year and diagnosis of hay fever has never been confirmed by a doctor (or MOTION PICTURE PROJECTIONIST/PA) * Nasal allergies occur only certain times of year * All higher-acuity triage questions were negative Care Advice Discussed: * Nasal Washes for a Stuffy Nose and to Wash out Pollen * Antihistamine Medicines for Hay Fever * Nasal Decongestants for a Very Stuffy Nose * Telephone Encounter - Jose Mancia - 04/19/2024 3:32 PM EST Symptom: Allergic Reaction (General) Outcome: Transfer to a nurse or provider NOW! Reason: Trouble breathing The caller accepted this outcome. documented in this encounter Plan of Treatment Upcoming Encounters Date Type Department Care Team (Late st Contact Info) Description 06/21/2024 1:30 PM EDT Office Visit [facility] [address] [place] [phone] Cathryn Cardoza MD [address] [place] [address] documented as of this encounter Visit Diagnoses Not on filedocumented in this encounter Additional Health Concerns Assessment Noted Time PHQ-9 Depression Total Score: 11 024 10:24 AM EST documented as of this encounter Care Teams School Operations Manager Relationship Specialty Start Date End Date Cathryn Cardoza MD [address] [place] [phone] PCP - General Internal Medicine 09/08/22 documented as of this encounter
--- OUTSIDE RECORDS SUMMARY | 2024-04-28 11:45 | XMS_ITS | Encounter Summary ---
Author Organization [employer] Address [address] [place] [address] Care Team Providers Care Orchid Hand Name Role Phone Yvonne Madrid CUSTOMER SERVICE REPRESENTATIVE TELLER Primary Care Provider [phone] Cathryn Cardoza MD Primary Care Pro vider Reason for Visit * Reason Comments Med Refill Encounter Details Date Type Department Care Team (Late Contact Info) Description 05/01/2022 Refill [facility] CH[facility] MED & PEDS [address] [place], [place] [phone] Cassandra Guzman CNM [address] [place], [place] [phone] Encounter for other contraceptive management Social History Tobacco Use Types Packs/Day Years [...] Upcoming Encounters Date Type Department Care Team ([facility] Contact Info) Description 06/21/2024 1:30 PM EDT Office Visit [facility] MEDICINE [address] [place], [place] [phone] Cathryn Cardoza MD [address] [place] [id number] documented as of this encounter Visit Diagnoses Diagnosis Encounter for other contraceptive management documented in this encounter Care Teams Orchid Hand Relationship Specialty Start Date End Date Yvonne Madrid FNP [address] [place] [id number] PCP - General Family Medicine 08/25/21 09/07/22 Cathryn Cardoza MD [address] [place] [id number] PCP - General Internal Medicine 09/08/22 documented as of this encounter
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
[2024-04-28] MEDS: oxyCODONE HCl Immed Release 5 MG TABLET PO ×2 (12:17→13:12)
[2024-04-28 13:12] LABS: HCG Quantitative < 2 mIU/mL
[2024-04-28 14:30] VITALS: BP 122/73; PULSE 76; RESP 20; TEMP 36.9; O2SAT 100
[2024-04-28 14:57] VITALS: BP 122/73; PULSE 76; RESP 20; TEMP 36.9; O2SAT 100
== END 2024-04-28 14:58 | disposition home or self-care (01) ==
PROVIDERS: Physician Assistant Medical; Emergency Provider Emergency Medicine; PCP Internal Medicine
DX: S82.831A Other fracture of upper and lower end of right fibula, initial encounter for closed fracture (principal); M79.604 Pain in right leg; R51.9 Headache, unspecified; M54.2 Cervicalgia; M25.571 Pain in right ankle and joints of right foot; M79.641 Pain in right hand; Y04.2XXA Assault by strike against or bumped into by another person, initial encounter; Y93.89 Activity, other specified; Y92.59 Other trade areas as the place of occurrence of the external cause; Y99.8 Other external cause status
CPT/HCPCS: 29125; 29515; 36415; 70450; 70486; 72125; 73140; 73590; 73610; 73630; 84702; 99284

== ENCOUNTER → 2024-04-28 10:30 | Outpatient (BNV) | payer MEDICAID, SELFPAY | PROVIDERS: Emergency Provider Emergency Medicine; PCP Internal Medicine; Visit Provider Radiology Vascular & Interventional Radiology | DX: S09.90XA Unspecified injury of head, initial encounter (principal); S02.2XXA Fracture of nasal bones, initial encounter for closed fracture; S82.891A Other fracture of right lower leg, initial encounter for closed fracture; M79.671 Pain in right foot; M79.644 Pain in right finger(s) | CPT/HCPCS: 70450; 70486; 72125; 73140; 73590; 73610; 73630 ==

== ENCOUNTER 2024-05-07 08:45 | Outpatient (AMB) | payer MEDICAID, SELFPAY ==
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
[2024-05-07 09:06] VITALS: BMI 21.7
--- OUTSIDE RECORDS SUMMARY | 2024-05-07 09:14 | XMS_ITS | Clinical Summary ---
Author Organization [facility] ity Address [address] [place] [address] Care Team Providers Care Driver License Agent Name Role Phone Unavailable Primary Care Provider [...]
== END 2024-05-07 09:38 | disposition home or self-care (01) ==
PROVIDERS: PCP Internal Medicine; Visit Provider Physician Assistant
DX: S82.891A Other fracture of right lower leg, initial encounter for closed fracture (principal)
CPT/HCPCS: 99203

== ENCOUNTER → 2024-05-07 08:51 | Outpatient (BNV) | payer MEDICAID, SELFPAY | PROVIDERS: Visit Provider Radiology Diagnostic Radiology | DX: S82.891A Other fracture of right lower leg, initial encounter for closed fracture (principal); M25.571 Pain in right ankle and joints of right foot | CPT/HCPCS: 73610 ==

== ENCOUNTER 2024-05-07 12:24 | Outpatient (REF) | payer MEDICAID, SELFPAY ==
--- NOTE | ~2024-05-07 | XR_ITS ---
EXAMINATION: XR ANKLE, RIGHT CLINICAL INFORMATION: M25.572 - Pain in right ankle and joints of rightfoot COMPARISON: April 28, 2024. TECHNIQUE: AP, lateral, and mortise views of the right ankle. FINDINGS: Comminuted fracture distal metaphysis/epiphysis of the fibula. No periosteal bone reaction or callus formation. No edema pattern, lateral malleolus. Distal tibia is intact. Calcaneus and talus are intact. XR/XR ankle RT min 3V IMPRESSION: No healing fracture, lateral malleolus. Decreased soft tissue contusion, lateral malleolus. Electronically signed by: Donaldo Harvey MD 05/08/2024 10:35 AM JESUS
--- OUTSIDE RECORDS SUMMARY | 2024-05-08 15:01 | XMS_ITS | Encounter Summary ---
Author Organization [employer] Address [address] [place] [address] Care Team Providers Care Accounts Receivable Processor Name Role Phone Yvonne Madrid TECHNICIAN PREVENTATIVE MEDICINE Primary Care Provider [phone] Cathryn Cardoza MD Primary Care Pro vider Reason for Visit * Reason Comments Med Refill Encounter Details Date Type Department Care Team (Late Contact Info) Description 05/01/2022 Refill [facility] [address] [place], [place] [phone] Cassandra Guzman CNM [address], [place] [phone] Encounter for other contraceptive management Social History [...] Upcoming Encounters Date Type Department Care Team ([facility] Contact Info) Description 06/21/2024 1:30 PM EDT Office Visit [facility] [address], [place] [phone] Cathryn Cardoza MD [address] [place] [address] documented as of this encounter Visit Diagnoses Diagnosis Encounter for other contraceptive management documented in this encounter Care Teams Accounts Receivable Processor Relationship Specialty Start Date End Date Yvonne Madrid FNP [address] [place] [id number] PCP - General Family Medicine 08/25/21 09/07/22 Cathryn Cardoza MD [address] [place] [id number] PCP - General Internal Medicine 09/08/22 documented as of this encounter
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
--- OUTSIDE RECORDS SUMMARY | 2024-05-08 15:01 | XMS_ITS | Encounter Summary ---
Author Organization [employer] Address [address] [facility] [address] 7[address] [place] [address] Care Team Providers Care Club Manager Name Role Phone Cathryn Cardoza MD Primary Care Pro vider Reason for Visit * Reason Onset Date Comments Sailaja Recall 04/16/2024 Encounter Details Date Type Department Care Team (Late st Contact Info) Description 04/16/2024 Telephone [facility] [address] [place] [address] Alexandra Lewis [place] June Recall Social History [...] [place] - 04/16/2024 12:05 PM EST T/C- General Worker Left Voice Mail to return call to schedule an appointment. Recall letter sent. Appointment: Office Visit Note: WT Month: June With: Bong Please schedule appointment if Patient calls Back. documented in this encounter Plan of Treatment Upcoming Encounters Date Type Department Care Team (Late st Contact Info) Description 06/21/2024 1:30 PM EDT Office Visit [facility] [address] [place] [phone] Cathryn Cardoza MD [address] [place] [phone] documented as of this encounter Visit Diagnoses Not on filedocumented in this encounter Additional Health Concerns Assessment Noted Time PHQ-9 Depression Total Score: 11 024 10:24 AM EST documented as of this encounter Care Teams Club Manager Relationship Specialty Start Date End Date Cathryn Cardoza MD [address] [place] [phone] PCP - General Internal Medicine 09/08/22 documented as of this encounter
--- OUTSIDE RECORDS SUMMARY | 2024-05-08 15:01 | XMS_ITS | Encounter Summary ---
Author Organization [employer] Address 75 [facility] 7 [place] [address] Care Team Providers Care Manager Club Name Role Phone Cathryn Cardoza MD Primary Care Pro vider Reason for Visit * Reason Onset Date Comments Care Management 05/01/2024 [facility]- chart revi ew Encounter Details Date Type Department Care Team (Late st Contact Info) Description 05/01/2024 Telephone [facility] [address] [place] [address] Cathryn Cardoza MD [address] [place], [place] [phone] Care Management ([facility]- chart review) Social History Tobacco Use Types Packs/Day Years [...] encounter Miscellaneous Notes * Telephone Encounter - Salinas Dhaliwal RN - 05/01/2024 9:05 AM EST CM Salinas Dhaliwal RN, performed chart review, in anticipation of initial assessment with patient, as patient has stratified for C3 Adult Complex Care through the ADT feed. History significant for mixed anxiety and depressive disorder, migraine, mild intermittent asthma, family disruption, chronic id iopathic constipation, nephrolithiasis, and weight loss. Specialists include [facility]. ED visits within the last 12 months include [facility] 04/28/24 and [facility] ED 10/24/23. Last appointment in PCP office on 02/27/24. Next appointment scheduled for 06/21/24 at 1:30pm with PCP for f/u. documented in this encounter Plan of Treatment Upcoming Encounters Date Type Department Care Team (Late st Contact Info) Description 06/21/2024 1:30 PM EDT Office Visit [facility] [address] [place] [phone] Cathryn Cardoza MD [address] [place] [address] documented as of this encounter Visit Diagnoses Not on filedocumented in this encounter Additional Health Concerns Assessment Noted Time PHQ-9 Depression Total Score: 11 024 10:24 AM EST documented as of this encounter Care Teams Manager Club Relationship Specialty Start Date End Date Cathryn Cardoza MD [address] [place] [phone] PCP - General Internal Medicine 09/08/22 documented as of this encounter
--- OUTSIDE RECORDS SUMMARY | 2024-05-08 15:01 | XMS_ITS | Clinical Summary ---
Author Organization [facility] Address [address] [place] [address] Care Team Providers Care Mechanical Assembly Name Role Phone Unavailable Primary Care Provider [...]
--- OUTSIDE RECORDS SUMMARY | 2024-05-08 15:01 | XMS_ITS | Encounter Summary ---
Author Organization [employer] Address 75 [facility] [address] 7[address] [place] [address] Care Team Providers Care Slabber Name Role Phone Cathryn Cardoza MD Primary Care Pro vider Reason for Visit * Reason Onset Date Comments No Show 04/20/2024 Encounter Details Date Type Department Care Team (Late st Contact Info) Description 04/20/2024 Telephone [facility] MED[facility]INE [address] [place] [address] Estefany Mac DO [address] [place], [place] [phone] No Show Social History Tobacco Use Types Packs/Day Years [...] encounter Miscellaneous Notes * Telephone Encounter - Piedad Myesr - 04/20/2024 11:57 AM EST Pt no showed to appt on 04/20/24 documented in this encounter Plan of Treatment Upcoming Encounters Date Type Department Care Team (Late st Contact Info) Description 06/21/2024 1:30 PM EDT Office Visit [facility] MED[facility]INE [address] [place] [phone] Cathryn Cardoza MD [address] [place] [phone] documented as of this encounter Visit Diagnoses Not on filedocumented in this encounter Additional Health Concerns Assessment Noted Time PHQ-9 Depression Total Score: 11 024 10:24 AM EST documented as of this encounter Care Teams Slabber Relationship Specialty Start Date End Date Cathryn Cardoza MD [address] [place] [phone] PCP - General Internal Medicine 09/08/22 documented as of this encounter
--- OUTSIDE RECORDS SUMMARY | 2024-05-08 15:01 | XMS_ITS | Encounter Summary ---
Author Organization [employer] Address 75 [facility] 7 [place] [address] Care Team Providers Care Physician Scientist Name Role Phone Cathryn Cardoza MD Primary Care Pro vider Reason for Visit * Reason Onset Date Comments Nurse Triage 04/19/2024 Encounter Details Date Type Department Care Team (Late st Contact Info) Description 04/19/2024 Telephone [facility]INE [address] [place] [address] Cathryn Cardoza MD [address] [place], [place] [phone] Nurse Triage Social History Tobacco Use Types [...] on site. She spoke with provider in [facility] in February 2024 abouta letter to remove rugs but never went to medical records. No letter on file. Advised her to go request letter tomorrow after appt. Explained [employer] emergency vehicle operations instructor nurse before appt. Pt verbalized understanding, no [...] never been confirmed by a doctor (or COUTIERIER/PA) * Nasal allergies occur only certain times [...] Description 06/21/2024 1:30 PM EDT Office Visit [facility] [address] [place] [phone] Cathryn Cardoza MD [address] [place] [address] documented as of this encounter Visit Diagnoses Not on filedocumented in this encounter Additional Health Concerns Assessment Noted Time PHQ-9 Depression Total Score: 11 024 10:24 AM EST documented as of this encounter Care Teams Physician Scientist Relationship Specialty Start Date End Date Cathryn Cardoza MD [address] [place] [phone] PCP - General Internal Medicine 09/08/22 documented as of this encounter
--- OUTSIDE RECORDS SUMMARY | 2024-05-08 15:01 | XMS_ITS | Encounter Summary ---
Author Organization [employer] Address [address] [address] Care Team Providers Care Hospital Orderly Name Role Phone Cathryn Cardoza MD Primary Care Pro vider Reason for Visit * Reason Onset Date Comments Appointment Request 02/09/2023 Encounter Details Date Type Department Care Team ([facility] st Contact Info) Description 02/09/2023 Telephone [facility]INE [address] [place] [phone] Cathryn Cardoza MD [address] [place], [place] [phone] Appointment Request Social History Tobacco Use Types [...] like a call back to reschedule appt signwriter did cancel appt. documented in this encounter Plan of Treatment Upcoming Encounters Date Type Department Care Team (Late st Contact Info) Description 06/21/2024 1:30 PM EDT Office Visit [facility] [address] [place] [phone] Cathryn Cardoza MD [address] [place], [place] [phone] documented as of this encounter Visit Diagnoses Not on filedocumented in this encounter Care Teams Hospital Orderly Relationship Specialty Start Date End Date Cathryn Cardoza MD [address] [place], [place] [phone] PCP - General Internal Medicine 09/08/22 documented as of this encounter
--- OUTSIDE RECORDS SUMMARY | 2024-05-08 15:01 | XMS_ITS | Encounter Summary ---
Author Organization [employer] Address [address] [address] Care Team Providers Care Legal Compliance Officer Name Role Phone Cathryn Cardoza MD Primary Care Pro vider Reason for Visit * Reason Onset Date Comments Appointment Request 02/23/2023 Encounter Details Date Type Department Care Team ([facility] st Contact Info) Description 02/23/2023 Telephone [facility] MED[facility] [address] [place] [address] Cathryn Cardoza MD [address] [place], [place] [phone] Appointment Request Social History Tobacco Use Types [...] calling to request a appt for DEPO sign writer hand was going to schedule but was unable to due to a window period please call to schedule documented in this encounter Plan of Treatment Upcoming Encounters Date Type Department Care Team (Late st Contact Info) Description 06/21/2024 1:30 PM EDT Office Visit [facility] MED[facility] [address] [place], [place] [phone] Cathryn Cardoza MD [address] [place] [address] [phone] documented as of this encounter Visit Diagnoses Not on filedocumented in this encounter Care Teams Legal Compliance Officer Relationship Specialty Start Date End Date Cathryn Cardoza MD [address] [place] [phone] PCP - General Internal Medicine 09/08/22 documented as of this encounter
--- OUTSIDE RECORDS SUMMARY | 2024-05-08 15:01 | XMS_ITS | Encounter Summary ---
Author Organization [employer] Address 75 [facility] 7 [place] [address] Care Team Providers Care Polo Coach Name Role Phone Yvonne Madrid SCALE INSTALLER Primary Care Provider [phone] Cathryn Cardoza MD Primary Care Pro vider Encounter Details Date Type Department Care Team (Late Contact Info) Description 04/30/2022 Orders Only [facility] MED[facility]INE [address] [place] [address] [phone] Shasha Mendiola RN [address] [place] [address] [phone] Social History Tobacco Use Types Packs/Day Years [...] 06/21/2024 1:30 PM EDT Office Visit [facility] [address] [place] [address] [phone] Cathryn Cardoza MD [address] [place] [address] [phone] documented as of this encounter Visit Diagnoses Not on filedocumented in this encounter Care Teams Polo Coach Relationship Specialty Start Date End Date Yvonne Madrid FNP [address] [place] [phone] PCP - General Family Medicine 08/25/21 09/07/22 Cathryn Cardoza MD [address] [place] [phone] PCP - General Internal Medicine 09/08/22 documented as of this encounter
--- OUTSIDE RECORDS SUMMARY | 2024-05-08 15:01 | XMS_ITS | Encounter Summary ---
Author Organization [employer] Address 75 [facility] 7 [place] [address] Care Team Providers Care Roto Gravure Press Operator Name Role Phone Cathryn Cardoza MD Primary Care Pro vider Reason for Visit * Reason Comments Care Coordination CM/CHW outreach Encounter Details Date Type Department Care Team (Latest Contact Info) Description 05/02/2024 Patient Outreach [facility] MEDICINE [address] [place] [address] Cathryn Cardoza MD [address] [place] [address] Care Coordination (CM/CHW outreach) Social History Tobacco Use Types Packs/Day Years [...] AM EDT documented as of this encounter Progress Notes * Carolina Wolff - 05/02/2024 10:25 AM EST CHW Carolina Wolff, placed outbound call to patient introducing herself from [facility] CM Department, in regard to offering services. Patient's name and was confirmed. Patient agrees to participate in program. Appt. for initial assessment scheduled for 05/15/24 @ -10AM tele with MONAE Dhaliwal RN. CHW reinforced direct contact information or CM [phone] forany additional questions or concerns and extended clinic hours on Mondays and Wednesdays, and Walk-In Urgent Care Located in [facility]. Patient provided with after-hours line for [facility], , which offer night time triage service and option to transfer to meat boner and slicer provider if needed. Patient verbalizes understanding, and able to repeat back to expert medical writer. documented in this encounter Plan of Treatment Upcoming Encounters Date Type Department Care Team ([facility] st Contact Info) Description 06/21/2024 1:30 PM EDT Office Visit [facility] MEDICINE [address] [place] [phone] Cathryn Cardoza MD [address] [place] [address] documented as of this encounter Visit Diagnoses Not on filedocumented in this encounter Additional Health Concerns Assessment Noted Time PHQ-9 Depression Total Score: 11 024 10:24 AM EST documented as of this encounter Care Teams Roto Gravure Press Operator Relationship Specialty Start Date End Date Cathryn Cardoza MD [address] [place] [phone] PCP - General Internal Medicine 09/08/22 documented as of this encounter
--- OUTSIDE RECORDS SUMMARY | 2024-05-08 15:01 | XMS_ITS | Encounter Summary ---
Author Organization [employer] Address [address] [place] [address] Care Team Providers Care Handicrafts Teacher Name Role Phone Cathryn Cardoza MD Primary Care Pro vider Encounter Details Date Type Department Care Team (Late st Contact Info) Description 04/28/2024 Orders Only [facility] External Provider, [facility] Social History Tobacco Use Types Packs/Day Years [...] Description 06/21/2024 1:30 PM EDT Office Visit [facility] [address] [place] [address] [phone] Cathryn Cardoza MD [address] [place], [place] [phone] documented as of this encounter Procedures Procedure Name Priority Date/Time Associated Diagnosis [...] VIEWS RIGHT Routine 04/28/2024 12:28 PM EST documented in this encounter Results * XR Tibia Fibula 2 Views Right (04/28/2024 2:14 PM EST) Anatomical Region Laterality Modality Lower Extremities, Lower Leg Right Rad iographic Imaging 04/28/2024 2:14 PM EST Narrative 04/28/2024 2:15 PM EST ? [facility] ?[address] ?[place] [address] ?XRay Report ? Signed ? Patient: Galeana New,Nafisa ?MR#: ?? [id number] ? : 1995 ?Acct:[id number] ? Age/Sex: 29 / F ?ADM Date: 04/28/24 ? Loc: HO.ED ? Attending Dr: ? Ordering Physician: Vandana Campbell ?? Date of Service: 04/28/24 ?? Procedure(s): XR tibia fibula RT 2V ?? Accession Number(s): [id number] ? cc: Cathryn Coronel MD; Vandana Campbell [...] by Ayaan Ivory MD in OV> ? 04/28/241413 ? DD/ 13 ? TD/TT: 04/28/241413 ? Emergency Medicine Nurse Practitioner: ? Procedure Note Kristin, Kylah - 04/28/[address] [address] XRay Report Signed Patient: Nafisa JacobsMR#: [id number] : 1995Acct:[id number] Age/Sex: 29 / FADM Date: 04/28/24 Loc: HO.ED Attending Dr: Ordering Physician: Vandnaa Campbell Date of Service: 04/28/24 Procedure(s): XR tibia fibula RT 2V Accession Number(s): [id number] cc: Cathryn Coronel MD; Vandana Campbell CLINICAL [...] 04/28/24 1414 DD/ 1414 TD/TT: 04/28/24 1414 Emergency Medicine Nurse Practitioner: [facility] External Provider IMG XR PROCEDURES Edited Result - Final * CT Head w/o Contrast (04/28/2024 1:29 PM EST) Anatomical Region Laterality Modality Head, Neck Computed Tomogra phy 04/28/2024 1:29 PM EST Narrative 04/28/2024 1:30 PM EST ? [facility] ?[address] ?[place] [address] ? CT Scan Report ? Signed ? Patient: Nafisa Jacobs ?MR#: ?? [id number] ? : 1995 ?Acct:[id number] ? Age/Sex: 29 / F ?ADM Date: 04/28/24 ? Loc: HO.ED ? Attending Dr: ? Ordering Physician: Vandana Campbell ?? Date of Service: 04/28/24 ?? Procedure(s): CT head/brain wo IV con ?? Accession Number(s): [id number] ? cc: Cathryn Coronel MD; Vandana Campbell ? Report Number: ?? [id number]: Total DLP = ??560.00 mGy-cm ? CLINICAL [...] by Ayaan Ivory MD in OV> ? 04/28/241328 ? DD/ 1329 ? TD/TT: 04/28/24 1329 ? Emergency Medicine Nurse Practitioner: ? Procedure Note Idaniater, Image - 04/28/[address] [address] [address] Scan Report Signed Patient: Nafisa JacobsMR#: [id number] : 1995Acct:[id number] Age/Sex: 29 FADM Date: 04/28/24 Loc: HO.ED Attending Dr: Ordering Physician: Vandana Campbell Date of Service: 04/28/24 Procedure(s): CT head/brain wo IV con Accession Number(s): [id number] cc: Cathryn Coronel MD; Vandana Campbell Report Number: [id number]: Total DLP = 560.00 mGy-cm CLINICAL HISTORY: [...] signed by Ayaan Ivory MD in OV> 04/28/241328 DD/ 28 TD/TT: 04/28/241328 Emergency Medicine Nurse Practitioner: [facility] External Provider IMG CT PROCEDURES Edited Result - Final * CT Cervical Spine w/o Contrast (04/28/2024 12:56 PM EST) Anatomical Region Laterality Modality Spine, C-spine Computed Tomogra phy 04/28/2024 12:5 6 PM EST Narrative 04/28/2024 12:58 PM EST ? [facility] ?[address] ?[place] [address] ? CT Scan Report ? Signed ? Patient: Nafisa Jacobs ?MR#: ?? [id number] ? : 1995 ?Acct:[id number] ? Age/Sex: 29 / F ?ADM Date: 04/28/24 ? Loc: HO.ED ? Attending Dr: ? Ordering Physician: Vandana Campbell ?? Date of Service: 04/28/24 ?? Procedure(s): CT cervical spine wo IV con ?? Accession Number(s): [id number] ? cc: Cathryn Coronel MD; Vandana Campbell ? Report Number: ?? [id number]: Total DLP = ??261.00 mGy-cm ? CLINICAL [...] DD/ 1256 ? TD/TT: 04/28/24 1256 ? Emergency Medicine Nurse Practitioner: ? Procedure Note Kristin, Kylah - 04/28/[address] [address] [address] Scan Report Signed Patient: Lissett Silas Wolff#: [id number] : 1995Acct:[id number] Age/Sex: 29 / FADM Date: 04/28/24 Loc: HO.ED Attending Dr: Ordering Physician: Vandana Campbell Date of Service: 04/28/24 Procedure(s): CT cervical spine wo IV con Accession Number(s): [id number] cc: Cathryn Coronel MD; Vandana Campbell Report Number: [id number]: Total DLP = 261.00 mGy-cm CLINICAL HISTORY: [...] 04/28/24 1257 DD/ 1256 TD/TT: 04/28/24 1256 Emergency Medicine Nurse Practitioner: [facility] External Provider IMG CT PROCEDURES Edited Result - Final * CT Sinus Facial Bones w/o Contrast (04/28/2024 12:54 PM EST) Anatomical Region Laterality Modality Computed Tomogra phy 04/28/2024 12:5 4 PM EST Narrative 04/28/2024 12:55 PM EST ? [facility] ?[address] ?[place] [address] ? CT Scan Report ? Signed ? Patient: Galeanadiamond Wolff,Nafisa ?MR#: ?? [id number] ? : 1995 ?Acct:[id number] ? Age/Sex: 29 / F ?ADM Date: 02/15/25 ? Loc: HO.ED ? Attending Dr: ? Ordering Physician: Vandana Campbell ?? Date of Service: 04/28/24 ?? Procedure(s): CT facial bones wo IV con ?? Accession Number(s): [id number] ? cc: Cathryn Coronel MD; Vandana Campbell ? Report Number: ?? [id number]: Total DLP = ??194.00 mGy-cm ? CLINICAL [...] DD/ 1254 ? TD/TT: 04/28/24 1254 ? Emergency Medicine Nurse Practitioner: ? Procedure Note Kristin, Kylah - 04/28/[address] [place] [address] [address] Scan Report Signed Patient: Nafisa JacobsMR#: [id number] : 1995Acct:[id number] Age/Sex: 29 FADM Date: 04/28/24 Loc: HO.ED Attending Dr: Ordering Physician: Vandana Campbell Date of Service: 04/28/24 Procedure(s): CT facial bones wo IV con Accession Number(s): [id number] cc: Cathryn Coronel MD; Vandana Campbell Report Number: [id number]: Total DLP = 194.00 mGy-cm CLINICAL HISTORY: [...] 04/28/24 1254 DD/ 1254 TD/TT: 04/28/24 1254 Emergency Medicine Nurse Practitioner: [facility] External Provider IMG CT PROCEDURES Edited Result - Final * hCG, Total, Quantitative (04/28/2024 12:46 PM EST) HCG Quantitative <2 mIU/mL [facility] Comment:Weeks post LMP Appro ximate hCG(Last Menstrual Period) Range (mIU/ml)3 - 4 weeks 9 - 1304 - 5 weeks 75 - 2,6005 - 6 weeks 850 - 20,8006 - 7 weeks 4000 - 100,2007 - 12 weeks 11,500 - 289,99022 - 16 weeks 18,300 - 137,48839 - 29 weeks (2nd trimester) 1,400 - 53,79724 - 41 weeks (3rd trimester) 940 - 60,000The Valdez B- hCG assay is used for the early detection ofpregnancy; it cannot be used to diagnose any conditionunrelated to . If a B-hCG level is not supportedby the clinical evidence, results should be confirmed by analternative method (qualitative urine hCG, for example). 04/28/2024 12:4 6 PM EST 04/28/2024 12:49 PM EST Generic External Data Provider LAB BLOOD ORDERAB LES Final Result [facility] [address] [place] [address] [phone] * XR Fingers 2+ Views Right (04/28/2024 12:29 PM EST) Anatomical Region Laterality Modality Upper Extremities, Fingers Right Radio graphic Imaging 04/28/2024 12:2 9 PM EST Narrative 04/28/2024 12:31 PM EST ? [facility] ?[address] ?[place] [address] ?XRay Report ? Signed ? Patient: Nafisa Jacobs ?MR#: ?? [id number] ? : 1995 ?Acct:[id number] ? Age/Sex: 29 / F ?ADM Date: 04/28/24 ? Loc: HO.ED ? Attending Dr: ? Ordering Physician: Vandana Campbell ?? Date of Service: 04/28/24 ?? Procedure(s): XR finger RT min 2V ?? Accession Number(s): [id number] ? cc: Cathryn Coronel MD; Vandana Campbell [...] DD/ 1229 ? TD/TT: 04/28/24 1229 ? Emergency Medicine Nurse Practitioner: ? Procedure Note Kylah Foster - 04/28/[address] [address] XRay Report Signed Patient: Nafisa JacobsMR#: [id number] : 1995Acct:[id number] Age/Sex: 29 / FADM Date: 04/28/24 Loc: HO.ED Attending Dr: Ordering Physician: Vandana Campbell Date of Service: 04/28/24 Procedure(s): XR finger RT min 2V Accession Number(s): [id number] cc: Cathryn Coronel MD; Vandana Campbell CLINICAL [...] 04/28/24 1230 DD/ 1229 TD/TT: 04/28/24 1229 Emergency Medicine Nurse Practitioner: [facility] External Provider IMG XR PROCEDURES Edited Result - Final * XR Foot 3+ Views Right (04/28/2024 12:28 PM EST) Anatomical Region Laterality Modality Lower Extremities, Foot Right Radiogra phic Imaging 04/28/2024 12:2 8 PM EST Narrative 04/28/2024 12:29 PM EST ? [facility] ?[address] ?[place] [address] ?XRay Report ? Signed ? Patient: Nafisa Jacobs ?MR#: ?? [id number] ? : 1995 ?Acct:[id number] ? Age/Sex: 29 / F ?ADM Date: 04/28/24 ? Loc: HO.ED ? Attending Dr: ? Ordering Physician: Vandana Campbell ?? Date of Service: 04/28/24 ?? Procedure(s): XR foot RT min 3V ?? Accession Number(s): [id number] ? cc: Cathryn Coronel MD; Vandana Campbell [...] by Ayaan Ivory MD in OV> ? 04/28/248 ? DD/ 1228 ? TD/TT: 04/28/24 1228 ? Emergency Medicine Nurse Practitioner: ? Procedure Note Bernamercedes, Image - 04/28/[address] [address] XRay Report Signed Patient: Nafisa JacobsMR#: [id number] : 1995Acct:[id number] Age/Sex: 29 FADM Date: 04/28/24 Loc: HO.ED Attending Dr: Ordering Physician: Vandana Campbell Date of Service: 04/28/24 Procedure(s): XR foot RT min 3V Accession Number(s): [id number] cc: Cathryn Coronel MD; Vandana Campbell CLINICAL [...] in OV> 04/28/24 1228 DD/ 1228 TD/TT: 04/28/248 Emergency Medicine Nurse Practitioner: [facility] External Provider IMG XR PROCEDURES Edited Result - Final documented in this encounter Visit Diagnoses Not on filedocumented in this encounter Additional Health Concerns Assessment Noted Time PHQ-9 Depression Total Score: 11 024 10:24 AM EST documented as of this encounter Care Teams Handicrafts Teacher Relationship Specialty Start Date End Date Cathryn Cardoza MD [address] [place] [address] PCP - General Internal Medicine 09/08/22 documented as of this encounter
== END 2024-05-07 12:25 | disposition home or self-care (01) ==
LOC: HO.HOSX 12:24
PROVIDERS: Visit Provider Physician Assistant
DX: M25.571 Pain in right ankle and joints of right foot (principal); S82.891D Other fracture of right lower leg, subsequent encounter for closed fracture with routine healing
CPT/HCPCS: 73610; 99212

== ENCOUNTER 2024-06-07 13:41 | Outpatient (REF) | payer MEDICAID, SELFPAY ==
[2024-06-07 16:18] LABS: HCG Quantitative 166 mIU/mL
== END 2024-06-07 13:42 | disposition home or self-care (01) ==
LOC: HO.HHCL 13:41
PROVIDERS: Visit Provider Registered Nurse
DX: Z32.01 Encounter for pregnancy test, result positive (principal)
CPT/HCPCS: 36415; 84702

== ENCOUNTER 2024-06-11 09:07 | Outpatient (REF) | payer MEDICAID, SELFPAY ==
--- OUTSIDE RECORDS SUMMARY | 2024-06-12 10:02 | XMS_ITS | Encounter Summary ---
Author Organization [employer] Address [address] 7 [place] [address] Care Team Providers Care Low Vision Therapist Name Role Phone Cathryn Cardoza MD Primary Care Pro vider Salinas Dhaliwal RN Unavailable [phone] Reason for Visit * Reason Onset Date Comments Nurse Triage 04/19/2024 Encounter Details Date Type Department Care Team (Late st Contact Info) Description 04/19/2024 Telephone [facility] [address] [place], [place] [phone] Cathryn Cardoza MD [address] [place], [place] [phone] Nurse Triage Social History Tobacco Use Types [...] Miscellaneous Notes * Telephone Encounter - Glendy Sanchez RN - 04/19/2024 4:18 PM EST Telephone [...] on site. She spoke with provider in [facility] in February 2024 abouta letter to remove rugs but never went to medical records. No letter on file. Advised her to go request letter tomorrow after appt. Explained NTT[employer] human resource consultant nurse before appt. Pt verbalized understanding, no [...] never been confirmed by a doctor (or BANQUET MANAGER/PA) * Nasal allergies occur only certain times [...] Care Team (Late st Contact Info) Description 06/19/2024 10:00 AM EDT Nutrition [facility] DIABETES/NUTRITION [address] [place] [phone] [place], [place] [phone] 06/21/2024 1:30 PM EDT Office Visit [facility] [address] [place] [address] [phone] Cathryn Cardoza MD [address] [place], [place] [phone] documented as of this encounter Visit Diagnoses Not on filedocumented in this encounter Additional Health Concerns Assessment Noted Time PHQ-9 Depression Total Score: 11 024 10:24 AM EST documented as of this encounter Care Teams Low Vision Therapist Relationship Specialty Start Date End Date Cathryn Cardoza MD [address] [place] [address] [phone] PCP - General Internal Medicine 09/08/22 Salinas Dhaliwal RN [address] [place] [phone] Dowel PointerRetail Performance Specialist 05/15/24 documented as of this encounter
--- OUTSIDE RECORDS SUMMARY | 2024-06-12 10:02 | XMS_ITS | Encounter Summary ---
Author Organization [employer] Address [address] [facility] [address] [address] [facility] [place] [address] Care Team Providers Care Airplane Cleaner Name Role Phone Cathryn Cardoza MD Primary Care Pro vider Salinas Dhaliwal RN Unavailable [phone] Reason for Visit * Reason Onset Date Comments Appointment Request 02/23/2023 Encounter Details Date Type Department Care Team (Late st Contact Info) Description 02/23/2023 Telephone [facility] MEDICINE [address] [place], [place] [phone] Cathryn Cardoza MD [address] [place], [place] [phone] Appointment Request Social History Tobacco Use Types [...] calling to request 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 was going to schedule but was unable to due to a window period please call to schedule documented in this encounter Plan of Treatment Upcoming Encounters Date Type Department Care Team (Late st Contact Info) Description 06/19/2024 10:00 AM EDT Nutrition [facility] DIABETES/NUTRITION [address] [place], [place] [phone] [address] [place] [address] 06/21/2024 1:30 PM EDT Office Visit [facility] MEDICINE [address] [place], [place] [phone] Cathryn Cardoza MD [address] [place] [phone] documented as of this encounter Visit Diagnoses Not on filedocumented in this encounter Care Teams Airplane Cleaner Relationship Specialty Start Date End Date Cathryn Cardoza MD [address] [place] [address] [phone] PCP - General Internal Medicine 09/08/22 Salinas Dhaliwal, AMELIA [address] [place] [phone] Mines Safety EngineerBeef Skinner 05/15/24 documented as of this encounter
--- OUTSIDE RECORDS SUMMARY | 2024-06-12 10:02 | XMS_ITS | Clinical Summary ---
Author Organization [employer] Address [address] [place] [address] Care Team Providers Care Revenue Investigator Name Role Phone Cathryn Cardoza MD Primary Care Pro vider Salinas Dhaliwal RN Unavailable [phone] Allergies Active Allergy Reactions Criticality Noted Date Comments Sumatriptan Itching Low 01/30/2022 Medications * This document contains information received from the source organization and may not represent a complete record from that organization. albuterol (ProAir HFA) 108 (90 Base) MCG/ACT inhalerIndicatio ns:Shortness of breath Inhale 2 puffs every 4 (four) hours. 18 g 1 02/16/20 22 Active Spacer/Aero-Hold ing Chambers (BreatheRite Yanira Spacer Adult) miscIndications: Dysuria 1 Units if needed in the morning, at noon, in the evening, and at bedtime (wheezing). 1 each 02/26/20 22 Active valACYclovir (Valtrex) 500 MG tabletIndication s:Genital herpes simplex, unspecified site TAKE 1 TABLET [...] Active Mometasone Furoate (Asmanex HFA) 100 MCG/ACT aerosolIndicatio ns:Moderate asthma with acute exacerbation, unspecified whether persistent Inhale 1 Act (100 mcg) 2 times daily. 13 g 3 02/27/20 24 Active albuterol (2.5 MG/3ML) 0.083% nebulizer solutionIndicati ons:Dysuria INHALE 1 AMPULE USING A NEBULIZER EVERY 4 HOURS NEEDED FOR WHEEZING 90 mL 1 02/28/20 24 Active fluticasone (Veramyst) 27.5 MCG/SPRAY nasal sprayIndications :Allergic Rhinitis,Seasona l Allergic Rhinitis Administer 2 sprays into each nostril Once per day. Active loratadine (Claritin) 10 MG tabletIndication s:Rhinorrhea,Sea rosibel Allergic Rhinitis,Sneezin g Take 10 mg by mouth Once per day. Active 28-0.8 MG tabletIndication s:Less than 8 weeks gestation of Take 1 tablet by mouth Once per day. 90 tablet 3 06/07/19 25 026 Active medroxyPROGESTER one (Depo-Provera) 150 MG/ML injectionIndicat ions:Encounter for other contraceptive management TAKE TO DOCTOR'S OFFICE FOR ADMINISTRATION EVERY 3 MONTHS 1 mL 3 08/03/19 24 025 Discontin ued(Thera py completed ) Hospital, Clinic, or Other Facility Administered Medication Ordered Dose Route Frequency Start Date End Date Status medroxyPROGESTERone (Depo-Provera) injection 150 mgIndications:Encou nter for Depo-Provera contraception 150 mg IM Every 3 months 12/27/2023 5 Discontinued Active Problems Problem Noted Date Diagnosed Date Weight loss 01/14/2024 Health care maintenance 03/26/2023 Nephrolithiasis 03/26/2023 Chronic idiopathic constipation 03/24/2023 03/24/2023 Mild intermittent asthma 06/23/2017 Genital herpes simplex 08/10/2012 Family disruption 08/03/2012 Mixed anxiety and depressive disorder 02/15/2012 Assessment & Plan (03/29/2023 1:50 PM EST): During IBH Consult Nafsia presenting with depressed mood, loss of interests/pleasure [...] agency/provider's name. Not med complaint. Migraine 12/10/2011 Comments Yes Resolved Problems Problem Noted Date Diagnosed Date Resolved Date Nausea 03/26/2023 01/14/2024 Dysuria 02/25/2022 03/26/2023 Assessment & Plan (02/25/2022 2:34 PM EST): + LE with symptoms, will send macrobid and f/up culture results. Encounters Date Type Department Care Team Description 06/11/[address] [phone] Cathryn Cardoza MD Care Management ([facility]- f/u call) 06/11/2024 Patient Outreach [address] [phone] Cathryn Cardoza MD Pre-visit Planning (SDOH screening was completed on 05/15/2024) 06/07/2024 Telephone [facility] [address] [place] [address] [phone] Savannah Phipps, RN plan of care 06/07/[address] [phone] Cathryn Cardoza MD Lab Order question 06/06/2024 10:00 AM EDT Office Visit [facility] [address] [place] [phone] Daniela Worthy FNP Less than 8 weeks gestation of (Primary Dx); Nausea 06/06/2024 Travel 05/25/2024 Telephone [facility] [place] [address] Cathryn Cardoza MD Care Management ([facility]- 1st f/u call lvm) 05/25/2024 Patient Outreach [address] [phone] Cathryn Cardoza MD Care Coordination (SDOH outreach) 05/25/[address] [phone] Cathryn Cardoza MD 05/25/2024 Population Health Risk Score Community [facility] () [address] [phone] Provider, Population Health Generic 05/15/2024 Patient Outreach [address] [phone] Cathryn Cardoza MD Care Coordination (SDOH) 05/15/[address] [phone] Cathryn Cardoza MD Care Management ([facility]- initial assessment/ enrollment) 05/14/2024 Patient Outreach [address] [phone] Cathryn Cardoza MD Care Coordination (CM/CHW appt reminder) 05/02/2024 Patient Outreach [address] [phone] Cathryn Cardoza MD Care Coordination (CM/CHW outreach) 05/01/[address] [phone] Cathryn Cardoza MD Care Management ([facility]- chart review) 04/28/2024 Orders Only [facility] External Provider, [facility] 04/20/[address] [phone] Estefany Mac, DO No Show 04/19/[address] [phone] Cathryn Cardoza MD Nurse Triage 04/16/2024 Telephone [facility] [address] [place] [address] Alexandra Lewis MA June Recall 03/14/2024 Travel from Last 3 Months Immunizations Name Administration Dates Next Due DTaP 08/12/1998, 6,1994,05/12,1994 HPV, Quadrivalent 08/07/2008,05/06/2008,08/03/19 08 Hep B, Adolescent or Pediatric 1994,1994,1994 Hep B, adult 12/12/2023,07/07/2023,06/09/2023 Hib ([facility]) 04/14/1995, 5,1994,03/14 IPV 08/12/1998, 5,1994,03/14 Influenza [...] before you got money to buy more: Sometimes True 2024 Within the past 12 months,th e food you bought just didn't last and you didn't have enough money to get more: Sometimes True 05/15/2024 Transportation Answer Date Recorded In the past [...] Recorded Patient Health Questionnaire-2 Score 2 03/24/2023 Internet Access Answer Date Recorded Internet Access Q1 Yes 05/15/2024 Internet Access Q2 Not on file 05/15/2024 Comments Yes Sex and Gender Information Value Date Recorded Sex Assigned at Female 01/11/2022 10:16 AM EDT Legal Sex Female 10:16 AM EDT Gender Identity Female 01/11/2022 10:16 AM EDT Sexual Orientation Straight 01/11/2022 10 :16 AM EDT Last Filed Vital Signs Vital Sign Reading Time Taken Comments Blood Pressure 126/85 06/06/2024 9:57 AM EDT Pulse 82 06/06/2024 9:57 AM EDT Temperature 36.6 ??C (97.9 ??F) 06/06/2024 9:57 AM ED T Respiratory Rate 16 06/06/2024 9:57 AM EDT Oxygen Saturation 99% 06/06/2024 9:57 AM EDT Inhaled Oxygen Concentration - - Weight 48.5 kg (107 lb) 06/06/2024 9:57 AM EDT Height 154.9 cm (5' 1 ) 01/25/2024 9:30 AM EST Body Mass Index 20.22 01/25/2024 9:30 AM EST Plan of Treatment Upcoming Encounters Date Type Department Care Team (Late st Contact Info) Description 06/19/2024 10:00 AM EDT Nutrition [facility] DIABETES/NUTRITION [address] [place], [place] [phone] [place], [place] [phone] 06/21/2024 1:30 PM EDT Office Visit [facility] [address] [place], [place] [phone] Cathryn Cardoza MD [address] [place], [place] [phone] Health Maintenance Due Date Last Done Comments Alcohol/Substance Use Screening 2006 Pneumococcal Vaccine: Pediatrics (0 to 5 Years) and At-Risk Patients (6 to 49) Years) (1 of 2 - PCV) 2013 Depression Monitoring (PHQ-9) 09/22/2023 03/24/2023, 03/24/2023 COVID-19 Vaccine ( season) 2023 Influenza Vaccine (#1) 2023 , 02/28/2015, 03/26/2014, Additional history exists Depression Screening 03/24/2024 03/24/2023, 03/24/19 24 Family Planning (PISQ) 01/24/2025 01/25/2024 Tobacco Screening 02/26/2025 02/27/2024 DTaP/Tdap/Td Vaccines (8 - Td or Tdap) 02/28/2025 02/28/2015, 08/05/2005, 08/12/1998, Additional history exists SDOH Screening 05/15/2025 05/15/2024 Cervical Cancer Screening 01/24/2029 HPV/Cotest 01/24/2029 12/24/2020 Pap Smear 01/24/2029 01/25/2024, 12/24/2020 Zoster Vaccines (1 of 2) 01/11/2044 RSV Patients and Patients Aged 60 years or older (1 - 1-dose 75+ series) 2069 HIB Vaccines Completed 04/14/1995, 1994, 1994, Additional history exists IPV Vaccines Completed 08/12/1998, 070 03/1994, 1994, Additional history exists Meningococcal Vaccine [...] Procedure Name Priority Date/Time Associated Diagnosis Comments HCG, TOTAL, QN Routine 06/07/2024 1:45 PM EDT Less than 8 weeks gestation of POCT INFLUENZA B (ID NOW RAPID MOLECULAR) Routine 06/06/2024 10:08 AM EDT Nausea POCT INFLUENZA A (ID NOW RAPID MOLECULAR) Routine 06/06/2024 10:08 AM EDT Nausea POCT , URINE Routine 06/06/2024 10:05 AM EDT Nausea POCT RAPID COVID ANTIGEN Routine 06/06/2024 10:05 AM EDT Nausea XR TIBIA FIBULA 2 VIEWS RIGHT Routine [...] VIEWS RIGHT Routine 04/28/2024 12:28 PM EST PAP SMEAR Routine 01/25/2024 9:58 AM EST Routine cervical smear HEPATITIS C AB W/REFL TO HCV RNA, QN, PCR Routine 01/13/2024 2:35 PM EDT Weight loss HIV 1/2 ANTIGEN/ANTIBODY, FOURTH GENERATION W/RFL Routine 01/13/2024 2:35 PM EDT Weight loss HPV MRNA E6/E7 Routine 12/24/2020 2:44 PM EDT from Last 3 Months or Most Recently Relevant to Health Maintenance Results * hCG, Total, Quantitative (06/07/2024 1:45 PM EDT) Only the most recent of2 resultswithin the time period is included. HCG Quantitative 166 mIU/mL [facility] Comment:Weeks post LMP Appro ximate hCG(Last Menstrual Period) Range (mIU/ml)3 - 4 weeks 9 - 1304 - 5 weeks 75 - 2,6005 - 6 weeks 850 - 20,8006 - 7 weeks 4000 - 100,2007 - 12 weeks 11,500 - 289,23943 - 16 weeks 18,300 - 137,50393 - 29 weeks (2nd trimester) 1,400 - 53,49327 - 41 weeks (3rd trimester) 940 - 60,000The Valdez B- hCG assay is used for the early detection ofpregnancy; it cannot be used to diagnose any conditionunrelated to . If a B-hCG level is not supportedby the clinical evidence, results should be confirmed by analternative method (qualitative urine hCG, for example). Blood Venous blood specimen / Unknown 06/07/2024 1:45 PM EDT 06/07/2024 3:55 PM EDT us Daniela Worthy TECHNICAL INTERN LAB BLOOD ORDERABLES Final Res ult Performing Organization Address City/[facility]/ZIP Co de Phone Number [facility] [address] [place] [phone] * Influenza B (ID NOW Rapid Molecular) (06/06/2024 10:08 AM EDT) [facility] Influenza B Negative Negative, Indeterminate [facility] Swab 06/06/2024 10:0 8 AM EDT Daniela Worthy TECHNICAL INTERN POINT OF CARE TEST ENTER/EDIT ORDERABLES Final Result Performing Organization Address [facility] Co de Phone Number [facility] [address] [place] [phone] * Influenza A (ID NOW Rapid Molecular) (06/06/2024 10:08 AM EDT) [facility] Influenza A Negative Negative, Indeterminate [facility] Swab 06/06/2024 10:0 8 AM EDT Daniela Worthy TECHNICAL INTERN POINT OF CARE TEST ENTER/EDIT ORDERABLES Final Result Performing Organization Address [facility] Co de Phone Number [facility] [address] [place] [phone] * POCT Rapid COVID Ag (06/06/2024 10:05 AM EDT) [facility] Rapid COVID Ag Negative Swab 06/06/2024 10:0 5 AM EDT us Daniela Philipen TECHNICAL INTERN POINT OF CARE TEST ENTER/EDIT ORDERABLES Final Result * (ABNORMAL) POCT , urine manually resulted (06/06/2024 10:05 AM EDT) [facility] Preg Test, Ur Positive( A) Negative, Indeterminate, None Detected, Invalid, Specimen unsatisfactory for evaluation, Weakly Positive Urine 06/06/2024 10:0 5 AM EDT us Daniela Worthy TECHNICAL INTERN POINT OF CARE TEST ENTER/EDIT ORDERABLES Final Result * XR Tibia Fibula 2 Views Right (04/28/2024 2:14 PM EST) Anatomical Region Laterality Modality Lower Extremities, Lower Leg Right Rad iographic Imaging 04/28/2024 2:14 PM EST Narrative 04/28/2024 2:15 PM EST ? [facility] ?[address] ?[place] [address] ?XRay Report ? Signed ? Patient: Nafisa Jacobs ?MR#: ?? [id number] ? : 1995 ?Acct:[id number] ? Age/Sex: 29 / F ?ADM Date: 04/28/24 ? Loc: HO.ED ? Attending Dr: ? Ordering Physician: Vandana Campbell ?? Date of Service: 04/28/24 ?? Procedure(s): XR tibia fibula RT 2V ?? Accession Number(s): [id number] ? cc: Cathryn Coronel MD; Vandana Campbell [...] Ayaan Ivory MD in OV> ? 04/28/24 1414 ? DD/ 1414 ? TD/TT: 04/28/24 1414 ? Lead Software Architect: ? Procedure Note Kristin, Kylah - 04/28/2024 [place] [phone] [place] [address] XRay Report Signed Patient: Nafisa JacobsMR#: [id number] : 1995Acct:[id number] Age/Sex: 29 / FADM Date: 04/28/24 Loc: HO.ED Attending Dr: Ordering Physician: Vandana Campbell Date of Service: 04/28/24 Procedure(s): XR tibia fibula RT 2V Accession Number(s): [id number] cc: Cathryn Coronel MD; Vandana Campbell CLINICAL [...] 04/28/24 1414 DD/ 1414 TD/TT: 04/28/24 1414 Lead Software Architect: [facility] External Provider IMG XR PROCEDURES Edited Result - Final * CT Head w/o Contrast (04/28/2024 1:29 PM EST) Anatomical Region Laterality Modality Head, Neck Computed Tomogra phy 04/28/2024 1:29 PM EST Narrative 04/28/2024 1:30 PM EST ? [facility] ?[address] ?[place] [address] ? CT Scan Report ? Signed ? Patient: Lissett Wolff,Nafisa ?MR#: ?? [id number] ? : 1995 ?Acct:[id number] ? Age/Sex: 29 / F ?ADM Date: 02/15/25 ? Loc: HO.ED ? Attending Dr: ? Ordering Physician: Vandana Campbell ?? Date of Service: 04/28/24 ?? Procedure(s): CT head/brain wo IV con ?? Accession Number(s): [id number] ? cc: Cathryn Coronel MD; Vandana Campbell ? Report Number: ?? [id number]: Total DLP = ??560.00 mGy-cm ? CLINICAL [...] 04/28/24 1329 ? DD/ 1329 ? TD/TT: 04/28/249 ? Lead Software Architect: ? Procedure Note Kristin, Kylah - 04/28/[address] [place] [address] [address] Scan Report Signed Patient: Nafisa JacobsMR#: [id number] : 1995Acct:[id number] Age/Sex: Date: 04/28/24 Loc: HO.ED Attending Dr: Ordering Physician: Vandana Campbell Date of Service: 04/28/24 Procedure(s): CT head/brain wo IV con Accession Number(s): [id number] cc: Cathryn Coronel MD; Vandana Campbell Report Number: [id number]: Total DLP = 560.00 mGy-cm CLINICAL HISTORY: [...] OV> 04/28/24 1329 DD/ 1329 TD/TT: 04/28/24 1329 Lead Software Architect: us [facility] External Provider IMG CT PROCEDURES Edited Result - Final * CT Cervical Spine w/o Contrast (04/28/2024 12:56 PM EST) Anatomical Region Laterality Modality Spine, C-spine Computed Tomogra phy 04/28/2024 12:5 6 PM EST Narrative 04/28/2024 12:58 PM EST ? [facility] ?[address] ?[place] [address] ? CT Scan Report ? Signed ? Patient: Nafisa Jacobs ?MR#: ?? [id number] ? : 1995 ?Acct:[id number] ? Age/Sex: 29 / F ?ADM Date: 04/28/24 ? Loc: HO.ED ? Attending Dr: ? Ordering Physician: Vandana Campbell ?? Date of Service: 04/28/24 ?? Procedure(s): CT cervical spine wo IV con ?? Accession Number(s): [id number] ? cc: Cathryn Coronel MD; Vandana Campbell ? Report Number: ?? [id number]: Total DLP = ??261.00 mGy-cm ? CLINICAL [...] DD/ 1256 ? TD/TT: 04/28/24 1256 ? Lead Software Architect: ? Procedure Note Donhildater, Image - 04/28/[address] [place] [address] [address] Scan Report Signed Patient: Nafisa JacobsMR#: [id number] : 1995Acct:[id number] Age/Sex: Date: 04/28/24 Loc: HO.ED Attending Dr: Ordering Physician: Vandana Campbell Date of Service: 04/28/24 Procedure(s): CT cervical spine wo IV con Accession Number(s): [id number] cc: Cathryn Coronel MD; Vandana Campbell Report Number: [id number]: Total DLP = 261.00 mGy-cm CLINICAL HISTORY: [...] 04/28/24 1257 DD/ 1256 TD/TT: 04/28/24 1256 Lead Software Architect: [facility] External Provider IMG CT PROCEDURES Edited Result - Final * CT Sinus Facial Bones w/o Contrast (04/28/2024 12:54 PM EST) Anatomical Region Laterality Modality Computed Tomogra phy 04/28/2024 12:5 4 PM EST Narrative 04/28/2024 12:55 PM EST ? [facility] ?[address] ?[place] [address] ? CT Scan Report ? Signed ? Patient: Galeana New,Nafisa ?MR#: ?? [id number] ? : 1995 ?Acct:[id number] ? Age/Sex: 29 / F ?ADM Date: 04/28/24 ? Loc: HO.ED ? Attending Dr: ? Ordering Physician: Vandana Campbell ?? Date of Service: 04/28/24 ?? Procedure(s): CT facial bones wo IV con ?? Accession Number(s): [id number] ? cc: Cathryn Coronel MD; Vandana Campbell ? Report Number: ?? [id number]: Total DLP = ??194.00 mGy-cm ? CLINICAL [...] DD/ 1254 ? TD/TT: 04/28/24 1254 ? Lead Software Architect: ? Procedure Note Kristin, Kylah - 04/28/[address] [address] Scan Report Signed Patient: Nafisa Jacobs#: [id number] : 1995Acct:[id number] Age/Sex: 29 / FADM Date: 04/28/24 Loc: HO.ED Attending Dr: Ordering Physician: Vandana Campbell Date of Service: 04/28/24 Procedure(s): CT facial bones wo IV con Accession Number(s): [id number] cc: Cathryn Coronel MD; Vandana Campbell Report Number: [id number]: Total DLP = 194.00 mGy-cm CLINICAL HISTORY: [...] 04/28/24 1254 DD/ 1254 TD/TT: 04/28/24 1254 Lead Software Architect: [facility] External Provider IMG CT PROCEDURES Edited Result - Final * XR Fingers 2+ Views Right (04/28/2024 12:29 PM EST) Anatomical Region Laterality Modality Upper Extremities, Fingers Right Radio graphic Imaging 04/28/2024 12:2 9 PM EST Narrative 04/28/2024 12:31 PM EST ? [facility] ?[address] ?[place] [address] ?XRay Report ? Signed ? Patient: Galeana New,Nafisa ?MR#: ?? [id number] ? : 1995 ?Acct:[id number] ? Age/Sex: 29 / F ?ADM Date: 02/15/25 ? Loc: HO.ED ? Attending Dr: ? Ordering Physician: Vandana Campbell ?? Date of Service: 04/28/24 ?? Procedure(s): XR finger RT min 2V ?? Accession Number(s): [id number] ? cc: Cathryn Coronel MD; Vandana Campbell [...] DD/ 1229 ? TD/TT: 04/28/24 1229 ? Lead Software Architect: ? Procedure Note Donhildater, Image - 04/28/2024 [place] [address] XRay Report Signed Patient: Nafisa JacobsMR#: [id number] : 1995Acct:[id number] Age/Sex: Date: 04/28/24 Loc: HO.ED Attending Dr: Ordering Physician: Vandana Campbell Date of Service: 04/28/24 Procedure(s): XR finger RT min 2V Accession Number(s): [id number] cc: Cathryn Coronel MD; Vandana Campbell CLINICAL [...] 04/28/24 1230 DD/ 1229 TD/TT: 04/28/24 1229 Lead Software Architect: us [facility] External Provider IMG XR PROCEDURES Edited Result - Final * XR Foot 3+ Views Right (04/28/2024 12:28 PM EST) Anatomical Region Laterality Modality Lower Extremities, Foot Right Radiogra phic Imaging 04/28/2024 12:2 8 PM EST Narrative 04/28/2024 12:29 PM EST ? [facility] ?[address] ?[place] [address] ?XRay Report ? Signed ? Patient: Nafisa Jacobs ?MR#: ?? [id number] ? : 1995 ?Acct:[id number] ? Age/Sex: 29 / F ?ADM Date: 04/28/24 ? Loc: HO.ED ? Attending Dr: ? Ordering Physician: Vandana Campbell ?? Date of Service: 04/28/24 ?? Procedure(s): XR foot RT min 3V ?? Accession Number(s): [id number] ? cc: Cathryn Coronel MD; Vandana Campbell [...] DD/ 1228 ? TD/TT: 04/28/24 1228 ? Lead Software Architect: ? Procedure Note Kristin, Kylah - 04/28/[address] [address] XRay Report Signed Patient: Nafisa JacobsMR#: [id number] : 1995Acct:[id number] Age/Sex: 29 / FADM Date: 04/28/24 Loc: HO.ED Attending Dr: Ordering Physician: Vandana Campbell Date of Service: 04/28/24 Procedure(s): XR foot RT min 3V Accession Number(s): [id number] cc: Cathryn Coronel MD; Vandana Campbell CLINICAL [...] 04/28/24 1228 DD/ 1228 TD/TT: 04/28/24 1228 Lead Software Architect: [facility] External Provider IMG XR PROCEDURES Edited Result - Final * Pap Smear (01/25/2024 9:58 AM EST) Swab Cervix uteri structure / Unknown 01/25/2024 9:58 AM EST 01/26/2024 9:30 AM EST [facility] - 01/30/2024 10:24 AM EST ----- ------- Name: Nafisa Jacobs ?Age/Sex: 29/F ? : 1995 Unit#: [id number] ?? Attend Dr: ?Re01/25/24 ?Status: PRE REF ? Location: HO.LNP ?Disch: ? ----- ------- SPEC : [id number] ?RECD: 01/26/24 ? STATUS: ??SOUT ? REQ NUM: [id number] ? YANIRA: 01/25/24 ? SUBM DR: RUTH [...] ------- Signed (signature on file) LAURENT Alex ([facility]) 01/30/24 1024 ? ----- ------- ? END OF REPORT ? us Ruth Malik CNM LAB CYTOLOGY ORDERABLES F inal Result Performing Organization Address [facility] de Phone Number [facility] [address] [place] [phone] * Hepatitis C Antibody with Reflex to HCV, RNA, Quantitative, Real-Time PCR (01/13/2024 2:35 PM EDT) Hepatitis C Antibody Nonreactive Nonreactive [facility] Comment:Antibodies to HCV no t detected; does not exclude early acuteHCV infection. Blood Venous blood specimen / Unknown 01/13/2024 2:35 PM EDT 01/13/2024 4:32 PM EDT us Cathryn Zhou MD LAB BLOOD ORDERAB LES Final Result Performing Organization Address [facility] Co de Phone Number [facility] [address] [place] [phone] * HIV-1/2 Antigen and Antibodies, Fourth Generation, with Reflexes (01/13/2024 2:35 PM EDT) Pathologist [facility] HIV AB/AG Nonreactive Nonreactive [facility] Comment:HIV-1 p24 Ag and/or HIV-1/HIV-2 Ab not detected.A test result that is nonreactive does not exclude thepossibility of exposure to or infection with HIV-1 and/orHIV-2. Nonreactive results in this assay for individualswith prior exposure to HIV-1 and/or HIV-2 may be due toantigen and antibody levels that are below the limit ofdetection of this assay.The Dimple Dough HIV Ag/Ab Combo assay result andsupplemental assay results should be interpreted inconjunction with the patient's clinical presentation,history and other laboratory results. If the results areinconsistent with clinical evidence, additional testing issuggested to confirm the result. Blood Venous blood specimen / Unknown 01/13/2024 2:35 PM EDT 01/13/2024 4:32 PM EDT Cathryn Zhou MD LAB BLOOD ORDERAB LES Final Result [facility] [address] [place] [phone] * HPV mRNA E6/E7 (12/24/2020 2:44 PM EDT) Pathologist [facility] HPV nRNA E6/E7 Not Detected Not Detected [facility] Comment: Methodology: Sld Educational Aide-Mediated Amplification This assay detects E6/E7 viral messenger RNA (mRNA) from 14 high-risk HPV types (16,18,31,33,35,39,45,51,52,56,58,59,66,68). ? The analytical performance characteristics of this assay have been determined by [employer]. The modifications have not been cleared or approved by the FDA. This assay has been validated pursuant to the CLIA regulations and is used for clinical purposes. ?? For additional information, please refer to http://education.[employer].Performable/faq/KXU417z1 (This link if provided for information/ educational purposes only.) 12/24/2020 2:4 4 PM EDT us Ruth Thomas CN LAB BLOOD ORDERABLES Yanet l Result [facility] [address] from Last 3 Months or Most Recently Relevant to Health Maintenance Insurance [facility] ST[facility] Care Teams Revenue Investigator Relationship Specialty Start Date End Date Cathryn Cardoza MD [address] [place] [phone] PCP - General Internal Medicine 09/08/22 Salinas Dhaliwal RN [address] [place] [phone] Cr[employer] Engineer[employer]elesales Team Leader 05/15/24
--- OUTSIDE RECORDS SUMMARY | 2024-06-12 10:02 | XMS_ITS | Encounter Summary ---
Author Organization [employer] Address [address] [place] [address] Care Team Providers Care Night Order Selector Name Role Phone Cathryn Cardoza MD Primary Care Pro vider Salinas Dhaliwal RN Unavailable [phone] Reason for Visit * Reason Onset Date Comments Appointment Request 02/09/2023 Encounter Details Date Type Department Care Team (Late st Contact Info) Description 02/09/2023 Telephone [facility] MEDICINE 230 [place], [place] [phone] Cathryn Cardoza MD 230 [place], [place] [phone] Appointment Request Social History Tobacco Use Types [...] like a call back to reschedule appt underwriter did cancel appt. documented in this encounter Plan of Treatment Upcoming Encounters Date Type Department Care Team (Late st Contact Info) Description 06/19/2024 10:00 AM EDT Nutrition [facility] DIABETES/NUTRITION [address] [place] [phone] [place] [address] 06/21/2024 1:30 PM EDT Office Visit [facility] MEDICINE [address] [place] [address] [phone] Cathryn Cardoza MD [address] [place] [phone] documented as of this encounter Visit Diagnoses Not on filedocumented in this encounter Care Teams Night Order Selector Relationship Specialty Start Date End Date Cathryn Cardoza MD [address] [place] [address] [phone] PCP - General Internal Medicine 09/08/22 Salinas Dhaliwal RN [address] [place] [address] On Site ManagerGyroscopic Instrument Mechanic 05/15/24 documented as of this encounter
--- OUTSIDE RECORDS SUMMARY | 2024-06-12 10:03 | XMS_ITS | Encounter Summary ---
Author Organization [employer] Address 75 [facility] 7 [place] [address] Care Team Providers Care Freezing Room Worker Name Role Phone Cathryn Cardoza MD Primary Care Pro vider Salinas Dhaliwal RN Unavailable [phone] Reason for Visit * Reason Onset Date Comments Lab Order question 06/07/2024 Encounter Details Date Type Department Care Team (Late st Contact Info) Description 06/07/2024 Telephone [facility] MEDICINE 230 [place], [place] [phone] Cathryn Cardoza MD 230 [place], [place] [phone] Lab Order question Social History Tobacco Use Types Packs/Day Years [...] encounter Miscellaneous Notes * Telephone Encounter - Yohana Etienne - 06/07/2024 8:32 AM EDT Tc from pt requesting a call back from nurses to clarify whether she should take the testin the morning or afternoon. documented in this encounter Plan of Treatment Upcoming Encounters Date Type Department Care Team (Late st Contact Info) Description 06/19/2024 10:00 AM EDT Nutrition [facility] DIABETES/NUTRITION [address] [place] [phone] 230 [place], [place] [phone] 06/21/2024 1:30 PM EDT Office Visit [facility] MEDICINE [address] [place] [address] [phone] Cathryn Cardoza MD 230 [place], [place] [phone] documented as of this encounter Visit Diagnoses Not on filedocumented in this encounter Additional Health Concerns Assessment Noted Time PHQ-9 Depression Total Score: 11 024 10:24 AM EST documented as of this encounter Care Teams Freezing Room Worker Relationship Specialty Start Date End Date Cathryn Cardoza MD [address] [place] [phone] PCP - General Internal Medicine 09/08/22 Salinas Dhaliwal RN [address] [place] [phone] Manager CaseSharebroker 05/15/24 documented as of this encounter
--- OUTSIDE RECORDS SUMMARY | 2024-06-12 10:03 | XMS_ITS | Encounter Summary ---
Author Organization [employer] Address 75 [facility] 7 [place] [address] Care Team Providers Care Dispatcher Bus And Trolley Name Role Phone Cathyrn Cardoza MD Primary Care Pro vider Salinas Dhaliwal RN Unavailable [phone] Reason for Visit * Reason Comments Pre-visit Planning SDOH screening was c ompleted on 05/15/2024 Encounter Details Date Type Department Care Team (Late st Contact Info) Description 06/11/2024 Patient Outreach [facility] MEDICINE 230 [place], [place] [phone] Cathryn Cardoza MD 230 [place], [place] [phone] Pre-visit Planning (SDOH screening was completed on 05/15/2024) Social History Tobacco Use Types Packs/Day Years [...] as of this encounter Progress Notes * Sarai Paredes - 06/11/2024 11:14 AM EDT [facility] placed successful outbound call to patient for pre-visit planning. Patient name and confirmed. Patient confirms appt date and time, and has transportation arrangements. Biggest concern for appointment at this time is asthma been bothering her. Patient educated on extended clinic hours on Mondays and Wednesdays, and Walk-In Urgent Care Located in [facility]. Patient advised to bring to appointment a photo id and insurance card. Appropriate screenings completed in anticipation of appointment. documented in this encounter Plan of Treatment Upcoming Encounters Date Type Department Care Team (Late st Contact Info) Description 06/19/2024 10:00 AM EDT Nutrition [facility] DIABETES/NUTRITION 230 [place] [address] 230 [place] [address] 06/21/2024 1:30 PM EDT Office Visit [facility] 230 [place], [place] [phone] Cathryn Cardoza MD [address] [place] [address] documented as of this encounter Visit Diagnoses Not on filedocumented in this encounter Additional Health Concerns Assessment Noted Time PHQ-9 Depression Total Score: 11 024 10:24 AM EST documented as of this encounter Care Teams Dispatcher Bus And Trolley Relationship Specialty Start Date End Date Cathryn Cardoza MD [address] [place] [address] [phone] PCP - General Internal Medicine 09/08/22 Salinas Dhaliwal RN 505 [place] [address] Staff Command And Control OfficerGeneral Internal Medicine Physician 05/15/24 documented as of this encounter
--- OUTSIDE RECORDS SUMMARY | 2024-06-12 10:03 | XMS_ITS | Encounter Summary ---
Author Organization [employer] Address [address] [facility] [address] 7t [place] [address] Care Team Providers Care House Superintendent Name Role Phone Cathryn Cardoza MD Primary Care Pro vider Salinas Dhaliwal RN Unavailable [phone] Reason for Visit * Reason Onset Date Comments plan of care 06/07/2024 Encounter Details Date Type Department Care Team (Late st Contact Info) Description 06/07/2024 Telephone [facility] 230 [place] [address] Savannah Phipps RN plan of care Social History Tobacco Use Types Packs/Day Years [...] encounter Miscellaneous Notes * Telephone Encounter - Savannah Phipps RN - 06/07/2024 12:28 PM EDT TC to pt to answer her VM question. Pt informed [facility] blood test can be am or pm, pt stated understanding and will go to lab documented in this encounter Plan of Treatment Upcoming Encounters Date Type Department Care Team (Late st Contact Info) Description 06/19/2024 10:00 AM EDT Nutrition [facility] DIABETES/NUTRITION [address] [place] [phone] 230 [place] [address] 06/21/2024 1:30 PM EDT Office Visit [facility] MEDICINE [address] [place] [address] [phone] Cathryn Cardoza MD 230 [place], [place] [phone] documented as of this encounter Visit Diagnoses Not on filedocumented in this encounter Additional Health Concerns Assessment Noted Time PHQ-9 Depression Total Score: 11 024 10:24 AM EST documented as of this encounter Care Teams House Superintendent Relationship Specialty Start Date End Date Cathryn Cardoza MD [address] [place] [address] [phone] PCP - General Internal Medicine 09/08/22 Salinas Dhaliwal RN [address] [place] [address] Welder Tool And DieUser Experience Architect 05/15/24 documented as of this encounter
--- OUTSIDE RECORDS SUMMARY | 2024-06-12 10:03 | XMS_ITS | Clinical Summary ---
Author Organization [facility] Address [address] [place] [address] Care Team Providers Care Clothing Consultant Name Role Phone Unavailable Primary Care Provider [...]
--- OUTSIDE RECORDS SUMMARY | 2024-06-12 10:03 | XMS_ITS | Encounter Summary ---
Author Organization [employer] Address 75 [facility] 7 [place] [address] Care Team Providers Care Erp Technical Lead Name Role Phone Cathryn Cardoza MD Primary Care Pro vider Salinas Dhaliwal RN Unavailable [phone] Reason for Visit * Reason Onset Date Comments Care Management 06/11/2024 C3CM- f/u call Encounter Details Date Type Department Care Team (Late st Contact Info) Description 06/11/2024 Telephone [facility] 230 [place], [place] [phone] Cathryn Cardoza MD 230 [place], [place] [phone] Care Management (C3CM- f/u call) Social History Tobacco Use Types Packs/Day Years [...] Telephone Encounter - Salinas Dhaliwal RN - 06/11/2024 1:54 PM EDT CM Salinas Dhaliwal RN and CHW Carolina Wolff placed outbound call to patient. Patient's name, and address confirmed. Patient confirms attending visit with Ortho today. She states the visit went well. She is aware that a referral to PT was placed and that she will be contacted with appt details once scheduled. Per patient, was not able to complete the x-rays that were ordered as she just found out that she is . Per patient, is happy about the but is having some vaginal bleeding. She states she is at [facility] now and is being evaluated. No further questions or concerns. CM reinforced direct contact information or CHW for any additional questions or concerns. Education provided on Walk-In Urgent Care located in [facility]. Patient provided with after-hours line for [facility], , which offer night time triage service and option to transfer to money market dealer provider if needed. Patient verbalizes understanding, and able to repeat back to senior mortgage underwriter. A follow up call will be placed within 10 days, patientagrees with plan documented in this encounter Plan of Treatment Upcoming Encounters Date Type Department Care Team (Late st Contact Info) Description 06/19/2024 10:00 AM EDT Nutrition [facility] DIABETES/NUTRITION [address] [place] [phone] 230 [place] [address] 06/21/2024 1:30 PM EDT Office Visit [facility] 230 [place] [address] Cathryn Cardoza MD [address] [place] [phone] documented as of this encounter Visit Diagnoses Not on filedocumented in this encounter Additional Health Concerns Assessment Noted Time PHQ-9 Depression Total Score: 11 024 10:24 AM EST documented as of this encounter Care Teams Erp Technical Lead Relationship Specialty Start Date End Date Cathryn Cardoza MD [address] [place] [phone] PCP - General Internal Medicine 09/08/22 Salinas Dhaliwal RN [address] [place] [phone] Food ScientistMetalworking Specialist 05/15/24 documented as of this encounter
--- OUTSIDE RECORDS SUMMARY | 2024-06-12 10:03 | XMS_ITS | Encounter Summary ---
Author Organization [employer] Address [address] [facility] [address] 7t [place] [address] Care Team Providers Care Strategy Associate Name Role Phone Yvonne Madrid LEAD NITRATE PROCESSOR Primary Care Provider [phone] Cathryn Cardoza MD Primary Care Pro vider Salinas Dhaliwal RN Unavailable [phone] Reason for Visit * Reason Comments Med Refill Encounter Details Date Type Department Care Team (Late Contact Info) Description 05/01/2022 Refill [facility] MED & PEDS 505 [place], [place] [phone] Cassandra Guzman CNM 230 [place], [place] [phone] Encounter for other contraceptive management Social History [...] Department Care Team (Late Contact Info) Description 06/19/2024 10:00 AM EDT Nutrition [facility] DIABETES/NUTRITION 230 [place], [place] [phone] Dimple Philippe, ANNE 230 [place], [place] [phone] 06/21/2024 1:30 PM EDT Office Visit [facility] MEDICINE 230 [place] [address] Cathryn Cardoza MD 230 [place], [place] [phone] documented as of this encounter Visit Diagnoses Diagnosis Encounter for other contraceptive management documented in this encounter Care Teams Strategy Associate Relationship Specialty Start Date End Date Yvonne Madrid FNP [address] [place] [address] [phone] PCP - General Family Medicine 08/25/21 09/07/22 Cathryn Cardoza MD [address] [place] [address] [phone] PCP - General Internal Medicine 09/08/22 Salinas Dhaliwal, AMELIA [address] [place] [address] Patient Registration ClerkRestaurant Mgr 05/15/24 documented as of this encounter
--- OUTSIDE RECORDS SUMMARY | 2024-06-12 10:03 | XMS_ITS | Encounter Summary ---
Author Organization [employer] Address 75 [facility] [address] 7t [place] [address] Care Team Providers Care Line Dancer Name Role Phone Yvonne Madrid CLOCK AND WATCH ASSEMBLER Primary Care Provider [phone] Cathryn Cardoza MD Primary Care Pro vider Salinas Dhaliwal RN Unavailable [phone] Encounter Details Date Type Department Care Team (Late st Contact Info) Description 04/30/2022 Orders Only [facility] MEDICINE 230 [place], [place] [phone] Shasha Mendiola RN 230 [place], [place] [phone] Social History Tobacco Use Types Packs/Day Years [...] Info) Description 06/19/2024 10:00 AM EDT Nutrition [facility] DIABETES/NUTRITION 230 [place] [address] 230 [place] [address] 06/21/2024 1:30 PM EDT Office Visit [facility] MEDICINE 230 [place], [place] [phone] Cathryn Cardoza MD 230 [place], [place] [phone] documented as of this encounter Visit Diagnoses Not on filedocumented in this encounter Care Teams Line Dancer Relationship Specialty Start Date End Date [facility] [address] [place] [address] [phone] PCP - General Family Medicine 08/25/21 09/07/22 Cathryn Cardoza MD [address] [place] [address] [phone] PCP - General Internal Medicine 09/08/22 Salinas Dhaliwal, AMELIA [address] [place] [phone] Fish Hatchery WorkerColdfusion 05/15/24 documented as of this encounter
== END 2024-06-11 09:08 | disposition home or self-care (01) ==
LOC: HO.HOSX 09:07
PROVIDERS: Visit Provider Physician Assistant
DX: M25.571 Pain in right ankle and joints of right foot (principal); S82.891D Other fracture of right lower leg, subsequent encounter for closed fracture with routine healing; X58.XXXD Exposure to other specified factors, subsequent encounter
CPT/HCPCS: 99212

== ENCOUNTER 2024-06-11 09:28 | Outpatient (AMB) | payer MEDICAID, SELFPAY ==
--- NOTE | 2024-06-11 09:29 | A.OFFVIS_ITS ---
Vital Signs 06/11/24 09:30 Height 5 ft 1 in Weight 115 lb BMI 21.7 Intake Visit Reasons: OV- Rt ankle fx DOI 04/27/24 -xrays Intake Note: Nafisa is a 29 year old female who presents today for a follow up of right ankle fx, DOI 04/27/24. At patient last visit she was transitioned into a tall walking boot, instructed to WBAT and sleep with the boot on to prevent her foot r emaining in a resting position as well as continuing use of crutches. She is to follow up in 5-6 weeks with new x-rays. Patient reports ongoing swelling and pain at lateral aspect of ankle. Her pain radiates up to her knee and she has a tingling sensation in her 4th and 5th toes. Her current pain level is a 4 out of 10. States she feels her ankle gets stuck not allowing her to place her foot fully on the ground. She discontinued boot wear about a week and a half ago. Allergies latex [LATEX] Allergy (Severe, Verified 06/11/24 09:43) Hives sumatriptan [From IMITREX] Allergy (Mild, Verified 06/11/24 09:43) FAINTED, EYES ROLLED BACK, SOB Medication List - Last Reconciled 06/11/24 by Mark Bains PA-C morphine 15 mg PO Q4-6H PRN HPI HPI OV- Rt ankle fx DOI 04/27/24 -xrays: Details: 29-year-old female returns to the office today 6 weeks follow-up right ankle nondisplaced distal fibular fracture. At her last visit she was placed in a tall boot weightbearing as tolerated. A week and a half ago she discontinued the use of the boot and continues to feel some discomfort. She is not able to fully extend her foot and wb while walking. [facility] Medical History (Updated 06/11/24 @ 09:52 by Mark Bains PA-C) Kidney stone Vomiting Chronic idiopathic constipation Abdominal discomfort Renal calculi Asthma Surgical History (Updated 05/07/24 @ 09:04 by Amisha Richardson Kavitha) Hx of hand surgery History of endoscopy H/O: Hx of appendectomy Family History Maternal Grandmother Diabetes Father Lymphoma Paternal Aunt Crohn disease Paternal Aunt Ovarian cancer Social History (Updated 05/07/24 @ 09:04 by ELSA Harris) Household Members: Family Housing: Apartment Do you presently have visiting nurse or other home services: No Alcohol intake: current Alcohol intake frequency: holidays/special occasions only Patient Tobacco Use Status: Never used Tobacco Substance Use Type: Marijuana service: No Current occupational status: employed 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 She has mild tenderness over the lateral aspect of the ankle which extends into the soft tissues. Tenderness over the Achilles tendon which extends into the peroneal tendon. No defect over the Achilles tendon. Discomfort with dorsiflexion. Neurovascularly intact. Assessment & Plan Assessment & Plan (1) Closed right ankle fracture: Code(s): S82.891A - Other fracture of right lower leg, initial encounter for closed fracture Category: Medical Qualifiers: Encounter type: subsequent encounter Fracture healing: with routine healing Qualified Code(s): S82.891D - Other fracture of right lower leg, subsequent encounter for closed fracture with routine healing Plan: At this time she can transition to a lace-up ankle brace which was provided in the office today. She will begin a course of physical therapy to work on range of motion gentle strength and proprioceptive training. She should attempt to increase activities as tolerated. She will remain out of work until I see her back in 6 weeks for re-evaluation, sooner if needed. Orders: Orders XR ankle RT min 3V Today M25.571 - Pain in right ankle and joints of right foot PT Evaluation and Treatment Today S82.891D - Other fracture of right lower leg, subsequent encounter for closed fracture with routine healing Coding Level of Care Code Global (15621) Diagnoses Closed fracture of right ankle with routine healing, subsequent encounter S82.891D Encounter type: subsequent encounter Fracture healing: with routine healing
[2024-06-11 09:30] VITALS: BMI 21.7
== END 2024-06-11 10:13 | disposition home or self-care (01) ==
LOC: HO.HOS 09:29
PROVIDERS: PCP Internal Medicine; Visit Provider Physician Assistant
DX: S82.891D Other fracture of right lower leg, subsequent encounter for closed fracture with routine healing (principal)
CPT/HCPCS: 99213

== ENCOUNTER 2024-07-23 11:21 | Outpatient (REF) | payer MEDICAID, SELFPAY ==
--- NOTE | ~2024-07-23 | XR_ITS ---
EXAMINATION: XR ANKLE 3 OR MORE VIEWS RIGHT HISTORY: M25.571 - Pain in right ankle and joints of right foot COMPARISON: Comparison is made with the prior examination dated 05/07/2024. FINDINGS: Three views of the right ankle are submitted. Osseous mineralization is normal. Again seen is a nondisplaced fracture of the distal fibula. Fracture line remains visible, but is less well visualized than on the prior study, consistent with healing. The joint spaces are preserved. The soft tissues are unremarkable. XR/XR ankle RT min 3V IMPRESSION: Healing nondisplaced fracture of the distal fibula. Electronically signed by: Pablo Drew MD 07/23/2024 01:40 PM EDT
--- OUTSIDE RECORDS SUMMARY | 2024-07-24 12:50 | XMS_ITS | Encounter Summary ---
Author Organization [employer] Address [address] [place] [address] Care Team Providers Care Tank Maker Wood Name Role Phone Cathryn Cardoza MD Primary Care Pro vider Sal[place] Dhaliwal RN Unavailable [phone] Reason for Visit * Reason Onset Date Comments Appointment Request 02/23/2023 Encounter Details Date Type Department Care Team (Late st Contact Info) Description 02/23/2023 Telephone [facility] [address] [place] [address] Cathryn Cardoza MD [address] [place], [place] [phone] Appointment Request Social History Tobacco Use Types [...] 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 was going to schedule but was unable to due to a window period please call to schedule documented in this encounter Plan of Treatment Upcoming Encounters Date Type Department Care Team (Late st Contact Info) Description 09/18/2024 9:45 AM EDT Office Visit [facility] [address] [place] [phone] Cathryn Cardoza MD [address] [place] [address] [phone] documented as of this encounter Visit Diagnoses Not on filedocumented in this encounter Care Teams Tank Maker Wood Relationship Specialty Start Date End Date Cathryn Cardoza MD [address] [place] [address] [phone] PCP - General Internal Medicine 09/08/22 Sal[place] Dhaliwal RN [address] [place] [phone] Supervisor SampleProduction Drilling Machine Operator 05/15/24 documented as of this encounter
--- OUTSIDE RECORDS SUMMARY | 2024-07-24 12:50 | XMS_ITS | Encounter Summary ---
Author Organization [employer] Address 75 [facility] 7 [place] [address] Care Team Providers Care Parquet Floor Layer'S Helper Name Role Phone Cathryn Cardoza MD Primary Care Pro vider Salinas Dhaliwal RN Unavailable [phone] Reason for Visit * Reason Onset Date Comments Appointment Request 02/09/2023 Encounter Details Date Type Department Care Team (Late st Contact Info) Description 02/09/2023 Telephone [facility] MEDICINE [address] [place] [address] Cathryn Cardoza MD [address] [place], [place] [phone] Appointment Request Social History Tobacco Use Types [...] like a call back to reschedule appt appeals writer did cancel appt. documented in this encounter Plan of Treatment Upcoming Encounters Date Type Department Care Team (Late st Contact Info) Description 09/18/2024 9:45 AM EDT Office Visit [facility] MEDICINE [address] [place] [address] Cathryn Cardoza MD [address] [place] [address] [phone] documented as of this encounter Visit Diagnoses Not on filedocumented in this encounter Care Teams Parquet Floor Layer'S Helper Relationship Specialty Start Date End Date Cathryn Cardoza MD [address] [place] [address] [phone] PCP - General Internal Medicine 09/08/22 Salinas Dhaliwal RN [address] [place] [phone] Carton Forming Machine AdjusterCost Coordinator 05/15/24 documented as of this encounter
--- OUTSIDE RECORDS SUMMARY | 2024-07-24 12:51 | XMS_ITS | Clinical Summary ---
Author Organization [facility] Address [address] [place] [address] Care Team Providers Care Research Center Partner Name Role Phone Unavailable Primary Care Provider [...] Vaccine (2023-2 5 season) 2023 Influenza Vaccine (Season Ended) 2024 HIB Vaccines Aged Out No longer eligi [...] age to complete this topic Meningococcal B Vaccine Aged Out No l onger eligible based on patient's age to complete [...]
--- OUTSIDE RECORDS SUMMARY | 2024-07-24 12:51 | XMS_ITS | Encounter Summary ---
Author Organization [employer] Address 75 [facility] 7 [place] [address] Care Team Providers Care Vrt Mechanic Name Role Phone Cathryn Cardoza MD Primary Care Pro vider Salinas Dhaliwal RN Unavailable [phone] Reason for Visit * Reason Onset Date Comments chartprep 07/20/2024 Encounter Details Date Type Department Care Team (Late st Contact Info) Description 07/20/2024 Telephone [facility] MEDICINE [address] [place], [place] [phone] Cathryn Cardoza MD [address] [place], [place] [phone] chartprep Social History Tobacco Use Types Packs/Day [...] Description 09/18/2024 9:45 AM EDT Office Visit [facility] MEDICINE [address] [place] [address] Cathryn Cardoza MD [address] [place] [address] documented as of this encounter Visit Diagnoses Not on filedocumented in this encounter Additional Health Concerns Assessment Noted Time PHQ-9 Depression Total Score: 11 024 10:24 AM EST documented as of this encounter Care Teams Vrt Mechanic Relationship Specialty Start Date End Date Cathryn Cardoza MD [address] [place] [phone] PCP - General Internal Medicine 09/08/22 Salinas Dhaliwal RN [address] [place] [phone] Clinical Account SpecialistCar Attendant 05/15/24 documented as of this encounter
--- OUTSIDE RECORDS SUMMARY | 2024-07-24 12:51 | XMS_ITS | Encounter Summary ---
Author Organization [employer] Address 75 [facility] 7t [place] [address] Care Team Providers Care Line Supervisor Name Role Phone Cathryn Cardoza MD Primary Care Pro vider Salinas Dhaliwal RN Unavailable [phone] Reason for Visit * Reason Onset Date Comments Lab Order question 06/07/2024 Encounter Details Date Type Department Care Team (Late st Contact Info) Description 06/07/2024 Telephone [facility] MED[facility]INE [address] [place], [place] [phone] Cathryn Cardoza MD [address] [place], [place] [phone] Lab Order question Social History Tobacco Use [...] Description 09/18/2024 9:45 AM EDT Office Visit [facility] MED[facility] [address] [place] [phone] Cathryn Cardoza MD [address] [place] [address] documented as of this encounter Visit Diagnoses Not on filedocumented in this encounter Additional Health Concerns Assessment Noted Time PHQ-9 Depression Total Score: 11 024 10:24 AM EST documented as of this encounter Care Teams Line Supervisor Relationship Specialty Start Date End Date Cathryn Cardoza MD [address] [place] [phone] PCP - General Internal Medicine 09/08/22 Salinas Dhaliwal RN [address] [place] [phone] Steam Plant Records ClerkWindows Migration Technician 05/15/24 documented as of this encounter
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
--- OUTSIDE RECORDS SUMMARY | 2024-07-24 12:51 | XMS_ITS | Encounter Summary ---
Author Organization [employer] Address [address] [facility] 7t [place] [address] Care Team Providers Care Training Development Manager Name Role Phone Cathryn Cardoza MD Primary Care Pro vider Salinas Dhaliwal RN Unavailable [phone] Reason for Visit * Reason Onset Date Comments Nurse Triage 04/19/2024 Encounter Details Date Type Department Care Team (Late st Contact Info) Description 04/19/2024 Telephone [facility] MED[facility] [address] [place], [place] [phone] Cathryn Cardoza MD [address] [place], [place] [phone] Nurse Triage Social History Tobacco Use Types [...] on site. She spoke with provider in [facility] in February 2024 abouta letter to remove rugs but never went to medical records. No letter on file. Advised her to go request letter tomorrow after appt. Explained NTTS full stack python developer nurse before appt. Pt verbalized understanding, no [...] never been confirmed by a doctor (or SENIOR SUPPORT ANALYST/PA) * Nasal allergies occur only certain times [...] [facility] [address] [place] [phone] Cathryn Cardoza MD [address] [place] [address] documented as of this encounter Visit Diagnoses Not on filedocumented in this encounter Additional Health Concerns Assessment Noted Time PHQ-9 Depression Total Score: 11 024 10:24 AM EST documented as of this encounter Care Teams Training Development Manager Relationship Specialty Start Date End Date Cathryn Cardoza MD [address] [place] [phone] PCP - General Internal Medicine 09/08/22 Salinas Dhaliwal RN [address] [place] [phone] Cuprous Chloride HelperAirways Control Specialist 05/15/24 documented as of this encounter
--- OUTSIDE RECORDS SUMMARY | 2024-07-24 12:51 | XMS_ITS | Encounter Summary ---
Author Organization [employer] Address [address] [place] [address] Care Team Providers Care Desilverizer Name Role Phone Cathryn Cardoza MD Primary Care Pro vider Salinas Dhaliwal RN Unavailable [phone] Encounter Details Date Type Department Care Team (Late st Contact Info) Description 07/09/2024 Orders Only [facility] MED & PEDS [address] [place] [address] Nadine Lizama Social History Tobacco Use Types [...] Description 09/18/2024 9:45 AM EDT Office Visit [facility] MEDICINE [address] [place] [phone] Cathryn Cardoza MD [address] [place] [phone] documented as of this encounter Procedures Procedure Name Priority Date/Time Associated Diagnosis Comments HPV MRNA E6/E7 REFLEX TO HPV 16, 18/45 Routine 01/25/2024 12:00 AM EST documented in this encounter Results * HPV mRNA E6/E7 w/Reflex to HPV Genotypes 16, 18/45 (01/25/2024 12:00 AM EST) us Historical Provider LAB CYTOLOGY ORDERABLES F inal Result [facility] [address] [place] [phone] documented in this encounter Visit Diagnoses Not on filedocumented in this encounter Additional Health Concerns Assessment Noted Time PHQ-9 Depression Total Score: 11 024 10:24 AM EST documented as of this encounter Care Teams Desilverizer Relationship Specialty Start Date End Date Cathryn Cardoza MD [address] [place] [address] [phone] PCP - General Internal Medicine 09/08/22 Salinas Dhaliwal RN [address] [place] [phone] Osha InspectorWelder Assembler 05/15/24 documented as of this encounter
--- OUTSIDE RECORDS SUMMARY | 2024-07-24 12:51 | XMS_ITS | Encounter Summary ---
Author Organization [employer] Address [address] 7[address] [place] [address] Care Team Providers Care Teletypesetter Operator Name Role Phone Yvonne Madrid FLOWER SHOP LABORER/DESIGNER Primary Care Provider [phone] Cathryn Cardoza MD Primary Care Pro vider Salinas Dhaliwal RN Unavailable [phone] Reason for Visit * Reason Comments Med Refill Encounter Details Date Type Department Care Team (Late Contact Info) Description 05/01/2022 Refill [facility] CHC MED & PEDS [address] [place], [place] [phone] Cassandra Guzman CNM [address] [place], [place] [phone] Encounter for other contraceptive management Social History [...] Upcoming Encounters Date Type Department Care Team ([facility] Contact Info) Description 09/18/2024 9:45 AM EDT Office Visit [facility] MEDICINE [address] [place] [address] [phone] Cathryn Cardoza MD [address] [place] [address] documented as of this encounter Visit Diagnoses Diagnosis Encounter for other contraceptive management documented in this encounter Care Teams Teletypesetter Operator Relationship Specialty Start Date End Date [place] Yvonne [facility] [address] [place] [address] PCP - General Family Medicine 08/25/21 09/07/22 Cathryn Cardoza MD [address] [place], [place] [phone] PCP - General Internal Medicine 09/08/22 Salinas Dhaliwal RN [address] [place] [phone] Education Program ManagerSorting Supervisor 05/15/24 documented as of this encounter
--- OUTSIDE RECORDS SUMMARY | 2024-07-24 12:51 | XMS_ITS | Encounter Summary ---
Author Organization [employer] Address [address] [facility] 7t [place] [address] Care Team Providers Care Kosher Inspector Name Role Phone Yvonne Madrid VALUATION MANAGER Primary Care Provider [phone] Cathryn Cardoza MD Primary Care Pro vider Salinas Dhaliwal RN Unavailable [phone] Encounter Details Date Type Department Care Team (Late st Contact Info) Description 04/30/2022 Orders Only [facility] MEDICINE [address] [place] [address] [phone] Shasha Mendiola RN [address] [place], [place] [phone] Social History Tobacco Use Types Packs/Day Years [...] Description 09/18/2024 9:45 AM EDT Office Visit [facility] [address] [place] [address] [phone] Cathryn Cardoza MD [address] [place] [phone] documented as of this encounter Visit Diagnoses Not on filedocumented in this encounter Care Teams Kosher Inspector Relationship Specialty Start Date End Date Yvonne Madrid FNP [address] [place] [phone] PCP - General Family Medicine 08/25/21 09/07/22 Cathryn Cardoza MD [address] [place] [phone] PCP - General Internal Medicine 09/08/22 Salinas Dhaliwal RN [address] [place] [phone] Investment ExecutiveCustomer Support Agent 05/15/24 documented as of this encounter
--- OUTSIDE RECORDS SUMMARY | 2024-07-24 12:51 | XMS_ITS | Encounter Summary ---
Author Organization [employer] Address [address] [facility] [place] [address] Care Team Providers Care Automatic Casting Machine Operator Name Role Phone Cathryn Cardoza MD Primary Care Pro vider Salinas Dhaliwal RN Unavailable [phone] Reason for Visit * Reason Onset Date Comments Appointment 07/23/2024 Encounter Details Date Type Department Care Team (Late st Contact Info) Description 07/23/2024 Telephone [facility] MEDICINE [address] [place], [place] [phone] Cathryn Cardoza MD [address] [place], [place] [phone] Appointment Social History Tobacco Use Types Packs/Day [...] [place] - 07/23/2024 9:33 AM EDT T/C- Examiner Rating Clerk called per Patient request to reschedule missed appointment. Examiner Rating Clerk offered an appointment coming up this week Patient is an able to come in for that day next available is September 18. Patient accepted. documented in this encounter Plan of Treatment Upcoming Encounters Date Type Department Care Team (Late st Contact Info) Description 09/18/2024 9:45 AM EDT Office Visit [facility] MEDICINE [address] [place] [phone] Cathryn Cardoza MD [address] [place] [phone] documented as of this encounter Visit Diagnoses Not on filedocumented in this encounter Additional Health Concerns Assessment Noted Time PHQ-9 Depression Total Score: 11 024 10:24 AM EST documented as of this encounter Care Teams Automatic Casting Machine Operator Relationship Specialty Start Date End Date Cathryn Cardoza MD [address] [place] [phone] PCP - General Internal Medicine 09/08/22 Salinas Dhaliwal RN [address] [place] [phone] Optic Fibre DrawerPhd Internship 05/15/24 documented as of this encounter
== END 2024-07-23 11:22 | disposition home or self-care (01) ==
LOC: HO.HOSX 11:21
PROVIDERS: Visit Provider Physician Assistant
DX: M25.571 Pain in right ankle and joints of right foot (principal); S82.891D Other fracture of right lower leg, subsequent encounter for closed fracture with routine healing
CPT/HCPCS: 73610; 99212

== ENCOUNTER 2024-07-23 12:53 | Outpatient (AMB) | payer MEDICAID, SELFPAY ==
--- NOTE | 2024-07-23 12:56 | A.OFFVIS_ITS ---
Vital Signs 07/23/24 12:57 Height 5 ft 1 in Weight 115 lb BMI 21.7 Intake Visit Reasons: OV- Rt ankle fx DOI 04/27/24 Intake Note: Nafisa is a 29 year old female who presents today for a follow up of her right ankle fx, DOI 04/27/24. At her last visit she was referred to physical therapy to work on range of motion, gentle strength and proprioceptive training. Patient reports that she has not been able to begin PT due to personal reasons. She is requesting a new PT order to be sent to another rehab facility. Current her pain level is 3 out of 10. Allergies latex [LATEX] Allergy (Severe, Verified 07/23/24 12:57) Hives sumatriptan [From IMITREX] Allergy (Mild, Verified 07/23/24 12:57) FAINTED, EYES ROLLED BACK, SOB Medication List - Last Reconciled 07/23/24 by Mark Bains PA-C No Known Home Meds HPI HPI OV- Rt ankle fx DOI 04/27/24: Details: 29-year-old female returns to the office today 3 months follow-up right ankle fracture date of injury 04/27/2024. She states she has not been able to get into physical therapy as of yet but would like to proceed. She has been wearing a lace-up ankle brace and notices some discomfort along the lateral and posterior aspect of the ankle which goes into the calf region. She also feels her some times when it feels like it is stuck and needs to crack. Otherwise she is overall doing well. [facility] Medical History (Updated 06/11/24 @ 09:52 by Mark Bains PA-C) Kidney stone Vomiting Chronic idiopathic constipation Abdominal discomfort Renal calculi Asthma Surgical History Hx of hand surgery History of endoscopy H/O: Hx of appendectomy Family History Maternal Grandmother Diabetes Father Lymphoma Paternal Aunt Crohn disease Paternal Aunt Ovarian cancer Social History Household Members: Family Housing: Apartment Do you presently have visiting nurse or other home services: No Alcohol intake: current Alcohol intake frequency: holidays/special occasions only Patient Tobacco Use Status: Never used Tobacco Substance Use Type: Marijuana service: No Current occupational status: employed 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 She has mild tenderness over the lateral aspect of the ankle which extends into the soft tissues. No Tenderness over the Achilles tendon . No defect over the Achilles tendon. No Discomfort with dorsiflexion. Neurovascularly intact. Results Reviewed Results Reviewed: X-rays of the right ankle obtained in the office today and reviewed by me show healed distal fibular fracture nondisplaced. Ankle mortise intact. Assessment & Plan Assessment & Plan (1) Closed right ankle fracture: Code(s): S82.891A - Other fracture of right lower leg, initial encounter for closed fracture Category: Medical Qualifiers: Encounter type: subsequent encounter Fracture healing: with routine healing Qualified Code(s): S82.891D - Other fracture of right lower leg, subsequent encounter for closed fracture with routine healing Plan: She will continue to wear the lace-up ankle brace with activities as tolerated. I did give her a new physical therapy order today to make an appointment. I stressed the importance of working on strengthening and motion exercises so we can prevent further injury and allow her more stability with activities. She will return to work without restrictions. If symptoms arise or there is concern she will contact our office otherwise follow up as needed. Orders: Orders XR ankle RT min 3V Today M25.571 - Pain in right ankle and joints of right foot PT Evaluation and Treatment Today S82.891D - Other fracture of right lower leg, subsequent encounter for closed fracture with routine healing Coding Level of Care Code Global (79116) Diagnoses Closed fracture of right ankle with routine healing, subsequent encounter S82.891D Encounter type: subsequent encounter Fracture healing: with routine healing
[2024-07-23 12:57] VITALS: BMI 21.7
--- OUTSIDE RECORDS SUMMARY | 2024-07-23 13:11 | XMS_ITS | Encounter Summary ---
Author Organization [employer] Address 75 [facility] 7 [place] [address] Care Team Providers Care Pneumatic Tool Operator Name Role Phone Cathryn Cardoza MD Primary Care Pro vider Salinas Dhaliwal RN Unavailable [phone] Reason for Visit * Reason Onset Date Comments Appointment Request 02/09/2023 Encounter Details Date Type Department Care Team (Late st Contact Info) Description 02/09/2023 Telephone [facility] 230 [place] [address] Cathryn Cardoza MD 230 [place], [place] [phone] Appointment Request Social History Tobacco Use Types [...] like a call back to reschedule appt chief writer did cancel appt. documented in this encounter Plan of Treatment Upcoming Encounters Date Type Department Care Team (Late st Contact Info) Description 09/18/2024 9:45 AM EDT Office Visit [facility] [address] [place] [address] Cathryn Cardoza MD [address] [place] [address] [phone] documented as of this encounter Visit Diagnoses Not on filedocumented in this encounter Care Teams Pneumatic Tool Operator Relationship Specialty Start Date End Date Cathryn Cardoza MD [address] [place] [address] [phone] PCP - General Internal Medicine 09/08/22 Salinas Dhaliwal RN [address] [place] [address]14 Psychology TeacherImplement Mechanic 05/15/24 documented as of this encounter
--- OUTSIDE RECORDS SUMMARY | 2024-07-23 13:11 | XMS_ITS | Encounter Summary ---
Author Organization [employer] Address 75 [facility] 7 [place] [address] Care Team Providers Care Optomechanical Technician Name Role Phone Cathryn Cardoza MD Primary Care Pro vider Salinas Dhaliwal RN Unavailable [phone] Reason for Visit * Reason Onset Date Comments Appointment Request 02/23/2023 Encounter Details Date Type Department Care Team (Late st Contact Info) Description 02/23/2023 Telephone [facility] 230 [place] [address] Cathryn Cardoza MD 230 [place], [place] [phone] Appointment Request Social History Tobacco Use Types [...] calling to request a appt for DEPO mortgage or loan underwriter was going to schedule but was unable to due to a window period please call to schedule documented in this encounter Plan of Treatment Upcoming Encounters Date Type Department Care Team (Late st Contact Info) Description 09/18/2024 9:45 AM EDT Office Visit [facility] MED[facility]INE [address] [place] [address] Cathryn Cardoza MD [address] [place] [address] [phone] documented as of this encounter Visit Diagnoses Not on filedocumented in this encounter Care Teams Optomechanical Technician Relationship Specialty Start Date End Date Cathryn Cardoza MD [address] [place] [address] [phone] PCP - General Internal Medicine 09/08/22 Salinas Dhaliwal RN [address] [place] [phone] Lead TrainerSecurities And Real Estate Director 05/15/24 documented as of this encounter
--- OUTSIDE RECORDS SUMMARY | 2024-07-23 13:11 | XMS_ITS | Encounter Summary ---
Author Organization [employer] Address 75 [facility] 7t [place] [address] Care Team Providers Care Hydroelectric Plant Electrician Name Role Phone Cathryn Cardoza MD Primary Care Pro vider Salinas Dhaliwal RN Unavailable [phone] Reason for Visit * Reason Onset Date Comments Lab Order question 06/07/2024 Encounter Details Date Type Department Care Team (Late st Contact Info) Description 06/07/2024 Telephone [facility] MEDICINE 230 [place], [place] [phone] Cathryn Cardoza MD 230 [place], [place] [phone] Lab Order question Social History Tobacco Use [...] Description 09/18/2024 9:45 AM EDT Office Visit [facility] MEDICINE [address] [place] [address] Cathryn Cardoza MD 230 [place] [address] documented as of this encounter Visit Diagnoses Not on filedocumented in this encounter Additional Health Concerns Assessment Noted Time PHQ-9 Depression Total Score: 11 024 10:24 AM EST documented as of this encounter Care Teams Hydroelectric Plant Electrician Relationship Specialty Start Date End Date Cathryn Cardoza MD [address] [place] [address] PCP - General Internal Medicine 09/08/22 Salinas Dhaliwal RN [address] [place] [phone] Shearing SupervisorSightseeing Guide 05/15/24 documented as of this encounter
--- OUTSIDE RECORDS SUMMARY | 2024-07-23 13:11 | XMS_ITS | Encounter Summary ---
Author Organization [employer] Address [address] [facility] [address] 7[address] [place] [address] Care Team Providers Care Activities Leader Name Role Phone Yvonne Madrid ELECTRICAL TESTER BATTERY Primary Care Provider [phone] Cathryn Cardoza MD Primary Care Pro vider Salinas Dhaliwal RN Unavailable [phone] Reason for Visit * Reason Comments Med Refill Encounter Details Date Type Department Care Team (Late Contact Info) Description 05/01/2022 Refill [facility] MED & PEDS [address] [place], [place] [phone] Cassandra Guzman CNM [address] [place], [place] [phone] Encounter for other contraceptive management Social History [...] Upcoming Encounters Date Type Department Care Team ([facility] Contact Info) Description 09/18/2024 9:45 AM EDT Office Visit [facility] MEDICINE [address] [place] [address] [phone] Cathryn Cardoza MD [address] [place] [address] documented as of this encounter Visit Diagnoses Diagnosis Encounter for other contraceptive management documented in this encounter Care Teams Activities Leader Relationship Specialty Start Date End Date [place] Yvonne [facility] [address] [place] [address] PCP - General Family Medicine 08/25/21 09/07/22 Cathryn Cardoza MD [address] [place], [place] [phone] PCP - General Internal Medicine 09/08/22 Salinas Dhaliwal RN [address] [place] [address] [employer] Art TeacherCrossbow Maker 05/15/24 documented as of this encounter
--- OUTSIDE RECORDS SUMMARY | 2024-07-23 13:11 | XMS_ITS | Encounter Summary ---
Author Organization [employer] Address [address] [facility] 7t [place] [address] Care Team Providers Care Reed Repairer Name Role Phone Cathryn Cardoza MD Primary Care Pro vider Salinas Dhaliwal RN Unavailable [phone] Reason for Visit * Reason Onset Date Comments Nurse Triage 04/19/2024 Encounter Details Date Type Department Care Team (Late st Contact Info) Description 04/19/2024 Telephone [facility] MEDICINE [address] [place], [place] [phone] Cathryn Cardoza MD [address] [place], [place] [phone] Nurse Triage Social History Tobacco Use Types [...] is your housing situation today? I have carolcheryl lowe 06/09/[address] you [...] on site. She spoke with provider in [facility] in February 2024 abouta letter to remove rugs but never went to medical records. No letter on file. Advised her to go request letter tomorrow after appt. Explained [facility]TT[facility] bilingual medical receptionist nurse before appt. Pt verbalized understanding, no [...] never been confirmed by a doctor (or PROGRAM PROFESSIONAL/PA) * Nasal allergies occur only certain times [...] Description 09/18/2024 9:45 AM EDT Office Visit [facility] MEDICINE [address] [place] [phone] Cathryn Cardoza MD [address] [place] [address] documented as of this encounter Visit Diagnoses Not on filedocumented in this encounter Additional Health Concerns Assessment Noted Time PHQ-9 Depression Total Score: 11 024 10:24 AM EST documented as of this encounter Care Teams Reed Repairer Relationship Specialty Start Date End Date Cathryn Cardoza MD [address] [place] [phone] PCP - General Internal Medicine 09/08/22 Salinas Dhaliwal RN [address] [place] [address] Side Panel PadderFinancial Reporting Director 05/15/24 documented as of this encounter
--- OUTSIDE RECORDS SUMMARY | 2024-07-23 13:11 | XMS_ITS | Encounter Summary ---
Author Organization [employer] Address [address] [facility] 7 [place] [address] Care Team Providers Care Utility Bag Assembler Name Role Phone Cathryn Cardoza MD Primary Care Pro vider Salinas Dhaliwal RN Unavailable [phone] Reason for Visit * Reason Onset Date Comments chartprep 07/20/2024 Encounter Details Date Type Department Care Team (Late st Contact Info) Description 07/20/2024 Telephone [facility] MEDICINE [address] [place], [place] [phone] Cathryn Cardoza MD [address] [place], [place] [phone] chartprep Social History Tobacco Use Types Packs/Day Years [...] encounter Miscellaneous Notes * Telephone Encounter - Sarai Crespo [place] - 07/20/2024 11:55 AM EDT error documented in this encounter Plan of Treatment Upcoming Encounters Date Type Department Care Team (Late st Contact Info) Description 09/18/2024 9:45 AM EDT Office Visit [facility] MEDICINE [address] [place] [phone] Cathryn Cardoza MD [address] [place] [phone] documented as of this encounter Visit Diagnoses Not on filedocumented in this encounter Additional Health Concerns Assessment Noted Time PHQ-9 Depression Total Score: 11 024 10:24 AM EST documented as of this encounter Care Teams Utility Bag Assembler Relationship Specialty Start Date End Date Cathryn Cardoza MD [address] [place] [phone] PCP - General Internal Medicine 09/08/22 Salinas Dhaliwal RN [address] [place] [address] Field Artillery Operations SpecialistSheet Metal Shop Foreman 05/15/24 documented as of this encounter
--- OUTSIDE RECORDS SUMMARY | 2024-07-23 13:11 | XMS_ITS | Encounter Summary ---
Author Organization [employer] Address [address] [facility] 7t [place] [address] Care Team Providers Care Program Production Specialist Name Role Phone Yvonne Madrid PLANNING AIDE Primary Care Provider [phone] Cathryn Cardoza MD Primary Care Pro vider Salinas Dhaliwal RN Unavailable [phone] Encounter Details Date Type Department Care Team (Late st Contact Info) Description 04/30/2022 Orders Only [facility] MEDICINE [address] [place] [address] [phone] Shasha Mendiola RN [address] [place], [place] [phone] Social History Tobacco Use Types Packs/Day Years [...] Department Care Team (Late Contact Info) Description 09/18/2024 9:45 AM EDT Office Visit [facility] MEDICINE [address] [place] [address] [phone] Cathryn Cardoza MD [address] [place] [phone] documented as of this encounter Visit Diagnoses Not on filedocumented in this encounter Care Teams Program Production Specialist Relationship Specialty Start Date End Date Yvonne Madrid FNP [address] [place] [phone] PCP - General Family Medicine 08/25/21 09/07/22 Cathryn Cardoza MD [address] [place] [address] PCP - General Internal Medicine 09/08/22 Salinas Dhaliwal RN [address] [place] [address] Bat CarrierSap Business Intelligence Consultant 05/15/24 documented as of this encounter
--- OUTSIDE RECORDS SUMMARY | 2024-07-23 13:11 | XMS_ITS | Encounter Summary ---
Author Organization [employer] Address [address] [facility] [address] 7t [place] [address] Care Team Providers Care School Boat Driver Name Role Phone Cathryn Cardoza MD Primary Care Pro vider Salinas Dhaliwal RN Unavailable [phone] Reason for Visit * Reason Onset Date Comments Appointment 07/23/2024 Encounter Details Date Type Department Care Team (Late st Contact Info) Description 07/23/2024 Telephone [facility] MEDICINE [address] [place], [place] [phone] Cathryn Cardoza MD [address] [place], [place] [phone] Appointment Social History Tobacco Use Types Packs/Day Years [...] Telephone Encounter - Alexandra Lewis MA - 07/23/2024 9:33 AM EDT T/C- Senior Technical Writer called per Patient request to reschedule missed appointment. Senior Technical Writer offered an appointment coming up this week Patient is an able to come in for that day next available is September 18. Patient accepted. documented in this encounter Plan of Treatment Upcoming Encounters Date Type Department Care Team (Late st Contact Info) Description 09/18/2024 9:45 AM EDT Office Visit [facility] MEDICINE [address] [place] [phone] Cathryn Cardoza MD [address] [place] [address] documented as of this encounter Visit Diagnoses Not on filedocumented in this encounter Additional Health Concerns Assessment Noted Time PHQ-9 Depression Total Score: 11 024 10:24 AM EST documented as of this encounter Care Teams School Boat Driver Relationship Specialty Start Date End Date Cathryn Cardoza MD [address] [place] [phone] PCP - General Internal Medicine 09/08/22 Salinas Dhaliwal RN [address] [place] [phone] Senior Java EngineerManager Client Service 05/15/24 documented as of this encounter
--- OUTSIDE RECORDS SUMMARY | 2024-07-23 13:11 | XMS_ITS | Encounter Summary ---
Author Organization [employer] Address [address] [place] [address] Care Team Providers Care Slag Expander Name Role Phone Cathryn Cardoza MD Primary Care Pro vider Salinas Dhaliwal RN Unavailable [phone] Encounter Details Date Type Department Care Team (Late st Contact Info) Description 07/09/2024 Orders Only [facility] CHC MED & PEDS [address] [place] [address] Nadine Lizama Social History Tobacco Use Types Packs/Day Years [...] Description 09/18/2024 9:45 AM EDT Office Visit [facility] MEDICINE [address] [place] [phone] Cathryn Cardoza MD [address] [place] [address] documented as of this encounter Procedures Procedure Name Priority Date/Time Associated Diagnosis Comments HPV MRNA E6/E7 REFLEX TO HPV 16, 18/45 Routine 01/25/2024 12:00 AM EST documented in this encounter Results * HPV mRNA E6/E7 w/Reflex to HPV Genotypes 16, 18/45 (01/25/2024 12:00 AM EST) us Historical Provider LAB CYTOLOGY ORDERABLES F inal Result [facility] [address] [place] [address] [phone] documented in this encounter Visit Diagnoses Not on filedocumented in this encounter Additional Health Concerns Assessment Noted Time PHQ-9 Depression Total Score: 11 024 10:24 AM EST documented as of this encounter Care Teams Slag Expander Relationship Specialty Start Date End Date Cathryn Cardoza MD [address] [place] [address] [phone] PCP - General Internal Medicine 09/08/22 Salinas Dhaliwal RN [address] [place] [phone] Auto Body Shop ManagerAdministrative Director 05/15/24 documented as of this encounter
--- OUTSIDE RECORDS SUMMARY | 2024-07-23 13:11 | XMS_ITS | Clinical Summary ---
Author Organization [employer] Address [address] [place] [address] Care Team Providers Care Mental Tester Name Role Phone Cathryn Cardoza MD Primary Care Pro vider Sal[place] Dhaliwal RN Unavailable [phone] Allergies Active Allergy Reactions Criticality Noted Date Comments Sumatriptan Itching Low 01/30/2022 Medications * This document contains information received from the source organization and may not represent a complete record from that organization. albuterol (ProAir HFA) 108 (90 Base) MCG/ACT inhalerIndicatio ns:Shortness of breath Inhale 2 puffs every 4 (four) hours. 18 g 1 2 Active Spacer/Aero-Hold ing Chambers (BreatheRite Yanira Spacer Adult) miscIndications: Dysuria 1 Units if needed in the morning, at noon, in the evening, and at bedtime (wheezing). 1 each 2 Active valACYclovir (Valtrex) 500 MG tabletIndication s:Genital herpes simplex, unspecified site TAKE 1 TABLET BY MOUTH TWICE A DAY FOR 3 DAYS PER FLARE 12 tablet 1 4 Active Nebulizers misc 1 kit Every 4-6 hours as needed (for shortness of breath and wheezing). Accerlon nebulizer given to patient in walk in center 01/02/2024, education provided Active fluticasone (Flovent) 110 MCG/ACT inhaler Inhale 1 puff in the morning and at bedtime. Rinse mouth with water after use to reduce aftertaste and incidence of candidiasis. Do not swallow. 12 g 2 4 01/13/20 25 Active Mometasone Furoate (Asmanex HFA) 100 MCG/ACT aerosolIndicatio ns:Moderate asthma with acute exacerbation, unspecified whether persistent Inhale 1 Act (100 mcg) 2 times daily. 13 g 3 4 Active albuterol (2.5 MG/3ML) 0.083% nebulizer solutionIndicati ons:Dysuria INHALE 1 AMPULE USING A NEBULIZER EVERY 4 HOURS NEEDED FOR WHEEZING 90 mL 1 4 Active fluticasone (Veramyst) 27.5 MCG/SPRAY nasal sprayIndications :Allergic Rhinitis,Seasona l Allergic Rhinitis Administer 2 sprays into each nostril Once per day. Active loratadine (Claritin) 10 MG tabletIndication s:Rhinorrhea,Sea rosibel Allergic Rhinitis,Sneezin g Take 10 mg by mouth Once per day. Active 28-0.8 MG tabletIndication s:Less than 8 weeks gestation of Take 1 tablet by mouth Once per day. 90 tablet 3 5 06/07/19 26 Active Active Problems Problem Noted Date Diagnosed [...] Services needed PCP management Off-site services for BH. Referral for OP individual therapy will be [...] Encounters Date Type Department Care Team Description 07/23/[address] [facility] [address] [place] [phone] Cathryn Cardoza MD Appointment 07/20/[address] [address] Cathryn Cardoza MD chartprep 07/16/[address] [address] Cathryn Cardoza MD Care Management (C3CM- f/u call) 07/09/[address] [facility] PEDS [address] [place], [place] [phone] Nadine Lizama 07/05/[address] [facility] [address] [place] [phone] Cathryn Cardoza MD Appointment 07/04/[address] [address] Cathryn Cardoza MD Care Management (C3CM- f/u call) 06/20/[address] [facility] [address] [place] [phone] Cathryn Cardoza MD Care Coordination (SDOH) 06/20/[address] [facility] [address] [place] [phone] Cathryn Cardoza MD Care Management (C3CM- f/u call) 06/19/2024 10:00 AM EDT Nutrition [facility] DIABETES/NUTRITION [address] [place] [phone] Underweight 06/19/2024 Travel 06/18/[address] [facility] [address] [place] [phone] Ubaldo Alejandro MD 06/12/[address] [address] Cathryn Cardoza MD chart prep 06/11/[address] [address] Cathryn Cardoza MD Care Management (C3- f/u call) 06/11/2024 Patient Outreach [address] [address] Cathryn Cardoza MD Pre-visit Planning (SDOH screening was completed on 05/15/2024) 06/07/[address] [facility] [address] [address] Savannah Phipps RN plan of care 06/07/[address] [address] Cathryn Cardoza MD Lab Order question 06/06/2024 10:00 AM EDT Office Visit [facility] [address] [address] Daniela Worthy, [employer] SPECIALIST Less than 8 weeks gestation of (Primary Dx); Nausea 06/06/2024 Travel 05/25/[address] [address] Cathryn Cardoza MD Care Management ([facility]- 1st f/u call lvm) 05/25/2024 Patient Outreach [address] [address] Cathryn Cardoza MD Care Coordination (SDOH outreach) 05/25/[address] [address] Cathryn Cardoza MD 05/25/2024 Population Health Risk Score [facility] ([facility] [address] [phone] Provider, Population Health Generic 05/15/[address] [facility] [address] [place] [phone] Cathryn Cardoza MD Care Coordination (SDOH) 05/15/[address] [address] Cathryn Cardoza MD Care Management (C3- initial assessment/ enrollment) 05/14/2024 Patient Outreach [address] [address] Cathryn Cardoza MD Care Coordination (CM/CHW appt reminder) 05/02/2024 Patient Outreach [address] [address] Cathryn Cardoza MD Care Coordination (CM/CHW outreach) 05/01/[address] [address] Cathryn Cardoza MD Care Management ([facility]- chart review) 04/28/2024 Orders Only [facility] External Provider, [facility] from Last 3 Months Immunizations Name Administration Dates Next Due DTaP 08/12/1998, 6,1994,05/12,1994 HPV, Quadrivalent 08/07/2008,05/06/2008,08/03/19 08 Hep B, Adolescent or Pediatric 1994,1994,1994 Hep B, adult 12/12/2023,07/07/2023,06/09/2023 Hib (HbOC) 04/14/1995, 5,1994,03/14 IPV 08/12/1998, 5,1994,03/14 Influenza injectable [...] EDT Inhaled Oxygen Concentration - - Weight 49.7 kg (109 lb 9.6 oz) 06/19/2024 12:36 PM EDT Height 154.9 cm (5' 1 ) 06/19/2024 12:36 PM EDT Body Mass Index 20.71 06/19/2024 12:36 PM EDT Plan of Treatment Upcoming Encounters Date Type Department Care Team (Late st Contact Info) Description 09/18/2024 9:45 AM EDT Office Visit [facility] [address] [place] [address] [phone] Cathryn Cardoza MD [address], [place] [phone] Health Maintenance Due Date Last Done Comments Alcohol/Substance Use Screening 2006 Pneumococcal Vaccine: Pediatrics (0 to 5 Years) and At-Risk Patients (6 to 49) Years) (1 of 2 - PCV) 2013 COVID-19 Vaccine (1 - season) 2023 Influenza Vaccine (#1) 2023 , 02/28/2015, 03/26/2014, Additional history exists Depression Screening 03/24/2024 03/24/2023, 03/24/19 24 Family Planning (PISQ) 01/24/2025 01/25/2024 Tobacco Screening 02/26/2025 02/27/2024 DTaP/Tdap/Td Vaccines (8 - Td or Tdap) 02/28/2025 02/28/2015, 08/05/2005, 08/12/1998, Additional history exists SDOH Screening 05/15/2025 05/15/2024 Cervical Cancer Screening 01/24/2029 HPV/Cotest 01/24/2029 01/25/2024, 12/24/2020 Pap Smear 01/24/2029 01/25/2024, 12/24/2020 Zoster [...] 01/25/2024 9:58 AM EST Routine cervical smear HPV MRNA E6/E7 REFLEX TO HPV 16, 18/45 Routine 01/25/2024 12:00 AM EST HEPATITIS C AB W/REFL TO HCV RNA, QN, PCR Routine 01/13/2024 2:35 PM EDT Weight loss HIV 1/2 ANTIGEN/ANTIBODY, FOURTH GENERATION W/RFL Routine 01/13/2024 2:35 PM EDT Weight loss from Last 3 Months or Most Recently Relevant to Health Maintenance Results * hCG, Total, Quantitative (06/07/2024 1:45 PM EDT) Only the most recent of2 resultswithin the time period is included. HCG Quantitative 166 mIU/mL [facility] Comment:Weeks post LMP Appr oximate hCG(Last Menstrual Period) Range (mIU/ml)3 - 4 weeks 9 - 1304 - 5 weeks 75 - 2,6005 - 6 weeks 850 - 20,8006 - 7 weeks 4000 - 100,2007 - 12 weeks 11,500 - 289,12330 - 16 weeks 18,300 - 137,17186 - 29 weeks (2nd trimester) 1,400 - 53,23031 - 41 weeks (3rd trimester) 940 - [...] 06/07/2024 3:55 PM EDT us Daniela Worthy [employer] SPECIALIST LAB BLOOD ORDERABLES Final Res ult Performing Organization Address [facility]/ZIP Co de Phone Number [facility] [address] [place] [phone] * Influenza B (ID NOW Rapid Molecular) (06/06/2024 10:08 AM EDT) Influenza B Negative Negative, Indeterminate [facility] Swab 06/06/2024 10:0 8 AM EDT us Daniela Worthy [employer] SPECIALIST POINT OF CARE TEST ENTER/EDIT ORDERABLES Final Result Performing Organization Address [facility] Co de Phone Number [facility] [address] [place] [phone] * Influenza A (ID NOW Rapid Molecular) (06/06/2024 10:08 AM EDT) Influenza A Negative Negative, Indeterminate [facility] Swab 06/06/2024 10:0 8 AM EDT Daniela Worthy [employer] SPECIALIST POINT OF CARE TEST ENTER/EDIT ORDERABLES Final Result Performing Organization Address [facility] Co de Phone Number [facility] [address] [place] [phone] * POCT Rapid COVID Ag (06/06/2024 10:05 AM EDT) [facility] Rapid COVID Ag Negative Swab 06/06/2024 10:0 5 AM EDT us Daniela Worthy [employer] SPECIALIST POINT OF CARE TEST ENTER/EDIT ORDERABLES Final Result * (ABNORMAL) POCT , urine manually resulted (06/06/2024 10:05 AM EDT) [facility] Preg Test, Ur Positive( A) Negative, Indeterminate, None Detected, Invalid, Specimen unsatisfactory for evaluation, Weakly Positive Urine 06/06/2024 10:0 5 AM EDT us Daniela Worthy [employer] SPECIALIST POINT OF CARE TEST ENTER/EDIT ORDERABLES Final Result * XR Tibia Fibula 2 Views Right (04/28/2024 2:14 PM EST) Anatomical Region Laterality Modality Lower Extremities, Lower Leg Right Rad iographic Imaging 04/28/2024 2:14 PM EST Narrative 04/28/2024 2:15 PM EST ? [facility] ?[address] ?[place] [address] ?XRay Report ? Signed ? Patient: Aixa Jacobsana ?MR#: ?? [id number] ? : 1995 ?Acct:[id number] ? Age/Sex: 29 / F ?ADM Date: 04/28/24 ? Loc: HO.ED ? Attending Dr: ? Ordering Physician: Vandana Campbell ?? Date of Service: 04/28/24 ?? Procedure(s): XR tibia fibula RT 2V ?? Accession Number(s): [id number] ? cc: Cathryn Coronel MD; Vandana Campbell [...] MD in OV> ? 04/28/241413 ? DD/ ? TD/TT: 04/28/24 1414 ? Parking Garage Manager: ? Procedure Note Donhildater, Image - 04/28/[address] [address] XRay Report Signed Patient: Nafisa JacobsMR#: [id number] : 1995Acct:[id number] Age/Sex: 29 FADM Date: 04/28/24 Loc: HO.ED Attending Dr: Ordering Physician: Vandana Campbell Date of Service: 04/28/24 Procedure(s): XR tibia fibula RT 2V Accession Number(s): [id number] cc: Cathryn Coronel MD; Vandana Campbell CLINICAL [...] by Ayaan Ivory MD in OV> 04/28/24 141 DD/ 13 TD/TT: 04/28/241413 Parking Garage Manager: [facility] External Provider IMG XR PROCEDURES Edited Result - Final * CT Head w/o Contrast (04/28/2024 1:29 PM EST) Anatomical Region Laterality Modality Head, Neck Computed Tomogra phy 04/28/2024 1:29 PM EST Narrative 04/28/2024 1:30 PM EST ? [facility] ?[address] ?[place] [address] ? CT Scan Report ? Signed ? Patient: Galeana New,Nafisa ?MR#: ?? [id number] ? : 1995 ?Acct:[id number] ? Age/Sex: 29 / F ?ADM Date: 04/28/24 ? Loc: HO.ED ? Attending Dr: ? Ordering Physician: Vandana Campbell ?? Date of Service: 04/28/24 ?? Procedure(s): CT head/brain wo IV con ?? Accession Number(s): [id number] ? cc: Cathryn Coronel MD; Vandana Campbell ? Report Number: ?? [id number]: Total DLP = ??560.00 mGy-cm ? CLINICAL [...] DD/ 1329 ? TD/TT: 04/28/24 1329 ? Parking Garage Manager: ? Procedure Note Kylah Foster - 04/28/[address] [address] [address] Scan Report Signed Patient: Aixa Jacobsparamjit#: [id number] : 1995Acct:[id number] Age/Sex: 29 / FADM Date: 04/28/24 Loc: HO.ED Attending Dr: Ordering Physician: Vandana Campbell Date of Service: 04/28/24 Procedure(s): CT head/brain wo IV con Accession Number(s): [id number] cc: Cathryn Coronel MD; Vandana Campbell Report Number: [id number]: Total DLP = 560.00 mGy-cm CLINICAL HISTORY: [...] 04/28/24 1329 DD/ 1329 TD/TT: 04/28/24 132 Parking Garage Manager: [facility] External Provider IMG CT PROCEDURES Edited Result - Final * CT Cervical Spine w/o Contrast (04/28/2024 12:56 PM EST) Anatomical Region Laterality Modality Spine, C-spine Computed Tomogra phy 04/28/2024 12:5 6 PM EST Narrative 04/28/2024 12:58 PM EST ? [facility] ?[address] ?[place] [address] ? CT Scan Report ? Signed ? Patient: Nafisa Jacobs ?MR#: ?? [id number] ? : 1995 ?Acct:[id number] ? Age/Sex: 29 / F ?ADM Date: 04/28/ ? Loc: HO.ED ? Attending Dr: ? Ordering Physician: Vandana Campbell ?? Date of Service: 04/28/24 ?? Procedure(s): CT cervical spine wo IV con ?? Accession Number(s): [id number] ? cc: Cathryn Coronel MD; Vandana Campbell ? Report Number: ?? [id number]: Total DLP = ??261.00 mGy-cm ? CLINICAL [...] DD/ 1256 ? TD/TT: 04/28/24 1256 ? Parking Garage Manager: ? Procedure Note Idaniater, Image - 04/28/[address] [place] [address] [address] Scan Report Signed Patient: Nafisa JacobsMR#: [id number] : 1995Acct:[id number] Age/Sex: Date: 04/28/24 Loc: HO.ED Attending Dr: Ordering Physician: Vandana Campbell Date of Service: 04/28/24 Procedure(s): CT cervical spine wo IV con Accession Number(s): [id number] cc: Cathryn Coronel MD; Vandana Campbell Report Number: [id number]: Total DLP = 261.00 mGy-cm CLINICAL HISTORY: [...] 04/28/24 1257 DD/ 1256 TD/TT: 04/28/24 1256 Parking Garage Manager: us [facility] External Provider IMG CT PROCEDURES Edited Result - Final * CT Sinus Facial Bones w/o Contrast (04/28/2024 12:54 PM EST) Anatomical Region Laterality Modality Computed Tomogra phy 04/28/2024 12:5 4 PM EST Narrative 04/28/2024 12:55 PM EST ? [facility] ?[address] ?[place] [address] ? CT Scan Report ? Signed ? Patient: Nafisa Jacobs ?MR#: ?? [id number] ? : 1995 ?Acct:[id number] ? Age/Sex: 29 / F ?ADM Date: 04/28/24 ? Loc: HO.ED ? Attending Dr: ? Ordering Physician: Vandana Campbell ?? Date of Service: 04/28/24 ?? Procedure(s): CT facial bones wo IV con ?? Accession Number(s): [id number] ? cc: Cathryn Coronel MD; Vandana Campbell ? Report Number: ?? [id number]: Total DLP = ??194.00 mGy-cm ? CLINICAL [...] by Ayaan Ivory MD in OV> ? 04/28/241253 ? DD/ 53 ? TD/TT: 04/28/241253 ? Parking Garage Manager: ? Procedure Note Donotuseinterpreter, Image - 04/28/[address] [address] [address] Scan Report Signed Patient: Nafisa JacobsMR#: [id number] : 1995Acct:[id number] Age/Sex: 29 FADM Date: 04/28/24 Loc: HO.ED Attending Dr: Ordering Physician: Vandana Campbell Date of Service: 04/28/24 Procedure(s): CT facial bones wo IV con Accession Number(s): [id number] cc: Cathryn Coronel MD; Vandana Campbell Report Number: [id number]: Total DLP = 194.00 mGy-cm CLINICAL HISTORY: [...] 04/28/24 1254 DD/ 1254 TD/TT: 04/28/24 1254 Parking Garage Manager: [facility] External Provider IMG CT PROCEDURES Edited Result - Final * XR Fingers 2+ Views Right (04/28/2024 12:29 PM EST) Anatomical Region Laterality Modality Upper Extremities, Fingers Right Radio graphic Imaging 04/28/2024 12:2 9 PM EST Narrative 04/28/2024 12:31 PM EST ? [facility] ?[address] ?[place] [address] ?XRay Report ? Signed ? Patient: Galeana New,Nafisa ?MR#: ?? [id number] ? : 1995 ?Acct:[id number] ? Age/Sex: 29 / F ?ADM Date: 04/28/24 ? Loc: HO.ED ? Attending Dr: ? Ordering Physician: Vandana Campbell ?? Date of Service: 04/28/24 ?? Procedure(s): XR finger RT min 2V ?? Accession Number(s): [id number] ? cc: Cathryn Coronel MD; Vandana Campbell [...] DD/ 1229 ? TD/TT: 04/28/24 1229 ? Parking Garage Manager: ? Procedure Note Donjareth, Image - 04/28/[address] [address] XRay Report Signed Patient: Nafisa JacobsMR#: [id number] : 1995Acct:[id number] Age/Sex: 29 / FADM Date: 04/28/24 Loc: HO.ED Attending Dr: Ordering Physician: Vandana Campbell Date of Service: 04/28/24 Procedure(s): XR finger RT min 2V Accession Number(s): [id number] cc: Cathryn Coronel MD; Vandana Campbell CLINICAL [...] 04/28/24 1230 DD/ 1229 TD/TT: 04/28/24 1229 Parking Garage Manager: us [facility] External Provider IMG XR PROCEDURES Edited Result - Final * XR Foot 3+ Views Right (04/28/2024 12:28 PM EST) Anatomical Region Laterality Modality Lower Extremities, Foot Right Radiogra phic Imaging 04/28/2024 12:2 8 PM EST Narrative 04/28/2024 12:29 PM EST ? [facility] ?[address] ?[place] [address] ?XRay Report ? Signed ? Patient: Aixa Jacobsana ?MR#: ?? [id number] ? : 1995 ?Acct:[id number] ? Age/Sex: 29 / F ?ADM Date: 04/28/24 ? Loc: HO.ED ? Attending Dr: ? Ordering Physician: Vandana Campbell ?? Date of Service: 04/28/24 ?? Procedure(s): XR foot RT min 3V ?? Accession Number(s): [id number] ? cc: Cathryn Coronel MD; Vandana Campbell [...] DD/ 1228 ? TD/TT: 04/28/24 1228 ? Parking Garage Manager: ? Procedure Note Donotuseinterpreter, Image - 04/28/[address] [address] XRay Report Signed Patient: Nafisa JacobsMR#: [id number] : 1995Acct:[id number] Age/Sex: 29 / FADM Date: 04/28/24 Loc: HO.ED Attending Dr: Ordering Physician: Vandana Campbell Date of Service: 04/28/24 Procedure(s): XR foot RT min 3V Accession Number(s): [id number] cc: Cathryn Coronel MD; Vandana Campbell CLINICAL [...] 04/28/24 1228 DD/ 1228 TD/TT: 04/28/24 1228 Parking Garage Manager: [facility] External Provider IMG XR PROCEDURES Edited Result - Final * Pap Smear (01/25/2024 9:58 AM EST) Swab Cervix uteri structure / Unknown 01/25/2024 9:58 AM EST 01/26/2024 9:30 AM EST [facility] - 01/30/2024 10:24 AM EST ----- ------- Name: Nafisa Jacobs ?Age/Sex: 29/F ? : 1995 Unit#: [id number] ?? Attend Dr: ?Re01/25/24 ?Status: PRE REF ? Location: HO.LNP ?Disch: ? ----- ------- SPEC : [id number] ?RECD: 01/26/24 ? STATUS: ??SOUT ? REQ NUM: [id number] ? YANIRA: 01/25/24 ? SUBM DR: RUTH [...] ----- ------- Signed (signature on file) LAURENT Alxe (ASCP) 01/30/24 1024 ? ----- ------- ? END OF REPORT ? us Ruth MULLEN LAB CYTOLOGY ORDERABLES F inal Result [facility] [address] [place] [address] [phone] * HPV mRNA E6/E7 w/Reflex to HPV Genotypes 16, 18/45 (01/25/2024 12:00 AM EST) us Historical Provider MD LAB CYTOLOGY ORDERABLES F inal Result Performing Organization Address [facility]/ZIP Co de Phone Number [facility] [address] [place] [address] [phone] * Hepatitis C Antibody with Reflex to HCV, RNA, Quantitative, Real-Time PCR (01/13/2024 2:35 PM EDT) Hepatitis C Antibody Nonreactive Nonreactive [facility] Comment:Antibodies to HCV no t detected; does not exclude early acuteHCV infection. Blood Venous blood specimen / Unknown 01/13/2024 2:35 PM EDT 01/13/2024 4:32 PM EDT Cathryn Zhou MD LAB BLOOD ORDERAB LES Final Result Performing Organization Address [facility] Co de Phone Number [facility] [address] [place] [phone] * HIV-1/2 Antigen and Antibodies, Fourth Generation, with Reflexes (01/13/2024 2:35 PM EDT) HIV AB/AG Nonreactive Nonreactive [facility] Comment:HIV-1 p24 Ag and/or HIV-1/HIV-2 Ab not detected.A test result that is nonreactive does not exclude thepossibility of exposure to or infection with HIV-1 and/orHIV-2. Nonreactive results in this assay for individualswith prior exposure to HIV-1 and/or HIV-2 may be due toantigen and antibody levels that are below the limit ofdetection of this assay.The [facility] HIV Ag/Ab Combo assay result andsupplemental assay results should be interpreted inconjunction with the patient's clinical presentation,history and other laboratory results. If the results areinconsistent with clinical evidence, additional testing issuggested to confirm the result. Blood Venous blood specimen / Unknown 01/13/2024 2:35 PM EDT 01/13/2024 4:32 PM EDT us Cathryn Zhou MD LAB BLOOD ORDERAB LES Final Result [facility] [address] [place] [address] [phone] from Last 3 Months or Most Recently Relevant to Health Maintenance Insurance [facility] [employer] Care Teams Mental Tester Relationship Specialty Start Date End Date Cathryn Cardoza MD [address] [place] [address] PCP - General Internal Medicine 09/08/22 [place] Dhaliwal, AMELIA [address] [place] [address] Graphic TechnicianFamily Resource Coordinator 05/15/24
== END 2024-07-23 13:23 | disposition home or self-care (01) ==
LOC: HO.HOS 12:53
PROVIDERS: Visit Provider Physician Assistant
DX: S82.891D Other fracture of right lower leg, subsequent encounter for closed fracture with routine healing (principal)
CPT/HCPCS: 99213

== ENCOUNTER → 2024-07-23 12:55 | Outpatient (BNV) | payer MEDICAID, SELFPAY | PROVIDERS: Visit Provider Radiology Diagnostic Radiology | DX: S82.831D Other fracture of upper and lower end of right fibula, subsequent encounter for closed fracture with routine healing (principal) | CPT/HCPCS: 73610 ==

== ENCOUNTER 2024-08-22 11:25 | Outpatient (REF) | payer MEDICAID, SELFPAY ==
--- OUTSIDE RECORDS SUMMARY | 2024-08-22 13:10 | XMS_ITS | Clinical Summary ---
Author Organization [facility] ity Address [address] [place] [address] Care Team Providers Care Director Ambulatory Name Role Phone Unavailable Primary Care Provider [...]
== END 2024-08-22 11:26 | disposition home or self-care (01) ==
LOC: HO.HHCLNP 11:25
PROVIDERS: Visit Provider Family Medicine
DX: J06.9 Acute upper respiratory infection, unspecified (principal)
CPT/HCPCS: 87070

== ENCOUNTER 2024-09-13 13:02 | Outpatient (REF) | payer MEDICAID, SELFPAY ==
--- NOTE | ~2024-09-13 | XR_ITS ---
EXAMINATION: XR ANKLE, RIGHT CLINICAL INFORMATION: M25.571 - Pain in right ankle and joints of right foot COMPARISON: None available. TECHNIQUE: AP, lateral, and mortise views of the right ankle. FINDINGS: No fracture. Alignment is anatomic. No erosions. Joint spaces are maintained. Soft tissues are normal. XR/XR ankle RT min 3V IMPRESSION: Unremarkable right ankle Electronically signed by: Flakito Goldberg MD 09/13/2024 01:38 PM EDT
--- OUTSIDE RECORDS SUMMARY | 2024-09-13 13:06 | XMS_ITS | Clinical Summary ---
Author Organization [facility] ity Address [address] [place] [address] Care Team Providers Care Senior C Software Engineer Name Role Phone Unavailable Primary Care Provider [...]
--- OUTSIDE RECORDS SUMMARY | 2024-09-13 13:06 | XMS_ITS | Encounter Summary ---
Author Organization [employer] Address [address] [facility] 7 [place] [address] Care Team Providers Care Motion Picture Narrator Name Role Phone Cathryn Cardoza MD Primary Care Pro vider Salinas Dhaliwal RN Unavailable [phone] Reason for Visit * Reason Onset Date Comments Appointment Request 02/09/2023 Encounter Details Date Type Department Care Team (Late st Contact Info) Description 02/09/2023 Telephone [facility] MEDICINE [address] [place], [place] [phone] Cathryn Cardoza MD [address] [place], [place] [phone] Appointment Request Social History Tobacco Use Types [...] like a call back to reschedule appt data analyst report writer did cancel appt. documented in this encounter Plan of Treatment Upcoming Encounters Date Type Department Care Team (Late st Contact Info) Description 09/18/2024 9:45 AM EDT Office Visit [facility] MEDICINE [address] [place] [address] Cathryn Cardoza MD [address] [place] [address] [phone] documented as of this encounter Visit Diagnoses Not on filedocumented in this encounter Care Teams Motion Picture Narrator Relationship Specialty Start Date End Date Cathryn Carodza MD [address] [place] [address] [phone] PCP - General Internal Medicine 09/08/22 Salinas Dhaliwal RN [address] [place] [phone] Manager ClientMotorcycle Repair Shop Supervisor 05/15/24 08/14/24 documented as of this encounter
== END 2024-09-13 13:03 | disposition home or self-care (01) ==
LOC: HO.HOSX 13:02
DX: S93.401A Sprain of unspecified ligament of right ankle, initial encounter (principal); S82.891D Other fracture of right lower leg, subsequent encounter for closed fracture with routine healing; X50.1XXA Overexertion from prolonged static or awkward postures, initial encounter; Y93.01 Activity, walking, marching and hiking; Y92.89 Other specified places as the place of occurrence of the external cause; Y99.8 Other external cause status
CPT/HCPCS: 73610; 99212

== ENCOUNTER 2024-09-13 13:22 | Outpatient (AMB) | payer MEDICAID, SELFPAY ==
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
== END 2024-09-13 14:14 | disposition home or self-care (01) ==
LOC: HO.HOS 13:23
DX: S82.891D Other fracture of right lower leg, subsequent encounter for closed fracture with routine healing (principal); S93.401A Sprain of unspecified ligament of right ankle, initial encounter
CPT/HCPCS: 99213

== ENCOUNTER → 2024-09-13 13:25 | Outpatient (BNV) | payer MEDICAID, SELFPAY | PROVIDERS: Visit Provider Radiology Diagnostic Radiology | DX: M25.571 Pain in right ankle and joints of right foot (principal) | CPT/HCPCS: 73610 ==

== ENCOUNTER 2024-10-13 05:12 | Emergency (ER) | payer MEDICAID, SELFPAY ==
[2024-10-13 05:16] VITALS: BP 110/69; PULSE 107; RESP 20; TEMP 36.6; O2SAT 97; BMI 19.8
--- OUTSIDE RECORDS SUMMARY | 2024-10-13 05:27 | XMS_ITS | Clinical Summary ---
Author Organization [facility] ity Address [address] [place] [address] Care Team Providers Care Passenger Car Cleaning Supervisor Name Role Phone Unavailable Primary Care Provider [...] Cervical Cancer Screening: P ap Smear 2015 HIV Screening 02/14/2022 Hepatitis C Screening 02/14/2022 Social Influencers of Health Screening 02/14/2022 COVID-19 Vaccine ( - 2023-2 5 season) 2023 Depression Screening 03/14/2024 Influenza Vaccine (#1) 2024 HIB Vaccines Aged Out No longer [...] 5 Years) and At-Risk Patients (6 to 49 Years) Aged Out No longer eligible b ased on patient's age to complete this topic RSV Immunization Patients Un linda 20 months Aged Out No longer eligible b ased on patient's age to complete this topic Varicella Vaccines Aged Out No longer eligible based on patient's age to complete this topic
--- NOTE | 2024-10-13 05:41 | ED_ITS ---
HPI - Allergic Reaction General Chief complaint: Allergic Reaction Stated complaint: allergic reaction from lubricate - diff breathing Time Seen by Provider: 10/13/24 05:37 Source: patient Mode of arrival: ambulatory Limitations: no limitations History of Present Illness ED Provider: Dr. Yelena Li HPI narrative: patient comes to the emergency room complaining of hives. Patient states that earlier today she applied a new lubricant to the genital area a proximally 10 minutes prior to arrival to the emergency room. Patient states that she has never used this kind of lubricant before, patient states that she started having hives in the lower extremities and then jumped up to the upper extremities and she feels that her eyelids are getting a bit puffy. Denies any difficulty br eathing. Patient took 25 mg of Benadryl prior to arrival. Related Data Home Medications ?Medication ?Instructions ?Recorded ?Confirmed ibuprofen 600 mg tablet 600 mg PO Q8H PRN 09/13/24 Allergies Allergy/AdvReac Type Severity Reaction Status Date / Time latex (LATEX) Allergy Severe Hives Verified 10/13/24 05:18 sumatriptan (From IMITREX) Allergy Mild FAINTED, Verified 10/13/24 05:18 EYES ROLLED BACK, SOB Review of Systems Review of Systems: Constitutional : No Weight loss, No Fever, No Chills, No Night Sweats, No Fatigue, No Malaise ENT/Mouth : No Hearing loss, No Ear Pain, No Nasal Congestion, No Sinus Pain, No Hoarseness, No sore throat, No Rhinorrhea, No Swallowing Difficulty Eyes: No Eye Pain, No Swelling, No Redness, No Foreign Body, No Discharge, No Vision Changes Cardiovascular : No Chest Pain, No SOB, No Dyspnea on Exertion, No Orthopnea, No Edema, No Palpitations Respiratory : No Cough, No Sputum, No Wheezing, No Smoke Exposure, No Dyspnea Gastrointestinal : No Nausea, No Vomiting, No Diarrhea, No Constipation, No abdominal Pain, No Hematochezia, No Melena Genitourinary : no irregular bleeding, No Dysuria, No Urinary Frequency, No Hematuria, No Urinary Incontinence, No Urgency, No Flank Pain, No Urinary Flow Changes, No Hesitancy Musculoskeletal : No joint pain, No Myalgias, No Joint Swelling Skin : Complaining of hives secondary to using a lubricant Neuro : No Weakness, No Numbness, No Paresthesias, No Loss of Consciousness, No Dizziness, No Headache Psych : No Anxiety/Panic, No Depression, No SI/HI/AH/VH, No Social Issues, Heme/Lymph: No Bruising, No Bleeding,No Lymphadenopathy Endocrine : No Polyuria, No Polydipsia, No Temperature Intolerance [facility] Past Medical History Medical History Kidney stone Vomiting Chronic idiopathic constipation Abdominal discomfort Renal calculi Asthma Surgical History Hx of hand surgery History of endoscopy H/O: Hx of appendectomy Family History Family History Maternal Grandmother Diabetes Father Lymphoma Paternal Aunt Crohn disease Paternal Aunt Ovarian cancer Social History Social History (Updated 09/13/24 @ 13:58 by LUZ Almaguer) Household Members: Family Housing: Apartment Do you presently have visiting nurse or other home services: No Alcohol intake: current Alcohol intake frequency: holidays/special occasions only Patient Tobacco Use Status: Never used Tobacco Smoked in Last 30 Days: No Use of substances other than those prescribed or required for medical reasons: No Substance Use Type: Marijuana Advance Directives: No Advance Directives Information Provided: No Do you have a plan to hurt others: No Plan Patient : No service: No Current occupational status: employed 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 Oriented X3. No acute distress. Eyes: Pupils equal, round and reactive to light. ENT: Pharynx normal. upright it is slightly edematous, patient is able to fully open her eyes Neck: Normal inspection. Neck supple. No lymph nodes noted. No crepitus CVS: Normal heart rate and rhythm. Pulses normal. Normal S1 and S2 Respiratory: No respiratory distress. Breath sounds normal. No Wheezing. No rales Abdomen: Soft and nontender. No rigidity. No distention. : Mildly swollen labia majora Skin: Skin warm and dry. Normal skin color. Normal skin turgor. patient has hives in lower extremities in the thighs and in the upper extremities in the forearms Extremities: No lower extremity edema. No Lacerations. No Rash Neuro: Oriented X 3. No motor deficit. No sensory deficit. Moving all extremities. No slurred speech. CN 2 through 12 grossly intact Psych: calm, cooperative, normal affect Vital Signs: Vital Signs - 24 hr 10/13/24 05:16 10/13/24 06:33 Temperature 98 F 98.1 F Pulse Rate 107 H 80 Respiratory Rate 20 16 Blood Pressure 110/69 111/81 Pulse Oximetry 97 99 Oxygen Delivery Method Room Air Room Air BMI result Body Mass Index 19.8 Course Course Course Narrative: patient reports an allergic reaction to a lubricant. Complaining of hives, no airway compromise patient receiving IV fluids, IV diphenhydramine, famotidine and methylprednisolone Medications Administered Discontinued Medications Generic Name Dose Route Start Last Admin Trade Name Freq PRN Reason Stop Dose Admin Diphenhydramine HCl 50 mg 10/13/24 05:41 10/13/24 05:51 Diphenhydramine Hcl 50 Mg/Ml Vial IVPUSH 10/13/24 05:42 50 mg ONCE ONE Administration Famotidine 20 mg 10/13/24 05:41 10/13/24 05:51 Famotidine/Pf 20 Mg/2 Ml Vial IVPUSH 10/13/24 05:42 20 mg ONCE ONE Administration Sodium Chloride 1,000 mls @ 999 mls/hr 10/13/24 05:41 10/13/24 08:14 Ns IVCONT 10/13/24 06:41 Infused .Q1H1M ONE Infusion Methylprednisolone Sodium Succinate 125 mg 10/13/24 05:41 10/13/24 05:51 Methylprednisolone Sod Succ 125 Mg/2 Ml Vial IVPUSH 10/13/24 05:42 125 mg ONCE ONE Administration Medical Decision Making Medical Decision Making [facility] Narrative: with the above-mentioned medication, all of patient's symptoms improved and resolved patient no longer has hives, no angioedema, no airway compromise, vitals stable Differential Diagnosis Differential Diagnoses: The differential diagnosis associated with the presentation includes ( anaphylaxis, allergic reaction, hypersensitivity reaction) Admission/Observation Consideration of admission/observation: Escalation of care including admission/observation considered ( given patient's initial presentation, observation was considered) Critical Care Time Critical Care Time Critical Care Time: Yes Total Critical Care Time: 45 Attestation: I have personally provided critical care time. Time includes review of lab data, radiology results, discussion with consultants, and monitoring for potential decompensation. Intervention performed as documented. Discharge Plan Discharge Clinical Impression: Allergic reaction Patient Disposition: Home, Self-Care Instructions: General Allergic Reaction (ED) Additional Instructions: Please follow-up with your primary care physician tomorrow. If you have any worsening or new symptoms, please return to the emergency room or call 911 Prescriptions: No Action ibuprofen 600 mg tablet 600 mg PO Q8H PRN Print Language: Tamazight
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
[2024-10-13 06:33] VITALS: BP 111/81; PULSE 80; RESP 16; TEMP 36.7; O2SAT 99
[2024-10-13 08:49] VITALS: BP 111/81; PULSE 80; RESP 16; TEMP 36.7; O2SAT 99
== END 2024-10-13 08:50 | disposition home or self-care (01) ==
PROVIDERS: Emergency Provider Emergency Medicine
DX: R06.00 Dyspnea, unspecified (principal); L23.3 Allergic contact dermatitis due to drugs in contact with skin; X58.XXXA Exposure to other specified factors, initial encounter; K59.04 Chronic idiopathic constipation; J45.909 Unspecified asthma, uncomplicated
CPT/HCPCS: 96361; 96374; 96375; 99285; 99291; J1200; J1308; J2919

== ENCOUNTER 2024-10-23 11:06 | Outpatient (AMB) | payer MEDICAID, SELFPAY ==
--- NOTE | 2024-10-23 11:28 | MHC.OFFVIS ---
Vital Signs 10/23/24 11:35 Height 5 ft 1 in Weight 104 lb BMI 19.6 Intake Visit Reasons: OV - Right Ankle Sprain 04/28/24 Intake Note: Nafisa is a 29 year old female who presents today for follow up status post right ankle sprain, DOI: 04/28/24. At her last visit she was notified she could continue to wear the boots for lace-up ankle brace, whichever was more comfortable for her, for 2 more weeks. Patient reports today her ankle is locking in downward position when using stairs. She also mentions numbness on the lateral aspect of the ankle radiating up the lateral aspect of the calf. She would like a new external referral to PT. Allergies latex (LATEX) Allergy (Severe, Verified 10/23/24 11:35) Hives sumatriptan (From IMITREX) Allergy (Mild, Verified 10/23/24 11:35) FAINTED, EYES ROLLED BACK, SOB HPI HPI OV - Right Ankle Sprain 04/28/24: Details: Nafisa is a 29 year old female who presents today for follow up status post right ankle sprain, DOI: 04/28/24. At her last visit she was notified she could continue to wear the boots for lace-up ankle brace, whichever was more comfortable for her, for 2 more weeks. Patient reports today her ankle is locking in downward position when using stairs. The patient states that her pain has improved drastically since previous evaluation, and she is only using a sleeve style brace on her ankle, is no longer using the boot or the lace-up ankle brace.. She would like a new external referral to PT. [facility] Medical History Kidney stone Vomiting Chronic idiopathic constipation Abdominal discomfort Renal calculi Asthma Surgical History Hx of hand surgery History of endoscopy H/O: Hx of appendectomy Family History Maternal Grandmother Diabetes Father Lymphoma Paternal Aunt Crohn disease Paternal Aunt Ovarian cancer Social History (Updated 09/13/24 @ 13:58 by LUZ Almaguer) Household Members: Family Housing: Apartment Do you presently have visiting nurse or other home services: No Alcohol intake: current Alcohol intake frequency: holidays/special occasions only Patient Tobacco Use Status: Never used Tobacco Substance Use Type: Marijuana service: No Current occupational status: employed 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 She has extremely minimal tenderness over the lateral aspect of the ankle which extends into the soft tissues, which the patient describes as less of the pain and more of an ache. No Tenderness over the Achilles tendon . No defect over the Achilles tendon. No Discomfort with dorsiflexion. Neurovascularly intact. Assessment & Plan Assessment & Plan (1) Closed right ankle fracture: Code(s): S82.891A - Other fracture of right lower leg, initial encounter for closed fracture Category: Medical Qualifiers: Encounter type: subsequent encounter Fracture healing: with routine healing Qualified Code(s): S82.891D - Other fracture of right lower leg, subsequent encounter for closed fracture with routine healing (2) Right ankle sprain: Code(s): S93.401A - Sprain of unspecified ligament of right ankle, initial encounter Category: Medical Plan 1. Right ankle sprain 2. Healed right distal fibula fracture Patient is educated about this condition Patient is educated about the typical recovery course At this time, patient is advised she can come out of the lace-up ankle brace fully, is clear to use the ankle sleeve if this gives her comfort OT referral is placed for range of motion, strengthening, proprioception, gait training on the right ankle after a right ankle sprain Patient understands this in his amenable to this plan Follow-up as needed with any acute concerns Orders: Orders PT Evaluation and Treatment 07/23/24 S82.891D - Other fracture of right lower leg, subsequent encounter for closed fracture with routine healing PT Evaluation and Treatment Today S82.891D - Other fracture of right lower leg, subsequent encounter for closed fracture with routine healing, S93.401A - Sprain of unspecified ligament of right ankle, initial encounter Coding Level of Care Code Est Pt Level 3 (90222) Diagnoses Closed fracture of right ankle with routine healing, subsequent encounter S82.891D Encounter type: subsequent encounter Fracture healing: with routine healing Right ankle sprain S93.401A
[2024-10-23 11:35] VITALS: BMI 19.6
--- OUTSIDE RECORDS SUMMARY | 2024-10-23 12:14 | XMS_ITS | Clinical Summary ---
Author Organization [facility] [address] ity Address [address] [place] [address] Care Team Providers Care Transmission Engineer Name Role Phone Unavailable Primary Care [...]
--- OUTSIDE RECORDS SUMMARY | 2024-10-23 12:14 | XMS_ITS | Encounter Summary ---
Author Organization [employer] Address [address] 7 [place] [address] Care Team Providers Care Pass Worker Name Role Phone Cathryn Cardoza MD Primary Care Pro vider Salinas Dhaliwal RN Unavailable [phone] Reason for Visit * Reason Onset Date Comments Appointment Request 02/09/2023 Encounter Details Date Type Department Care Team (Late st Contact Info) Description 02/09/2023 Telephone [facility] [address] [place], [place] [phone] Cathryn Cardoza MD [address] [place], [place] [phone] Appointment Request Social History Tobacco Use Types [...] like a call back to reschedule appt music writer did cancel appt. documented in this encounter Plan of Treatment Upcoming Encounters Date Type Department Care Team (Late st Contact Info) Description 12/25/2024 10:45 AM EDT Office Visit [facility] [address] [place] [phone] Cathryn Cardoza MD [address] [place] [address] [phone] documented as of this encounter Visit Diagnoses Not on filedocumented in this encounter Care Teams Pass Worker Relationship Specialty Start Date End Date Cathryn Cardoza MD [address] [place] [address] [phone] PCP - General Internal Medicine 09/08/22 Salinas Dhaliwal RN [address] [place] [phone] Crewman Main Battle TankSharepoint Engineer 05/15/24 08/14/24 documented as of this encounter
== END 2024-10-23 11:40 | disposition home or self-care (01) ==
LOC: HO.HOS 11:06
DX: S82.891D Other fracture of right lower leg, subsequent encounter for closed fracture with routine healing (principal); S93.401A Sprain of unspecified ligament of right ankle, initial encounter
CPT/HCPCS: 99213

== ENCOUNTER → 2024-10-23 11:06 | Outpatient (BNVA) | payer MEDICAID, SELFPAY | DX: S82.891D Other fracture of right lower leg, subsequent encounter for closed fracture with routine healing (principal); S93.401D Sprain of unspecified ligament of right ankle, subsequent encounter; Y04.2XXD Assault by strike against or bumped into by another person, subsequent encounter; Y93.89 Activity, other specified; Y92.59 Other trade areas as the place of occurrence of the external cause; Y99.9 Unspecified external cause status | CPT/HCPCS: 99212 ==

== ENCOUNTER 2024-12-07 10:26 | Outpatient (REF) | payer MEDICAID, SELFPAY ==
--- NOTE | ~2024-12-07 | XR_ITS ---
EXAMINATION: XR WRIST 3 OR MORE VIEWS RIGHT, XR HAND 3 OR MORE VIEWS RIGHT HISTORY: CONTUSION OF RIGHT WRIST COMPARISON: Comparison is made with the prior examination dated 04/28/2024. FINDINGS: Seven views of the right hand and wrist including a scaphoid view of the wrist are submitted. Osseous mineralization is normal. There is a nondisplaced fracture of the base of the 5th metacarpal. No additional fracture is identified. There is no dislocation. The joint spaces are preserved. The soft tissues are unremarkable. XR/XR hand RT min 3V IMPRESSION: Nondisplaced fracture of the base of the 5th metacarpal. Electronically signed by: Pablo Drew MD 12/07/2024 11:37 AM EDT
--- NOTE | ~2024-12-07 | XR_ITS ---
EXAMINATION: XR WRIST 3 OR MORE VIEWS RIGHT, XR HAND 3 OR MORE VIEWS RIGHT HISTORY: CONTUSION OF RIGHT WRIST COMPARISON: Comparison is made with the prior examination dated 04/28/2024. FINDINGS: Seven views of the right hand and wrist including a scaphoid view of the wrist are submitted. Osseous mineralization is normal. There is a nondisplaced fracture of the base of the 5th metacarpal. No additional fracture is identified. There is no dislocation. The joint spaces are preserved. The soft tissues are unremarkable. XR/XR wrist RT min 3V IMPRESSION: Nondisplaced fracture of the base of the 5th metacarpal. Electronically signed by: Pablo Drew MD 12/07/2024 11:37 AM EDT
--- OUTSIDE RECORDS SUMMARY | 2024-12-07 11:53 | XMS_ITS | Clinical Summary ---
Author Organization [employer] Address [address] [place] [address] Care Team Providers Care Interactive Media Marketing Specialist Name Role Phone Cathryn Cardoza MD Primary [...] at bedtime (wheezing). 1 each 2 Active Nebulizers misc 1 kit Every 4-6 hours as needed (for shortness of breath and wheezing). Accerlon nebulizer given to patient in walk in center 01/02/2024, education provided Active Mometasone Furoate (Asmanex HFA) 100 MCG/ACT [...] into each nostril Once per day. Active 28-0.8 MG tabletIndication s:Less than 8 weeks gestation of Take 1 tablet by mouth Once per day. 90 tablet 3 5 06/07/19 26 Active ondansetron (Zofran) 4 MG tabletIndication s:Acute URI Take 1 tablet (4 mg) by mouth if needed each day for nausea or vomiting. 20 tablet 5 08/23/19 26 Active montelukast (Singulair) 10 MG tablet Take 1 tablet (10 mg) by mouth Once per day. 90 tablet 5 09/19/19 26 Active azelastine (Astelin) 0.1 % nasal spray Administer 1 spray into each nostril 2 times daily. Use in each nostril as directed 30 mL 3 5 09/19/19 26 Active loratadine (Claritin) 10 MG tabletIndication s:Rhinorrhea,Sea rosibel Allergic Rhinitis,Sneezin g Take 1 tablet (10 mg) by mouth Once per day. 90 tablet 5 Active sodium chloride (Pickens) 0.65 % nasal spray Administer 1 spray into each nostril if needed for congestion. 15 mL 2 5 09/19/19 26 Active valACYclovir (Valtrex) 500 MG tabletIndication s:Genital herpes simplex, unspecified site TAKE 1 TABLET BY MOUTH TWICE A DAY FOR 3 DAYS PER FLARE 12 tablet 1 5 Active Active Problems Problem Noted Date Diagnosed Date Allergic rhinitis 09/18/2024 Health care maintenance 03/26/2023 Nephrolithiasis 03/26/2023 Chronic [...] Problem Noted Date Diagnosed Date Resolved Date Mild anxiety 09/18/2024 09/18/2024 Weight loss 01/14/2024 09/18/2024 Nausea 03/26/2023 01/14/2024 Dysuria 02/25/2022 03/26/2023 Assessment & Plan (02/25/2022 2:34 PM EST): + LE with symptoms, will send macrobid and f/up culture results. Encounters * This document contains information received from the source organization and may not represent a complete record from that organization. Date Type Department Care Team Description 12/07/2024 Orders Only [facility] External Provider, [facility] 11/14/2024 Telephone [facility] [address] [place] [address] Angela Stone MA 10/22/2024 Telephone [facility] [address] [place] [phone] Cathryn Cardoza MD oct recall 10/09/2024 Refill [facility] [address] [place] [address] Cathryn Cardoza MD Genital herpes simplex, unspecified site 09/18/2024 9:45 AM EDT Office Visit [facility] [address] [place] [phone] Cathryn Cardoza MD Health care maintenance (Primary Dx); Moderate asthma with acute exacerbation, unspecified whether persistent; Encounter for immunization; KRISH (generalized anxiety disorder); Mixed anxiety and depressive disorder; Mild intermittent asthma, unspecified whether complicated; Allergic rhinitis, unspecified seasonality, unspecified trigger 09/18/2024 Travel 09/17/2024 Telephone [facility] [address] [place] [address] Cathryn Cardoza MD chart prep 09/10/2024 Patient Outreach [facility] [address] [place], [place] [phone] Cathryn Cardoza MD Pre-visit Planning (SDOH was already completed. ) 09/10/2024 Telephone [facility] [address] [place] [address] Cathryn Cardoza MD Results from Last 3 Months Immunizations Immunization Administration Dates Next Due DTaP 08/12/1998, 6,1994,05/12,1994 HPV, Quadrivalent 08/07/2008,05/06/2008,08/03/19 08 Hep B, Adolescent or Pediatric 1994,1994,1994 Hep B, adult 12/12/2023,07/07/2023,06/09/2023 Hib ([facility]) 04/14/1995, 5,1994,03/14 IPV 08/12/1998, 5,1994,03/14 Influenza injectable quadriv alent preservative free 03/24/2023 Influenza, IIV3, injectable 02/28/2015,0 03/26/2014,12/10/2010,12/10,12/05/2008,02/15/2007 Influenza, Split (incl. anushka fied surface antigen) 02/26/2013,12/10/2011 MMR 08/12/1998,1994 Meningococcal MPSV4 08/05/2005 Pneumococcal Conjugate PCV 20 09/18/2024 Tdap 09/18/2024,02/28/2015,08/05/2005 Varicella 12/10/2009,08/12/1998 Family History Medical History Relation [...] = 0.6 oz pur e alcohol) social Alcohol Answer Date Recorded How often do you have a drink containing alcohol ? 4 09/18/2024 How many drinks containing a lcohol do you have on a typical day when you are drinking? 1 09/18/2024 How often do you have six or more drinks on one occasion? 1 09/18/2024 Depression Answer Date Recorded Patient Health Questionnaire-9 Score 7 09/18/2024 Patient Health Questionnaire-9 Score 7 09/18/2024 Last PHQ-9: Questionnaire Data Not on file 0 09/18/2024 Housing Stability Answer Date Recorded What is [...] Date Recorded Patient Health Questionnaire-2 Score 2 09/18/2024 Internet Access Answer Date Recorded Internet Access Q1 Yes 05/15/2024 Internet Access Q2 Not on file 05/15/2024 Comments No Sex and Gender Information Value Date Recorded Sex Assigned at Female 01/11/2022 10:16 AM EDT Legal Sex Female 10:16 AM EDT Gender Identity Female 01/11/2022 10:16 AM EDT Sexual Orientation Straight 01/11/2022 10 :16 AM EDT Last Filed Vital Signs Vital Sign Reading Time Taken Comments Blood Pressure 106/60 09/18/2024 9:44 AM EDT Pulse 68 09/18/2024 9:44 AM EDT Temperature 36.7 C (98.1 F) 09/18/2024 9:44 AM EDT Respiratory Rate 16 09/18/2024 9:44 AM EDT Oxygen Saturation 99% 08/22/2024 9:16 AM EDT Inhaled Oxygen Concentration - - Weight 51 kg (112 lb 6 oz) 09/18/2024 9:44 AM ED T Height 155.4 cm (5' 1.17 ) 09/18/2024 9:44 AM ED T Body Mass Index 21.11 09/18/2024 9:44 AM EDT Plan of Treatment Upcoming Encounters Date Type Department Care Team (Late st Contact Info) Description 12/25/2024 10:45 AM EDT Office Visit [facility] [address] [place] [address] [phone] Cathryn Cardoza MD [address] [place] [address] Health Maintenance Due Date Last Done Comments COVID-19 Vaccine ( season) 2024 Influenza Vaccine (#1) 2024 , 02/28/2015, 03/26/2014, Additional history exists Family Planning (PISQ) 01/24/2025 01/25/2024 SDOH Screening 05/15/2025 05/15/2024 Alcohol/Substance Use Screening 09/18/2025 09/18/2024 Depression Screening 09/18/2025 09/18/2024, 09/19/19 Disability Screening 09/18/2025 09/18/2024 Tobacco Screening 09/18/2025 09/18/2024 Cervical Cancer Screening 01/24/2029 HPV/Cotest 01/24/2029 01/25/2024, 12/24/2020 Pap Smear 01/24/2029 01/25/2024, 12/24/2020 DTaP/Tdap/Td Vaccines (9 - Td or Tdap) 09/18/2034 09/18/2024, 02/28/2015, 08/05/2005, Additional history exists Zoster Vaccines (1 of 2) 01/11/2044 RSV [...] 05/04/2023 Hepatitis C Screening Completed 01/13/2024, 024 Pneumococcal Vaccine: Pediatrics (0 to 5 Years) and At-Risk Patients (6 to 49) Years Completed 09/18/2024 Hepatitis A Vaccines Aged Out No long [...] Name Priority Date/Time Associated Diagnosis Comments XR WRIST 3+ VIEWS RIGHT Routine 12/07/2024 11:15 AM EDT XR HAND 3+ VIEWS RIGHT Routine 12/07/2024 11:14 AM EDT PAP SMEAR Routine 01/25/2024 9:58 AM EST [...] Relevant to Health Maintenance Results * XR Wrist 3+ Views Right (12/07/2024 11:15 AM EDT) Anatomical Region Laterality Modality Upper Extremities, Wrist Right Radiogr aphic Imaging 12/07/2024 11:1 5 AM EDT Narrative 12/07/2024 11:39 AM EDT [address] [address] XRay Report Signed Patient: Nafisa Jacobs MR#: [id number] : 1995 Acct:[id number] Age/Sex: 29 / F ADM Date: 12/07/24 Loc: [facility] Attending Dr: Shayne Mclain MD Ordering Physician: Shayne Mclain MD Date of Service: 12/07/24 Procedure(s): XR wrist RT min 3V Accession Number(s): [id number] cc: Shayne Mclain MD; Cathryn Cardoza MD Reason for Exam: CONTUSION OF RIGHT WRIST EXAMINATION: XR WRIST 3 OR MORE VIEWS RIGHT, XR HAND 3 OR MORE VIEWS RIGHT HISTORY: CONTUSION OF RIGHT WRIST COMPARISON: Comparison is made with the prior examination dated 04/28/2024. FINDINGS: Seven views of the right hand and wrist including a scaphoid view of the wrist are submitted. Osseous mineralization is normal. There is a nondisplaced fracture of the base of the 5th metacarpal. No additional fracture is identified. There is no dislocation. The joint spaces are preserved. The soft tissues are unremarkable. XR/XR wrist RT min 3V IMPRESSION: Nondisplaced fracture of the base of the 5th metacarpal. Electronically signed by: Pablo Drew MD 12/07/2024 11:37 AM EDT Dictated By: Pablo Drew MD Signed By: <Electronically signed by Pablo Drew MD in OV> 12/07/24 1137 DD/ 1115 TD/TT: 12/07/24 1116 Analytical Strategist: Procedure Note Donotuseinterpreter, Image - 12/07/[address] [address] XRay Report Signed Patient: Nafisa JacobsMR#: [id number] : 1995Acct:[id number] Age/Sex: 29 / FADM Date: 12/07/24 Loc: HO.XRAY Attending Dr: Shayne Mclain MD Ordering Physician: Shayne Mclain MD Date of Service: 12/07/24 Procedure(s): XR wrist RT min 3V Accession Number(s): [id number] cc: Shayne Mclain MD; Cathryn Cardoza MD Reason for Exam: CONTUSION OF RIGHT WRIST EXAMINATION: XR WRIST 3 OR MORE VIEWS RIGHT, XR HAND 3 OR MORE VIEWS RIGHT HISTORY: CONTUSION OF RIGHT WRIST COMPARISON: Comparison is made with the prior examination dated 04/28/2024. FINDINGS: Seven views of the right hand and wrist including a scaphoid view of the wrist are submitted. Osseous mineralization is normal. There is a nondisplaced fracture of the base of the 5th metacarpal. No additional fracture is identified. There is no dislocation. The joint spaces are preserved. The soft tissues are unremarkable. XR/XR wrist RT min 3V IMPRESSION: Nondisplaced fracture of the base of the 5th metacarpal. Electronically signed by: Pablo Drew MD 12/07/2024 11:37 AM EDT Dictated By: Pablo Drew MD Signed By: <Electronically signed by Pablo Drew MD in OV> 12/07/24 1137 DD/ 1115 TD/TT: 12/07/24 1116 Analytical Strategist: [facility] External Provider IMG XR PROCEDURES Final Result * XR Hand 3+ Views Right (12/07/2024 11:14 AM EDT) Anatomical Region Laterality Modality Upper Extremities, Hand Right Radiogra phic Imaging 12/07/2024 11:1 4 AM EDT Narrative 12/07/2024 11:39 AM EDT [address] [address] XRay Report Signed Patient: Nafisa Jacobs MR#: [id number] : 1995 Acct:[id number] Age/Sex: 29 / F ADM Date: 12/07/24 Loc: HO.XRAY Attending Dr: Shayne Mclain MD Ordering Physician: Shayne Mclain MD Date of Service: 12/07/24 Procedure(s): XR hand RT min 3V Accession Number(s): [id number] cc: Shayne Mclain MD; Cathryn Cardoza MD Reason for Exam: CONTUSION OF RIGHT HAND EXAMINATION: XR WRIST 3 OR MORE VIEWS RIGHT, XR HAND 3 OR MORE VIEWS RIGHT HISTORY: CONTUSION OF RIGHT WRIST COMPARISON: Comparison is made with the prior examination dated 04/28/2024. FINDINGS: Seven views of the right hand and wrist including a scaphoid view of the wrist are submitted. Osseous mineralization is normal. There is a nondisplaced fracture of the base of the 5th metacarpal. No additional fracture is identified. There is no dislocation. The joint spaces are preserved. The soft tissues are unremarkable. XR/XR hand RT min 3V IMPRESSION: Nondisplaced fracture of the base of the 5th metacarpal. Electronically signed by: Pablo Drew MD 12/07/2024 11:37 AM EDT Dictated By: Pablo Drew MD Signed By: <Electronically signed by Pablo Drew MD in OV> 12/07/24 1137 DD/ 1114 TD/TT: 12/07/24 1116 Analytical Strategist: Procedure Note Donotuseinterpreter, Image - 12/07/[address] [address] XRay Report Signed Patient: Nafisa JacobsMR#: [id number] : 1995Acct:[id number] Age/Sex: 29 / FADM Date: 12/07/24 Loc: HO.XRAY Attending Dr: Shayne Mclain MD Ordering Physician: Shayne Mclain MD Date of Service: 12/07/24 Procedure(s): XR hand RT min 3V Accession Number(s): [id number] cc: Shayne Mclain MD; Cathryn Cardoza MD Reason for Exam: CONTUSION OF RIGHT HAND EXAMINATION: XR WRIST 3 OR MORE VIEWS RIGHT, XR HAND 3 OR MORE VIEWS RIGHT HISTORY: CONTUSION OF RIGHT WRIST COMPARISON: Comparison is made with the prior examination dated 04/28/2024. FINDINGS: Seven views of the right hand and wrist including a scaphoid view of the wrist are submitted. Osseous mineralization is normal. There is a nondisplaced fracture of the base of the 5th metacarpal. No additional fracture is identified. There is no dislocation. The joint spaces are preserved. The soft tissues are unremarkable. XR/XR hand RT min 3V IMPRESSION: Nondisplaced fracture of the base of the 5th metacarpal. Electronically signed by: Pablo Drew MD 12/07/2024 11:37 AM EDT Dictated By: Pablo Drew MD Signed By: <Electronically signed by Pablo Drew MD in OV> 12/07/24 1137 DD/ 1114 TD/TT: 12/07/24 1116 Analytical Strategist: [facility] External Provider IMG XR PROCEDURES Final Result * Pap Smear (01/25/2024 9:58 AM EST) Swab Cervix uteri structure / Unknown 01/25/2024 9:58 AM EST 01/26/2024 9:30 AM EST [facility] - 01/30/2024 10:24 AM EST ----- ------- Name: Nafisa Jacobs Age/Sex: 29/F : 1995 Unit#: [id number] Attend Dr: Re01/25/24 Status: PRE [facility] Disch: ----- ------- SPEC : [id number] RECD: 01/26/24 STATUS: DIOMEDES HERR NUM: [id number] YANIRA: 01/25/[address] [facility] [address]: RUTH MALIK [facility] ENTERED: 01/26/24 SP TYPE: Pap Smr [facility] DR: ORDERED: Pap Smear Interpretation Satisfactory for evaluation. Negative for intraepithelial lesion or malignancy. HPV High Risk: Negative HPV Genotyping 16: Negative HPV Genotyping 18: Negative Clinical Information LMP: Unknown date Previous PAP test: 2020, abnormal Material Received ThinPrep-Cervical ----- ------- Signed (signature on file) LAURENT Alex (ASCP) 01/30/24 1024 ----- ------- END OF REPORT Ruth Malik CNM LAB CYTOLOGY ORDERABLES F inal Result Performing Organization Address [facility] Co de Phone Number [facility] [address] [place] [address] [phone] * HPV mRNA E6/E7 w/Reflex to HPV Genotypes 16, 18/45 (01/25/2024 12:00 AM EST) Historical Provider LAB CYTOLOGY ORDERABLES F inal Result Performing Organization Address [facility] Co de Phone Number [facility] [address] [place] [address] [phone] * Hepatitis C Antibody with Reflex to HCV, RNA, Quantitative, Real-Time PCR (01/13/2024 2:35 PM EDT) Hepatitis C Antibody Nonreactive Nonreactive [facility] Comment:Antibodies to HCV no t detected; does not exclude early acuteHCV infection. Blood Venous blood specimen / Unknown 01/13/2024 2:35 PM EDT 01/13/2024 4:32 PM EDT Cathryn Zhou MD LAB BLOOD ORDERAB LES Final Result Performing Organization Address [facility] Co de Phone Number [facility] [address] [place] [address] [phone] * HIV-1/2 Antigen and Antibodies, Fourth Generation, with Reflexes (01/13/2024 2:35 PM EDT) HIV AB/AG Nonreactive Nonreactive [facility] Comment:HIV-1 p24 Ag and/or HIV-1/HIV-2 Ab not detected.A test result that is nonreactive does not exclude thepossibility of exposure to or infection with HIV-1 and/orHIV-2. Nonreactive results in this assay for individualswith prior exposure to HIV-1 and/or HIV-2 may be due toantigen and antibody levels that are below the limit ofdetection of this assay.The [employer] HIV Ag/Ab Combo assay result andsupplemental assay results should be interpreted inconjunction with the patient's clinical presentation,history and other laboratory results. If the results areinconsistent with clinical evidence, additional testing issuggested to confirm the result. Blood Venous blood specimen / Unknown 01/13/2024 2:35 PM EDT 01/13/2024 4:32 PM EDT us Cathryn Zhou MD LAB BLOOD ORDERAB LES Final Result [facility] [address] [place] [address] [phone] from Last 3 Months or Most Recently Relevant to Health Maintenance [facility] Care Teams Interactive Media Marketing Specialist Relationship Specialty Start Date End Date Cathryn Cardoza MD [address] [place] [phone] PCP - General Internal Medicine 09/08/22
--- OUTSIDE RECORDS SUMMARY | 2024-12-07 11:53 | XMS_ITS | Encounter Summary ---
Author Organization [employer] Address 75 [facility] 7 [place] [address] Care Team Providers Care Odd Bundle Worker Name Role Phone Catrhyn Cardoza MD Primary Care Pro vider Salinas Dhaliwal RN Unavailable [phone] Reason for Visit * Reason Onset Date Comments Lab Order question 06/07/2024 Encounter Details Date Type Department Care Team (Late st Contact Info) Description 06/07/2024 Telephone [facility] [address] [place], [place] [phone] Cathryn Cardoza MD [address] [place], [place] [phone] Lab Order question Social History Tobacco Use [...] Description 12/25/2024 10:45 AM EDT Office Visit [facility] [address] [place] [address] Cathryn Cardoza MD [address] [place] [address] documented as of this encounter Visit Diagnoses Not on filedocumented in this encounter Additional Health Concerns Assessment Noted Time PHQ-9 Depression Total Score: 11 024 10:24 AM EST documented as of this encounter Care Teams Odd Bundle Worker Relationship Specialty Start Date End Date Cathryn Cardoza MD [address] [place] [address] PCP - General Internal Medicine 09/08/22 Salinas Dhaliwal RN [address] [place] [address] Baggage AgentClerk Supervisor 05/15/24 08/14/24 documented as of this encounter
--- OUTSIDE RECORDS SUMMARY | 2024-12-07 11:53 | XMS_ITS | Encounter Summary ---
Author Organization [employer] Address 75 [facility] 7 [place] [address] Care Team Providers Care Journal Clerk Name Role Phone Cathryn Cardoza MD Primary Care Pro vider Salinas Dhaliwal RN Unavailable [phone] Reason for Visit * Reason Onset Date Comments Appointment Request 02/09/2023 Encounter Details Date Type Department Care Team (Late st Contact Info) Description 02/09/2023 Telephone [facility] MEDICINE 230 [place], [place] [phone] Cathryn Cardoza MD 230 [place], [place] [phone] Appointment Request Social History Tobacco Use Types [...] like a call back to reschedule appt proposal manager writer did cancel appt. documented in this encounter Plan of Treatment Upcoming Encounters Date Type Department Care Team (Late st Contact Info) Description 12/25/2024 10:45 AM EDT Office Visit [facility] MEDICINE [address] [place] [address] Cathryn Cardoza MD [address] [place] [address] [phone] documented as of this encounter Visit Diagnoses Not on filedocumented in this encounter Care Teams Journal Clerk Relationship Specialty Start Date End Date Cathryn Cardoza MD [address] [place] [address] [phone] PCP - General Internal Medicine 09/08/22 Salinas Dhaliwal RN [address] [place] [address] Network StrategistGlassware Engraver 05/15/24 08/14/24 documented as of this encounter
--- OUTSIDE RECORDS SUMMARY | 2024-12-07 11:53 | XMS_ITS | Encounter Summary ---
Author Organization [employer] Address 75 [facility] 7t [place] [address] Care Team Providers Care Automatic Packer Operator Name Role Phone Yvonne Madrid MAGAZINE SUPERVISOR Primary Care Provider [phone] Cathryn Cardoza MD Primary Care Pro vider Salinas Dhaliwal RN Unavailable [phone] Encounter Details Date Type Department Care Team (Late Contact Info) Description 04/30/2022 Orders Only [facility] MEDICINE [address] [place] [address] [phone] Shasha Mendiola RN [address] [place] [address] [phone] Social History Tobacco Use Types Packs/Day Years [...] Department Care Team (Late Contact Info) Description 12/25/2024 10:45 AM EDT Office Visit [facility] MED[facility]INE [address] [place] [address] [phone] Cathryn Cardoza MD [address] [place] [address] documented as of this encounter Visit Diagnoses Not on filedocumented in this encounter Care Teams Automatic Packer Operator Relationship Specialty Start Date End Date Yvonne Madrid FNP [address] [place] [address] [phone] PCP - General Family Medicine 08/25/21 09/07/22 Cathryn Cardoza MD [address] [place] [address] PCP - General Internal Medicine 09/08/22 Salinas Dhaliwal RN [address] [place] [address] Radiator MechanicHooker Machine Tender 05/15/24 08/14/24 documented as of this encounter
--- OUTSIDE RECORDS SUMMARY | 2024-12-07 11:53 | XMS_ITS | Encounter Summary ---
Author Organization [employer] Address [address] [facility] [address] 7t [place] [address] Care Team Providers Care Candy Polisher Name Role Phone Cathryn Cardoza MD Primary Care Pro vider Salinas Dhaliwal RN Unavailable [phone] Encounter Details Date Type Department Care Team (Late st Contact Info) Description 07/09/2024 Orders Only [facility]EDS [address] [place] [address] Nadine Lizama Social History Tobacco Use Types [...] Description 12/25/2024 10:45 AM EDT Office Visit [facility] MEDICINE [address] [place] [address] Cathryn Cardoza MD [address] [place] [address] documented as of this encounter Procedures Procedure Name Priority Date/Time Associated Diagnosis Comments HPV MRNA E6/E7 REFLEX TO HPV 16, 18/45 Routine 01/25/2024 12:00 AM EST documented in this encounter Results * HPV mRNA E6/E7 w/Reflex to HPV Genotypes 16, 18/45 (01/25/2024 12:00 AM EST) us Historical Provider LAB CYTOLOGY ORDERABLES F inal Result [facility] [address] [place] [address] [phone] documented in this encounter Visit Diagnoses Not on filedocumented in this encounter Additional Health Concerns Assessment Noted Time PHQ-9 Depression Total Score: 11 024 10:24 AM EST documented as of this encounter Care Teams Candy Polisher Relationship Specialty Start Date End Date Cathryn Cardoza MD [address] [place] [address] [phone] PCP - General Internal Medicine 09/08/22 Salinas Dhaliwal RN [address] [place] [address] Cell RepairerManagement Supervisor 05/15/24 08/14/24 documented as of this encounter
--- OUTSIDE RECORDS SUMMARY | 2024-12-07 11:53 | XMS_ITS | Encounter Summary ---
Author Organization [employer] Address 75 [facility] 7 [place] [address] Care Team Providers Care Prosthodontist Name Role Phone Cathryn Cardoza MD Primary Care Pro vider Salinas Dhaliwal RN Unavailable [phone] Reason for Visit * Reason Onset Date Comments Appointment Request 02/23/2023 Encounter Details Date Type Department Care Team (Late st Contact Info) Description 02/23/2023 Telephone [facility] MEDICINE [address] [place] [address] [phone] Cathryn Cardoza MD [address] [place], [place] [phone] Appointment Request Social History Tobacco Use Types [...] calling to request a appt for DEPO expert medical writer was going to schedule but was unable to due to a window period please call to schedule documented in this encounter Plan of Treatment Upcoming Encounters Date Type Department Care Team (Late st Contact Info) Description 12/25/2024 10:45 AM EDT Office Visit [facility] MEDICINE [address] [place] [phone] Cathryn Cardoza MD [address] [place] [address] [phone] documented as of this encounter Visit Diagnoses Not on filedocumented in this encounter Care Teams Prosthodontist Relationship Specialty Start Date End Date Cathryn Cardoza MD [address] [place] [address] [phone] PCP - General Internal Medicine 09/08/22 Salinas Dhaliwal RN [address] [place] [address] Tile Setter ApprenticeDatabase Development Project Manager 05/15/24 08/14/24 documented as of this encounter
--- OUTSIDE RECORDS SUMMARY | 2024-12-07 11:53 | XMS_ITS | Encounter Summary ---
Author Organization [employer] Address 75 [facility] 7 [place] [address] Care Team Providers Care Utilities Manager Name Role Phone Cathryn Cardoza MD Primary Care Pro vider Salinas Dhaliwal RN Unavailable [phone] Reason for Visit * Reason Onset Date Comments Nurse Triage 04/19/2024 Encounter Details Date Type Department Care Team (Late st Contact Info) Description 04/19/2024 Telephone [facility] MEDICINE 230 [place], [place] [phone] Cathryn Cardoza MD 230 [place], [place] [phone] Nurse Triage Social History Tobacco Use Types [...] on site. She spoke with provider in [facility] in February 2024 abouta letter to remove rugs but never went to medical records. No letter on file. Advised her to go request letter tomorrow after appt. Explained NTTS travel accommodation inspector nurse before appt. Pt verbalized understanding, no [...] never been confirmed by a doctor (or SOCIAL AND POLITICAL STUDIES PROFESSOR/PA) * Nasal allergies occur only certain times [...] Description 12/25/2024 10:45 AM EDT Office Visit [facility] MEDICINE [address] [place] [address] Cathryn Cardoza MD 230 [place], [place] [phone] documented as of this encounter Visit Diagnoses Not on filedocumented in this encounter Additional Health Concerns Assessment Noted Time PHQ-9 Depression Total Score: 11 024 10:24 AM EST documented as of this encounter Care Teams Utilities Manager Relationship Specialty Start Date End Date Cathryn Cardoza MD [address] [place] [address] PCP - General Internal Medicine 09/08/22 Salinas Dhaliwal RN [address] [place] [address] Area Operations DirectorTalent Acquisition Assistant 05/15/24 08/14/24 documented as of this encounter
--- OUTSIDE RECORDS SUMMARY | 2024-12-07 11:53 | XMS_ITS | Encounter Summary ---
Author Organization [employer] Address [address] [facility] [address] 7t [place] [address] Care Team Providers Care Associate Editor Name Role Phone Yvonne Madrid MEDICAL LIAISON Primary Care Provider [phone] Cathryn Cardoza MD Primary Care Pro vider Salinas Dhaliwal RN Unavailable [phone] Reason for Visit * Reason Comments Med Refill Encounter Details Date Type Department Care Team (Late Contact Info) Description 05/01/2022 Refill [facility] 505 [place], [place] [phone] Cassandra Guzman CNM 230 [place], [place] [phone] Encounter for other contraceptive management Social History [...] Upcoming Encounters Date Type Department Care Team ([facility] Contact Info) Description 12/25/2024 10:45 AM EDT Office Visit [facility] 230 [place] [address] Cathryn Cardoza MD 230 [place] [address] documented as of this encounter Visit Diagnoses Diagnosis Encounter for other contraceptive management documented in this encounter Care Teams Associate Editor Relationship Specialty Start Date End Date [facility] 230 [place] [address] PCP - General Family Medicine 08/25/21 09/07/22 Cathryn Cardoza MD 230 [place] [address] PCP - General Internal Medicine 09/08/22 Salinas Dhaliwal RN [address] [place] [phone] Helper Marble FinisherQuarter Folder 05/15/24 08/14/24 documented as of this encounter
--- OUTSIDE RECORDS SUMMARY | 2024-12-07 11:53 | XMS_ITS | Clinical Summary ---
Author Organization [facility] ity Address [address] [place] [address] Care Team Providers Care Business Information Consultant Name Role Phone Unavailable Primary Care [...] 02/14/2022 Social Influencers of Health Screening 02/14/2022 Depression Screening 03/14/2024 COVID-19 Vaccine (2023-2 5 season) 2024 Influenza Vaccine (#1) 2024 HIB Vaccines Aged [...]
--- OUTSIDE RECORDS SUMMARY | 2024-12-07 11:53 | XMS_ITS | Encounter Summary ---
Author Organization [employer] Address 75 [facility] [address] 7t [place] [address] Care Team Providers Care Java Consultant Name Role Phone Cathryn Cardoza MD Primary Care Pro vider Encounter Details Date Type Department Care Team (Late st Contact Info) Description 12/07/2024 Orders Only [facility] External Provider, [facility] Social History Tobacco Use Types Packs/Day [...] 10:45 AM EDT Office Visit [facility] MEDICINE [address] [place] [address] Cathryn Cardoza MD 230 [place] [address] documented as of this encounter Procedures Procedure Name Priority Date/Time Associated Diagnosis Comments XR WRIST 3+ VIEWS RIGHT Routine 12/07/2024 11:15 AM EDT XR HAND 3+ VIEWS RIGHT Routine 12/07/2024 11:14 AM EDT documented in this encounter Results * XR Wrist 3+ Views Right (12/07/2024 11:15 AM EDT) Anatomical Region Laterality Modality Upper Extremities, Wrist Right Radiogr aphic Imaging 12/07/2024 11:1 5 AM EDT Narrative 12/07/2024 11:39 AM EDT [address] [address] XRay Report Signed Patient: Nafisa Jacobs MR#: [id number] : 1995 Acct:[id number] Age/Sex: 29 / F ADM Date: 12/07/24 Loc: HO.XRLEXA Attending Dr: Shayne Mclain MD Ordering Physician: Shayne Mclain MD Date of Service: 12/07/24 Procedure(s): XR wrist RT min 3V Accession Number(s): [id number] cc: Shayne Mclain MD; Cathryn Cardoza MD [...] 12/07/24 1137 DD/ 1115 TD/TT: 12/07/24 1116 Power Chisel Operator: Procedure Note Donotuseinterpreter, Image - 12/07/[address] [address] XRay Report Signed Patient: Nafisa JacobsMR#: [id number] : 1995Acct:[id number] Age/Sex: 29 / FADM Date: 12/07/24 Loc: HO.JESSICA Attending Dr: Shayne Mclain MD Ordering Physician: Shayne Mclain MD Date of Service: 12/07/24 Procedure(s): XR wrist RT min 3V Accession Number(s): [id number] cc: Shayne Mclain MD; Cathryn Cardoza MD [...] Pablo Drew MD 12/07/2024 11:37 AM EDT RP Dictated By: Pablo Drew MD Signed By: <Electronically signed by Pablo Drew MD in OV> 12/07/24 1137 DD/ 1115 TD/TT: 12/07/24 1116 Power Chisel Operator: [facility] External Provider IMG XR PROCEDURES Final Result * XR Hand 3+ Views Right (12/07/2024 11:14 AM EDT) Anatomical Region Laterality Modality Upper Extremities, Hand Right Radiogra phic Imaging 12/07/2024 11:1 4 AM EDT Narrative 12/07/2024 11:39 AM EDT [address] [address] XRay Report Signed Patient: Nafisa Jacobs MR#: [id number] : 1995 Acct:[id number] Age/Sex: 29 / F ADM Date: 12/07/24 Loc: HO.XRAY Attending Dr: Shayne Mclain MD Ordering Physician: Shayne Mclain MD Date of Service: 12/07/24 Procedure(s): XR hand RT min 3V Accession Number(s): [id number] cc: Shayne Mclain MD; Cathryn Cardoza MD [...] Pablo Drew MD 12/07/2024 11:37 AM EDT RP Dictated By: Pablo Drew MD Signed By: <Electronically signed by Pablo Drew MD in OV> 12/07/24 1137 DD/ 1114 TD/TT: 12/07/24 1116 Power Chisel Operator: Procedure Note Donotuseinterpreter, Image - 12/07/2024 [place] [address] XRay Report Signed Patient: Nafisa JacobsMR#: [id number] : 1995Acct:[id number] Age/Sex: 29 FADM Date: 12/07/24 Loc: STEVIE Attending Dr: Shayne Mclain MD Ordering Physician: Shayne Mclain MD Date of Service: 12/07/24 Procedure(s): XR hand RT min 3V Accession Number(s): [id number] cc: Shayne Mclain MD; Cathryn Cardoza MD [...] Pablo Drew MD 12/07/2024 11:37 AM EDT RP Dictated By: Pablo Drew MD Signed By: <Electronically signed by Pablo Drew MD in OV> 12/07/24 1137 DD/ 1114 TD/TT: 12/07/24 1116 Power Chisel Operator: [facility] External Provider IMG XR PROCEDURES Final Result documented in this encounter Visit Diagnoses Not on filedocumented in this encounter Additional Health Concerns Assessment Noted Time PHQ-9 Depression Total Score: 7 09/19/19 25 10:03 AM EDT documented as of this encounter Care Teams Java Consultant Relationship Specialty Start Date End Date Cathryn Cardoza MD [address] [place] [address] PCP - General Internal Medicine 09/08/22 documented as of this encounter
== END 2024-12-07 10:27 | disposition home or self-care (01) ==
LOC: HO.XRAY 10:26
PROVIDERS: PCP Student in an Organized Health Care Education/Training Program; Visit Provider Internal Medicine
DX: S60.221D Contusion of right hand, subsequent encounter (principal); S60.211D Contusion of right wrist, subsequent encounter
CPT/HCPCS: 73110; 73130

== ENCOUNTER → 2024-12-07 11:14 | Outpatient (BNV) | payer MEDICAID, SELFPAY | PROVIDERS: PCP Student in an Organized Health Care Education/Training Program; Visit Provider Radiology Diagnostic Radiology | DX: S62.346A Nondisplaced fracture of base of fifth metacarpal bone, right hand, initial encounter for closed fracture (principal) | CPT/HCPCS: 73110; 73130 ==

== ENCOUNTER 2024-12-18 09:54 | Outpatient (AMB) | payer MEDICAID, SELFPAY ==
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
[2024-12-18 10:15] VITALS: BMI 19.6
--- OUTSIDE RECORDS SUMMARY | 2024-12-18 11:30 | XMS_ITS | Encounter Summary ---
Author Organization [employer] Address [address] [facility] 7 [place] [address] Care Team Providers Care Whistle Punk Name Role Phone Cathryn Cardoza MD Primary Care Pro vider Salinas Dhaliwal RN Unavailable [phone] Reason for Visit * Reason Onset Date Comments Appointment Request 02/09/2023 Encounter Details Date Type Department Care Team (Late st Contact Info) Description 02/09/2023 Telephone [facility] [address] [place], [place] [phone] Cathryn Cardoza MD 230 [place], [place] [phone] Appointment Request Social History Tobacco Use Types [...] like a call back to reschedule appt customs entry writer did cancel appt. documented in this encounter Plan of Treatment Upcoming Encounters Date Type Department Care Team (Late st Contact Info) Description 12/25/2024 10:45 AM EDT Office Visit [facility] [address] [place] [address] Cathryn Cardoza MD [address] [place] [address] [phone] documented as of this encounter Visit Diagnoses Not on filedocumented in this encounter Care Teams Whistle Punk Relationship Specialty Start Date End Date Cathryn Cardoza MD [address] [place] [address] [phone] PCP - General Internal Medicine 09/08/22 Salinas Dhaliwal RN [address] [place] [phone] Lion TrainerCane Feeder 05/15/24 08/14/24 documented as of this encounter
--- OUTSIDE RECORDS SUMMARY | 2024-12-18 11:30 | XMS_ITS | Encounter Summary ---
Author Organization [employer] Address 75 [facility] 7 [place] [address] Care Team Providers Care Online Marketing Director Name Role Phone Cathryn Cardoza MD Primary Care Pro vider Salinas Dhaliwal RN Unavailable [phone] Reason for Visit * Reason Onset Date Comments Nurse Triage 04/19/2024 Encounter Details Date Type Department Care Team (Late st Contact Info) Description 04/19/2024 Telephone [facility] 230 [place], [place] [phone] Cathryn Cardoza MD 230 [place], [place] [phone] Nurse Triage Social History Tobacco Use Types [...] on site. She spoke with provider in [facility] in February 2024 abouta letter to remove rugs but never went to medical records. No letter on file. Advised her to go request letter tomorrow after appt. Explained NTTS human resource professional nurse before appt. Pt verbalized understanding, no [...] never been confirmed by a doctor (or SUPERVISOR CONCRETE STONE FINISHING/PA) * Nasal allergies occur only certain times [...] Description 12/25/2024 10:45 AM EDT Office Visit [facility] [address] [place] [address] Cathryn Cardoza MD [address] [place], [place] [phone] documented as of this encounter Visit Diagnoses Not on filedocumented in this encounter Additional Health Concerns Assessment Noted Time PHQ-9 Depression Total Score: 11 024 10:24 AM EST documented as of this encounter Care Teams Online Marketing Director Relationship Specialty Start Date End Date Cathryn Cardoza MD [address] [place] [address] 41867 PCP - General Internal Medicine 09/08/22 Salinas Dhaliwal RN [address] [place] [address] [phone] Production SoldererInspector Bicycle 05/15/24 08/14/24 documented as of this encounter
--- OUTSIDE RECORDS SUMMARY | 2024-12-18 11:30 | XMS_ITS | Encounter Summary ---
Author Organization [employer] Address 75 [facility] 7t [place] [address] Care Team Providers Care Plaster Block Layer Name Role Phone Yvonne Madrid ACCOUNTS PAYABLE ASSOCIATE Primary Care Provider [phone] Cathryn Cardoza MD Primary Care Pro vider Salinas Dhaliwal RN Unavailable [phone] Encounter Details Date Type Department Care Team (Late Contact Info) Description 04/30/2022 Orders Only [facility] [address] [place] [address] [phone] Shasha Mendiola RN [address] [place] [address] [phone] Social History Tobacco Use Types Packs/Day Years [...] Description 12/25/2024 10:45 AM EDT Office Visit [facility] [address] [place] [address] [phone] Cathryn Cardoza MD [address] [place] [address] documented as of this encounter Visit Diagnoses Not on filedocumented in this encounter Care Teams Plaster Block Layer Relationship Specialty Start Date End Date Yvonne Madrid FNP [address] [place] [address] 98532 PCP - General Family Medicine 08/25/21 09/07/22 Cathryn Cardoza MD [address] [place] [address] PCP - General Internal Medicine 09/08/22 Salinas Dhaliwal RN [address] [place] [address] 9[address]26 Supervisor Paper ProductsLocal Announcer 05/15/24 08/14/24 documented as of this encounter
--- OUTSIDE RECORDS SUMMARY | 2024-12-18 11:30 | XMS_ITS | Clinical Summary ---
Author Organization [employer] Address [address] [facility] [address] 7t [place] [address] Care Team Providers Care Drafting Layout Man Name Role Phone Cathryn Cardoza MD Primary [...] day. 90 tablet 5 Active sodium chloride (Garrett) 0.65 % nasal spray Administer 1 spray [...] organization. Date Type Department Care Team Description 12/18/2024 Patient Outreach [facility] [address] [place] [address] Cathryn Cardoza MD Pre-visit Planning (Pre-visit planning - LVM ) 12/10/2024 Telephone [facility] [address] [place] [address] 48[address] Cathryn Cardoza MD 12/07/2024 Orders Only [facility] External Provider, [facility] 11/14/2024 Telephone [facility] [address] [place] [address] Angela Stone [place] 10/22/2024 Telephone [facility] [address] [place] [address] Cathryn Cardoza MD oct recall 10/09/2024 Refill [facility] [address] [place] [address] 85[address] Cathryn Cardoza MD Genital herpes simplex, unspecified site 09/18/2024 9:45 AM EDT Office Visit [facility] 230 [place] [address] Cathryn Cardoza MD Health care maintenance (Primary Dx); Moderate asthma with acute exacerbation, unspecified whether persistent; Encounter for immunization; KRISH (generalized anxiety disorder); Mixed anxiety and depressive disorder; Mild intermittent asthma, unspecified whether complicated; Allergic rhinitis, unspecified seasonality, unspecified trigger 09/18/2024 Travel 09/17/2024 Telephone [facility] 230 [place] [address] Cathryn Cardoza MD chart prep from Last 3 Months Immunizations Immunization Administration Dates Next Due DTaP 08/12/1998, 6,1994,05/12,1994 HPV, Quadrivalent 08/07/2008,05/06/2008,08/03/19 08 Hep B, Adolescent or Pediatric 1994,1994,1994 Hep B, adult 12/12/2023,07/07/2023,06/09/2023 Hib ([facility]) 04/14/1995, 5,1994,03/14 IPV 08/12/1998, 5,1994,03/14 Influenza [...] Description 12/25/2024 10:45 AM EDT Office Visit [facility] [address] [place] [address] [phone] Cathryn Cardoza MD 230 [place], [place] [phone] Health Maintenance Due Date Last Done Comments COVID-19 Vaccine ( season) 2024 Influenza Vaccine (#1) 2024 , 02/28/2015, 03/26/2014, Additional history exists Family Planning (PISQ) 01/24/2025 01/25/2024 SDOH Screening 05/15/2025 05/15/2024 Alcohol/Substance Use Screening 09/18/2025 09/18/2024 Depression Screening 09/18/2025 09/18/2024, 09/19/19 25 Disability Screening 09/18/2025 09/18/2024 Tobacco Screening 09/18/2025 [...] AM EDT Narrative 12/07/2024 11:39 AM EDT [address] [address] XRay Report Signed Patient: Nafisa Jacobs MR#: [id number] : 1995 Acct:[id number] Age/Sex: 29 / F ADM Date: 12/07/24 Loc: HO.SWATIAY Attending Dr: Shayne Mclain MD Ordering Physician: Shayne Mclain MD Date of Service: 12/07/24 Procedure(s): XR wrist RT min 3V Accession Number(s): [id number] cc: Shayne Mclain MD; Cathryn Cardoza MD [...] 12/07/24 1137 DD/ 1115 TD/TT: 12/07/24 1116 Customs Port Director: Procedure Note Donotuseinterpreter, Image - 12/07/[address] [address] XRay Report Signed Patient: Nafisa JacobsMR#: [id number] : 1995Acct:[id number] Age/Sex: 29 / FADM Date: 12/07/24 Loc: HO.XRAY Attending Dr: Shayne Mclain MD Ordering Physician: Shayne Mclain MD Date of Service: 12/07/24 Procedure(s): XR wrist RT min 3V Accession Number(s): [id number] cc: Shayne Mclain MD; Cathryn Cardoza MD [...] Drew MD Signed By: <Electronically signed by Palbo Drew MD in OV> 12/07/24 1137 DD/ 1115 TD/TT: 12/07/24 1116 Customs Port Director: [facility] External Provider IMG XR PROCEDURES Final Result * XR Hand 3+ Views Right (12/07/2024 11:14 AM EDT) Anatomical Region Laterality Modality Upper Extremities, Hand Right Radiogra phic Imaging 12/07/2024 11:1 4 AM EDT Narrative 12/07/2024 11:39 AM EDT [address] [address] XRay Report Signed Patient: Nafisa Jacobs MR#: [id number] : 1995 Acct:[id number] Age/Sex: 29 / F ADM Date: 12/07/24 Loc: HO.XRLEXA Attending Dr: Shayne Mclain MD Ordering Physician: Shayne Mclain MD Date of Service: 12/07/24 Procedure(s): XR hand RT min 3V Accession Number(s): [id number] cc: Shayne Mclain MD; Cathryn Cardoza MD [...] 12/07/2024 11:37 AM EDT RP Dictated By: aPblo Drew MD Signed By: <Electronically signed by Pablo Drew MD in OV> 12/07/24 1137 DD/ 1114 TD/TT: 12/07/24 1116 Customs Port Director: Procedure Note Donotuseinterpreter, Image - 12/07/[address] [address] XRay Report Signed Patient: Nafisa JacobsMR#: [id number] : 1995Acct:[id number] Age/Sex: 29 / FADM Date: 12/07/24 Loc: HO.XRAY Attending Dr: Shayne Mclain MD Ordering Physician: Shayne Mclain MD Date of Service: 12/07/24 Procedure(s): XR hand RT min 3V Accession Number(s): [id number] cc: Shayne Mclain MD; Cathryn Cardoza MD [...] 12/07/24 1137 DD/ 1114 TD/TT: 12/07/24 1116 Customs Port Director: [facility] External Provider IMG XR PROCEDURES Final Result * Pap Smear (01/25/2024 9:58 AM EST) Swab Cervix uteri structure / Unknown 01/25/2024 9:58 AM EST 01/26/2024 9:30 AM EST [facility] - 01/30/2024 10:24 AM EST ----- ------- Name: Nafisa Jacobs Age/Sex: 29/F : 1995 Unit#: [id number] Attend Dr: Re01/25/24 Status: PRE REF Location: [facility] Disch: ----- ------- SPEC : [id number] RECD: 01/26/24 STATUS: DIOMEDES HERR NUM: [id number] YANIRA: 01/25/[address] [facility] DR: RUTH MALIK [facility] ENTERED: 01/26/24 SP TYPE: Pap Smr OTHR DR: ORDERED: Pap Smear Interpretation Satisfactory for evaluation. Negative for intraepithelial lesion or malignancy. HPV High Risk: Negative HPV Genotyping 16: Negative HPV Genotyping 18: Negative Clinical Information LMP: Unknown date Previous PAP test: 2020, abnormal Material Received ThinPrep-Cervical ----- ------- Signed (signature on file) LAURENT Alxe (ASCP) 01/30/24 1024 ----- ------- END OF REPORT Ruth Malik CNM LAB CYTOLOGY ORDERABLES F inal Result Performing Organization Address [facility] Co de Phone Number [facility] [address] [place] [address] [phone] * HPV mRNA E6/E7 w/Reflex to HPV Genotypes 16, 18/45 (01/25/2024 12:00 AM EST) Historical Provider LAB CYTOLOGY ORDERABLES F inal Result Performing Organization Address [facility] Co de Phone Number [facility] [address] [place] [address] [phone] * Hepatitis C Antibody with Reflex to HCV, RNA, Quantitative, Real-Time PCR (01/13/2024 2:35 PM EDT) Hepatitis C Antibody Nonreactive Nonreactive [facility] Comment:Antibodies to HCV no t detected; does not exclude early acuteHCV infection. Blood Venous blood specimen / Unknown 01/13/2024 2:35 PM EDT 01/13/2024 4:32 PM EDT Cathryn Zhou MD LAB BLOOD ORDERAB LES Final Result Performing Organization Address [facility] Co de Phone Number [facility] [address] [place] [address] [phone] * HIV-1/2 Antigen and Antibodies, Fourth Generation, with Reflexes (01/13/2024 2:35 PM EDT) HIV AB/AG Nonreactive Nonreactive [facility] Comment:HIV-1 p24 Ag and/or HIV-1/HIV-2 Ab not detected.A test result that is nonreactive does not exclude thepossibility of exposure to or infection with HIV-1 and/orHIV-2. Nonreactive results in this assay for individualswith prior exposure to HIV-1 and/or HIV-2 may be due toantigen and antibody levels that are below the limit ofdetection of this assay.The [facility] HIV Ag/Ab Combo assay result andsupplemental assay results should be interpreted inconjunction with the patient's clinical presentation,history and other laboratory results. If the results areinconsistent with clinical evidence, additional testing issuggested to confirm the result. Blood Venous blood specimen / Unknown 01/13/2024 2:35 PM EDT 01/13/2024 4:32 PM EDT Cathryn Zhou MD LAB BLOOD ORDERAB LES Final Result [facility] [address] [place] [address] [phone] from Last 3 Months or Most Recently Relevant to Health Maintenance Insurance [facility] Care Teams Drafting Layout Man Relationship Specialty Start Date End Date Cathryn Cardoza MD [address] [place] [phone] PCP - General Internal Medicine 09/08/22
--- OUTSIDE RECORDS SUMMARY | 2024-12-18 11:30 | XMS_ITS | Encounter Summary ---
Author Organization [employer] Address [address] [facility] [address] 7t [place] [address] Care Team Providers Care Heel Seam Rubber Name Role Phone Cathryn Cardoza MD Primary Care Pro vider Salinas Dhaliwal RN Unavailable [phone] Encounter Details Date Type Department Care Team (Late st Contact Info) Description 07/09/2024 Orders Only [facility] MED & PEDS [address] [place] [address] Nadine Lizama Social History Tobacco Use Types [...] Description 12/25/2024 10:45 AM EDT Office Visit [facility] [address] [place] [address] Cathryn Cardoza MD [address] [place] [address] documented as of this encounter Procedures Procedure Name Priority Date/Time Associated Diagnosis Comments HPV MRNA E6/E7 REFLEX TO HPV 16, 18/45 Routine 01/25/2024 12:00 AM EST documented in this encounter Results * HPV mRNA E6/E7 w/Reflex to HPV Genotypes 16, 18/45 (01/25/2024 12:00 AM EST) us Historical Provider LAB CYTOLOGY ORDERABLES F inal Result [facility] [address] [place] [address] [phone] documented in this encounter Visit Diagnoses Not on filedocumented in this encounter Additional Health Concerns Assessment Noted Time PHQ-9 Depression Total Score: 11 024 10:24 AM EST documented as of this encounter Care Teams Heel Seam Rubber Relationship Specialty Start Date End Date Cathryn Cardoza MD [address] [place] [address] [phone] PCP - General Internal Medicine 09/08/22 Salinas Dhaliwal RN [address] [place] [address] Form Block MakerTyre Builder 05/15/24 08/14/24 documented as of this encounter
--- OUTSIDE RECORDS SUMMARY | 2024-12-18 11:30 | XMS_ITS | Encounter Summary ---
Author Organization [employer] Address 75 [facility] 7 [place] [address] Care Team Providers Care Office Machine Mechanic Name Role Phone Cathryn Cardoza MD Primary Care Pro vider Salinas Dhaliwal RN Unavailable [phone] Reason for Visit * Reason Onset Date Comments Appointment Request 02/23/2023 Encounter Details Date Type Department Care Team (Late st Contact Info) Description 02/23/2023 Telephone [facility] [address] [place] [address] [phone] Cathryn Cardoza MD [address] [place], [place] [phone] Appointment Request Social History Tobacco Use Types [...] calling to request a appt for DEPO senior technical writer was going to schedule but was unable to due to a window period please call to schedule documented in this encounter Plan of Treatment Upcoming Encounters Date Type Department Care Team (Late st Contact Info) Description 12/25/2024 10:45 AM EDT Office Visit [facility] [address] [place] [address] Cathryn Cardoza MD [address] [place] [address] [phone] documented as of this encounter Visit Diagnoses Not on filedocumented in this encounter Care Teams Office Machine Mechanic Relationship Specialty Start Date End Date Cathryn Cardoza MD [address] [place] [address] [phone] PCP - General Internal Medicine 09/08/22 Salinas Dhaliwal RN [address] [place] [address] Account CollectorEnvironmental Compliance Officer 05/15/24 08/14/24 documented as of this encounter
--- OUTSIDE RECORDS SUMMARY | 2024-12-18 11:30 | XMS_ITS | Encounter Summary ---
Author Organization [employer] Address 75 [facility] 7 [place] [address] Care Team Providers Care Musical Instrument Mechanic Name Role Phone Cathryn Cardoza MD Primary Care Pro vider Salinas Dhaliwal RN Unavailable [phone] Reason for Visit * Reason Onset Date Comments Lab Order question 06/07/2024 Encounter Details Date Type Department Care Team (Late st Contact Info) Description 06/07/2024 Telephone [facility]INE [address] [place], [place] [phone] Cathryn Cardoza MD [address] [place], [place] [phone] Lab Order question Social History Tobacco Use [...] Description 12/25/2024 10:45 AM EDT Office Visit [facility] [address] [place] [address] Cathryn Cardoza MD [address] [place] [address] documented as of this encounter Visit Diagnoses Not on filedocumented in this encounter Additional Health Concerns Assessment Noted Time PHQ-9 Depression Total Score: 11 024 10:24 AM EST documented as of this encounter Care Teams Musical Instrument Mechanic Relationship Specialty Start Date End Date Cathryn Cardoza MD [address] [place] [address] PCP - General Internal Medicine 09/08/22 Salinas Dhaliwal RN [address] [place] [address] Engineering Lab TechnicianPost Secondary Professional 05/15/24 08/14/24 documented as of this encounter
--- OUTSIDE RECORDS SUMMARY | 2024-12-18 11:30 | XMS_ITS | Clinical Summary ---
Author Organization [facility] Address [address] [place] [address] Care Team Providers Care Experimental Plastics Fabricator Name Role Phone Unavailable Primary Care Provider [...] Cervical Cancer Screening: P ap Smear 2015 HPV Vaccines (1 - 3-dose SCD M series) 2021 HIV Screening 02/14/2022 Hepatitis C Screening 02/14/2022 Social Influencers of Health Screening 02/14/2022 Depression Screening 03/14/2024 COVID-19 Vaccine (1 - 2023-2 5 season) 2024 Influenza Vaccine (#1) 2024 RSV Immunization Adult Patie nts (1 - 1-dose 75+ series) 2069 HIB Vaccines Aged Out No longer eligi [...]
--- OUTSIDE RECORDS SUMMARY | 2024-12-18 11:30 | XMS_ITS | Encounter Summary ---
Author Organization [employer] Address 75 [facility] 7 [place] [address] Care Team Providers Care Anesthesiology Faculty Name Role Phone Cathryn Cardoza MD Primary Care Pro vider Reason for Visit * Reason Comments Pre-visit Planning Pre-visit planning - LVM Encounter Details Date Type Department Care Team ([facility] st Contact Info) Description 12/18/2024 Patient Outreach [facility] [address] [place] [address] Cathryn Cardoza MD 230 [place], [place] [phone] Pre-visit Planning (Pre-visit planning - LVM ) Social History Tobacco Use Types Packs/Day Years [...] encounter Progress Notes * Sarai Paredes - 12/18/2024 10:30 AM EDT [facility] placed outbound call to patient to complete pre-visit planning. No answer at this time. Patient name and were not confirmed. CC left voicemail requesting return call. Direct contact information provided. documented in this encounter Plan of Treatment Upcoming Encounters Date Type Department Care Team ([facility] Contact Info) Description 12/25/2024 10:45 AM EDT Office Visit [facility] [address] [place] [address] Cathryn Cardoza MD 230 [place] [address] documented as of this encounter Visit Diagnoses Not on filedocumented in this encounter Additional Health Concerns Assessment Noted Time PHQ-9 Depression Total Score: 7 09/19/19 25 10:03 AM EDT documented as of this encounter Care Teams Anesthesiology Faculty Relationship Specialty Start Date End Date Cathryn Cardoza MD [address] [place] [address] PCP - General Internal Medicine 09/08/22 documented as of this encounter
--- OUTSIDE RECORDS SUMMARY | 2024-12-18 11:30 | XMS_ITS | Encounter Summary ---
Author Organization [employer] Address [address] [facility] [address] 7t [place] [address] Care Team Providers Care Disc Pad Plate Filler Name Role Phone Yvonne Madrid CREW BOAT OPERATOR Primary Care Provider [phone] Cathryn Cardoza MD Primary Care Pro vider Salinas Dhaliwal RN Unavailable [phone] Reason for Visit * Reason Comments Med Refill Encounter Details Date Type Department Care Team (Late Contact Info) Description 05/01/2022 Refill [facility] MED & PEDS [address] [place], [place] [phone] Cassandra Guzman CNM 230 [place], [place] [phone] Encounter for other contraceptive management Social History [...] Upcoming Encounters Date Type Department Care Team ([facility] Contact Info) Description 12/25/2024 10:45 AM EDT Office Visit [facility] MEDICINE [address] [place] [address] Cathryn Cardoza MD [address] [place] [address] documented as of this encounter Visit Diagnoses Diagnosis Encounter for other contraceptive management documented in this encounter Care Teams Disc Pad Plate Filler Relationship Specialty Start Date End Date [facility] [address] [place] [address] PCP - General Family Medicine 08/25/21 09/07/22 Cathryn Cardoza MD [address] [place] [address] PCP - General Internal Medicine 09/08/22 Salinas Dhaliwal RN [address] [place] [address] Auto Service MechanicDirector Of Marketing Google Performance Ads 05/15/24 08/14/24 documented as of this encounter
== END 2024-12-18 10:39 | disposition home or self-care (01) ==
LOC: HO.HOS 09:55
PROVIDERS: PCP Student in an Organized Health Care Education/Training Program; Visit Provider Orthopaedic Surgery
DX: S62.314A Displaced fracture of base of fourth metacarpal bone, right hand, initial encounter for closed fracture (principal); S62.316A Displaced fracture of base of fifth metacarpal bone, right hand, initial encounter for closed fracture
CPT/HCPCS: 99213

== ENCOUNTER → 2024-12-18 09:57 | Outpatient (BNV) | payer MEDICAID, SELFPAY | PROVIDERS: Visit Provider Radiology Diagnostic Radiology | DX: S62.326A Displaced fracture of shaft of fifth metacarpal bone, right hand, initial encounter for closed fracture (principal) | CPT/HCPCS: 73130 ==

== ENCOUNTER 2024-12-18 11:16 | Outpatient (REF) | payer MEDICAID, SELFPAY ==
--- NOTE | ~2024-12-18 | XR_ITS ---
EXAMINATION: XR HAND, RIGHT CLINICAL INFORMATION: M79.641 - Pain in right hand COMPARISON: Previous x-ray November 2024 TECHNIQUE: PA, lateral, and oblique views of the right hand. FINDINGS: There is a transverse minimally comminuted fracture of the proximal shaft of the fifth metacarpal bone. There is slight impaction and volar angulation at the fracture site. There is question of a nondisplaced fracture of the proximal shaft of the fourth metacarpal bone. Fractures do not appear interarticular with the NURSING HOME joints. No other fracture. Joint spaces are normal. There is interval decrease in soft tissue swelling compared to previous exam. XR/XR hand RT min 3V IMPRESSION: Minimally comminuted, impacted, slightly angulated proximal shaft of the fifth metacarpal bone and question nondisplaced fracture of the proximal shaft of the fourth metacarpal bone. Electronically signed by: Zuri Hairston MD 12/18/2024 10:18 AM EDT
== END 2024-12-18 11:17 | disposition home or self-care (01) ==
LOC: HO.HOSX 11:16
PROVIDERS: Visit Provider Orthopaedic Surgery
DX: S62.314A Displaced fracture of base of fourth metacarpal bone, right hand, initial encounter for closed fracture (principal); S62.316A Displaced fracture of base of fifth metacarpal bone, right hand, initial encounter for closed fracture; W22.8XXA Striking against or struck by other objects, initial encounter
CPT/HCPCS: 73130; 99212

== ENCOUNTER 2024-12-25 11:44 | Outpatient (REF) | payer MEDICAID, SELFPAY ==
--- NOTE | ~2024-12-25 | XR_ITS ---
EXAMINATION: XR THORACIC SPINE CLINICAL INFORMATION: PAIN COMPARISON: None available. TECHNIQUE: 3 views of the thoracic spine were obtained. FINDINGS: There is no fracture or bone destruction seen and the vertebral alignment is normal. There is no disc space narrowing. There is no abnormality of the paraspinal soft tissues. XR/XR thoracic spine 2V IMPRESSION: Normal thoracic spine. Electronically signed by: Terrell Villalta MD 12/25/2024 01:26 PM EDT RP
--- OUTSIDE RECORDS SUMMARY | 2024-12-25 14:25 | XMS_ITS | Clinical Summary ---
Author Organization [facility] Address [address] [place] [address] Care Team Providers Care Assembler Musical Instruments Name Role Phone Unavailable Primary Care Provider [...]
== END 2024-12-25 11:45 | disposition home or self-care (01) ==
LOC: HO.HHCX 11:44
PROVIDERS: PCP Student in an Organized Health Care Education/Training Program; Visit Provider Student in an Organized Health Care Education/Training Program
DX: M54.6 Pain in thoracic spine (principal); G89.29 Other chronic pain
CPT/HCPCS: 72070

== ENCOUNTER → 2024-12-25 11:57 | Outpatient (BNV) | payer MEDICAID, SELFPAY | PROVIDERS: PCP Student in an Organized Health Care Education/Training Program; Visit Provider Radiology Diagnostic Radiology | DX: M54.6 Pain in thoracic spine (principal) | CPT/HCPCS: 72070 ==

== ENCOUNTER 2025-01-08 09:09 | Outpatient (REF) | payer MEDICAID, SELFPAY ==
--- OUTSIDE RECORDS SUMMARY | 2025-01-09 10:26 | XMS_ITS | Encounter Summary ---
Author Organization [employer] Address [address] [facility] 7 [place] [address] Care Team Providers Care Canvas Shrinker Name Role Phone Cathryn Cardoza MD Primary Care Pro vider Salinas Dhaliwal RN Unavailable [phone] Reason for Visit * Reason Onset Date Comments Nurse Triage 04/19/2024 Encounter Details Date Type Department Care Team (Late st Contact Info) Description 04/19/2024 Telephone [facility] MED[facility]INE [address] [place], [place] [phone] Cathryn Cardoza MD [address] [place], [place] [phone] Nurse Triage Social History Tobacco Use Types [...] on site. She spoke with provider in [facility] in February 2024 abouta letter to remove rugs but never went to medical records. No letter on file. Advised her to go request letter tomorrow after appt. Explained NTTS risk assessment consultant nurse before appt. Pt verbalized understanding, [...] never been confirmed by a doctor (or CREATIVE ENGAGEMENT DIRECTOR/PA) * Nasal allergies occur only certain times of year * All higher-acuity triage questions were negative Care Advice Discussed: * Nasal Washes for a Stuffy Nose and to Wash out Pollen * Antihistamine Medicines for Hay Fever * Nasal Decongestants for a Very Stuffy Nose * Telephone Encounter - Jose Gavino - 04/19/2024 3:32 PM EST Symptom: Allergic Reaction (General) Outcome: Transfer to a nurse or provider NOW! Reason: Trouble breathing The caller accepted this outcome. documented in this encounter Plan of Treatment Not on file documented as of this encounter Visit Diagnoses Not on filedocumented in this encounter Additional Health Concerns Assessment Noted Time PHQ-9 Depression Total Score: 11 024 10:24 AM EST documented as of this encounter Care Teams Canvas Shrinker Relationship Specialty Start Date End Date Cathryn Cardoza MD [address] [place] [id number] PCP - General Internal Medicine 09/08/22 Salinas Dhaliwal RN [address] [place] [address] Caustic Room AttendantMulti Punch Operator 05/15/24 08/14/24 documented as of this encounter
--- OUTSIDE RECORDS SUMMARY | 2025-01-09 10:26 | XMS_ITS | Encounter Summary ---
Author Organization [employer] Address [address] [facility] [address] [place] [address] Care Team Providers Care Senior Technical Writer Name Role Phone Yvonne Madrid MATCHING MACHINE OPERATOR Primary Care Provider [phone] Cathryn Cardoza MD Primary Care Pro vider Salinas Dhaliwal RN Unavailable [phone] Reason for Visit * Reason Comments Med Refill Encounter Details Date Type Department Care Team (Late st Contact Info) Description 05/01/2022 Refill [facility] [address] [place], [place] [phone] Cassandra Guzman CNM [address] [place] [address] Encounter for other contraceptive management Social History [...] as of this encounter Plan of Treatment Not on file documented as of this encounter Visit Diagnoses Diagnosis Encounter for other contraceptive management documented in this encounter Care Teams Senior Technical Writer Relationship Specialty Start Date End Date Yvonne Madrid FNP [address] [place] [address] PCP - General Family Medicine 08/25/21 09/07/22 Cathryn Cardoza MD [address] [place] [id number] PCP - General Internal Medicine 09/08/22 Salinas Dhaliwal RN [address] [place] [phone] Hardboard Factory WorkerWool Shearing Supervisor 05/15/24 08/14/24 documented as of this encounter
--- OUTSIDE RECORDS SUMMARY | 2025-01-09 10:26 | XMS_ITS | Encounter Summary ---
Author Organization [employer] Address [address] [facility] 7t [place] [address] Care Team Providers Care Staff Accountant Name Role Phone Cathryn Cardoza MD Primary Care Pro vider Encounter Details Date Type Department Care Team (Late st Contact Info) Description 12/25/2024 Results Follow-Up [facility] MEDICINE [address] [place] [address] Cathryn Cardoza MD [address] [place] [address] XR Thoracic Spine 2 Views Social History Tobacco Use Types Packs/Day Years [...] Answer Date Recorded Patient Health Questionnaire-9 Score 0 12/25/2024 Patient Health Questionnaire-9 Score 0 12/25/2024 Last PHQ-9: Questionnaire Data Not on file 1 Housing Stability Answer Date Recorded What is [...] Answer Date Recorded Patient Health Questionnaire-2 Score 0 12/25/2024 Internet Access Answer Date Recorded Internet Access Q1 Yes 05/15/2024 Internet Access Q2 Not on file 05/15/2024 Comments No Sex and Gender Information Value Date Recorded Sex Assigned at Female 01/11/2022 10:16 AM EDT Legal Sex Female 10:16 AM EDT Gender Identity Female 01/11/2022 10:16 AM EDT Sexual Orientation Straight 01/11/2022 10 :16 AM EDT documented as of this encounter Functional Status * Over the past 2 weeks, how often have you been bothered by any of the following problems? Question Answer Date of Assessment Author Patient Health Questionnaire -2 Score 0 12/25/2024 11:00 AM EDT Alexandra Lewis MA * Little interest or pleasure in doing things Answer Date of Assessment Author Not at all 12/25/2024 11:00 AM PARTHT Alexandra Lewis MA * Feeling down, depressed, or hopeless Answer Date of Assessment Author Not at all 12/25/2024 11:00 AM PARTHT Alexandra Lewis MA * Trouble falling or staying asleep, or sleeping too much Answer Date of Assessment Author Not at all 12/25/2024 11:00 AM Alexandra Hernandez MA * Feeling tired or having little energy Answer Date of Assessment Author Not at all 12/25/2024 11:00 AM Alexandra Hernandez MA * Poor appetite or overeating Answer Date of Assessment Author Not at all 12/25/2024 11:00 AM Alexandra Hernandez MA * Feeling bad about yourself - or that you are a failure or have let yourself or your family down Answer Date of Assessment Author Not at all 12/25/2024 11:00 AM Alexandra Hernandez MA * Trouble concentrating on things, such as reading the newspaper or watching television Answer Date of Assessment Author Not at all 12/25/2024 11:00 AM Alexandra Hernandez MA * Moving or speaking so slowly that other people could have noticed? Or the opposite - being so fidgety or restless that you have been moving around a lot more than usual. Answer Date of Assessment Author Not at all 12/25/2024 11:00 AM Alexandra Hernandez MA * Thoughts that you would be better off or hurting yourself in some way Answer Date of Assessment Author Not at all 12/25/2024 11:00 AM Alexandra Hernandez MA * Patient Health Questionnaire-9 Score Answer Date of Assessment Author 0 12/25/2024 11:00 AM Alexandra Hernandez MA * Over the last 2 weeks, how often have you been bothered by any of the following problems? Question Answer Date of Assessment Author Feeling nervous, anxious, or on edge 0 12/25/2024 11:00 AM Alexandra Hernandez MA Not being able to stop or co ntrol worrying 0 12/25/2024 11:00 AM Alexandra Hernandez MA Worrying too much about diff erent things 0 12/25/2024 11:00 AM Alexandra Hernandez MA Trouble relaxing 0 12/25/2024 11:00 AM Alexandra Hernandez MA Being so restless that it is hard to sit still 0 12/25/2024 11:00 AM Alexandra Hernandez MA Becoming easily annoyed or irritable 0 12/25/2024 11:00 AM Alexandra Hernandez MA documented as of this encounter Plan of Treatment Not on file documented as of this encounter Visit Diagnoses Not on filedocumented in this encounter Additional Health Concerns Assessment Noted Time PHQ-9 Depression Total Score: 0 12/26/19 25 11:00 AM EDT documented as of this encounter Care Teams Staff Accountant Relationship Specialty Start Date End Date Cathryn Cardoza MD [address] [place] [phone] PCP - General Internal Medicine 09/08/22 documented as of this encounter
--- OUTSIDE RECORDS SUMMARY | 2025-01-09 10:26 | XMS_ITS | Encounter Summary ---
Author Organization [employer] Address [address] [facility] 7 [place] [address] Care Team Providers Care Can Line Operator Name Role Phone Cathryn Cardoza MD Primary Care Pro vider Salinas Dhaliwal RN Unavailable [phone] Reason for Visit * Reason Onset Date Comments Appointment Request 02/09/2023 Encounter Details Date Type Department Care Team (Late st Contact Info) Description 02/09/[address] [facility] MEDICINE [address] [place] [phone] Cathryn Cardoza MD [address] [place], [place] [phone] Appointment Request Social History Tobacco Use Types [...] like a call back to reschedule appt specification writer did cancel appt. documented in this encounter Plan of Treatment Not on file documented as of this encounter Visit Diagnoses Not on filedocumented in this encounter Care Teams Can Line Operator Relationship Specialty Start Date End Date Cathryn Cardoza MD [address] [place] [id number] PCP - General Internal Medicine 09/08/22 Salinas Dhaliwal RN [address] [place] [phone] Hearing ExaminerDirector Phone 05/15/24 08/14/24 documented as of this encounter
--- OUTSIDE RECORDS SUMMARY | 2025-01-09 10:26 | XMS_ITS | Encounter Summary ---
Author Organization [employer] Address [address] [facility] [address] [place] [address] Care Team Providers Care Repair Table Operator Name Role Phone Cathryn Cardoza MD Primary Care Pro vider Salinas Dhaliwal RN Unavailable [phone] Encounter Details Date Type Department Care Team (Late st Contact Info) Description 07/09/2024 Orders Only [facility] [address] [place] [address] Nadine Lizama Social History Tobacco Use Types [...] on file documented as of this encounter Procedures Procedure Name Priority Date/Time Associated Diagnosis Comments HPV MRNA E6/E7 REFLEX TO HPV 16, 18/45 Routine 01/25/2024 12:00 AM EST documented in this encounter Results * HPV mRNA E6/E7 w/Reflex to HPV Genotypes 16, 18/45 (01/25/2024 12:00 AM EST) us Historical Provider LAB CYTOLOGY ORDERABLES F inal Result [facility] [address] [place] [address] [phone] documented in this encounter Visit Diagnoses Not on filedocumented in this encounter Additional Health Concerns Assessment Noted Time PHQ-9 Depression Total Score: 11 024 10:24 AM EST documented as of this encounter Care Teams Repair Table Operator Relationship Specialty Start Date End Date Cathryn Cardoza MD [address] [place] [address] PCP - General Internal Medicine 09/08/22 Salinas Dhaliwal RN [address] [place] [address] Firepot Operator And TenderRoller Hand 05/15/24 08/14/24 documented as of this encounter
--- OUTSIDE RECORDS SUMMARY | 2025-01-09 10:26 | XMS_ITS | Clinical Summary ---
Author Organization [employer] Address [address] [place] [address] Care Team Providers Care Supervisor Pastry Name Role Phone Cathryn Cardoza MD Primary Care Pro vider Allergies Active Allergy Reactions Criticality Noted Date Comments Sumatriptan Itching Low 01/30/2022 Vaginal Lubricant 12/25/2024 LUBLIFE Medications * This document contains information received from the source organization and may not represent a complete record from that organization. Spacer/Aero-Ho lding Chambers (BreatheRite Yanira Spacer Adult) miscIndication s:Dysuria 1 Units if needed in the morning, at noon, in the evening, and at bedtime (wheezing). 1 each 02/26/20 22 Active Nebulizers misc 1 kit Every 4-6 hours as needed (for shortness of breath and wheezing). Accerlon nebulizer given to patient in walk in center 01/02/2024, education provided Active fluticasone (Veramyst) 27.5 MCG/SPRAY nasal sprayIndicatio ns:Allergic Rhinitis,Seaso nal Allergic Rhinitis Administer 2 sprays into each nostril Once per day. Active 28-0.8 MG tabletIndicati ons:Less than 8 weeks gestation of Take 1 tablet by mouth Once per day. 90 tablet 3 06/07/19 25 2025 Active ondansetron (Zofran) 4 MG tabletIndicati ons:Acute URI Take 1 tablet (4 mg) by mouth if needed each day for nausea or vomiting. 20 tablet 08/23/19 25 2025 Active azelastine (Astelin) 0.1 % nasal spray Administer 1 spray into each nostril 2 times daily. Use in each nostril as directed 30 mL 3 09/19/19 25 2025 Active sodium chloride ([address]) 0.65 % nasal spray Administer 1 spray into each nostril if needed for congestion. 15 mL 2 09/19/19 25 2025 Active valACYclovir (Valtrex) 500 MG tabletIndicati ons:Genital herpes simplex, unspecified site TAKE 1 TABLET BY MOUTH TWICE A DAY FOR 3 DAYS PER FLARE 12 tablet 1 10/10/19 25 Active loratadine (Claritin) 10 MG tablet TAKE 1 TABLET BY MOUTH EVERY DAY 90 tablet 12/21/19 25 Active montelukast (Singulair) 10 MG tablet TAKE 1 TABLET BY MOUTH EVERY DAY 90 tablet 12/21/19 25 Active albuterol (ProAir HFA) 108 (90 Base) MCG/ACT inhalerIndicat ions:Shortness of breath Inhale 2 puffs every 4 (four) hours. 18 g 1 12/22/19 25 Active albuterol (2.5 MG/3ML) 0.083% nebulizer solutionIndica tions:Dysuria Take 3 mL (2.5 mg) by nebulization every 8 (eight) hours if needed for wheezing. 90 mL 1 12/26/19 25 Active budesonide-for moterol (Symbicort) 160-4.5 MCG/ACT inhaler Inhale 2 puffs in the morning and at bedtime. Rinse mouth with water after use to reduce aftertaste and incidence of candidiasis. Do not swallow. 1 each 3 12/26/19 25 2025 Active albuterol (ProAir HFA) 108 (90 Base) MCG/ACT inhalerIndicat ions:Shortness of breath Inhale 2 puffs every 4 (four) hours. 18 g 1 02/16/20 22 2024 Discontinued(R eorder (will not trigger notification to Pharmacy)) Mometasone Furoate (Asmanex HFA) 100 MCG/ACT aerosolIndicat ions:Moderate asthma with acute exacerbation, unspecified whether persistent Inhale 1 Act (100 mcg) 2 times daily. 13 g 3 02/27/20 24 2024 Discontinued(O ther) albuterol (2.5 MG/3ML) 0.083% nebulizer solutionIndica tions:Dysuria INHALE 1 AMPULE USING A NEBULIZER EVERY 4 HOURS NEEDED FOR WHEEZING 90 mL 1 02/28/20 24 2024 Discontinued(R eorder (will not trigger notification to Pharmacy)) montelukast (Singulair) 10 MG tablet Take 1 tablet (10 mg) by mouth Once per day. 90 tablet 09/19/19 25 2024 Discontinued loratadine (Claritin) 10 MG tabletIndicati ons:Rhinorrhea ,Seasonal Allergic Rhinitis,Sneez ing Take 1 tablet (10 mg) by mouth Once per day. 90 tablet 09/19/19 25 2024 Discontinued Active Problems Problem Noted Date Diagnosed Date Thoracic back pain 12/25/2024 GERD (gastroesophageal reflux disease) Allergic rhinitis 09/18/2024 Health care maintenance 03/26/2023 [...] Encounters Date Type Department Care Team Description 12/25/2024 10:45 AM EDT Office Visit [facility] [place] [address] Cathryn Cardoza MD Chronic thoracic back pain, unspecified back pain laterality (Primary Dx); Dysuria; Annual physical exam; Encounter for immunization; Gastroesophageal reflux disease without esophagitis; Mixed anxiety and depressive disorder; Mild intermittent asthma, unspecified whether complicated 12/25/2024 Results Follow-Up [facility] [address] [place] [phone] Cathryn Cardoza MD XR Thoracic Spine 2 Views 12/25/2024 Travel 12/24/2024 Travel 12/24/[address] [address] Cathryn Cardoza MD chart prep 12/21/[address] [address] Cathryn Cardoza MD Nurse Triage 12/20/[address] [address] Cathryn Cardoza MD 12/18/2024 Patient Outreach [address] [address] Cathryn Cardoza MD Pre-visit Planning (Pre-visit planning - LVM ) 12/10/[address] [address] Cathryn Cardoza MD 12/07/2024 Orders Only [facility] External Provider, [facility] 11/14/2024 Telephone [facility] [place] [address] Angela Stone MA 10/22/2024 Telephone [facility] [address] [place] [address] Cathryn Cardoza MD oct recall 10/09/2024 Refill [facility] [address] [place] [address] Cathryn Cardoza MD Genital herpes simplex, unspecified site from Last 3 Months Immunizations Immunization Administration Dates Next Due DTaP 08/12/1998, 6,1994,05/12,1994 HPV, Quadrivalent 08/07/2008,05/06/2008,08/03/19 08 Hep B, Adolescent or Pediatric 1994,1994,1994 Hep B, adult 12/12/2023,07/07/2023,06/09/2023 Hib ([facility]) 04/14/1995, 5,1994,03/14 IPV 08/12/1998, 5,1994,03/14 Influenza injectable quadriv alent preservative free 03/24/2023 Influenza, IIV3, injectable 02/28/2015,0 03/26/2014,12/10/2010,12/10,12/05/2008,02/15/2007 Influenza, Split (incl. anushka fied surface antigen) 02/26/2013,12/10/2011 Influenza, seasonal, injecta ble, preservative free 12/25/2024 MMR 08/12/1998,1994 Meningococcal MPSV4 08/05/2005 Pneumococcal Conjugate [...] Sign Reading Time Taken Comments Blood Pressure 110/60 12/25/2024 10:59 AM EDT Pulse 89 12/25/2024 10:59 AM EDT Temperature 36.2 C (97.1 F) 12/25/2024 10:59 AM EDT Respiratory Rate 20 12/25/2024 10:59 AM EDT Oxygen Saturation 99% 12/25/2024 10:59 AM EDT Inhaled Oxygen Concentration - - Weight 50.3 kg (111 lb) 12/25/2024 10:59 AM EDT Height 155.4 cm (5' 1.17 ) 12/25/2024 10:59 AM E DT Body Mass Index 20.86 12/25/2024 10:59 AM EDT Plan of Treatment Health Maintenance Due Date Last Done Comments COVID-19 Vaccine ( season) 2024 Family Planning (PISQ) 01/24/2025 01/25/2024 SDOH Screening 05/15/2025 05/15/2024 Alcohol/Substance Use Screening 09/18/2025 09/18/2024 Disability Screening 12/24/2025 12/24/2024 Depression Screening 12/25/2025 12/25/2024, 12/26/19 Tobacco Screening 12/25/2025 12/25/2024 Cervical Cancer Screening 01/24/2029 HPV/Cotest 01/24/2029 01/25/2024, 12/24/2020 Pap Smear 01/24/2029 01/25/2024, 12/24/2020 DTaP/Tdap/Td Vaccines (9 - Td or Tdap) 09/18/2034 09/18/2024, 02/28/2015, 08/05/2005, Additional history exists Zoster Vaccines (1 of 2) 01/11/2044 RSV Patients and Patients Aged 60 years or older (1 - 1-dose 75+ series) 2069 HIB Vaccines Completed 04/14/1995, 0 03/1994, 1994, Additional history exists IPV Vaccines [...] Patients (6 to 49) Years Completed 09/18/2024 Influenza Vaccine Completed 12/25/2024, , 02/28/2015, Additional history exists Hepatitis A Vaccines Aged Out No long [...] Name Priority Date/Time Associated Diagnosis Comments XR THORACIC SPINE 2 VIEWS Routine 12/25/2024 1:15 PM EDT Chronic thoracic back pain, unspecified back pain laterality XR WRIST 3+ VIEWS RIGHT Routine 12/07/2024 [...] Relevant to Health Maintenance Results * XR Thoracic Spine 2 Views (12/25/2024 1:15 PM EDT) Anatomical Region Laterality Modality Spine, T-spine Radiographic Annabel ging 12/25/2024 1:15 PM EDT Narrative 12/25/2024 1:29 PM EDT [address] [address] XRay Report Signed Patient: Nafisa Jacobs MR#: [id number] : 1995 Acct:[id number] Age/Sex: 29 / F ADM Date: 12/25/24 Loc: HO.CX Attending Dr: Cathryn Zhou MD Ordering Physician: Cathryn Cardoza MD Date of Service: 12/25/24 Procedure(s): XR thoracic spine 2V Accession Number(s): [id number] cc: Cathryn Cardoza MD Reason for Exam: PAIN EXAMINATION: XR THORACIC SPINE CLINICAL INFORMATION: PAIN COMPARISON: None available. TECHNIQUE: 3 views of the thoracic spine were obtained. FINDINGS: There is no fracture or bone destruction seen and the vertebral alignment is normal. There is no disc space narrowing. There is no abnormality of the paraspinal soft tissues. XR/XR thoracic spine 2V IMPRESSION: Normal thoracic spine. Electronically signed by: Terrell Villalta MD 12/25/2024 01:26 PM EDT Dictated By: Terrell Villalta MD Signed By: <Electronically signed by Terrell Villalta MD in OV> 12/25/24 1326 DD/ 1315 TD/TT: 12/25/24 1319 Church Business Administrator: Procedure Note Donotuseinterpreter, Image - 12/25/[address] [address] XRay Report Signed Patient: Nafisa JacobsMR#: [id number] : 1995Acct:[id number] Age/Sex: 29 / FADM Date: 12/25/24 Loc: HO.CX Attending Dr: Cathryn Zhou MD Ordering Physician: Cathryn Cardoza MD Date of Service: 12/25/24 Procedure(s): XR thoracic spine 2V Accession Number(s): [id number] cc: Cathryn Cardoza MD Reason for Exam: PAIN EXAMINATION: XR THORACIC SPINE CLINICAL INFORMATION: PAIN COMPARISON: None available. TECHNIQUE: 3 views of the thoracic spine were obtained. FINDINGS: There is no fracture or bone destruction seen and the vertebral alignment is normal. There is no disc space narrowing. There is no abnormality of the paraspinal soft tissues. XR/XR thoracic spine 2V IMPRESSION: Normal thoracic spine. Electronically signed by: Terrell Villalta MD 12/25/2024 01:26 PM EDT RP Dictated By: Terrell Villalta MD Signed By: <Electronically signed by Terrell Villalta MD in OV> 12/25/24 1326 DD/ 1315 TD/TT: 12/25/24 1319 Church Business Administrator: Cathryn Zhou MD IMG XR PROCEDURES Final Result * XR Wrist 3+ Views Right (12/07/2024 11:15 AM EDT) Anatomical Region Laterality Modality Upper Extremities, Wrist Right Radiogr aphic Imaging 12/07/2024 11:1 5 AM EDT Narrative 12/07/2024 11:39 AM EDT [place] [address] XRay Report Signed Patient: Nafisa Jacobs MR#: [id number] : 1995 Acct:[id number] Age/Sex: 29 / F ADM Date: 12/07/24 Loc: HO.XRAY Attending Dr: Shayne Mclain MD Ordering Physician: Shayne Mclain MD Date of Service: 12/07/24 Procedure(s): XR wrist RT min 3V Accession Number(s): [id number] cc: Shayne Mclain MD; Cathryn Cardoza MD [...] 12/07/24 1137 DD/ 1115 TD/TT: 12/07/24 1116 Church Business Administrator: Procedure Note Donotuseinterpreter, Image - 12/07/[address] [address] XRay Report Signed Patient: Nafisa JacobsMR#: [id number] : 1995Acct:[id number] Age/Sex: 29 FADM Date: 12/07/24 Loc: HO.XRAY Attending Dr: Shayne Mclain MD Ordering Physician: Shayne Mclain MD Date of Service: 12/07/24 Procedure(s): XR wrist RT min 3V Accession Number(s): [id number] cc: Shayne Mclain MD; Cathryn Cardoza MD [...] 12/07/24 1137 DD/ 1115 TD/TT: 12/07/24 1116 Church Business Administrator: us [facility] External Provider IMG XR PROCEDURES Final Result * XR Hand 3+ Views Right (12/07/2024 11:14 AM EDT) Anatomical Region Laterality Modality Upper Extremities, Hand Right Radiogra phic Imaging 12/07/2024 11:1 4 AM EDT Narrative 12/07/2024 11:39 AM EDT [place] [address] XRay Report Signed Patient: Nafisa Jacobs MR#: [id number] : 1995 Acct:[id number] Age/Sex: 29 / F ADM Date: 12/07/24 Loc: STEVIE Attending Dr: Shayne Mclain MD Ordering Physician: Shayne Mclain MD Date of Service: 12/07/24 Procedure(s): XR hand RT min 3V Accession Number(s): [id number] cc: Shayne Mclain MD; Cathryn Cardoza MD [...] Drew MD in OV> 12/07/24 1137 DD/ 13 TD/TT: 12/07/241115 Church Business Administrator: Procedure Note Donotuseinterpreter, Image - 12/07/[address] [address] XRay Report Signed Patient: Nafisa JacobsMR#: [id number] : 1995Acct:[id number] Age/Sex: 29 FADM Date: 12/07/24 Loc: HO.XRAY Attending Dr: Shayne Mclain MD Ordering Physician: Shayne Mclain MD Date of Service: 12/07/24 Procedure(s): XR hand RT min 3V Accession Number(s): [id number] cc: Shayne Mclain MD; Cathryn Cardoza MD [...] in OV> 12/07/24 1137 DD/ 1114 TD/TT: 12/07/241115 Church Business Administrator: [facility] External Provider IMG XR PROCEDURES Final Result * Pap Smear (01/25/2024 9:58 AM EST) Swab Cervix uteri structure / Unknown 01/25/2024 9:58 AM EST 01/26/2024 9:30 AM EST [facility] - 01/30/2024 10:24 AM EST ----- ------- Name: Nafisa Jacobs Age/Sex: 29/F : 1995 Unit#: [id number] Attend Dr: Re01/25/24 Status: PRE REF Location: [facility] Disch: ----- ------- SPEC : [id number] RECD: 01/26/24 STATUS: DIOMEDES HERR NUM: [id number] YANIRA: 01/25/[address]: RUTH MALIK [facility] ENTERED: 01/26/24 SP TYPE: Pap Smr [facility] DR: ORDERED: Pap Smear Interpretation Satisfactory for evaluation. Negative for intraepithelial lesion or malignancy. HPV High Risk: Negative HPV Genotyping 16: Negative HPV Genotyping 18: Negative Clinical Information LMP: Unknown date Previous PAP test: 2020, abnormal Material Received ThinPrep-Cervical ----- ------- Signed (signature on file) LAURENT Alex ([facility]) 01/30/24 1024 ----- ------- END OF REPORT Ruth MULLEN LAB CYTOLOGY ORDERABLES F inal Result Performing Organization Address [facility] [address]/[facility] Co de Phone Number [facility] [address] [place] [address] [phone] * HPV mRNA E6/E7 w/Reflex to HPV Genotypes 16, 18/45 (01/25/2024 12:00 AM EST) Historical Provider LAB CYTOLOGY ORDERABLES F inal Result Performing Organization Address [facility] [address]/[facility] Co de Phone Number [facility] [address] [place], [place] [phone] * Hepatitis C Antibody with Reflex to HCV, RNA, Quantitative, Real-Time PCR (01/13/2024 2:35 PM EDT) Hepatitis C Antibody Nonreactive Nonreactive [facility] Comment:Antibodies to HCV no t detected; does not exclude early acuteHCV infection. Blood Venous blood specimen / Unknown 01/13/2024 2:35 PM EDT 01/13/2024 4:32 PM EDT Cathryn Zhou MD LAB BLOOD ORDERAB LES Final Result Performing Organization Address [facility] Co de Phone Number [facility] [address] [place] [address] [phone] * HIV-1/2 Antigen and Antibodies, Fourth Generation, with Reflexes (01/13/2024 2:35 PM EDT) HIV AB/AG Nonreactive Nonreactive [facility] Comment:HIV-1 p24 Ag and/or HIV-1/HIV-2 Ab not detected.A test result that is nonreactive does not exclude thepossibility of exposure to or infection with HIV-1 and/orHIV-2. Nonreactive results in this assay for individualswith prior exposure to HIV-1 and/or HIV-2 may be due toantigen and antibody levels that are below the limit ofdetection of this assay.The kapturem HIV Ag/Ab Combo assay result andsupplemental assay results should be interpreted inconjunction with the patient's clinical presentation,history and other laboratory results. If the results areinconsistent with clinical evidence, additional testing issuggested to confirm the result. Blood Venous blood specimen / Unknown 01/13/2024 2:35 PM EDT 01/13/2024 4:32 PM EDT us Cathryn Zhou MD LAB BLOOD ORDERAB LES Final Result [facility] [address] [place] [phone] from Last 3 Months or Most Recently Relevant to Health Maintenance Insurance [facility] Care Teams Supervisor Pastry Relationship Specialty Start Date End Date Cathryn Cardoza MD [address] [place] [phone] PCP - General Internal Medicine 09/08/22
--- OUTSIDE RECORDS SUMMARY | 2025-01-09 10:26 | XMS_ITS | Encounter Summary ---
Author Organization [employer] Address [address] [place] [address] Care Team Providers Care Plumbing Inspector Name Role Phone Yvonne Madrid [facility] Primary Care Provider [phone] Cathryn Cardoza MD Primary Care Pro vider Salinas Dhaliwal RN Unavailable [phone] Encounter Details Date Type Department Care Team (Late st Contact Info) Description 04/30/2022 Orders Only [facility] [address] [place], [place] [phone] Shasha Mendiola RN [address] [place], [place] [phone] Social History Tobacco Use Types Packs/Day Years [...] on filedocumented in this encounter Care Teams Plumbing Inspector Relationship Specialty Start Date End Date Yvonne Madrid FNP [address] [place] [address] [phone] PCP - General Family Medicine 08/25/21 09/07/22 Cathryn Cardoza MD [address] [place] [phone] PCP - General Internal Medicine 09/08/22 Salinas Dhaliwal RN [address] [place] [phone] Grain Commodity ManagerPals Specialist 05/15/24 08/14/24 documented as of this encounter
--- OUTSIDE RECORDS SUMMARY | 2025-01-09 10:26 | XMS_ITS | Encounter Summary ---
Author Organization [employer] Address [address] [facility] 7 [place] [address] Care Team Providers Care Theatrical Performer Name Role Phone Cathryn Cardoza MD Primary Care Pro vider Salinas Dhaliwal RN Unavailable [phone] Reason for Visit * Reason Onset Date Comments Appointment Request 02/23/2023 Encounter Details Date Type Department Care Team (Late st Contact Info) Description 02/23/2023 Telephone [facility] [address] [place] [address] [phone] Cathryn Cardoza MD [address] [place], [place] [phone] Appointment Request Social History Tobacco Use Types [...] 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
--- OUTSIDE RECORDS SUMMARY | 2025-01-09 10:26 | XMS_ITS | Encounter Summary ---
Author Organization [employer] Address [address] [facility] 7 [place] [address] Care Team Providers Care Inspection Clerk Name Role Phone Cathryn Cardoza MD Primary Care Pro vider Salinas Dhaliwal RN Unavailable [phone] Reason for Visit * Reason Onset Date Comments Lab Order question 06/07/2024 Encounter Details Date Type Department Care Team (Late st Contact Info) Description 06/07/2024 Telephone [facility] [address] [place], [place] [phone] Cathryn Cardoza MD [address] [place], [place] [phone] Lab Order question Social History Tobacco Use [...] documented as of this encounter Care Teams Inspection Clerk Relationship Specialty Start Date End Date Cathryn Cardoza MD [address] [place] [address] [phone] PCP - General Internal Medicine 09/08/22 Salinas Dhaliwal RN [address] [place] [phone] Edger OperatorFacilities Supervisor 05/15/24 08/14/24 documented as of this encounter
== END 2025-01-08 09:10 | disposition home or self-care (01) ==
LOC: HO.HOSX 09:09
PROVIDERS: Visit Provider Orthopaedic Surgery
DX: Z13.89 Encounter for screening for other disorder (principal)

== ENCOUNTER 2025-01-30 08:08 | Outpatient (REF) | payer MEDICAID, SELFPAY ==
--- OUTSIDE RECORDS SUMMARY | 2025-01-31 08:33 | XMS_ITS | Encounter Summary ---
Author Organization [employer] Address [address] [facility] 7 [place] [address] Care Team Providers Care Machine Sole Leveler Name Role Phone Cathryn Cardoza MD Primary Care Pro vider Salinas Dhaliwal RN Unavailable [phone] Reason for Visit * Reason Onset Date Comments Appointment Request 02/09/2023 Encounter Details Date Type Department Care Team (Late st Contact Info) Description 02/09/2023 Telephone [facility] [address] [place] [address] [phone] Cathryn Cardoza MD [address] [place], [place] [phone] Appointment Request Social History Tobacco Use Types [...] like a call back to reschedule appt typewriter tester did cancel appt. documented in this encounter Plan of Treatment Upcoming Encounters Date Type Department Care Team (Late st Contact Info) Description 04/18/2025 11:30 AM EST Office Visit [facility] [address] [place] [phone] Cathryn Cardoza MD [address] [place] [address] [phone] documented as of this encounter Visit Diagnoses Not on filedocumented in this encounter Care Teams Machine Sole Leveler Relationship Specialty Start Date End Date Cathryn Cardoza MD [address] [place] [address] [phone] PCP - General Internal Medicine 09/08/22 Salinas Dhaliwal RN [address] [place] [phone] Jig Bore Tool MakerPrice Clerk 05/15/24 08/14/24 documented as of this encounter
--- OUTSIDE RECORDS SUMMARY | 2025-01-31 08:33 | XMS_ITS | Encounter Summary ---
Author Organization [employer] Address [address] [facility] 7 [place] [address] Care Team Providers Care Data Processing Consultant Name Role Phone Cathryn Cardoza MD Primary Care Pro vider Salinas Dhaliwal RN Unavailable Reason for Visit * Reason Onset Date Comments Appointment Request 02/23/2023 Encounter Details Date Type Department Care Team (Late st Contact Info) Description 02/23/2023 Telephone [facility] MED[facility]INE [address] [place] [address] [phone] Cathryn Cardoza MD [address] [place], [place] [phone] Appointment Request Social History Tobacco Use Types [...] 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 request 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 for 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 literary writer was going to schedule but was unable to due to a window period please call to schedule documented in this encounter Plan of Treatment Upcoming Encounters Date Type Department Care Team (Late st Contact Info) Description 04/18/2025 11:30 AM EST Office Visit [facility] [address] [place] [phone] Cathryn Cardoza MD [address] [place] [address] [phone] documented as of this encounter Visit Diagnoses Not on filedocumented in this encounter Care Teams Data Processing Consultant Relationship Specialty Start Date End Date Cathryn Cardoza MD [address] [place] [address] [phone] PCP - General Internal Medicine 09/08/22 Salinas Dhaliwal RN [address] [place] [phone] Pararescue CraftsmanE Business Consultant 05/15/24 08/14/24 documented as of this encounter
--- OUTSIDE RECORDS SUMMARY | 2025-01-31 08:34 | XMS_ITS | Encounter Summary ---
Author Organization [facility] Address 75 [facility] 7 [place] [address] Care Team Providers Care Footwear Sales Representative Name Role Phone Cathryn Cardoza MD Primary Care Pro vider Salinas Dhaliwal RN Unavailable [phone] Reason for Visit * Reason Onset Date Comments Nurse Triage 04/19/2024 Encounter Details Date Type Department Care Team (Late st Contact Info) Description 04/19/[address] [facility] MEDICINE [address] [place], [place] [phone] Cathryn Cardoza MD [address] [place], [place] [phone] Nurse Triage Social History Tobacco Use Types [...] on site. She spoke with provider in [facility] in February 2024 abouta letter to remove rugs but never went to medical records. No letter on file. Advised her to go request letter tomorrow after appt. Explained NTTS production cell leader nurse before appt. Pt verbalized understanding, no [...] never been confirmed by a doctor (or FIELD CASHIER/PA) * Nasal allergies occur only certain times [...] Description 04/18/2025 11:30 AM EST Office Visit [facility] MEDICINE [address] [place] [address] Cathryn Cardoza MD [address] [place] [address] documented as of this encounter Visit Diagnoses Not on filedocumented in this encounter Additional Health Concerns Assessment Noted Time PHQ-9 Depression Total Score: 11 024 10:24 AM EST documented as of this encounter Care Teams Footwear Sales Representative Relationship Specialty Start Date End Date Cathryn Cardoza MD [address] [place] [phone] PCP - General Internal Medicine 09/08/22 Salinas Dhaliwal RN [address] [place] [phone] Rollout ManagerLight Rail Signal Technician 05/15/24 08/14/24 documented as of this encounter
--- OUTSIDE RECORDS SUMMARY | 2025-01-31 08:34 | XMS_ITS | Encounter Summary ---
Author Organization [employer] Address 75 [facility] 7t [place] [address] Care Team Providers Care Plate Glass Polisher Name Role Phone Cathryn Cardoza MD Primary Care Pro vider Encounter Details Date Type Department Care Team (Late st Contact Info) Description 12/25/2024 Results Follow-Up [facility] MEDICINE 230 [place] [address] Cathryn Cardoza MD 230 [place] [address] XR Thoracic Spine 2 Views Social History [...] Description 04/18/2025 11:30 AM EST Office Visit [facility] MEDICINE [address] [place] [address] Cathryn Cardoza MD 230 [place] [address] documented as of this encounter Visit Diagnoses Not on filedocumented in this encounter Additional Health Concerns Assessment Noted Time PHQ-9 Depression Total Score: 0 12/26/19 25 11:00 AM EDT documented as of this encounter Care Teams Plate Glass Polisher Relationship Specialty Start Date End Date Cathryn Cardoza MD [address] [place] [phone] PCP - General Internal Medicine 09/08/22 documented as of this encounter
--- OUTSIDE RECORDS SUMMARY | 2025-01-31 08:34 | XMS_ITS | Encounter Summary ---
Author Organization [employer] Address 75 [facility] 7t [place] [address] Care Team Providers Care Hr Recruiter Name Role Phone Yvonne Madrid CONSULTING IT ARCHITECT Primary Care Provider [phone] Cathryn Cardoza MD Primary Care Pro vider Salinas Dhaliwal RN Unavailable [phone] Encounter Details Date Type Department Care Team (Late Contact Info) Description 04/30/2022 Orders Only [facility] MEDICINE [address] [place] [address] [phone] Shasha Mendiola RN 230 [place], [place] [phone] Social History Tobacco Use Types Packs/Day Years [...] Department Care Team (Late Contact Info) Description 04/18/2025 11:30 AM EST Office Visit [facility] MEDICINE [address] [place] [address] [phone] Cathryn Cardoza MD [address] [place] [address] documented as of this encounter Visit Diagnoses Not on filedocumented in this encounter Care Teams Hr Recruiter Relationship Specialty Start Date End Date Yvonne Madrid FNP [address] [place] [phone] PCP - General Family Medicine 08/25/21 09/07/22 Cathryn Cardoza MD [address] [place] [address] PCP - General Internal Medicine 09/08/22 Salinas Dhaliwal RN [address] [place] [address] [employer] Winder And OilerManager Online 05/15/24 08/14/24 documented as of this encounter
--- OUTSIDE RECORDS SUMMARY | 2025-01-31 08:34 | XMS_ITS | Encounter Summary ---
Author Organization [employer] Address [address] [facility] [address] 7t [place] [address] Care Team Providers Care It Architecture Consultant Name Role Phone Cathryn Cardoza MD Primary Care Pro vider Salinas Dhaliwal RN Unavailable [phone] Encounter Details Date Type Department Care Team (Late st Contact Info) Description 07/09/2024 Orders Only [facility] MED & PEDS [address] [place] [address] Nadine Lizama Social History Tobacco Use Types [...] Description 04/18/2025 11:30 AM EST Office Visit [facility] MEDICINE [address] [place] [address] Cathryn Cardoza MD [address] [place] [address] documented as of this encounter Procedures Procedure Name Priority Date/Time Associated Diagnosis Comments HPV MRNA E6/E7 REFLEX TO HPV 16, 18/45 Routine 01/25/2024 12:00 AM EST documented in this encounter Results * HPV mRNA E6/E7 w/Reflex to HPV Genotypes 16, 18/45 (01/25/2024 12:00 AM EST) us Historical Provider LAB CYTOLOGY ORDERABLES F inal Result [facility] [address] [place] [address] [phone] documented in this encounter Visit Diagnoses Not on filedocumented in this encounter Additional Health Concerns Assessment Noted Time PHQ-9 Depression Total Score: 11 024 10:24 AM EST documented as of this encounter Care Teams It Architecture Consultant Relationship Specialty Start Date End Date Cathryn Cardoza MD [address] [place] [address] [phone] PCP - General Internal Medicine 09/08/22 Salinas Dhaliwal RN [address] [place] [address] Epic SpecialistMachine Bookkeeper 05/15/24 08/14/24 documented as of this encounter
--- OUTSIDE RECORDS SUMMARY | 2025-01-31 08:34 | XMS_ITS | Clinical Summary ---
Author Organization [employer] Address [address] [facility] [address] 7t [place] [address] Care Team Providers Care Continuous Churn Buttermaker Name Role Phone Cathryn Cardoza MD Primary Care Pro vider Allergies Active Allergy Reactions Criticality Noted Date Comments Sumatriptan Itching Low 01/30/2022 Vaginal Lubricant 12/25/2024 LUBLIFE Medications * This document contains information received from the source organization and may not represent a complete record from that organization. Spacer/Aero-Hol ding Chambers (BreatheRite Yanira Spacer Adult) miscIndications :Dysuria 1 Units if needed in the morning, at noon, in the evening, and at bedtime (wheezing). 1 each 2 Active Nebulizers misc 1 kit Every 4-6 hours as needed (for shortness of breath and wheezing). Accerlon nebulizer given to patient in walk in center 01/02/2024, education provided Active fluticasone (Veramyst) 27.5 MCG/SPRAY nasal sprayIndication s:Allergic Rhinitis,Season al Allergic Rhinitis Administer 2 sprays into each nostril Once per day. Active 28-0.8 MG tabletIndicatio ns:Less than 8 weeks gestation of Take 1 tablet by mouth Once per day. 90 tablet 3 5 06/07/19 26 Active ondansetron (Zofran) 4 MG tabletIndicatio ns:Acute URI Take 1 tablet (4 mg) by mouth if needed each day for nausea or vomiting. 20 tablet 5 08/23/19 Active azelastine (Astelin) 0.1 % nasal spray Administer 1 spray into each nostril 2 times daily. Use in each nostril as directed 30 mL 3 5 09/19/19 26 Active sodium chloride ([place]) 0.65 % nasal spray Administer 1 spray into each nostril if needed for congestion. 15 mL 2 5 09/19/19 26 Active valACYclovir (Valtrex) 500 MG tabletIndicatio ns:Genital herpes simplex, unspecified site TAKE 1 TABLET BY MOUTH TWICE A DAY FOR 3 DAYS PER FLARE 12 tablet 1 5 Active loratadine (Claritin) 10 MG tablet TAKE 1 TABLET BY MOUTH EVERY DAY 90 tablet 5 Active montelukast (Singulair) 10 MG tablet TAKE 1 TABLET BY MOUTH EVERY DAY 90 tablet 5 Active albuterol (ProAir HFA) 108 (90 Base) MCG/ACT inhalerIndicati ons:Shortness of breath Inhale 2 puffs every 4 (four) hours. 18 g 1 5 Active albuterol (2.5 MG/3ML) 0.083% nebulizer solutionIndicat ions:Dysuria Take 3 mL (2.5 mg) by nebulization every 8 (eight) hours if needed for wheezing. 90 mL 1 5 Active budesonide-form oterol (Symbicort) 160-4.5 MCG/ACT inhaler Inhale 2 puffs in the morning and at bedtime. Rinse mouth with water after use to reduce aftertaste and incidence of candidiasis. Do not swallow. 1 each 3 5 12/26/19 Active Active Problems Problem Noted Date Diagnosed [...] Description 12/25/2024 10:45 AM EDT Office Visit [facility] [place] [address] Cathryn Cardoza MD Chronic thoracic back pain, unspecified back pain laterality (Primary Dx); Dysuria; Annual physical exam; Encounter for immunization; Gastroesophageal reflux disease without esophagitis; Mixed anxiety and depressive disorder; Mild intermittent asthma, unspecified whether complicated 12/25/2024 Results Follow-Up [facility] [place] [address] Cathryn Cardoza MD XR Thoracic Spine 2 Views 12/25/2024 Travel 12/24/2024 Travel 12/24/2024 Telephone [facility] [place] [address] Cathryn Cardoza MD chart prep 12/21/2024 Telephone [facility] [place] [address] Cathryn Cardoza MD Nurse Triage 12/20/2024 Refill [facility] MEDICINE [address] [place] [address] Cathryn Cardoza MD 12/18/2024 Patient Outreach [facility] MEDICINE [address] [place] [address] Cathryn Cardoza MD Pre-visit Planning (Pre-visit planning - LVM ) 12/10/2024 Telephone [facility] MEDICINE [address] [place] [address] Cathryn Cardoza MD 12/07/2024 Orders Only [facility] External Provider, [facility] 11/14/2024 Telephone [facility] WALK[facility] [address] [place] [address] Angela Stone [place] from Last 3 Months Immunizations Immunization Administration Dates Next Due DTaP 08/12/1998, 6,1994,05/12,1994 HPV, Quadrivalent 08/07/2008,05/06/2008,08/03/19 08 Hep B, Adolescent or Pediatric 1994,1994,1994 Hep B, adult 12/12/2023,07/07/2023,06/09/2023 Hib ([facility]) 04/14/1995, 5,1994,03/14 IPV 08/12/1998, 5,1994,03/14 Influenza [...] 12/25/2024 10:59 AM EDT Plan of Treatment Upcoming Encounters Date Type Department Care Team (Late st Contact Info) Description 04/18/2025 11:30 AM EST Office Visit [facility] MEDICINE [address] [place] [address] [phone] Cathryn Cardoza MD [address] [place], [place] [phone] Health Maintenance Due Date Last Done Comments Family Planning (PISQ) 2009 COVID-19 Vaccine ( season) 2024 SDOH Screening 05/15/2025 05/15/2024 Alcohol/Substance Use Screening [...] Additional history exists IPV Vaccines Completed 08/12/1998, 0 03/1994, 1994, Additional history exists Meningococcal Vaccine [...] PM EDT Narrative 12/25/2024 1:29 PM EDT [address] [address] XRay Report Signed Patient: Nafisa Jacobs MR#: [id number] : 1995 Acct:[id number] Age/Sex: 29 / F ADM Date: 12/25/24 Loc: HO.HHCX Attending Dr: Cathryn Zhou MD Ordering Physician: Cathryn Cardoza MD Date of Service: 12/25/24 Procedure(s): XR thoracic spine 2V Accession Number(s): [id number] cc: Cathryn Cardoza MD Reason for Exam: [...] in OV> 12/25/24 1326 DD/ 1315 TD/TT: 12/25/241318 Global President: Procedure Note Donotuseinterpreter, Image - 12/25/2024 [facility] [address] [place] [address] XRay Report Signed Patient: Nafisa JacobsMR#: [id number] : 1995Acct:[id number] Age/Sex: 29 / FADM Date: 12/25/24 Loc: HO.HHCX Attending Dr: Cathryn Zhou MD Ordering Physician: Cathryn Cardoza MD Date of Service: 12/25/24 Procedure(s): XR thoracic spine 2V Accession Number(s): [id number] cc: Cathryn Cardoza MD Reason for Exam: [...] Villalta MD in OV> 12/25/24 1326 DD/ TD/TT: 12/25/241318 Global President: us Cathryn Zhou MD IMG XR PROCEDURES Final Result * XR Wrist 3+ Views Right (12/07/2024 11:15 AM EDT) Anatomical Region Laterality Modality Upper Extremities, Wrist Right Radiogr aphic Imaging 12/07/2024 11:1 5 AM EDT Narrative 12/07/2024 11:39 AM EDT [facility] [address] [place] [address] XRay Report Signed Patient: Nafisa Jacobs MR#: [id number] : 1995 Acct:[id number] Age/Sex: 29 / F ADM Date: 12/07/24 Loc: HO.XRAY Attending Dr: Shayne Mclain MD Ordering Physician: Shayne Mclain MD Date of Service: 12/07/24 Procedure(s): XR wrist RT min 3V Accession Number(s): [id number] cc: Shayne Mclain MD; Cathryn Cardoza MD [...] 12/07/24 1137 DD/ 1115 TD/TT: 12/07/24 1116 Global President: Procedure Note Donotuseinterpreter, Image - 12/07/[address] [address] XRay Report Signed Patient: Nafisa JacobsMR#: [id number] : 1995Acct:[id number] Age/Sex: 29 / FADM Date: 12/07/24 Loc: HO.XRLEXA Attending Dr: Shayne Mclain MD Ordering Physician: Shayne Mclain MD Date of Service: 12/07/24 Procedure(s): XR wrist RT min 3V Accession Number(s): [id number] cc: Shayne Mclain MD; Cathryn Cardoza MD [...] 12/07/24 1137 DD/ 1115 TD/TT: 12/07/24 1116 Global President: [facility] External Provider IMG XR PROCEDURES Final Result * XR Hand 3+ Views Right (12/07/2024 11:14 AM EDT) Anatomical Region Laterality Modality Upper Extremities, Hand Right Radiogra phic Imaging 12/07/2024 11:1 4 AM EDT Narrative 12/07/2024 11:39 AM EDT [address] [address] XRay Report Signed Patient: Nafisa Jacobs MR#: [id number] : 1995 Acct:[id number] Age/Sex: 29 / F ADM Date: 12/07/24 Loc: HOSUZY Attending Dr: Shayne Mcalin MD Ordering Physician: Shayne Mclain MD Date of Service: 12/07/24 Procedure(s): XR hand RT min 3V Accession Number(s): [id number] cc: Shayne Mclain MD; Cathryn Cardoza MD [...] 12/07/24 1137 DD/ 1114 TD/TT: 12/07/24 1116 Global President: Procedure Note Donotuseinterpreter, Image - 12/07/2024 [place] [address] XRay Report Signed Patient: Nafisa JacobsMR#: [id number] : 1995Acct:[id number] Age/Sex: 29 FADM Date: 12/07/24 Loc: HO.XRAY Attending Dr: Shayne Mclain MD Ordering Physician: Shayne Mclain MD Date of Service: 12/07/24 Procedure(s): XR hand RT min 3V Accession Number(s): [id number] cc: Shayne Mclain MD; Cathryn Cardoza MD [...] 12/07/24 1137 DD/ 1114 TD/TT: 12/07/24 1116 Global President: [facility] External Provider IMG XR PROCEDURES Final Result * Pap Smear (01/25/2024 9:58 AM EST) Swab Cervix uteri structure / Unknown 01/25/2024 9:58 AM EST 01/26/2024 9:30 AM EST [facility] - 01/30/2024 10:24 AM EST ----- ------- Name: Nafisa Jacobs Age/Sex: 29/F : 1995 Unit#: [id number] Attend Dr: Re01/25/24 Status: PRE REF Location: [facility] Disch: ----- ------- SPEC : [id number] RECD: 01/26/24 STATUS: DIOMEDES HERR NUM: [id number] YANIRA: 01/25/24 [facility] DR: RUTH MALIK CNM ENTERED: 01/26/24 SP TYPE: Pap Smr OT DR: ORDERED: Pap Smear Interpretation Satisfactory for [...] ORDERABLES F inal Result Performing Organization Address [facility]/ZIP Co de Phone Number [facility] [address] [place] [address] [phone] * HPV mRNA E6/E7 w/Reflex to HPV Genotypes 16, 18/45 (01/25/2024 12:00 AM EST) Historical Provider LAB CYTOLOGY ORDERABLES F inal Result Performing Organization Address [facility]/ZIP Co de Phone Number [facility] [address] [place] [phone] * Hepatitis C Antibody with Reflex to HCV, RNA, Quantitative, Real-Time PCR (01/13/2024 2:35 PM EDT) Pathologist [facility] Hepatitis C Antibody Nonreactive Nonreactive [facility] Comment:Antibodies to HCV no t detected; does not exclude early acuteHCV infection. Blood Venous blood specimen / Unknown 01/13/2024 2:35 PM EDT 01/13/2024 4:32 PM EDT us Cathryn Zhou MD LAB BLOOD ORDERAB LES Final Result Performing Organization Address [facility]/ZIP Co de Phone Number [facility] [address] [place] [phone] * HIV-1/2 Antigen and Antibodies, Fourth Generation, with Reflexes (01/13/2024 2:35 PM EDT) [facility] HIV AB/AG Nonreactive Nonreactive [facility] Comment:HIV-1 p24 Ag and/or HIV-1/HIV-2 Ab not detected.A test result that is nonreactive does not exclude thepossibility of exposure to or infection with HIV-1 and/orHIV-2. Nonreactive results in this assay for individualswith prior exposure to HIV-1 and/or HIV-2 may be due toantigen and antibody levels that are below the limit ofdetection of this assay.The [employer] HIV Ag/Ab Combo assay result andsupplemental assay results should be interpreted inconjunction with the patient's clinical presentation,history and other laboratory results. If the results areinconsistent with clinical evidence, additional testing issuggested to confirm the result. Blood Venous blood specimen / Unknown 01/13/2024 2:35 PM EDT 01/13/2024 4:32 PM EDT us Cathryn Zhou MD LAB BLOOD ORDERAB LES Final Result Performing Organization Address [facility]/ZIP Co de Phone Number [facility] [address] [place] [phone] from Last 3 Months or Most Recently Relevant to Health Maintenance Insurance [facility] C[facility] Care Teams Continuous Churn Buttermaker Relationship Specialty Start Date End Date Cathryn Cardoza MD [address] [place] [phone] PCP - General Internal Medicine 09/08/22
--- OUTSIDE RECORDS SUMMARY | 2025-01-31 08:34 | XMS_ITS | Encounter Summary ---
Author Organization [employer] Address 75 [facility] 7 [place] [address] Care Team Providers Care Materials Management Clerk Name Role Phone Cathryn Cardoza MD Primary Care Pro vider Salinas Dhaliwal RN Unavailable [phone] Reason for Visit * Reason Onset Date Comments Lab Order question 06/07/2024 Encounter Details Date Type Department Care Team (Late st Contact Info) Description 06/07/2024 Telephone [facility] MEDICINE [address] [place], [place] [phone] Cathryn Cardoza MD 230 [place], [place] [phone] Lab Order question Social History Tobacco Use [...] Description 04/18/2025 11:30 AM EST Office Visit [facility] MEDICINE [address] [place] [phone] Cathryn Cardoza MD [address] [place] [address] documented as of this encounter Visit Diagnoses Not on filedocumented in this encounter Additional Health Concerns Assessment Noted Time PHQ-9 Depression Total Score: 11 024 10:24 AM EST documented as of this encounter Care Teams Materials Management Clerk Relationship Specialty Start Date End Date Cathryn Cardoza MD [address] [place] [phone] PCP - General Internal Medicine 09/08/22 Salinas Dhaliwal RN [address] [place] [phone] Computer Education TeacherDesk Pens Assembler 05/15/24 08/14/24 documented as of this encounter
--- OUTSIDE RECORDS SUMMARY | 2025-01-31 08:34 | XMS_ITS | Encounter Summary ---
Author Organization [employer] Address [address] [facility] [address] 7t [place] [address] Care Team Providers Care Robot Designer Name Role Phone Yvonne Madrid CLIENT RESOURCE SPECIALIST Primary Care Provider [phone] Cathryn Cardoza MD Primary Care Pro vider Salinas Dhaliwal RN Unavailable [phone] Reason for Visit * Reason Comments Med Refill Encounter Details Date Type Department Care Team (Late Contact Info) Description 05/01/[address] [facility] [address] [place], [place] [phone] Cassandra Guzman CNM [address] [place], [place] [phone] Encounter for other contraceptive management Social History [...] Upcoming Encounters Date Type Department Care Team ([facility] Contact Info) Description 04/18/2025 11:30 AM EST Office Visit [facility] MEDICINE [address] [place] [address] [phone] Cathryn Cardoza MD [address] [place] [address] documented as of this encounter Visit Diagnoses Diagnosis Encounter for other contraceptive management documented in this encounter Care Teams Robot Designer Relationship Specialty Start Date End Date [place] Yvonne, [facility] [address] [place] [address] PCP - General Family Medicine 08/25/21 09/07/22 Cathryn Cardoza MD [address] [place] [address] PCP - General Internal Medicine 09/08/22 Salinas Dhaliwal RN [address] [place] [phone] Cyber Security AnalystUser Interface Designer 05/15/24 08/14/24 documented as of this encounter
== END 2025-01-30 08:09 | disposition home or self-care (01) ==
LOC: HO.HOSX 08:08
DX: Z13.89 Encounter for screening for other disorder (principal)

== ENCOUNTER 2025-03-05 22:23 | Emergency (ER) | payer MEDICAID, SELFPAY ==
[2025-03-05 22:26] VITALS: BP 111/66; PULSE 104; O2SAT 96
[2025-03-05 22:30] VITALS: BP 115/76; PULSE 103; RESP 20; TEMP 37.1; O2SAT 98; BMI 20.8
--- NOTE | 2025-03-05 23:11 | ED_ITS ---
HPI - URI/Sore Throat General Chief Complaint: Upper Respiratory Symptoms Stated Complaint: Flu like sx can't keep anything down. Time Seen by Provider: 03/05/25 22:58 Source: patient and EMS Mode of arrival: ambulatory Limitations: no limitations History of Present Illness ED Provider: Dr. Yelena Li HPI Narrative: Patient comes to the emergency room complaining of flu-like symptoms for couple of days, diffuse body aches, fever. Patient states that she went to urgent Care, she was given prednisone, states that she was tested for influenza RSV and COVID and they were all negative. Patient states that a few days ago her son had a URI infection, tested positive for rhino virus. Patient states that she has been struggling with nausea and vomiting today. Related Data Home Medications ?Medication ?Instructions ?Recorded ?Confirmed ibuprofen 600 mg tablet 600 mg PO Q8H PRN 09/13/24 Previous Rx's ?Medication ?Instructions ?Recorded ondansetron 4 mg disintegrating 4 mg PO Q6H PRN nausea and 03/06/25 tablet vomiting #10 tabs Allergies Allergy/AdvReac Type Severity Reaction Status Date / Time latex (LATEX) Allergy Severe Hives Verified 03/05/25 22:31 sumatriptan (From IMITREX) Allergy Mild FAINTED, Verified 03/05/25 22:31 EYES ROLLED BACK, SOB Review of Systems 2 Review of Systems: Constitutional : No Weight loss, complaining of fever, chills, fatigue and generalized malaise ENT/Mouth : No Hearing loss, No Ear Pain, No Nasal Congestion, No Sinus Pain, No Hoarseness, No sore throat, No Rhinorrhea, No Swallowing Difficulty Eyes: No Eye Pain, No Swelling, No Redness, No Foreign Body, No Discharge, No Vision Changes Cardiovascular : No Chest Pain, No SOB, No Dyspnea on Exertion, No Orthopnea, No Edema, No Palpitations Respiratory : No Cough, No Sputum, No Wheezing, No Smoke Exposure, No Dyspnea Gastrointestinal : Complaining of nausea and vomiting No Diarrhea, No Constipation, No abdominal Pain, No Hematochezia, No Melena Genitourinary : no irregular bleeding, No Dysuria, No Urinary Frequency, No Hematuria, No Urinary Incontinence, No Urgency, No Flank Pain, No Urinary Flow Changes, No Hesitancy Musculoskeletal : No joint pain, No Myalgias, No Joint Swelling Skin : No Skin Lesions, No rash Neuro : No Weakness, No Numbness, No Paresthesias, No Loss of Consciousness, No Dizziness, No Headache Psych : No Anxiety/Panic, No Depression, No SI/HI/AH/VH, No Social Issues, Heme/Lymph: No Bruising, No Bleeding,No Lymphadenopathy Endocrine : No Polyuria, No Polydipsia, No Temperature Intolerance [facility] Past Medical History Medical History Kidney stone Vomiting Chronic idiopathic constipation Abdominal discomfort Renal calculi Asthma Surgical History Hx of hand surgery History of endoscopy H/O: Hx of appendectomy Family History Family History Maternal Grandmother Diabetes Father Lymphoma Paternal Aunt Crohn disease Paternal Aunt Ovarian cancer Social History Social History Household Members: Family Housing: Apartment Do you presently have visiting nurse or other home services: No Alcohol intake: never Patient Tobacco Use Status: Never used Tobacco Smoked in Last 30 Days: No Use of substances other than those prescribed or required for medical reasons: Yes Substance Use Type: Marijuana Substance Use Frequency: Chronic Longstanding Any prior treatment program specific to substance use: No Advance Directives: No Advance Directives Information Provided: No Patient : No service: No Current occupational status: employed 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 Oriented X3. Tearful Eyes: Pupils equal, round and reactive to light. ENT: Pharynx normal. Dry oral mucosa Neck: Normal inspection. Neck supple. No lymph nodes noted. No crepitus CVS: Normal heart rate and rhythm. Pulses normal. Normal S1 and S2 Respiratory: No respiratory distress. Breath sounds normal. No Wheezing. No rales Abdomen: Soft and nontender. No rigidity. No distention. Skin: Skin warm and dry. Normal skin color. Normal skin turgor. Extremities: No lower extremity edema. No Lacerations. No Rash Neuro: Oriented X 3. No motor deficit. No sensory deficit. Moving all extremities. No slurred speech. CN 2 through 12 grossly intact Psych: calm, cooperative, tearful Vital Signs: Vital Signs: Last Vital Signs Temp 99 F 03/05/25 23:36 Pulse 89 03/05/25 23:36 Resp 18 03/05/25 23:36 BP 112/51 L 03/05/25 23:36 Pulse Ox 96 03/05/25 23:42 O2 Del Method Room Air 03/05/25 23:42 BMI result Body Mass Index 20.8 Course Course Course Narrative: Patient already received prednisone earlier today from urgent care. At this time, no asthma exacerbation present. Oxygen saturation 98%, no wheezing Patient receiving IV fluids, Zofran Labs pending Medications Administered Generic Name Dose Route Start Last Admin Trade Name Freq PRN Reason Stop Dose Admin Sodium Chloride 1,000 mls @ 999 mls/hr 03/05/25 23:11 03/05/25 23:54 Ns IVCONT 03/06/25 00:11 999 mls/hr .Q1H1M ONE Administration Discontinued Medications Generic Name Dose Route Start Last Admin Trade Name Freq PRN Reason Stop Dose Admin Acetaminophen 650 mg 03/05/25 22:37 03/05/25 22:39 Acetaminophen 325 Mg Tablet PO 03/05/25 22:38 650 mg ONCE ONE Administration Ondansetron HCl 4 mg 03/05/25 22:37 03/05/25 22:39 Ondansetron Odt 4 Mg Tab.Rapdis TRANSLINGU 03/05/25 22:38 4 mg ONCE ONE Administration Medical Decision Making Medical Decision Making [facility] Narrative: My interpretation of labs: No significant abnormality in patient's WBC hemoglobin hematocrit, patient's platelets a bit low 132, likely secondary to a viral syndrome. Chemistry within normal limits, LFTs normal. Serology positive for influenza a, negative for influenza B RSV COVID and strep Patient feeling better after receiving IV fluids. Patient is still earlier today she got prescribed Tamiflu , Tylenol, ibuprofen and prednisone by urgent care Lab Data [facility] Lab Attestation statement: I reviewed the patient's lab results. 03/05/25 23:03 03/05/25 23:03 Labs: Lab Results 03/05/25 Range/Units 23:03 WBC 8.3 (4.8-10.8) X10*3/uL RBC 4.28 (4.20-5.50) X10*6/uL Hgb 12.6 (12.0-16.0) g/dl Hct 37.2 (37.0-47.0) % MCV 86.9 (80.0-98.0) fL MCH 29.4 (27.0-33.0) pg MCHC 33.9 (31.0-35.0) g/dl RDW 12.6 (11.0-16.0) % Plt Count 132 L D (160-400) X10*3/uL MPV Not Reportable Immature Gran % (Auto) 0.2 (0.0-0.4) % Neut % (Auto) 91.4 H (45-73) % Lymph % (Auto) 4.4 L (20-40) % Glasscock % (Auto) 3.6 (2-11) % Eos % (Auto) 0.0 (0-4) % Baso % (Auto) 0.4 (0-2) % Lymph # (Auto) 0.4 L (1.2-4.9) X10*3/uL Glasscock # (Auto) 0.3 (0.1-1.2) X10*3/uL Eos # (Auto) 0.0 (0.0-0.4) X10*3/uL Baso # (Auto) 0.0 (0.0-0.2) X10*3/uL Abs Immat Gran (auto) 0.02 (0.00-0.03) X10*3/uL Absolute Neuts (auto) 7.5 (2.0-8.3) x10*3/uL Absolute Nucleated RBC 0.000 (0.0-0.012) X10*3/uL Nucleated RBC % (auto) 0.0 (0.0-0.2) /100WBC Smear Tech's Comments VERIFIED Sodium 140 (135-145) mmol/L Potassium 3.8 (3.3-5.1) mmol/L Chloride 109 H (96-108) mmol/L Carbon Dioxide 22 (22-29) mmol/L Anion Gap 13 (12-20) BUN 13 (9-16) mg/dL Creatinine 0.70 (0.5-1.4) mg/dL Estim Creat Clear Calc 87.8 Estimated GFR > 60 Random Glucose 104 (60-115) mg/dL Calcium 9.6 (8.4-10.2) mg/dL Total Bilirubin 0.3 (0.0-1.0) mg/dL AST 31 (5-31) U/L ALT 12 (0-31) U/L Alkaline Phosphatase 59 (39-117) U/L Total Protein 7.5 (6.5-8.0) g/dL Albumin 4.8 (3.5-5.0) g/dL Influenza Type A (PCR) POSITIVE A (Negative) Influenza Type B (PCR) NEGATIVE (Negative) RSV RNA Qual (PCR) NEGATIVE (Negative) SARS-CoV-2 RNA (RT-PCR) NEGATIVE (Negative) S. pyogenes GrpA DEE DEE Negative (Negative) Critical Care Time Critical Care Time Critical Care Time: Yes Total Critical Care Time: 35 Attestation: I have personally provided critical care time. Time includes review of lab data, radiology results, discussion with consultants, and monitoring for potential decompensation. Intervention performed as documented. Discharge Plan Discharge Clinical Impression: Influenza A, Nausea & vomiting, Acute dehydration Patient Disposition: Home, Self-Care Instructions: Dehydration (ED), Influenza (ED), Acute Nausea and Vomiting (ED) Additional Instructions: Please follow-up with your primary care physician tomorrow. If you have any worsening or new symptoms, please return to the emergency room or call 911 Prescriptions: New ondansetron 4 mg tablet,disintegrating 4 mg PO Q6H PRN (Reason: nausea and vomiting) Qty: 10 0RF No Action ibuprofen 600 mg tablet 600 mg PO Q8H PRN Print Language: Persian
--- OUTSIDE RECORDS SUMMARY | 2025-03-05 23:11 | XMS_ITS | Encounter Summary ---
Author Organization [employer] Address [address] [facility] [address] 7t [place] [address] Care Team Providers Care Water Resource Engineering Specialist Name Role Phone Yvonne Madrid HOTEL REGISTRATION CLERK Primary Care Provider [phone] Cathryn Cardoza MD Primary Care Pro vider Salinas Dhaliwal RN Unavailable [phone] Reason for Visit * Reason Comments Med Refill Encounter Details Date Type Department Care Team (Late Contact Info) Description 05/01/2022 Refill [facility] MED & PEDS [address] [place], [place] [phone] Cassandra Guzman CNM 230 [place], [place] [phone] Encounter for other contraceptive management Social History [...] Upcoming Encounters Date Type Department Care Team ([facility] Contact Info) Description 04/18/2025 11:30 AM EST Office Visit [facility] MEDICINE [address] [place] [address] [phone] Cathryn Cardoza MD [address] [place] [address] documented as of this encounter Visit Diagnoses Diagnosis Encounter for other contraceptive management documented in this encounter Care Teams Water Resource Engineering Specialist Relationship Specialty Start Date End Date [place] Yvonne, [facility] [address] [place] [address] PCP - General Family Medicine 08/25/21 09/07/22 Cathryn Cardoza MD [address] [place] [address] PCP - General Internal Medicine 09/08/22 Salinas Dhaliwal RN [address] [place] [phone] Flat Lock OperatorSoaking Pits Supervisor 05/15/24 08/14/24 documented as of this encounter
--- OUTSIDE RECORDS SUMMARY | 2025-03-05 23:11 | XMS_ITS | Encounter Summary ---
Author Organization [employer] Address 75 [facility] 7 [place] [address] Care Team Providers Care Reaming Machine Tender Name Role Phone Cathryn Cardoza MD Primary Care Pro vider Salinas Dhaliwal RN Unavailable [phone] Reason for Visit * Reason Onset Date Comments Lab Order question 06/07/2024 Encounter Details Date Type Department Care Team (Late st Contact Info) Description 06/07/2024 Telephone [facility] MEDICINE [address] [place], [place] [phone] Cathryn Cardoza MD [address] [place], [place] [phone] Lab Order question Social History Tobacco Use [...] Description 04/18/2025 11:30 AM EST Office Visit [facility] MED[facility]INE [address] [place] [phone] Cathryn Cardoza MD [address] [place] [address] documented as of this encounter Visit Diagnoses Not on filedocumented in this encounter Additional Health Concerns Assessment Noted Time PHQ-9 Depression Total Score: 11 024 10:24 AM EST documented as of this encounter Care Teams Reaming Machine Tender Relationship Specialty Start Date End Date Cathryn Cardoza MD [address] [place] [address] PCP - General Internal Medicine 09/08/22 Salinas Dhaliwal RN [address] [place] [address] Warehouse Logistics ManagerGrinding Wheel Operator 05/15/24 08/14/24 documented as of this encounter
--- OUTSIDE RECORDS SUMMARY | 2025-03-05 23:11 | XMS_ITS | Clinical Summary ---
Author Organization [email or web address] Address [address] [facility] [address] 7t [place] [address] Care Team Providers Care Medical Policy Specialist Name Role Phone Cathryn Cardoza MD [...] 3 5 09/19/19 26 Active sodium chloride (Villalba) 0.65 % nasal spray Administer 1 spray [...] Encounters Date Type Department Care Team Description 02/27/[address] [address] Ruth Malik CNM chart prep 02/27/[address] [address] Ruth Malik CNM Error (VOID this visit) 02/27/[address] [address] Cathryn Cardoza MD Nurse Triage 12/25/2024 10:45 AM EDT Office Visit [address] [address] Cathryn Cardoza MD Chronic thoracic back pain, unspecified back pain laterality (Primary Dx); Dysuria; Annual physical exam; Encounter for immunization; Gastroesophageal reflux disease without esophagitis; Mixed anxiety and depressive disorder; Mild intermittent asthma, unspecified whether complicated 12/25/2024 Results Follow-Up [facility] [address] [place] [address] Cathryn Cardoza MD XR Thoracic Spine 2 Views 12/25/2024 Travel 12/24/2024 Travel 12/24/[address] [address] Cathryn Cardoza MD chart prep 12/21/[address] [address] Cathryn Cardoza MD Nurse Triage 12/20/[address] [phone] Cathryn Cardoza MD 12/18/2024 Patient Outreach [address] [address] Cathryn Cardoza MD Pre-visit Planning (Pre-visit planning - LVM ) 12/10/[address] [address] Cathryn Cardoza MD 12/07/2024 Orders Only [facility] External Provider, [facility] from Last 3 Months Immunizations Immunization Administration Dates Next Due DTaP 08/12/1998, 6,1994,05/12,1994 HPV, Quadrivalent 08/07/2008,05/06/2008,08/03/19 08 Hep B, Adolescent or Pediatric 1994,1994,1994 Hep B, adult 12/12/2023,07/07/2023,06/09/2023 [facility] 04/14/1995, 5,1994,03/14 IPV 08/12/1998, 5,1994,03/14 Influenza injectable [...] Description 04/18/2025 11:30 AM EST Office Visit [facility] [address] [place] [address] Cathryn Cardoza MD [address] [place] [address] Health Maintenance Due Date Last Done Comments [...] PM EDT Narrative 12/25/2024 1:29 [place] [address] XRay Report Signed Patient: Nafisa Jacobs MR#: [id number] : 1995 Acct:[id number] Age/Sex: 29 / F ADM Date: 12/25/24 Loc: HO.HHCX Attending Dr: Cathryn Zhou MD Ordering Physician: Cathryn Cardoza MD Date of Service: 12/25/24 Procedure(s): XR thoracic spine 2V Accession Number(s): [id number] cc: Cathryn Cardoza MD Reason for Exam: [...] signed by Terrell Villalta MD in OV> 12/25/241325 DD/ 14 TD/TT: 12/25/241318 Install And Repair Technician: Procedure Note Donotuseinterpreter, Image - 12/25/[address] [address] XRay Report Signed Patient: Nafisa JacobsMR#: [id number] : 1995Acct:[id number] Age/Sex: FADM Date: 12/25/24 [facility]: Cathryn Zhou MD Ordering Physician: Cathryn Cardoza MD Date of Service: 12/25/24 Procedure(s): XR thoracic spine 2V Accession Number(s): [id number] cc: Cathryn Cardoza MD Reason for Exam: [...] signed by Terrell Villalta MD in OV> 12/25/241325 DD/ 14 TD/TT: 12/25/241318 Install And Repair Technician: us Cathryn Zhou MD IMG XR PROCEDURES Final Result * XR Wrist 3+ Views Right (12/07/2024 11:15 AM EDT) Anatomical Region Laterality Modality Upper Extremities, Wrist Right Radiogr aphic Imaging 12/07/2024 11:1 5 AM EDT Narrative 12/07/2024 11:39 AM EDT [address] [address] XRay Report Signed Patient: Nafisa Jacobs MR#: [id number] : 1995 Acct:[id number] Age/Sex: 29 / F ADM Date: 12/07/24 Loc: HO.XRAY Attending Dr: Shayne Mclain MD Ordering Physician: Shayne Mclain MD Date of Service: 12/07/24 Procedure(s): XR wrist RT min 3V Accession Number(s): [id number] cc: Shayne Mclain MD; Cathryn Cardoza MD [...] 12/07/24 1137 DD/ 1115 TD/TT: 12/07/24 1116 Install And Repair Technician: Procedure Note Donotuseinterpreter, Image - 12/07/[address] [address] XRay Report Signed Patient: Nafisa JacobsMR#: [id number] : 1995Acct:[id number] Age/Sex: 29 / FADM Date: 12/07/24 Loc: HO.XRAY Attending Dr: Shayne Mclain MD Ordering Physician: Shayne Mclain MD Date of Service: 12/07/24 Procedure(s): XR wrist RT min 3V Accession Number(s): [id number] cc: Shayne Mclain MD; Cathryn Cardoza MD [...] 12/07/24 1137 DD/ 1115 TD/TT: 12/07/24 1116 Install And Repair Technician: [facility] External Provider IMG XR PROCEDURES Final Result * XR Hand 3+ Views Right (12/07/2024 11:14 AM EDT) Anatomical Region Laterality Modality Upper Extremities, Hand Right Radiogra phic Imaging 12/07/2024 11:1 4 AM EDT Narrative 12/07/2024 11:39 AM EDT [address] [address] XRay Report Signed Patient: Nafisa Jacobs MR#: [id number] : 1995 Acct:[id number] Age/Sex: 29 / F ADM Date: 12/07/24 Loc: HO.SWATIAY Attending Dr: Shayen Mclain MD Ordering Physician: Shayne Mclain MD Date of Service: 12/07/24 Procedure(s): XR hand RT min 3V Accession Number(s): [id number] cc: Shayne Mclain MD; Cathryn Cardoza MD [...] 12/07/24 1137 DD/ 1114 TD/TT: 12/07/24 1116 Install And Repair Technician: Procedure Note Donotuseinterpreter, Image - 12/07/2024 [place] [address] XRay Report Signed Patient: Nafisa JacobsMR#: [id number] : 1995Acct:[id number] Age/Sex: 29 FADM Date: 12/07/24 Loc: HO.JESSICA Attending Dr: Shayne Mclain MD Ordering Physician: Shayne Mclain MD Date of Service: 12/07/24 Procedure(s): XR hand RT min 3V Accession Number(s): [id number] cc: Shayne Mclain MD; Cathryn Cardoza MD [...] 12/07/24 1137 DD/ 1114 TD/TT: 12/07/24 1116 Install And Repair Technician: [facility] External Provider IMG XR PROCEDURES Final Result * Pap Smear (01/25/2024 9:58 AM EST) Swab Cervix uteri structure / Unknown 01/25/2024 9:58 AM EST 01/26/2024 9:30 AM EST Narrative [facility] LABS - 01/30/2024 10:24 AM EST ----- ------- Name: Nafisa Jacobs Age/Sex: 29/F : 1995 Unit#: [id number] Attend Dr: Re01/25/24 Status: PRE REF Location: [facility] Disch: ----- ------- SPEC : [id number] RECD: 01/26/24 STATUS: DIOMEDES HERR NUM: [id number] YANIRA: 01/25/24 [facility] DR: RUTH MALIK [facility] ENTERED: 01/26/24 SP TYPE: Pap Smr [...] ----- ------- END OF REPORT Ruth Malik [facility] LAB CYTOLOGY ORDERABLES F inal Result [facility] [address] [place] [phone] * HPV mRNA E6/E7 w/Reflex to HPV Genotypes 16, 18/45 (01/25/2024 12:00 AM EST) [facility] Provider LAB CYTOLOGY ORDERABLES F inal Result Performing Organization Address [facility]/ZIP Co de Phone Number [facility] [address] [place] [address] [phone] * Hepatitis C Antibody with Reflex to HCV, RNA, Quantitative, Real-Time PCR (01/13/2024 2:35 PM EDT) Hepatitis C Antibody Nonreactive Nonreactive [facility] Comment:Antibodies to HCV no t detected; does not exclude early acuteHCV infection. Blood Venous blood specimen / Unknown 01/13/2024 2:35 PM EDT 01/13/2024 4:32 PM EDT Cathryn Zhou MD LAB BLOOD ORDERAB LES Final Result Performing Organization Address [facility]/ZIP Co de Phone Number [facility] [address] [place] [address] [phone] * HIV-1/2 Antigen and Antibodies, Fourth Generation, with Reflexes (01/13/2024 2:35 PM EDT) HIV AB/AG Nonreactive Nonreactive [facility] Comment:HIV-1 p24 Ag and/or HIV-1/HIV-2 Ab not detected.A test result that is nonreactive does not exclude thepossibility of exposure to or infection with HIV-1 and/orHIV-2. Nonreactive results in this assay for individualswith prior exposure to HIV-1 and/or HIV-2 may be due toantigen and antibody levels that are below the limit ofdetection of this assay.The [employer] Sc[employer] HIV Ag/Ab Combo assay result andsupplemental assay results should be interpreted inconjunction with the patient's clinical presentation,history and other laboratory results. If the results areinconsistent with clinical evidence, additional testing issuggested to confirm the result. Blood Venous blood specimen / Unknown 01/13/2024 2:35 PM EDT 01/13/2024 4:32 PM EDT Cathryn Zhou MD LAB BLOOD ORDERAB LES Final Result [facility] [address] [place] [address] [phone] from Last 3 Months or Most Recently Relevant to Health Maintenance Insurance [employer] C3 Care Teams Medical Policy Specialist Relationship Specialty Start Date End Date Cathryn Cardoza MD [address] [place] [address] PCP - General Internal Medicine 09/08/22
--- OUTSIDE RECORDS SUMMARY | 2025-03-05 23:11 | XMS_ITS | Encounter Summary ---
Author Organization [employer] Address 75 [facility] 7 [place] [address] Care Team Providers Care White Goods Appliance Tech Name Role Phone Cathryn Cardoza MD Primary Care Pro vider Salinas Dhaliwal RN Unavailable Reason for Visit * Reason Onset Date Comments Nurse Triage 04/19/2024 Encounter Details Date Type Department Care Team (Late st Contact Info) Description 04/19/2024 Telephone [facility] MEDICINE [address] [place], [place] [phone] Cathryn Cardoza MD [address] [place], [place] [phone] Nurse Triage Social History Tobacco Use Types [...] on site. She spoke with provider in [facility] in February 2024 abouta letter to remove rugs but never went to medical records. No letter on file. Advised her to go request letter tomorrow after appt. Explained NTTS alterations supervisor nurse before appt. Pt verbalized understanding, no [...] never been confirmed by a doctor (or STORE STOCKER/PA) * Nasal allergies occur only certain times [...] 11:30 AM EST Office Visit [facility] MEDICINE [address] [place] [address] Cathryn Cardoza MD [address] [place] [address] documented as of this encounter Visit Diagnoses Not on filedocumented in this encounter Additional Health Concerns Assessment Noted Time PHQ-9 Depression Total Score: 11 024 10:24 AM EST documented as of this encounter Care Teams White Goods Appliance Tech Relationship Specialty Start Date End Date Cathryn Cardoza MD [address] [place] [phone] PCP - General Internal Medicine 09/08/22 Salinas Dhaliwal RN [address] [place] [phone] Roof SlaterVarnish Finisher 05/15/24 08/14/24 documented as of this encounter
--- OUTSIDE RECORDS SUMMARY | 2025-03-05 23:11 | XMS_ITS | Encounter Summary ---
Author Organization [employer] Address 75 [facility] 7t [place] [address] Care Team Providers Care Grain Mixer Name Role Phone Yvonne Madrid ROASTERMAN Primary Care Provider [phone] Cathryn Cardoza MD Primary Care Pro vider Salinas Dhaliwal RN Unavailable [phone] Encounter Details Date Type Department Care Team (Late Contact Info) Description 04/30/2022 Orders Only [facility] MEDICINE [address] [place] [phone] Shasha Mendiola RN [address] [place], [place] [phone] Social History Tobacco Use Types Packs/Day Years [...] 11:30 AM EST Office Visit [facility] MEDICINE [address] [place] [address] [phone] Cathryn Cardoza MD [address] [place] [phone] documented as of this encounter Visit Diagnoses Not on filedocumented in this encounter Care Teams Grain Mixer Relationship Specialty Start Date End Date Yvonne Madrid FNP [address] [place] [phone] PCP - General Family Medicine 08/25/21 09/07/22 Cathryn Cardoza MD [address] [place] [address] PCP - General Internal Medicine 09/08/22 Salinas Dhaliawl RN [address] [place] [address] Registration SpecialistClay Burner 05/15/24 08/14/24 documented as of this encounter
--- OUTSIDE RECORDS SUMMARY | 2025-03-05 23:11 | XMS_ITS | Encounter Summary ---
Author Organization [employer] Address [address] [facility] [address] 7t [place] [address] Care Team Providers Care Medical Staff Credentialing Coordinator Name Role Phone Cathryn Cardoza MD Primary Care Pro vider Salinas Dhaliwal RN Unavailable [phone] Encounter Details Date Type Department Care Team (Late st Contact Info) Description 07/09/2024 Orders Only [facility] P[facility]S [address] [place] [address] Nadine Lizama Social History Tobacco Use Types [...] Office Visit [facility] MEDICINE [address] [place] [address] Cathryn Cardoza MD [address] [place] [address] documented as of this encounter Procedures Procedure Name Priority Date/Time Associated Diagnosis Comments HPV MRNA E6/E7 REFLEX TO HPV 16, 18/45 Routine 01/25/2024 12:00 AM EST documented in this encounter Results * HPV mRNA E6/E7 w/Reflex to HPV Genotypes 16, 18/45 (01/25/2024 12:00 AM EST) us Historical Provider LAB CYTOLOGY ORDERABLES F inal Result [facility] [address] [place] [address] [phone] documented in this encounter Visit Diagnoses Not on filedocumented in this encounter Additional Health Concerns Assessment Noted Time PHQ-9 Depression Total Score: 11 024 10:24 AM EST documented as of this encounter Care Teams Medical Staff Credentialing Coordinator Relationship Specialty Start Date End Date Cathryn Cardoza MD [address] [place] [address] [phone] PCP - General Internal Medicine 09/08/22 Salinas Dhaliwal RN [address] [place] [phone] Plaster Mold MakerClerical Transcriber 05/15/24 08/14/24 documented as of this encounter
--- OUTSIDE RECORDS SUMMARY | 2025-03-05 23:11 | XMS_ITS | Encounter Summary ---
Author Organization [employer] Address [address] [facility] 7 [place] [address] Care Team Providers Care Drapery Rod Assembler Name Role Phone Cathryn Cardoza MD Primary Care Pro vider Salinas Dhaliwal RN Unavailable [phone] Reason for Visit * Reason Onset Date Comments Appointment Request 02/23/2023 Encounter Details Date Type Department Care Team (Late st Contact Info) Description 02/23/2023 Telephone [facility] MEDICINE [address] [place] [address] [phone] Cathryn Cardoza MD [address] [place], [place] [phone] Appointment Request Social History Tobacco Use Types [...] calling to request a appt for DEPO casualty 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 was going to schedule but was unable to due to a window period please call to schedule documented in this encounter Plan of Treatment Upcoming Encounters Date Type Department Care Team (Late st Contact Info) Description 04/18/2025 11:30 AM EST Office Visit [facility] MEDICINE [address] [place] [phone] Cathryn Cardoza MD [address] [place] [address] [phone] documented as of this encounter Visit Diagnoses Not on filedocumented in this encounter Care Teams Drapery Rod Assembler Relationship Specialty Start Date End Date Cathryn Cardoza MD [address] [place] [address] [phone] PCP - General Internal Medicine 09/08/22 Salinas Dhaliwal RN [address] [place] [phone] Polymer EngineerCommunity Living Coach 05/15/24 08/14/24 documented as of this encounter
--- OUTSIDE RECORDS SUMMARY | 2025-03-05 23:11 | XMS_ITS | Encounter Summary ---
Author Organization [employer] Address [address] [facility] 7 [place] [address] Care Team Providers Care Seo Associate Name Role Phone Cathryn Cardoza MD Primary Care Pro vider Salinas Dhaliwal RN Unavailable [phone] Reason for Visit * Reason Onset Date Comments Appointment Request 02/09/2023 Encounter Details Date Type Department Care Team (Late st Contact Info) Description 02/09/2023 Telephone [facility] MEDICINE [address] [place] [address] [phone] Cathryn Cardoza MD [address] [place], [place] [phone] Appointment Request Social History Tobacco Use Types [...] like a call back to reschedule appt commercial insurance underwriter did cancel appt. documented in this encounter Plan of Treatment Upcoming Encounters Date Type Department Care Team (Late st Contact Info) Description 04/18/2025 11:30 AM EST Office Visit [facility] MEDICINE [address] [place] [phone] Cathryn Cardoza MD [address] [place] [address] [phone] documented as of this encounter Visit Diagnoses Not on filedocumented in this encounter Care Teams Seo Associate Relationship Specialty Start Date End Date Cathryn Cardoza MD [address] [place] [address] [phone] PCP - General Internal Medicine 09/08/22 Salinas Dhaliwal RN [address] [place] [address] [phone] Rubber InsulatorCorporate Law Specialist 05/15/24 08/14/24 documented as of this encounter
[2025-03-05 23:23] LABS: Hematocrit 37.2 % (37.0-47.0); Hemoglobin 12.6 g/dl (12.0-16.0); Imm Gran Abs Auto 0.02 X10*3/uL (0.00-0.03); Imm Gran Pct Auto 0.2 % (0.0-0.4); Lymphocytes Absolute Auto 0.4 X10*3/uL (1.2-4.9); MANUAL DIFF FLAG SCAN; Mean Corpuscular HGB Conc 33.9 g/dl (31.0-35.0); Mean Corpuscular Hemoglobin 29.4 pg (27.0-33.0); Mean Corpuscular Volume 86.9 fL (80.0-98.0); NRBC Abs Auto 0.000 X10*3/uL (0.0-0.012); NRBC Pct Auto 0.0 /100WBC (0.0-0.2); PLT CLUMP 1; Red Blood Count 4.28 X10*6/uL (4.20-5.50); SCAN SMEAR FLAG 1
[2025-03-05 23:30] LABS: IDNOW Serial# 6674DD1D; Strep A Nucleic Acid Negative (Negative)
[2025-03-05 23:31] LABS: Alanine Aminotransferase 12 U/L (0-31); Albumin Level 4.8 g/dL (3.5-5.0); Alkaline Phosphatase 59 U/L (39-117); Anion Gap 13 (12-20); Aspartate Amino Transferase 31 U/L (5-31); Blood Urea Nitrogen 13 mg/dL (9-16); Calcium 9.6 mg/dL (8.4-10.2); Carbon Dioxide 22 mmol/L (22-29); Chloride 109 mmol/L (96-108); Creatinine Clr Calc Pharmacy 87.8; Estimated Glomerular Filt Rate > 60; Potassium 3.8 mmol/L (3.3-5.1); Sodium 140 mmol/L (135-145); Total Protein 7.5 g/dL (6.5-8.0)
[2025-03-05 23:36] VITALS: BP 112/51; PULSE 89; RESP 18; TEMP 37.2; O2SAT 95
[2025-03-05 23:42] VITALS: O2SAT 96
[2025-03-05 23:50] LABS: Platelet Count 132 X10*3/uL (160-400); White Blood Count 8.3 X10*3/uL (4.8-10.8)
[2025-03-05 23:53] LABS: Resp Syncy Virus RNA Qual PCR NEGATIVE (Negative); SARS COV2 PCR INHOUSE NEGATIVE (Negative)
[2025-03-06 00:50] VITALS: BP 136/66; PULSE 102; RESP 14; TEMP 37.2; O2SAT 97
== END 2025-03-06 00:51 | disposition home or self-care (01) ==
PROVIDERS: Emergency Provider Emergency Medicine; PCP Student in an Organized Health Care Education/Training Program
DX: J10.1 Influenza due to other identified influenza virus with other respiratory manifestations (principal); R11.2 Nausea with vomiting, unspecified; E86.0 Dehydration; Z03.818 Encounter for observation for suspected exposure to other biological agents ruled out
CPT/HCPCS: 80053; 85025; 87637; 87651; 96360; 99284; 99285